=== PATIENT | female | born 1930 | race Caucasian/White ===

== ENCOUNTER 2017-04-02 14:26 | Inpatient (IN) | payer MEDICARE, OTHER ==
[~2017-04-02] VITALS: Ht 154.9 cm; Wt 64.5 kg
[2017-04-02 14:27] VITALS: BP 120/55; PULSE 71; RESP 16; TEMP 97.7; O2SAT 94
--- NOTE | 2017-04-02 16:42 | PD ---
HPI Chief Complaint: Edema Time Seen by Provider: 16:27 Travel History International Travel<30 days: No Contact w/Intl Traveler<30days: No Traveled to known affect area: No History of Present Illness HPI 86-year-old female came to the emergency room brought by her daughters with history of left foot pain. Patient says that the pain has been there since last Wednesday which makes it about 3 days. Patient is visiting her daughter is from [place] and was supposed to fly back today but since the pain is not getting better to force the mother to come to the emergency room to be evaluated. She does have history of peripheral vascular disease. As per the daughter she had bilateral iliac stents placed few years ago in [place] and sees a vascular surgeon there. Patient is on aspirin and Plavix. At the beginning of this year she had a carotid endarterectomy done as well. 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 The patient had chosen to go through conservative management. She was going to physical therapy for that. Currently because of the pain the daughters gave her tramadol before bringing her in. Patient is slightly groggy from that and not in as much agony. Vital signs are relatively stable. PFSH Past Medical History Narrative Medical List of her past medical, surgical, social and family history is reviewed from the nursing note. Social History Tobacco Use: No Allergies-Medications (Allergen,Severity, Reaction): Coded Allergies: Penicillins (Verified Allergy, Unknown, 04/02/17) Sulfa (Sulfonamide Antibiotics) (Verified Allergy, Unknown, 04/02/17) codeine (Verified Allergy, Unknown, 04/02/17) iodine (Verified Allergy, Unknown, 04/02/17) lidocaine (Verified Allergy, Unknown, 04/02/17) milk (Verified Allergy, Unknown, 04/02/17) sulfamethoxazole (Verified Allergy, Unknown, 04/02/17) triamcinolone (Verified Allergy, Unknown, 04/02/17) trimethoprim (Verified Allergy, Unknown, 04/02/17) Comments List of her allergies reviewed from the nursing note. Reported Meds & Prescriptions Reported Meds & Active Scripts Active Reported Plavix (Clopidogrel Bisulfate) 75 Mg Tab 75 Mg PO DAILY Atenolol-Chlorthalidone 100-25 Mg Tab 1 Tab PO DAILY Altace (Ramipril) 10 Mg Cap 10 Mg PO DAILY Aspirin 81 Mg Chew 81 Mg CHEW DAILY Potassium Chloride ER (Potassium Chloride) 20 Meq Tab 20 Meq PO DAILY Levothyroxine (Levothyroxine Sodium) 50 Mcg Tab 50 Mcg PO DAILY Combigan Opth Drops (Brimonidine-Timolol Opth Drops) 0.2-0.5% Soln 1 Drop EACH EYE Q12HR Lumigan Opth Drops (Bimatoprost) 0.01% Soln 1 Drop EACH EYE HS Narrative Medication List of her home medications reviewed from the nursing note. Review of Systems Except as stated in HPI: all other systems reviewed are Neg Musculoskeletal: Positive: Pain Physical Exam Narrative GENERAL: Groggy but answering questions appropriately, mild distress SKIN: Focused skin assessment warm/dry. Left leg appears to be hyperemic and congested but the left big toe and middle toe appears to be pale and dusky. Right leg appears to be pale than the left leg but uniformly discolored. HEAD: Atraumatic. Normocephalic. EYES: Pupils equal and round. No scleral icterus. No injection or drainage. ENT: No nasal bleeding or discharge. Mucous membranes pink and moist. NECK: Trachea midline. No JVD. CARDIOVASCULAR: Regular rate and rhythm. No murmur appreciated. RESPIRATORY: No accessory muscle use. Clear to auscultation. Breath sounds equal bilaterally. GASTROINTESTINAL: Abdomen soft, non-tender, nondistended. Hepatic and splenic margins not palpable. MUSCULOSKELETAL: No obvious deformities. No clubbing. No cyanosis. No edema. NEUROLOGICAL: Awake and alert. No obvious cranial nerve deficits. Motor grossly within normal limits. Normal speech. Bilateral DPs and PTs both palpable and dopplerable absent. PSYCHIATRIC: Appropriate mood and affect; insight and judgment normal. Data Data Last Documented VS Vital Signs Date Time Temp Pulse Resp B/P (MAP) Pulse Ox O2 Delivery O2 Flow Rate FiO2 04/02/17 16:53 60 16 144/62 (89) 98 Room Air 04/02/17 14:27 97.7 Orders Orders Complete Blood Count With Diff (04/02/17 14:47) Comprehensive Metabolic Panel (04/02/17 14:47) Prothrombin Time / Inr (Pt) (04/02/17 14:47) Act Partial Throm Time (Ptt) (04/02/17 14:47) Heparin Inj (Heparin Inj) (04/02/17 17:00) Heparin Inj (Heparin Inj) (04/02/17 23:00) Heparin Inj (Heparin Inj) (04/02/17 23:00) Heparin-D5w 25,000 U/250 Ml (Heparin-D5w (04/02/17 17:00) Cbc No Diff, Includes Plts (04/05/17 06:00) Act Partial Throm Time (Ptt) (04/02/17 23:51) Occult Blood (Hemoccult) Stool (04/02/17 16:51) Prednisone (Deltasone) (04/02/17 21:00) Prednisone (Deltasone) (04/03/17 03:00) Prednisone (Deltasone) (04/03/17 09:00) Diphenhydramine (Benadryl) (04/03/17 09:00) Cta Runoff W Iv Contrast W 3d (04/03/17 10:00) Admit Order (Ed Use Only) (04/02/17 18:33) Labs Laboratory Tests Test 04/02/17 15:37 White Blood Count 5.9 TH/MM3 Red Blood Count 4.88 MIL/MM3 Hemoglobin 14.3 GM/DL Hematocrit 43.1 % Mean Corpuscular Volume 88.2 FL Mean Corpuscular Hemoglobin 29.3 PG Mean Corpuscular Hemoglobin Concent 33.2 % Red Cell Distribution Width 14.1 % Platelet Count 222 TH/MM3 Mean Platelet Volume 8.7 FL Neutrophils (%) (Auto) 70.0 % Lymphocytes (%) (Auto) 22.0 % Monocytes (%) (Auto) 4.9 % Eosinophils (%) (Auto) 2.1 % Basophils (%) (Auto) 1.0 % Neutrophils # (Auto) 4.1 TH/MM3 Lymphocytes # (Auto) 1.3 TH/MM3 Monocytes # (Auto) 0.3 TH/MM3 Eosinophils # (Auto) 0.1 TH/MM3 Basophils # (Auto) 0.1 TH/MM3 CBC Comment DIFF FINAL Differential Comment Prothrombin Time 10.0 SEC Prothromb Time International Ratio 1.0 RATIO Activated Partial Thromboplast Time 28.1 SEC Blood Urea Nitrogen 23 MG/DL Creatinine 1.16 MG/DL Random Glucose 121 MG/DL Total Protein 7.1 GM/DL Albumin 3.4 GM/DL Calcium Level 9.2 MG/DL Alkaline Phosphatase 86 U/L Aspartate Amino Transf (AST/SGOT) 16 U/L Alanine Aminotransferase (ALT/SGPT) 16 U/L Total Bilirubin 0.4 MG/DL Sodium Level 136 MEQ/L Potassium Level 3.6 MEQ/L Chloride Level 101 MEQ/L Carbon Dioxide Level 29.4 MEQ/L Anion Gap 6 MEQ/L Estimat Glomerular Filtration Rate 44 ML/MIN MDM Medical Decision Making Medical Screen Exam Complete: Yes Emergency Medical Condition: Yes Medical Record Reviewed: Yes Differential Diagnosis Leg Arterial occlusion Narrative Course 5:46 PM I immediately diagnosed her clinically as arterial occlusion of her leg. Patient was started on heparin bolus and drip. I wanted to order a CT angiogram of her lower extremities but patient is allergic to iodine and hence cannot get an emergent CT without 12 hours of premedication as per [facility] policy. I discussed the case with Dr. Talamantes who was on-call for vascular surgery and came to see the patient promptly. He agreed with the diagnosis and the management so far in the ED. He was the patient to be admitted medically and he will try to operate on this patient early next week. Critical Care Narrative Aggregate critical care time was 30 minutes. Time to perform other separately billable procedures was not included in the critical care time. My time did not include minutes spent treating any other patients simultaneously or on activities that did not directly contribute to the patient's treatment. The services I provided to this patient were to treat and/or prevent clinically significant deterioration that could result in: Vascular occlusion of the leg, heparin bolus and drip I provided critical care services requiring my management, as noted below: Chart data review, documentation time, medication orders and management, vital sign assessments/reviewing monitor data, ordering and reviewing lab tests, ordering and interpreting/reviewing x-rays and diagnostic studies, care of the patient and discussion of the patient with the admitting physicians. Procedures EKG Prior to Arrival: No Physician Communication Physician Communication Dr. Talamantes Diagnosis Primary Impression: Ischemia of left lower extremity Admitting Information Admitting Physician Requests: Admit My Velázquez MD Apr 02, 2017 16:42
[2017-04-02 16:44] LABS: AUTOMATED NEUTROPHIL # 4.1 TH/MM3 (1.8-7.7); BASOPHIL # 0.1 TH/MM3 (0-0.2); EOSINOPHIL # 0.1 TH/MM3 (0-0.4); EOSINOPHIL % 2.1 % (0.0-4.0); HEMATOCRIT 43.1 % (35.0-46.0); HEMOGLOBIN 14.3 GM/DL (11.6-15.3); LYMPHOCYTE # 1.3 TH/MM3 (1.0-4.8); MEAN CELL VOLUME 88.2 FL (80.0-100.0); MEAN CORPUSCULAR HEMOGLOBIN 29.3 PG (27.0-34.0); MEAN CORPUSCULAR HGB CONC 33.2 % (32.0-36.0); MEAN PLATELET VOLUME 8.7 FL (7.0-11.0); MONO % 4.9 % (0.0-8.0); MONOCYTE # 0.3 TH/MM3 (0-0.9); PLATELET COUNT 222 TH/MM3 (150-450); RED BLOOD COUNT 4.88 MIL/MM3 (4.00-5.30); RED CELL DISTRIBUTION WIDTH 14.1 % (11.6-17.2); WHITE BLOOD COUNT 5.9 TH/MM3 (4.0-11.0)
[2017-04-02 16:53] VITALS: BP 144/62; PULSE 60; RESP 16; O2SAT 98
[2017-04-02] MEDS ORDERED: HEPARIN SODIUM - IV 10,000 UNITS/10 ML VIAL IV ONE (17:00)
[2017-04-02] MEDS: HEPARIN-D5W 25,000 U/250 ML 250 ML IV PRN (17:12)
[2017-04-02 17:16] LABS: ALBUMIN 3.4 GM/DL (3.4-5.0); ALT (GPT) 16 U/L (10-53); AST (GOT) 16 U/L (15-37); BICARBONATE 29.4 MEQ/L (21.0-32.0); BLOOD UREA NITROGEN 23 MG/DL (7-18); CALCIUM 9.2 MG/DL (8.5-10.1); CHLORIDE 101 MEQ/L (98-107); CREATININE 1.16 MG/DL (0.50-1.00); GLOMERULAR FILTRATION RATE 44 ML/MIN (>89); GLUCOSE,RANDOM 121 MG/DL (74-106); SODIUM (NA) 136 MEQ/L (136-145)
[2017-04-02 17:18] LABS: ALKALINE PHOSPHATASE 86 U/L (45-117); TOTAL BILIRUBIN ADULT 0.4 MG/DL (0.2-1.0); TOTAL PROTEIN 7.1 GM/DL (6.4-8.2)
[2017-04-02] MEDS ORDERED: ATEN100T7 PO (17:31)
[2017-04-02] MEDS ORDERED: COMB0.2S EACH EYE (17:31)
[2017-04-02] MEDS ORDERED: PLAV75TA29 PO (17:31)
[2017-04-02] MEDS ORDERED: ALTA10CA12 PO (17:31)
[2017-04-02] MEDS ORDERED: LEVO50TA4 PO (17:31)
[2017-04-02] MEDS ORDERED: POTA-163 PO (17:31)
[2017-04-02] MEDS ORDERED: LUMI0.01 EACH EYE (17:31)
[2017-04-02] MEDS ORDERED: ASPI-516 CHEW (17:31)
--- NOTE | 2017-04-02 17:54 | PD.VS.CON ---
History of Present Illness Chief Complaint: L LE pain Consult Requested by: ED History of Present Illness 86 yo female with multiple cardiovascular comorbidities who has 3-4 days of worsening L foot pain and now unable to bear weight on the foot. Good motor function. Much of the history obtained from the daughter at the patient's request. She apparently has a long history of PAD including iliac stents in 2009 for rest pain and more recently, symptomatic claudication. No ulcers. Past/Family/Social History Past Medical History CAD tobacco abuse PAD' CVOD Past Surgical History CABG pacer R CEA (Apr) iliac stents kidney surgery x 3 Social History stopped smoking 1 year ago 3 daughters lives in [place] farm Family History NC Home Medications Reported Medications Clopidogrel (Plavix) 75 Mg Tab, 75 MG PO DAILY for Blood Clot Prevention, #30 TAB 0 Refills 04/02/17 Atenolol-Chlorthalidone (Atenolol-Chlorthalidone) 100-25 Mg Tab, 1 TAB PO DAILY for Blood Pressure Management, #30 TAB 0 Refills 04/02/17 Ramipril (Altace) 10 Mg Cap, 10 MG PO DAILY, #30 CAP 0 Refills 04/02/17 Aspirin (Aspirin) 81 Mg Chew, 81 MG CHEW DAILY, TAB 0 Refills 04/02/17 Potassium Chloride ER (Potassium Chloride ER) 20 Meq Tab, 20 MEQ PO DAILY for Electrolyte Replacement, #30 TAB 0 Refills 04/02/17 Levothyroxine (Levothyroxine) 50 Mcg Tab, 50 MCG PO DAILY for Thyroid, #30 TAB 0 Refills 04/02/17 Brimonidine-Timolol Opth Drops (Combigan Opth Drops) 0.2-0.5% Soln, 1 DROP EACH EYE Q12HR for Glaucoma, BOTTLE 0 Refills 04/02/17 Bimatoprost Opth Drops (Lumigan Opth Drops) 0.01% Soln, 1 DROP EACH EYE HS for Intraocular Pressure, #1 BOTTLE 0 Refills 04/02/17 Coded Allergies: Penicillins (Verified Allergy, Unknown, 04/02/17) Sulfa (Sulfonamide Antibiotics) (Verified Allergy, Unknown, 04/02/17) codeine (Verified Allergy, Unknown, 04/02/17) iodine (Verified Allergy, Unknown, 04/02/17) lidocaine (Verified Allergy, Unknown, 04/02/17) milk (Verified Allergy, Unknown, 04/02/17) sulfamethoxazole (Verified Allergy, Unknown, 04/02/17) triamcinolone (Verified Allergy, Unknown, 04/02/17) trimethoprim (Verified Allergy, Unknown, 04/02/17) Review of Systems Respiratory: COMPLAINS OF: Shortness of breath, DENIES: Sputum production Cardiovascular: COMPLAINS OF: Claudication, DENIES: Chest pain Musculoskeletal: COMPLAINS OF: Muscle aches, Joint Swelling Neurologic: COMPLAINS OF: Abnormal gait Physical Exam Vitals/I&O Date Time Temp Pulse Resp B/P (MAP) Pulse Ox O2 Delivery O2 Flow Rate FiO2 04/02/17 16:53 60 16 144/62 (89) 98 Room Air 04/02/17 14:27 97.7 71 16 120/55 (76) 94 Room Air Neuro: alert, conversant, no distress HEENT: NC/AT Neck: no JVD; trachea midline; Heart: reg rate, no M Lungs: clear B Abdomen: NT Vascular: diminished femoral pulses, no pedal pulses Extremities: L foot edematous and cyanotic toes but no debbie tissue loss motor intact TTP bottom of feet at MTP Laboratory Tests Test 04/02/17 15:37 White Blood Count 5.9 Red Blood Count 4.88 Hemoglobin 14.3 Hematocrit 43.1 Mean Corpuscular Volume 88.2 Mean Corpuscular Hemoglobin 29.3 Mean Corpuscular Hemoglobin Concent 33.2 Red Cell Distribution Width 14.1 Platelet Count 222 Mean Platelet Volume 8.7 Neutrophils (%) (Auto) 70.0 Lymphocytes (%) (Auto) 22.0 Monocytes (%) (Auto) 4.9 Eosinophils (%) (Auto) 2.1 Basophils (%) (Auto) 1.0 Neutrophils # (Auto) 4.1 Lymphocytes # (Auto) 1.3 Monocytes # (Auto) 0.3 Eosinophils # (Auto) 0.1 Basophils # (Auto) 0.1 CBC Comment DIFF FINAL Differential Comment Prothrombin Time 10.0 Prothromb Time International Ratio 1.0 Activated Partial Thromboplast Time 28.1 Blood Urea Nitrogen 23 Creatinine 1.16 Random Glucose 121 Total Protein 7.1 Albumin 3.4 Calcium Level 9.2 Alkaline Phosphatase 86 Aspartate Amino Transf (AST/SGOT) 16 Alanine Aminotransferase (ALT/SGPT) 16 Total Bilirubin 0.4 Sodium Level 136 Potassium Level 3.6 Chloride Level 101 Carbon Dioxide Level 29.4 Anion Gap 6 Estimat Glomerular Filtration Rate 44 pending Assessment and Plan Plan Likely acute on chronic ischemia and likely multi-level 1. Admission to medical service with CV risk factor modification (ASA, statin) 2. CTA A/P to toes. I ordered steroid prep - she has had IV contrast before with no adverse reaction with the prep 3. Hep gtt and neurovasc checks 4. Will need revascularization - plan TBD based on anatomy delineated with CTA Will follow closely. Catracho Talamantes MD FACS [employer] health service worker [facility] - Heart and Vascular Surgery at [facility] [phone] Catracho Talamantes MD Apr 02, 2017 17:54
[2017-04-02 18:58] VITALS: BP 112/54; PULSE 66; RESP 15; O2SAT 95
[2017-04-02] MEDS ORDERED: SENNOSIDES 8.6 MG TAB PO PRN (19:00)
[2017-04-02] MEDS ORDERED: SODIUM CHLORIDE 0.9% FLUSH 10 ML FLUSH IV FLUSH PRN (19:00)
[2017-04-02] MEDS ORDERED: NALOXONE HCL 0.4 MG/ML AMP IV PUSH PRN (19:00)
[2017-04-02] MEDS ORDERED: LACTULOSE SYRUP 20 GM/30 ML CUP PO PRN (19:00)
[2017-04-02] MEDS ORDERED: BISACODYL 10 MG SUPP RECTAL PRN (19:00)
[2017-04-02] MEDS ORDERED: MAGNESIUM HYDROXIDE SUSP 30 ML CUP PO PRN (19:00)
--- NOTE | 2017-04-02 19:43 | HHI.HP ---
[facility] Non-Staff Admission Diagnosis leg ischemia Diagnoses: (1) Ischemia of left lower extremity Diagnosis: Principal (2) Renal insufficiency Diagnosis: Principal (3) HTN (hypertension) Diagnosis: Principal Travel History International Travel<30 Days: No Contact w/Intl Traveler <30 Da: No Traveled to Known Affected Are: No History of Present Illness This is an 86-year-old female with a PMH of HTN, Hyperlipidemia, PVD and Hypothyroidism who was brought to the ER by Her daughter secondary to complaints of left leg pain x3 days. Pt visiting Daughter from [place], was supposed to fly back home today, however cancelled her flight due to severe pain. Pain is sharp, constant, 10/10, s/p Tramadol w/ some relief. Pt does have h/o PVD, follows w/ Vascular Sx back home, apparently recommended surgery for bilateral lower extremity occlusion, however pt declined intervention. Denies fever, chills, chest pain or sick contacts. On arrival, BP 144/60, HR 60 , O2 sat 98% on RA, Afebrile. CBC unremarkable. Creatinine 1.16, no bruits labs for comparison. INR 1.0. Dr. Talamantes consulted by ER physician, s/p jose angel in ER w/ plan for surgical intervention. Currently on Heparin gtt. Review of Systems Except as stated in HPI: all other systems reviewed are Neg ROS: 14 point review of systems otherwise negative. Past Family Social History Past Medical History PMH: HTN, Hyperlipidemia, PVD and Hypothyroidism Past Surgical History PAST SURGICAL HISTORY: CABG, Pacemaker, CEA, Iliac Stent, Kidney Surgery Allergies: Coded Allergies: Penicillins (Verified Allergy, Unknown, 04/02/17) Sulfa (Sulfonamide Antibiotics) (Verified Allergy, Unknown, 04/02/17) codeine (Verified Allergy, Unknown, 04/02/17) iodine (Verified Allergy, Unknown, 04/02/17) lidocaine (Verified Allergy, Unknown, 04/02/17) milk (Verified Allergy, Unknown, 04/02/17) sulfamethoxazole (Verified Allergy, Unknown, 04/02/17) triamcinolone (Verified Allergy, Unknown, 04/02/17) trimethoprim (Verified Allergy, Unknown, 04/02/17) Family History PAST FAMILY HISTORY: Reviewed. No h/o DM or CAD Social History PAST SOCIAL HISTORY: Negative for alcohol, tobacco or drugs. Physical Exam Vital Signs Vital Signs Date Time Temp Pulse Resp B/P (MAP) Pulse Ox O2 Delivery O2 Flow Rate FiO2 04/02/17 18:58 66 15 112/54 (73) 95 Room Air 04/02/17 16:53 60 16 144/62 (89) 98 Room Air 04/02/17 14:27 97.7 71 16 120/55 (76) 94 Room Air Physical Exam PE: GENERAL: Elderly female in no acute distress. HEENT: PERRLA, EOMI. No scleral icterus or conjunctival pallor. No lid lag or facial droop. CARDIOVASCULAR: Regular rate and rhythm. No obvious murmurs to auscultation. No chest tenderness to palpation. RESPIRATORY: No obvious rhonchi or wheezing. Clear to auscultation. Breath sounds equal bilaterally. GASTROINTESTINAL: Abdomen soft, non-tender, nondistended. BS normal. MUSCULOSKELETAL: RLE without clubbing, cyanosis, or edema. No obvious deformities. LLE w/ diminished pulses, +cyanosis, cool. NEUROLOGICAL: Awake, alert and oriented x4. No focal neurologic deficits. Moving both upper and lower extremities spontaneously. Laboratory Laboratory Tests Test 04/02/17 15:37 White Blood Count 5.9 Red Blood Count 4.88 Hemoglobin 14.3 Hematocrit 43.1 Mean Corpuscular Volume 88.2 Mean Corpuscular Hemoglobin 29.3 Mean Corpuscular Hemoglobin Concent 33.2 Red Cell Distribution Width 14.1 Platelet Count 222 Mean Platelet Volume 8.7 Neutrophils (%) (Auto) 70.0 Lymphocytes (%) (Auto) 22.0 Monocytes (%) (Auto) 4.9 Eosinophils (%) (Auto) 2.1 Basophils (%) (Auto) 1.0 Neutrophils # (Auto) 4.1 Lymphocytes # (Auto) 1.3 Monocytes # (Auto) 0.3 Eosinophils # (Auto) 0.1 Basophils # (Auto) 0.1 CBC Comment DIFF FINAL Differential Comment Prothrombin Time 10.0 Prothromb Time International Ratio 1.0 Activated Partial Thromboplast Time 28.1 Blood Urea Nitrogen 23 Creatinine 1.16 Random Glucose 121 Total Protein 7.1 Albumin 3.4 Calcium Level 9.2 Alkaline Phosphatase 86 Aspartate Amino Transf (AST/SGOT) 16 Alanine Aminotransferase (ALT/SGPT) 16 Total Bilirubin 0.4 Sodium Level 136 Potassium Level 3.6 Chloride Level 101 Carbon Dioxide Level 29.4 Anion Gap 6 Estimat Glomerular Filtration Rate 44 Result Diagram: 04/02/17 1537 04/02/17 1537 Caprini VTE Risk Assessment Caprini VTE Risk Assessment: Mod/High Risk (score >= 2) Caprini Risk Assessment Model Point Value = 1 Point Value = 2 Point Value = 3 Point Value = 5 Age 41-60 Minor surgery BMI > 25 kg/m2 Swollen legs Varicose veins or History of unexplained or recurrent spontaneous Oral contraceptives or hormone replacement Sepsis (< 1 month) Serious lung disease, including pneumonia (< 1 month) Abnormal pulmonary function Acute myocardial infarction Congestive heart failure (< 1 month) History of inflammatory bowel disease Medical patient at bed rest Age 61-74 Arthroscopic surgery Major open surgery (> 45 min) Laparoscopic surgery (> 45 min) Malignancy Confined to bed (> 72 hours) Immobilizing plaster cast Central venous access Age >= 75 History of VTE Family history of VTE Factor V Leiden Prothrombin [id number] Lupus anticoagulant Anticardiolipin antibodies Elevated serum homocysteine Heparin-induced thrombocytopenia Other congenital or acquired thrombophilia Stroke (< 1 month) Elective arthroplasty Hip, pelvis, or leg fracture Acute spinal cord injury (< 1 month) Prophylaxis Regimen Total Risk Factor Score Risk Level Prophylaxis Regimen 0-1 Low Early ambulation 2 Moderate Order ONE of the following: *Sequential Compression Device (SCD) *Heparin 5000 units SQ BID 3-4 Higher Order ONE of the following medications: *Heparin 5000 units SQ TID *Enoxaparin/Lovenox 40 mg SQ daily (WT < 150 kg, CrCl > 30 mL/min) *Enoxaparin/Lovenox 30 mg SQ daily (WT < 150 kg, CrCl > 10-29 mL/min) *Enoxaparin/Lovenox 30 mg SQ BID (WT < 150 kg, CrCl > 30 mL/min) AND/OR *Sequential Compression Device (SCD) 5 or more Highest Order ONE of the following medications: *Heparin 5000 units SQ TID (Preferred with Epidurals) *Enoxaparin/Lovenox 40 mg SQ daily (WT < 150 kg, CrCl > 30 mL/min) *Enoxaparin/Lovenox 30 mg SQ daily (WT < 150 kg, CrCl > 10-29 mL/min) *Enoxaparin/Lovenox 30 mg SQ BID (WT < 150 kg, CrCl > 30 mL/min) AND *Sequential Compression Device (SCD) Assessment and Plan Problem List: (1) Ischemia of left lower extremity ICD Code: I99.8 - Other disorder of circulatory system Status: Acute (2) Renal insufficiency ICD Code: N28.9 - Disorder of kidney and ureter, unspecified (3) HTN (hypertension) ICD Code: I10 - Essential (primary) hypertension Assessment and Plan A/P: 1. LLE Limb Ischemia: h/o PVD w/ acute LLE limb ischemia, pulses diminished. S/p eval by Dr. Talamantes, plan for surgical intervention. Heparin gtt, resume home ASA, start Statin. Analgesics as needed for pain control. CTA pending, follow up results. 2. Renal Insufficiency: Creatinine 1.16, no previous labs for comparison. IVF for hydration, repeat labs in a.m. 3. HTN: BP elevated at 140s on arrival. Hold Ramipril in light of renal insufficiency. Start Metoprolol bid. Monitor BP. 4. DVT Prophylaxis: Heparin gtt 5. Social work for d/c planning as needed. 6. Labs/records reviewed. Case discussed w/ ER physician at length. Physician Certification 2 Midnight Certification Type: Admission for Inpatient Services Order for Inpatient Services The services are ordered in accordance with Medicare regulations or non- Medicare payer requirements, as applicable. In the case of services not specified as inpatient-only, they are appropriately provided as inpatient services in accordance with the 2-midnight benchmark. Estimated LOS (days): 2 days is the estimated time the patient will need to remain in the hospital, assuming treatment plan goals are met and no additional complications. Post-Hospital Plan: Not yet determined Kenisha Mancilla MD Apr 02, 2017 19:43
[2017-04-02 20:00] VITALS: BP 143/65; PULSE 76; RESP 17; TEMP 97.3; O2SAT 92
[2017-04-02] MEDS: SODIUM CHLORIDE 0.9% FLUSH 10 ML FLUSH IV FLUSH SCH (21:00)
[2017-04-02] MEDS ORDERED: predniSONE 50 MG TAB PO ONE (21:00)
[2017-04-02] MEDS: LATANOPROST 0.005% OPHT SOLN 2.5 ML BTL EACH EYE SCH (21:29)
[2017-04-02] MEDS: predniSONE 50 MG TAB PO ONE (21:30)
[2017-04-02] MEDS: MORPHINE SULFATE 2 MG/ML INJ IV PRN (23:00)
[2017-04-02] MEDS ORDERED: HEPARIN SODIUM - IV 10,000 UNITS/10 ML VIAL IV PRN ×2 (23:00)
[2017-04-03] VITALS: BP 140/52; PULSE 75; RESP 16; TEMP 98; O2SAT 91
[2017-04-03] MEDS: predniSONE 50 MG TAB PO ONE (03:01)
[2017-04-03] MEDS: MORPHINE SULFATE 2 MG/ML INJ IV PRN (03:02)
[2017-04-03 04:00] VITALS: BP 145/65; PULSE 77; RESP 16; TEMP 97.4; O2SAT 92
[2017-04-03] MEDS: LEVOTHYROXINE SODIUM 50 MCG TAB PO SCH (05:50)
[2017-04-03 08:00] VITALS: BP 145/64; PULSE 71; RESP 16; TEMP 96.4; O2SAT 98
--- NOTE | 2017-04-03 08:33 | PD.VS.PN ---
Subjective Subjective/Hospital Course Pt with persistent L foot pain although somewhat better according to the patient. Tri po remains on hep gtt. Objective Vitals/I&O Date Time Temp Pulse Resp B/P (MAP) Pulse Ox O2 Delivery O2 Flow Rate FiO2 04/03/17 08:00 96.4 71 16 145/64 (91) 98 04/03/17 04:00 97.4 77 16 145/65 (91) 92 04/03/17 00:00 98.0 75 16 140/52 (81) 91 04/02/17 20:26 04/02/17 20:00 97.3 76 17 143/65 (91) 92 04/02/17 18:58 66 15 112/54 (73) 95 Room Air 04/02/17 16:53 60 16 144/62 (89) 98 Room Air 04/02/17 14:27 97.7 71 16 120/55 (76) 94 Room Air 04/03/17 04/03/17 04/03/17 07:00 15:00 23:00 Intake Total 240 ml Balance 240 ml Physical Exam L foot less edematous than last night. + dependent rubor. Motor intact. No pulses Laboratory Laboratory Tests Test 04/02/17 15:37 04/02/17 23:35 White Blood Count 5.9 Red Blood Count 4.88 Hemoglobin 14.3 Hematocrit 43.1 Mean Corpuscular Volume 88.2 Mean Corpuscular Hemoglobin 29.3 Mean Corpuscular Hemoglobin Concent 33.2 Red Cell Distribution Width 14.1 Platelet Count 222 Mean Platelet Volume 8.7 Neutrophils (%) (Auto) 70.0 Lymphocytes (%) (Auto) 22.0 Monocytes (%) (Auto) 4.9 Eosinophils (%) (Auto) 2.1 Basophils (%) (Auto) 1.0 Neutrophils # (Auto) 4.1 Lymphocytes # (Auto) 1.3 Monocytes # (Auto) 0.3 Eosinophils # (Auto) 0.1 Basophils # (Auto) 0.1 CBC Comment DIFF FINAL Differential Comment Prothrombin Time 10.0 Prothromb Time International Ratio 1.0 Activated Partial Thromboplast Time 28.1 55.3 Blood Urea Nitrogen 23 Creatinine 1.16 Random Glucose 121 Total Protein 7.1 Albumin 3.4 Calcium Level 9.2 Alkaline Phosphatase 86 Aspartate Amino Transf (AST/SGOT) 16 Alanine Aminotransferase (ALT/SGPT) 16 Total Bilirubin 0.4 Sodium Level 136 Potassium Level 3.6 Chloride Level 101 Carbon Dioxide Level 29.4 Anion Gap 6 Estimat Glomerular Filtration Rate 44 Assessment and Plan Plan Severe PAD, likely multi-level 1. Continue hep gtt 2. Continue ASA, statin 3. CTA A/P to toes today. Steroid prep ordered last night 4. Will plan revascularization based on CTA, potentially tomorrow (Wednesday) Catracho Talamantes MD FACS [employer] knife cutter [facility] - Heart and Vascular Surgery at [facility] [phone] Catracho Talamantes MD Apr 03, 2017 08:33
[2017-04-03] MEDS: SODIUM CHLORIDE 0.9% FLUSH 10 ML FLUSH IV FLUSH SCH ×2 (08:34→21:00)
[2017-04-03] MEDS: PRAVASTATIN SOD 40 MG TAB PO SCH (08:56)
[2017-04-03] MEDS: ASPIRIN 81 MG CHEW TAB CHEW SCH (08:56)
[2017-04-03 08:57] LABS: ALBUMIN 3.1 GM/DL (3.4-5.0); ALT (GPT) 11 U/L (10-53); AST (GOT) 13 U/L (15-37); BICARBONATE 21.9 MEQ/L (21.0-32.0); BLOOD UREA NITROGEN 20 MG/DL (7-18); CALCIUM 8.9 MG/DL (8.5-10.1); CHLORIDE 101 MEQ/L (98-107); CREATININE 0.87 MG/DL (0.50-1.00); GLOMERULAR FILTRATION RATE 61 ML/MIN (>89); GLUCOSE,RANDOM 164 MG/DL (74-106); SODIUM (NA) 135 MEQ/L (136-145)
[2017-04-03 09:00] LABS: ALKALINE PHOSPHATASE 78 U/L (45-117); TOTAL BILIRUBIN ADULT 0.3 MG/DL (0.2-1.0); TOTAL PROTEIN 6.9 GM/DL (6.4-8.2)
[2017-04-03] MEDS ORDERED: diphenhydrAMINE HCL 50 MG CAP PO ONE (09:00)
[2017-04-03] MEDS ORDERED: BRIMONIDINE TIMOLOL OPTH EACH EYE SCH (09:00)
[2017-04-03] MEDS ORDERED: METOPROLOL TARTRATE 25 MG TAB PO SCH (09:00)
[2017-04-03] MEDS ORDERED: predniSONE 50 MG TAB PO ONE (09:00)
[2017-04-03] MEDS ORDERED: IOHEXOL 350 MG/ML 10 ML VIAL (for RAD DIAG) IVCONTRAST ONE (10:30)
--- NOTE | 2017-04-03 11:56 | HHI.PR ---
Subjective Remarks Follow-up for left lower extremity pain Patient stated pain has improved drastically. Her daughter is at the bedside, who is a nurse and she stated that the coloration and her symptoms have improved drastically with a heparin drip. Objective Vitals Vital Signs Date Time Temp Pulse Resp B/P (MAP) Pulse Ox O2 Delivery O2 Flow Rate FiO2 04/03/17 08:00 96.4 71 16 145/64 (91) 98 04/03/17 04:00 97.4 77 16 145/65 (91) 92 04/03/17 00:00 98.0 75 16 140/52 (81) 91 04/02/17 20:26 04/02/17 20:00 97.3 76 17 143/65 (91) 92 04/02/17 18:58 66 15 112/54 (73) 95 Room Air 04/02/17 16:53 60 16 144/62 (89) 98 Room Air 04/02/17 14:27 97.7 71 16 120/55 (76) 94 Room Air I/O 04/02/17 04/02/17 04/02/17 04/03/17 04/03/17 04/03/17 07:00 15:00 23:00 07:00 15:00 23:00 Intake Total 240 ml Balance 240 ml Intake Oral 240 ml # Voids 1 Result Diagram: 04/02/17 1537 04/03/17 0635 Objective Remarks GENERAL: in NAD CARDIOVASCULAR: Regular rate and rhythm without murmurs, gallops, or rubs. RESPIRATORY: Breath sounds equal bilaterally. No accessory muscle use. GASTROINTESTINAL: Abdomen soft, non-tender, nondistended. MUSCULOSKELETAL: No cyanosis, or edema. B/L faint pulses Medications and IVs Current Medications Heparin Sodium (Porcine) (Heparin Inj) 5,000 units ONCE ONCE IV Last administered on 04/02/17t 17:09; Start 04/02/17 at 17:00; Stop 04/02/17 at 17 :09; Status DC Heparin Sodium (Porcine) (Heparin Inj) 5,000 units UNSCH PRN IV APTT LESS THAN 25; Start 04/02/17 at 23:00 Heparin Sodium (Porcine) (Heparin Inj) 2,500 units UNSCH PRN IV APTT 25 TO 39; Start 04/02/17 at 23:00 Heparin Sodium/ Dextrose 250 ml @ 7 mls/hr TITRATE PRN IV Coagulation Management Last administered on 04/02/17 17:12; Start 04/02/17 at 17:00 Prednisone (Deltasone) 50 mg ONCE ONCE PO Last administered on 04/02/17 21: 31; Start 04/02/17 at 21:00; Stop 04/02/17 at 21:01; Status DC Prednisone (Deltasone) 50 mg ONCE ONCE PO Last administered on 04/03/17 03: 01; Start 04/03/17 at 03:00; Stop 04/03/17 at 03:01; Status DC Prednisone (Deltasone) 50 mg ONCE ONCE PO Last administered on 04/03/17 08: 56; Start 04/03/17 at 09:00; Stop 04/03/17 at 09:01; Status DC Diphenhydramine HCl (Benadryl) 50 mg ONCE ONCE PO Last administered on 08:56; Start 04/03/17 at 09:00; Stop 04/03/17 at 09:01; Status DC Sodium Chloride (NS Flush) 2 ml UNSCH PRN IV FLUSH FLUSH AFTER USING IV ACCESS ; Start 04/02/17 at 19:00 Sodium Chloride (NS Flush) 2 ml BID IV FLUSH ; Start 04/02/17 at 21:00 Acetaminophen (Tylenol) 650 mg Q4H PRN PO TEMP > 100.4; Start 04/02/17 at 19: 00 Ondansetron HCl (Zofran Inj) 4 mg Q6H PRN IVP NAUSEA OR VOMITING; Start at 19:00 Naloxone HCl (Narcan Inj) 0.4 mg UNSCH PRN IV PUSH SEE LABEL COMMENTS; Start 04/02/17 at 19:00 Magnesium Hydroxide (Milk Of Magnesia Liq) 30 ml Q12H PRN PO Mild constipation ; Start 04/02/17 at 19:00 Sennosides (Senokot) 17.2 mg Q12H PRN PO Moderate constipation; Start at 19:00 Bisacodyl (Dulcolax Supp) 10 mg DAILY PRN RECTAL SEVERE CONSITIPATION; Start 04/02/17 at 19:00 Lactulose (Lactulose Liq) 30 ml DAILY PRN PO SEVERE CONSITIPATION; Start 04/02 at 19:00 Morphine Sulfate (Morphine Inj) 2 mg Q3H PRN IV PAIN 6-10 Last administered on 04/03/17 03:02; Start 04/02/17 at 19:45 Levothyroxine Sodium (Synthroid) 50 mcg DAILY@0600 PO Last administered on 05:50; Start 04/03/17 at 06:00 Latanoprost (Xalatan 0.005% Opt Soln) 1 drop HS EACH EYE Last administered on 04/02/17 21:29; Start 04/02/17 at 21:00 Patient Own Medication PT OWN MED: Brimonidine-Timolol Opth . Q12HR EACH EYE ; Start 04/03/17 at 09:00; Status Future Hold Pravastatin Sodium (Pravachol) 40 mg DAILY PO Last administered on 04/03/17 08:56; Start 04/03/17 at 09:00 Aspirin (Aspirin Chew) 81 mg DAILY CHEW Last administered on 04/03/17 08:56; Start 04/03/17 at 09:00 Metoprolol Tartrate (Lopressor) 25 mg Q12HR PO Last administered on 04/03/17 08:56; Start 04/03/17 at 09:00 Iohexol (Omnipaque 350 Inj) 100 ml STK-MED ONCE IVCONTRAST Last administered on 04/03/17 10:30; Start 04/03/17 at 10:30; Stop 04/03/17 at 10:31; Status DC A/P Problem List: (1) Ischemia of left lower extremity ICD Code: I99.8 - Other disorder of circulatory system Status: Acute (2) Renal insufficiency ICD Code: N28.9 - Disorder of kidney and ureter, unspecified (3) HTN (hypertension) ICD Code: I10 - Essential (primary) hypertension Assessment and Plan This is an 86-year-old female who presented with left lower extremity pain LLE Limb Ischemia: - h/o PVD w/ acute LLE limb ischemia, pulses diminished but has improved. - Dr. Talamantes consulted and stated that we'll do a CTA and based on results will determine if patient needs revascularization. -Continue heparin drip, aspirin and statin. mild Renal Insufficiency: - Creatinine on initial presentation 1.16, no previous labs for comparison. -Resolved. HTN -Will restart patient's metoprolol. DVT Prophylaxis: Heparin gtt Discharge Planning Possible revascularization tomorrow. Katie Bell MD Apr 03, 2017 11:56
[2017-04-03 12:00] VITALS: BP 171/74; PULSE 74; RESP 17; TEMP 97.4; O2SAT 94
[2017-04-03] MEDS ORDERED: BRINZOLAMIDE 1% EACH EYE SCH (12:00)
[2017-04-03] MEDS ORDERED: POTASSIUM CHLORIDE 25 MEQ EFFERVESCENT TAB PO ONE (12:00)
--- NOTE | 2017-04-03 12:07 | PD.VS.PN ---
Pre-operative Note Pre-operative diagnosis: L LE acute on chronic limb ischemia, PAD Planned procedure: LEFT groin reconstruction, angiogram with possible endovascular intervention and possible distal bypass Interval History: Pt adm with L LE pain, motor intact. CTA showed iliac ISR, L MEAT PROCESSING CENTER MANAGER occlusion and SFA/popliteal occlusion Labs: Laboratory Results Test 04/02/17 15:37 04/03/17 06:35 Hematocrit 43.1 % (35.0-46.0) Hemoglobin 14.3 GM/DL (11.6-15.3) Mean Corpuscular Hemoglobin 29.3 PG (27.0-34.0) Mean Corpuscular Hemoglobin Concent 33.2 % (32.0-36.0) Mean Corpuscular Volume 88.2 FL (80.0-100.0) Mean Platelet Volume 8.7 FL (7.0-11.0) Platelet Count 222 TH/MM3 (150-450) Prothromb Time International Ratio 1.0 RATIO Red Blood Count 4.88 MIL/MM3 (4.00-5.30) Red Cell Distribution Width 14.1 % (11.6-17.2) White Blood Count 5.9 TH/MM3 (4.0-11.0) Anion Gap 12 MEQ/L (5-15) Blood Urea Nitrogen 20 MG/DL (7-18) Creatinine 0.87 MG/DL (0.50-1.00) Random Glucose 164 MG/DL (74-106) Total Protein 6.9 GM/DL (6.4-8.2) Albumin 3.1 GM/DL (3.4-5.0) Calcium Level 8.9 MG/DL (8.5-10.1) Alkaline Phosphatase 78 U/L (45-117) Aspartate Amino Transf (AST/SGOT) 13 U/L (15-37) Alanine Aminotransferase (ALT/SGPT) 11 U/L (10-53) Total Bilirubin 0.3 MG/DL (0.2-1.0) Sodium Level 135 MEQ/L (136-145) Potassium Level 3.0 MEQ/L (3.5-5.1) Chloride Level 101 MEQ/L (98-107) Carbon Dioxide Level 21.9 MEQ/L (21.0-32.0) Blood: T&S Imaging: CTA reviewed Orders: NPO after MN will give steroids and Vanc OCTOR MIVF with HCO3 overnight Post-operative destination: [facility] Operative site marked: Yes Consent: Informed consent has been obtained from Allegra Araujo. I have explained the procedure in detail and discussed the risks, benefits, and potential complications. All questions have been answered. Patient contact information: DaughterMavis [phone] Catracho Talamantes MD Apr 03, 2017 12:07
[2017-04-03] MEDS: RAMIPRIL 5 MG CAP PO SCH (12:10)
--- NOTE | 2017-04-03 14:45 | RADRPT ---
EXAM DATE/TIME: 04/03/2017 10:12 [facility] COMPARISON: No previous studies available for comparison. INDICATIONS : PAD, Left foot is red and painful. IV CONTRAST: 100 cc Omnipaque 350 (iohexol) IV RADIATION DOSE: 1.71 CTDIvol (mGy) MEDICAL HISTORY : Cardiovascular disease. Cerebrovascular disease. Hypercholesterolemia.HTN,Hypothyroid. SURGICAL HISTORY : Carotid endarterectomy. Multiple stents. ENCOUNTER: Initial ACUITY: 2 days PAIN SCALE: 6/10 LOCATION: Left foot TECHNIQUE: Volumetric scanning was performed using a multi-row detector CT scanner. The data was post processed with a variety of visualization algorithms including full volume maximum intensity projection, multi -planar sliding thin slab reformation, curved planar reformation, and surface rendering techniques. Using automated exposure control and adjustment of the mA and/or kV according to patient size, radiat ion dose was kept as low as reasonably achievable to obtain optimal diagnostic quality images. DICO M format image data is available electronically for review and comparison. FINDINGS: AORTA: Infrarenal aorta is tortuous with bilobed fusiform aneurysm. The proximal sac contains a small amount of posterior mural thrombus and measures up to 3.2 cm. Intervening segment is moderately stenosed an d heavily calcified with lumen measuring 7 mm. The distal sac measures 2.8 cm. VISCERAL ARTERIES: 2 left renal arteries. Severe stenosis of the superior pole renal artery. Moderate stenosis of the in ferior left renal artery. Mild to moderate stenosis of the right renal artery. Heavily calcified lynsey ac origin with likely moderate stenosis. Mixed plaque at the SMA origin with likely moderate stenosis . AMINA appears occluded RIGHT LEG: INFLOW: Kissing common iliac artery stent extending to external iliac artery stent which terminates at the ve ry distal external iliac artery. Stents appear patent. Heavily calcified internal air artery. Eccentr ic calcified plaque throughout the common femoral artery with resultant diffuse moderate stenosis. OUTFLOW: Profunda is patent. SFA is occluded at the origin and reconstitutes in the distal thigh via profunda collaterals. Distal SFA and vienu-yhe-knkv popliteal arteries are diffusely diseased. The popliteal a rtery is small in caliber but patent at the level of the knee RUNOFF: Two-vessel runoff via the anterior tibial and peroneal arteries with reconstitution of the posterior tibia artery via peroneal collateral at the ankle. LEFT LEG: INFLOW: Kissing common iliac artery stent extending to the mid external iliac artery. Stent appears patent. D iffusely diseased internal and artery. Eccentric calcified plaque throughout the common femoral arter y with resultant diffuse moderate stenosis. OUTFLOW: Plaque extends to the origin of the profunda with likely moderate to severe profunda origin stenosis. SFA is diffusely diseased and occluded in the proximal thigh although it reconstitutes in parts. The re is reconstitution at the abductor canal. Above-knee popliteal artery small in caliber and heavily calcified. Below knee popliteal artery is patent although small in caliber at the level of the knee. RUNOFF: Two-vessel runoff via the anterior tibial and peroneal arteries. Acute urinary appears to be occluded in the distal calf with collateral supply from peroneal artery to the dorsal arch. GENERAL FINDINGS: Visualized lung bases demonstrate mild radiopaque opacities consistent with scarring/atelectasis. Katerina luation of the abdominal viscera is limited due to arterial phase technique. Liver, spleen, and adren al glands are grossly unremarkable. Gallbladder is decompressed. The common bile duct is not dilated measuring up to 7 mm. However, there is a 3 mm calcified density seen apparently in the distal CBD ne ar the ampulla. There is minimal proximal pancreatic ductal dilatation. Pancreas otherwise appears un remarkable. Superior pole of the left kidney is atrophic likely secondary to chronic renal artery rajesh nosis. There are multiple calyceal calculi in the left kidney with the largest in the inferior pole m easuring 13 mm. Probable extrarenal pelvis on the right. Right kidney is otherwise unremarkable. Mode rate sigmoid diverticulosis without significant inflammatory change. Bowel is otherwise unremarkable. No significant free fluid or drainable fluid collection. Bladder is decompressed but otherwise unremarkable. Prostate and seminal vesicles are within normal l imits. No focal lytic or blastic bony lesions. CONCLUSION: 1. 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 Proximal sac measures 3.2 cm and distal sac measures 2.8 cm. Intervening segment measures 7 mm. 2. CTA runoff, as above. 3. 3 mm calcified density seen apparently in the distal CBD near the ampulla without significant CBD dilatation and sulcal prominence of the proximal pancreatic duct. Further evaluation may be performed with MRCP as clinically warranted. 4. 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 5. Multiple nonobstructing left renal calyceal calculi with the largest measuring 13 mm in the inferi or pole of the left kidney. 6. Moderate sigmoid diverticulosis. Jose Luis Vela MD on April 03, 2017 at 14:23 Board Certified Radiologist. This report was verified electronically.
[2017-04-03 16:00] VITALS: BP 129/60; PULSE 66; RESP 17; TEMP 96.5; O2SAT 93
--- NOTE | 2017-04-03 17:13 | RADRPT ---
EXAM DATE/TIME: 04/03/2017 00:00 [facility] COMPARISON: No previous studies available for comparison. INDICATIONS : Left Leg Ischemia TECHNIQUE: Four-cuff ankle and brachial pressures were obtained. Pulse cuff waveform tracings of the ankles were recorded, and ankle-brachial indices were calculated. PRESSURES (mmHg): Brachial (arm): Right IV SITE Left 143 Ankle: Right 70 Left 29 JOSE A: Right 0.49 Left 0.20 TBI: Right 0.35 Left 0.00 PULSED CUFF WAVEFORMS: Demonstrate normal amplitude bilaterally. CONCLUSION: Unremarkable ankle brachial indices. Matthew Leblanc MD on April 03, 2017 at 17:11 Board Certified Radiologist. This report was verified electronically.
[2017-04-03 20:00] VITALS: BP 170/71; PULSE 72; RESP 18; TEMP 98.9; O2SAT 96
[2017-04-03] MEDS: LATANOPROST 0.005% OPHT SOLN 2.5 ML BTL EACH EYE SCH (21:03)
--- NOTE | 2017-04-03 22:05 | EKG ---
Date Performed: 04/03/2017 Time Performed: 14:22:47 PTAGE: 86 years EKG: ELECTRONIC VENTRICULAR PACEMAKER ABNORMAL RHYTHM ECG NO PREVIOUS TRACING DOCTOR: Olivier Falk Interpretating Date/Time 04/03/2017 22:04:51
[2017-04-03] MEDS: SODIUM BICARBONATE 8.4% INJ 100 MEQ in DEXTROSE 5% IN WATE 1000ML INJ 1,000 ML IV SCH ×2 (22:23)
[2017-04-03] MEDS: HEPARIN-D5W 25,000 U/250 ML 250 ML IV PRN (22:27)
[2017-04-04] VITALS (8 sets, daily range): BP systolic 99–189; BP diastolic 53–75; PULSE 59–68; RESP 16–18; TEMP 95.2–97.9; O2SAT 91–98
[2017-04-04] MEDS: MORPHINE SULFATE 2 MG/ML INJ IV PRN ×2 (00:03→12:38)
[2017-04-04] MEDS ORDERED: NIFEdipine 30 MG SUSTAINED RELEASE TAB PO ONE (05:00)
[2017-04-04] MEDS: LEVOTHYROXINE SODIUM 50 MCG TAB PO SCH (05:11)
[2017-04-04 06:21] LABS: BICARBONATE 24.5 MEQ/L (21.0-32.0); CALCIUM 8.5 MG/DL (8.5-10.1); CREATININE 0.77 MG/DL (0.50-1.00)
[2017-04-04] MEDS ORDERED: fentaNYL CITRATE 250 MCG/5 ML AMP ONE (07:16)
--- NOTE | 2017-04-04 07:16 | HHI.PR ---
Subjective Remarks Patient seen and examined this morning. Vitals overall stable except for some elevated blood pressures noted this morning. States her left heel feels better. Family at bedside. Going for procedure at 8am. Denies CP or difficulty breathing. Objective Vital Signs Date Time Temp Pulse Resp B/P (MAP) Pulse Ox O2 Delivery O2 Flow Rate FiO2 04/04/17 04:00 97.9 66 18 178/72 (107) 91 04/04/17 00:00 96.5 68 18 178/74 (108) 96 04/03/17 20:00 98.9 72 18 170/71 (104) 96 04/03/17 16:00 96.5 66 17 129/60 (83) 93 04/03/17 12:00 97.4 74 17 171/74 (106) 94 04/03/17 08:00 96.4 71 16 145/64 (91) 98 I/O 04/03/17 04/03/17 04/03/17 04/04/17 04/04/17 04/04/17 07:00 15:00 23:00 07:00 15:00 23:00 Intake Total 240 ml 850 ml 720 ml Output Total 950 ml Balance 240 ml -100 ml 720 ml Intake Oral 240 ml 600 ml 720 ml IV Total 250 ml Output Urine Total 950 ml # Voids 1 3 # Bowel Movements 0 0 Result Diagram: 04/02/17 1537 04/04/17 0531 Imaging Last Impressions Aorta w/Runoff CTA 04/03/17 1000 Signed Impressions: Service Date/Time: Monday, April 03, 2017 10:12 - CONCLUSION: 1. 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 Proximal sac measures 3.2 cm and distal sac measures 2.8 cm. Intervening segment measures 7 mm. 2. CTA runoff, as above. 3. 3 mm calcified density seen apparently in the distal CBD near the ampulla without significant CBD dilatation and sulcal prominence of the proximal pancreatic duct. Further evaluation may be performed with MRCP as clinically warranted. 4. 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 5. Multiple nonobstructing left renal calyceal calculi with the largest measuring 13 mm in the inferior pole of the left kidney. 6. Moderate sigmoid diverticulosis. Jose Luis Vela MD Objective Remarks GENERAL: well appearing elderly female, sitting up in bed NAD SKIN: Warm and dry. HEAD: Normocephalic. EYES: No scleral icterus. No injection or drainage. NECK: Supple, trachea midline. No JVD or lymphadenopathy. CARDIOVASCULAR: Regular rate and rhythm, murmur heard over aortic valve, gallops , or rubs. RESPIRATORY: Breath sounds equal bilaterally. No accessory muscle use. GASTROINTESTINAL: Abdomen soft, non-tender, nondistended. MUSCULOSKELETAL: No cyanosis, or edema. No calf tenderness. BACK: Nontender without obvious deformity. A/P Problem List: (1) Ischemia of left lower extremity ICD Code: I99.8 - Other disorder of circulatory system Status: Acute (2) Renal insufficiency ICD Code: N28.9 - Disorder of kidney and ureter, unspecified (3) HTN (hypertension) ICD Code: I10 - Essential (primary) hypertension Assessment and Plan This is an 86-year-old female who presented with left lower extremity pain LLE Limb Ischemia: - h/o PVD w/ acute LLE limb ischemia, pulses diminished but has improved. - Dr. Talamantes consulted and CTA showed iliac ISR, L COUNCIL MEMBER occlusion and SFA/ popliteal occlusion - Plans left groin reconstruction, angiogram with possible endovascular intervention and possible distal bypass - She has been nothing by mouth since midnight mild Renal Insufficiency: - Creatinine on initial presentation 1.16, no previous labs for comparison. - Resolved. HTN -Will restart patient's metoprolol. Discharge Planning Revascularization today, discharge pending this. Ayla Nowak MD Apr 04, 2017 07:16
[2017-04-04] MEDS ORDERED: THROMBIN (TOPICAL) 20,000 UNIT SPRAY KIT ONE (07:36)
[2017-04-04] MEDS ORDERED: PROTAMINE SULFATE 50 MG/5 ML VIAL ONE (07:36)
[2017-04-04] MEDS ORDERED: HEPARIN-NS/PF INJ 500 ML ONE (07:36)
[2017-04-04] MEDS ORDERED: HEPARIN SODIUM - IV 10,000 UNITS/10 ML VIAL ONE (07:36)
[2017-04-04] MEDS ORDERED: BUPIVACAINE HCL PF 0.5% 30 ML VIAL ONE (07:36)
[2017-04-04] MEDS ORDERED: VANCOMYCIN HCL 1000 MG VIAL ONE (07:38)
[2017-04-04] MEDS ORDERED: methylPREDNISolone SOD SUCC 125 MG/2 ML VIAL ONE (07:38)
[2017-04-04] MEDS: ASPIRIN 81 MG CHEW TAB CHEW SCH (08:34)
[2017-04-04] MEDS: RAMIPRIL 5 MG CAP PO SCH (08:35)
[2017-04-04] MEDS ORDERED: diphenhydrAMINE HCL 50 MG/ML VIAL ONE (08:35)
[2017-04-04] MEDS: METOPROLOL TARTRATE 25 MG TAB PO SCH ×2 (08:35→20:20)
[2017-04-04] MEDS: SODIUM CHLORIDE 0.9% FLUSH 10 ML FLUSH IV FLUSH SCH ×2 (08:35→20:20)
[2017-04-04] MEDS: PRAVASTATIN SOD 40 MG TAB PO SCH (08:35)
--- NOTE | 2017-04-04 10:55 | HHI.PR ---
cc: Cartacho Talamantes MD Immediate Post Op Note Procedure Date: Apr 04, 2017 Pre Op Diagnosis: L LE PAD, critical limb ischemia Post Op Diagnosis: L LE PAD, critical limb ischemia Surgeon: Catracho Talamantes Senior Stack Engineer(s): Johanne Andino Procedure: 1. L iliofemoral bypass with 8mm Dacron 2. L profunda endarterectomy 3. Aortogram w/ L LE angiogram 4. L SFA/popliteal angioplasty (5mm) Findings: 1. Patent but small iliac stents 2. Occluded CALENDERER, replaced 3. Stenosis of PFA, successful endarterectomy with palpable PFA pulse 4. Occlusion of SFA/pop with reconstitution at BK pop, successful recanalization and CONTROLLER INSTRUCTOR 5. AT/peroneal runoff Additional Information: good DP Doppler signal after case Complications: none Specimen(s) removed: none for pathology Estimated blood loss: 150mL Anesthesia: General Drains: None Fluids: 1600mL IVF Urinary Output (mLs): 750 Patient to: PACU Patient Condition: Good Implant/Devices: SEE IMPLANT LOG (if applicable) Date/Time of Procedure: SEE SURGICAL CARE RECORD Catracho Talamantes MD Apr 04, 2017 10:55
[2017-04-04] MEDS ORDERED: IOHEXOL 300 MG/ML 100 ML BTL (for Rad CT) IVCONTRAST ONE (10:56)
[2017-04-04] MEDS ORDERED: DO NOT ADM ANY ANTICOAGULANT DRUGS PRN (11:18)
[2017-04-04 11:43] LABS: HEMATOCRIT 36.7 % (35.0-46.0); HEMOGLOBIN 12.5 GM/DL (11.6-15.3); MEAN CELL VOLUME 86.9 FL (80.0-100.0); MEAN CORPUSCULAR HEMOGLOBIN 29.6 PG (27.0-34.0); MEAN CORPUSCULAR HGB CONC 34.1 % (32.0-36.0); MEAN PLATELET VOLUME 8.3 FL (7.0-11.0); PLATELET COUNT 192 TH/MM3 (150-450); RED BLOOD COUNT 4.22 MIL/MM3 (4.00-5.30); RED CELL DISTRIBUTION WIDTH 13.9 % (11.6-17.2); WHITE BLOOD COUNT 12.5 TH/MM3 (4.0-11.0)
[2017-04-04] MEDS ORDERED: ROCURONIUM INJ 50 MG/5 ML SYRINGE IV PUSH ONE (12:00)
[2017-04-04] MEDS ORDERED: IOHEXOL 300 MG/ML 50 ML BTL (for RAD DIAG) IVCONTRAST ONE (12:00)
[2017-04-04] MEDS ORDERED: hydrALAZINE HCL 20 MG/ML VIAL IV ONE (12:00)
[2017-04-04] MEDS ORDERED: STERILE WATER FOR INJECTION 20 ML VIAL IV ONE (12:00)
[2017-04-04] MEDS ORDERED: PROPOFOL 200 MG/20 ML AMP IV ONE (12:00)
[2017-04-04 12:05] LABS: INTERNATIONAL NORMALIZED RATIO 1.1 RATIO; PROTHROMBIN TIME - PATIENT 11.2 SEC (9.8-11.6)
--- NOTE | 2017-04-04 13:00 | MP ---
cc: JUANPABLO TALAMANTES MD DATE OF SURGERY: 04/04/2017. PREOPERATIVE DIAGNOSIS: Left lower extremity ischemia. POSTOPERATIVE DIAGNOSIS: Left lower extremity ischemia. OPERATIVE PROCEDURE PERFORMED: 1. Left iliofemoral bypass with 8 mm Dacron. 2. Left profunda endarterectomy. 3. Aortogram and left lower extremity angiogram. 4. Left superficial femoral artery and popliteal angioplasty with 5 mm balloon. ATTENDING SURGEON: Juanpablo Talamantes MD. DIRECTOR OF STRATEGIC COMMUNICATIONS SURGEON: Johanne Andino. ANESTHESIA: General. INDICATIONS FOR THE PROCEDURE: Ms. Araujo is an 86-year-old female who presented to the emergency department less than 48 hours ago with left lower extremity ischemia. She has preexisting claudication and now progressed to rest pain. CT scan suggested she had multilevel disease and she is taken to the operating room for attempted hybrid therapies. There is no prior catheter-based imaging available for my review. DESCRIPTION OF THE PROCEDURE IN DETAIL: Informed consent obtained from the patient. She was taken to the operating room and placed supine on the operating room table. An appropriate time out was taken to ensure the patient's identity, the operative site and the planned procedure. The administration of 1 gram of Vancomycin was initiated prior to the skin incision and will be discontinued after the single preoperative dose. Vancomycin was chosen because of the patient's PENICILLIN ALLERGY. Everyone in the room agreed with the time out and we proceeded. She was prepped from her nipples to her toes. A vertical incision was made in the patient's left groin and carried down through the subcutaneous tissue with electrocautery. The common femoral artery was dissected free. The external artery was dissected free up underneath the inguinal ligament and the circumflex iliac vessels were similarly dissected free. The proximal SFA and four branches of the profunda were all dissected free. The patient was systemically heparinized and throughout the remainder of the case, the ACT was kept greater than 250 with additional heparin boluses. Proximal and distal control of the external iliac artery, profunda and SFA were all obtained with profunda clamps and the common femoral artery was resected. The external artery was spatulated starting at the level of the circumflex vessels. An 8 mm Dacron was brought up on the field, spatulated and sewn end-to-end proximally with running 5-0 Prolene suture. At the completion, it was flushed and noted to be hemostatic. A Pete soft jaw was placed on the Dacron and then we performed our distal anastomosis. The distal anastomosis started the profunda takeoff and extended down to the SFA. Prior to performing the distal anastomosis, the two branches of the profunda were endarterectomized with a nice endpoint obtained. The distal anastomosis was performed with a 5-0 running Prolene suture. At the completion, it was flushed and noted to be hemostatic. There was a nice palpable pulse in the main profunda and also a Doppler signal in the secondary profunda branches. A 21 gauge micropuncture needle was used to access the replaced left common femoral artery and this was exchanged using Seldinger technique for micropuncture sheath to attain a 0.035 Stork wire was introduced and the micropuncture sheath was exchanged for 6-Bahraini sheath. An aortogram was obtained. This showed the patient to have patent iliac stents that were small but there was no in-stent stenosis. Pete soft jaws were placed proximal and distal to the graftotomy and the sheath and wire were removed and the sheath and wire were then redirected down the SFA and a left lower extremity arteriogram was obtained. This showed the patient had an occluded SFA with below-knee popliteal artery reconstitution. A 0.035 Glidewire was advanced, and using a glide and CXI catheter, we were able to navigate in a subintimal plane down and reenter the below-knee popliteal artery true lumen with a COREMAKER FLOOR wire. With the CXI catheter advanced over the COREMAKER FLOOR wire, we were indeed in the true lumen of the popliteal artery and the COREMAKER FLOOR wire was exchanged for a stork wire. The entire SFA and popliteal artery were angioplastied with a 5 mm balloon. The completion angiogram showed excellent result on a recoil extravasation and there was some spasm in the below-knee popliteal artery but no runoff difficulties. The patient had a nice Doppler signal in the dorsalis pedis. The wire, catheter and sheath were removed and the graftotomy was closed with 6-0 Prolene suture. The surgical wound was made hemostatic and closed with 2-0 Polysorb in two layers of 3-0 Polysorb and 4-0 Monocryl. A Prevena VAC dressing was then applied and the patient was then was extubated and transferred to the recovery room in stable condition. I was present, scrubbed and performed the entire procedure. MD LYUBOV Ring/MEDINA /11:17 AM /12:32 PM KARY
[2017-04-04] MEDS ORDERED: HEPARIN-D5W 25,000 U/250 ML 250 ML IV PRN (15:00)
[2017-04-04] MEDS: ONDANSETRON HCL 4 MG/2 ML VIAL IVP PRN (15:22)
[2017-04-04] MEDS: LATANOPROST 0.005% OPHT SOLN 2.5 ML BTL EACH EYE SCH (20:24)
[2017-04-04] MEDS: SODIUM BICARBONATE 8.4% INJ 100 MEQ in DEXTROSE 5% IN WATE 1000ML INJ 1,000 ML IV SCH ×2 (23:31)
[2017-04-05] VITALS (8 sets, daily range): BP systolic 95–143; BP diastolic 46–78; PULSE 66–83; RESP 17–19; TEMP 96.9–98.9; O2SAT 93–97
[2017-04-05] MEDS ORDERED: SODIUM CHLORID 0.9% 500 ML INJ 500 ML IV ONE (00:45)
[2017-04-05] MEDS: LEVOTHYROXINE SODIUM 50 MCG TAB PO SCH (05:02)
--- NOTE | 2017-04-05 08:51 | PD.VS.PN ---
Subjective POD #: 1 Procedure(s): L groin reconstruction, L fem-pop SUBCONTRACT MANAGER Subjective/Hospital Course doing well, foot feels better; scotty po hasn't put weight on foot yet pain controlled Prieto out this morning Objective Vitals/I&O Date Time Temp Pulse Resp B/P (MAP) Pulse Ox O2 Delivery O2 Flow Rate FiO2 04/05/17 04:00 97.1 66 18 107/50 (69) 97 04/05/17 00:00 98.9 71 18 95/46 (62) 97 04/04/17 20:00 97.0 68 18 99/62 (74) 98 04/04/17 17:47 91 Nasal Cannula 4.00 04/04/17 16:00 97.1 59 17 107/59 (75) 91 04/04/17 12:39 95.2 60 16 129/53 (78) 93 04/04/17 12:04 97.5 04/04/17 12:00 60 18 110/55 (73) 93 Nasal Cannula 4 04/04/17 11:45 60 18 108/53 (71) 92 Nasal Cannula 4 04/04/17 11:30 60 18 108/52 (70) 94 Nasal Cannula 4 04/04/17 11:30 96.3 04/04/17 11:18 96.3 61 18 120/66 (84) 93 Nasal Cannula 4 04/05/17 04/05/17 04/05/17 07:00 15:00 23:00 Intake Total 945 ml Output Total 450 ml Balance 495 ml Exam: L groin edematous but no hematoma Provena in place L foot warm, motor intact Pulses: strong DP signal Laboratory Laboratory Tests Test 04/04/17 11:29 04/04/17 15:18 04/04/17 18:34 04/04/17 22:45 White Blood Count 12.5 Red Blood Count 4.22 Hemoglobin 12.5 Hematocrit 36.7 Mean Corpuscular Volume 86.9 Mean Corpuscular Hemoglobin 29.6 Mean Corpuscular Hemoglobin Concent 34.1 Red Cell Distribution Width 13.9 Platelet Count 192 Mean Platelet Volume 8.3 Prothrombin Time 11.2 Prothromb Time International Ratio 1.1 Activated Partial Thromboplast Time GREATER THAN 277.5 34.2 29.0 34.8 Assessment and Plan Plan POD#1 s/p L groin reconstruction and SUBCONTRACT MANAGER of SFA/popliteal artery improved perfusion to foot 1. OOB/PT; WBAT including ambulation with assistance 2. Reg diet 3. Cont hep gtt for 2 days and then only ASA/plavix 4. Provena off POD 3-4 Catracho Talamantes MD FACS RPVI broth setter [facility] - Heart and Vascular Surgery at [facility] [phone] Discharge Planning likely /Wed to rehab, pending mobility Catracho Talamantes MD Apr 05, 2017 08:51
[2017-04-05] MEDS: METOPROLOL TARTRATE 25 MG TAB PO SCH (09:00)
[2017-04-05] MEDS: SODIUM CHLORIDE 0.9% FLUSH 10 ML FLUSH IV FLUSH SCH ×2 (09:00→21:00)
[2017-04-05 09:04] LABS: AUTOMATED NEUTROPHIL # 9.4 TH/MM3 (1.8-7.7); BASOPHIL % 0.3 % (0.0-2.0); EOSINOPHIL % 0.1 % (0.0-4.0); HEMATOCRIT 31.9 % (35.0-46.0); HEMOGLOBIN 10.9 GM/DL (11.6-15.3); LYMPH % 10.4 % (9.0-44.0); LYMPHOCYTE # 1.2 TH/MM3 (1.0-4.8); MEAN CELL VOLUME 86.6 FL (80.0-100.0); MEAN CORPUSCULAR HEMOGLOBIN 29.6 PG (27.0-34.0); MEAN CORPUSCULAR HGB CONC 34.1 % (32.0-36.0); MEAN PLATELET VOLUME 8.7 FL (7.0-11.0); MONOCYTE # 1.1 TH/MM3 (0-0.9); NEUT % 80.2 % (16.0-70.0); PLATELET COUNT 247 TH/MM3 (150-450); RED BLOOD COUNT 3.68 MIL/MM3 (4.00-5.30); WHITE BLOOD COUNT 11.7 TH/MM3 (4.0-11.0)
--- NOTE | 2017-04-05 09:05 | HHI.PR ---
Subjective Remarks Patient seen and examined this morning. Vitals overall stable except for some low blood pressures noted this morning. She was working with PT, had some left groin discomfort. Denies foot pain, CP, or difficulty breathing. She is aware she will go to SNF upon d/c, family has list at bedside and are reviewing it. Objective Vital Signs Date Time Temp Pulse Resp B/P (MAP) Pulse Ox O2 Delivery O2 Flow Rate FiO2 04/05/17 08:00 96.9 80 19 143/65 (91) 94 04/05/17 04:00 97.1 66 18 107/50 (69) 97 04/05/17 00:00 98.9 71 18 95/46 (62) 97 04/04/17 20:00 97.0 68 18 99/62 (74) 98 04/04/17 17:47 91 Nasal Cannula 4.00 04/04/17 16:00 97.1 59 17 107/59 (75) 91 04/04/17 12:39 95.2 60 16 129/53 (78) 93 04/04/17 12:04 97.5 04/04/17 12:00 60 18 110/55 (73) 93 Nasal Cannula 4 04/04/17 11:45 60 18 108/53 (71) 92 Nasal Cannula 4 04/04/17 11:30 60 18 108/52 (70) 94 Nasal Cannula 4 04/04/17 11:30 96.3 04/04/17 11:18 96.3 61 18 120/66 (84) 93 Nasal Cannula 4 I/O 04/04/17 04/04/17 04/04/17 04/05/17 04/05/17 04/05/17 07:00 15:00 23:00 07:00 15:00 23:00 Intake Total 720 ml 1600 ml 50 ml 945 ml 360 ml Output Total 900 ml 250 ml 450 ml Balance 720 ml 700 ml -200 ml 495 ml 360 ml Intake Oral 720 ml 50 ml 240 ml 360 ml IV Total 705 ml Other 1600 ml Output Urine Total 750 ml 250 ml 450 ml Estimated Blood Loss 150 ml # Voids 3 1 # Bowel Movements 0 0 Result Diagram: 04/04/17 1129 04/04/17 0531 Imaging Last Impressions Aorta w/Runoff CTA 04/03/17 1000 Signed Impressions: Service Date/Time: Monday, April 03, 2017 10:12 - CONCLUSION: 1. 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 Proximal sac measures 3.2 cm and distal sac measures 2.8 cm. Intervening segment measures 7 mm. 2. CTA runoff, as above. 3. 3 mm calcified density seen apparently in the distal CBD near the ampulla without significant CBD dilatation and sulcal prominence of the proximal pancreatic duct. Further evaluation may be performed with MRCP as clinically warranted. 4. 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 5. Multiple nonobstructing left renal calyceal calculi with the largest measuring 13 mm in the inferior pole of the left kidney. 6. Moderate sigmoid diverticulosis. Jose Luis Vela MD Objective Remarks GENERAL: well appearing elderly female, sitting up in bed SKIN: Warm and dry. HEAD: Normocephalic. EYES: No scleral icterus. No injection or drainage. NECK: Supple, trachea midline. No JVD or lymphadenopathy. CARDIOVASCULAR: Regular rate and rhythm, murmur heard over aortic valve and pulmonic valve, faint left DP pulse palpated RESPIRATORY: Breath sounds equal bilaterally. No accessory muscle use. GASTROINTESTINAL: Abdomen soft, non-tender, nondistended. MUSCULOSKELETAL: No cyanosis, or edema. No calf tenderness. Left groin tenderness and pain with moving BACK: Nontender without obvious deformity. A/P Problem List: (1) Ischemia of left lower extremity ICD Code: I99.8 - Other disorder of circulatory system Status: Acute (2) Renal insufficiency ICD Code: N28.9 - Disorder of kidney and ureter, unspecified (3) HTN (hypertension) ICD Code: I10 - Essential (primary) hypertension Assessment and Plan This is an 86-year-old female who presented with left lower extremity pain LLE Limb Ischemia: - h/o PVD w/ acute LLE limb ischemia, pulses diminished but has improved. - Dr. Talamantes consulted and CTA showed iliac ISR, L TEACHER VISUALLY IMPAIRED occlusion and SFA/ popliteal occlusion. She is postop day 1 L groin reconstruction, left femoropopliteal CAR DELIVERER - Continue heparin drip for 2 days (per vascular on 04/05/17), then aspirin/ Plavix only - Provena off postop day 3-4 (per vascular on 04/05/17) mild Renal Insufficiency: - Creatinine on initial presentation 1.16, no previous labs for comparison. - Resolved. HTN -I placed the patient metoprolol on hold given her hypotension. Discharge Planning Per vascular surgery likely discharged to SNF Wednesday or Wednesday to rehabilitation pending mobility PT eval Case management to assist with placement Case discussed with nurse and patient family Ayla Nowak MD Apr 05, 2017 09:05
[2017-04-05] MEDS: RAMIPRIL 5 MG CAP PO SCH (09:07)
[2017-04-05] MEDS: MORPHINE SULFATE 2 MG/ML INJ IV PRN (09:07)
[2017-04-05] MEDS: ASPIRIN 81 MG CHEW TAB CHEW SCH (09:08)
[2017-04-05] MEDS: PRAVASTATIN SOD 40 MG TAB PO SCH (09:08)
[2017-04-05 09:27] LABS: BICARBONATE 27.8 MEQ/L (21.0-32.0); CALCIUM 8.1 MG/DL (8.5-10.1); CREATININE 0.95 MG/DL (0.50-1.00)
[2017-04-05] MEDS: LATANOPROST 0.005% OPHT SOLN 2.5 ML BTL EACH EYE SCH (21:00)
[2017-04-05] MEDS: SODIUM BICARBONATE 8.4% INJ 100 MEQ in DEXTROSE 5% IN WATE 1000ML INJ 1,000 ML IV SCH ×2 (23:41)
[2017-04-06] VITALS (10 sets, daily range): BP systolic 62–151; BP diastolic 41–68; PULSE 77–87; RESP 16–21; TEMP 96.4–99; O2SAT 92–100
[2017-04-06 03:50] LABS: BICARBONATE 26.6 MEQ/L (21.0-32.0); CALCIUM 7.8 MG/DL (8.5-10.1); CREATININE 0.65 MG/DL (0.50-1.00)
[2017-04-06 03:56] LABS: AUTOMATED NEUTROPHIL # 9.3 TH/MM3 (1.8-7.7); BASOPHIL % 0.2 % (0.0-2.0); EOSINOPHIL % 0.3 % (0.0-4.0); HEMATOCRIT 26.1 % (35.0-46.0); HEMOGLOBIN 9.3 GM/DL (11.6-15.3); LYMPH % 9.5 % (9.0-44.0); LYMPHOCYTE # 1.1 TH/MM3 (1.0-4.8); MEAN CELL VOLUME 86.3 FL (80.0-100.0); MEAN CORPUSCULAR HEMOGLOBIN 30.7 PG (27.0-34.0); MEAN CORPUSCULAR HGB CONC 35.5 % (32.0-36.0); MEAN PLATELET VOLUME 9.5 FL (7.0-11.0); MONO % 7.8 % (0.0-8.0); MONOCYTE # 0.9 TH/MM3 (0-0.9); NEUT % 82.2 % (16.0-70.0); PLATELET COUNT 192 TH/MM3 (150-450); RED BLOOD COUNT 3.02 MIL/MM3 (4.00-5.30); RED CELL DISTRIBUTION WIDTH 13.5 % (11.6-17.2); WHITE BLOOD COUNT 11.2 TH/MM3 (4.0-11.0)
[2017-04-06] MEDS: LEVOTHYROXINE SODIUM 50 MCG TAB PO SCH (04:39)
--- NOTE | 2017-04-06 06:45 | PD.VS.PN ---
Subjective POD #: 2 Procedure(s): L groin reconstruction, L fem-pop DESIGN AND SALES CONSULTANT Subjective/Hospital Course doing well, foot feels better; scotty po able to bear weight on foot Objective Vitals/I&O Date Time Temp Pulse Resp B/P (MAP) Pulse Ox O2 Delivery O2 Flow Rate FiO2 04/06/17 04:00 98.4 80 16 146/56 (86) 92 04/06/17 00:00 98.5 80 17 121/55 (77) 93 04/05/17 20:00 80 04/05/17 20:00 98.4 79 17 139/54 (82) 96 04/05/17 17:33 95 Nasal Cannula 2.00 04/05/17 16:00 96.9 75 19 116/56 (76) 95 04/05/17 13:24 93 Nasal Cannula 2.00 04/05/17 12:00 96.9 83 19 129/78 (95) 95 04/05/17 08:00 96.9 80 19 143/65 (91) 94 04/06/17 04/06/17 04/06/17 07:00 15:00 23:00 Intake Total 1040 ml Output Total 1300 ml Balance -260 ml Exam: L groin and thigh edematous foot warm motor intact Pulses: Strong DP signal Incisions: Provena in place Laboratory Laboratory Tests Test 04/05/17 08:25 04/05/17 14:05 04/05/17 19:41 04/06/17 02:53 White Blood Count 11.7 11.2 Red Blood Count 3.68 3.02 Hemoglobin 10.9 9.3 Hematocrit 31.9 26.1 Mean Corpuscular Volume 86.6 86.3 Mean Corpuscular Hemoglobin 29.6 30.7 Mean Corpuscular Hemoglobin Concent 34.1 35.5 Red Cell Distribution Width 14.0 13.5 Platelet Count 247 192 Mean Platelet Volume 8.7 9.5 Neutrophils (%) (Auto) 80.2 82.2 Lymphocytes (%) (Auto) 10.4 9.5 Monocytes (%) (Auto) 9.0 7.8 Eosinophils (%) (Auto) 0.1 0.3 Basophils (%) (Auto) 0.3 0.2 Neutrophils # (Auto) 9.4 9.3 Lymphocytes # (Auto) 1.2 1.1 Monocytes # (Auto) 1.1 0.9 Eosinophils # (Auto) 0.0 0.0 Basophils # (Auto) 0.0 0.0 CBC Comment DIFF FINAL DIFF FINAL Differential Comment Activated Partial Thromboplast Time 41.8 35.9 39.9 41.5 Blood Urea Nitrogen 21 18 Creatinine 0.95 0.65 Random Glucose 125 135 Calcium Level 8.1 7.8 Sodium Level 134 132 Potassium Level 3.8 3.2 Chloride Level 100 98 Carbon Dioxide Level 27.8 26.6 Anion Gap 6 7 Estimat Glomerular Filtration Rate 56 86 Hematology Comments Assessment and Plan Plan POD#2 s/p L groin reconstruction and DESIGN AND SALES CONSULTANT of SFA/popliteal artery improved perfusion to foot 1. OOB/PT; WBAT including ambulation with assistance 2. Reg diet 3. D/C hep gtt today 4. Recheck CBC tomorrow 5. Ok to have gentle diuresis 6. Provena off POD 3-4 Catracho Talamantes MD FACS RPVI dump motorman [facility] - Heart and Vascular Surgery at [facility] [phone] Discharge Planning /Wed to rehab most likely Catracho Talamantes MD Apr 06, 2017 06:44
[2017-04-06] MEDS: RAMIPRIL 5 MG CAP PO SCH (09:06)
[2017-04-06] MEDS: PRAVASTATIN SOD 40 MG TAB PO SCH (09:06)
[2017-04-06] MEDS: ASPIRIN 81 MG CHEW TAB CHEW SCH (09:06)
[2017-04-06] MEDS: ONDANSETRON HCL 4 MG/2 ML VIAL IVP PRN (10:29)
[2017-04-06] MEDS: ACETAMINOPHEN 325 MG TAB PO PRN ×2 (10:49→16:39)
--- NOTE | 2017-04-06 17:01 | HHI.PR ---
Subjective Remarks Patient resting in bed, open eyes pleasant, I discussed with her daughter who was at the bedside in length patient still on O2 nasal cannula, She was afebrile, surgery following, Objective Vitals Vital Signs Date Time Temp Pulse Resp B/P (MAP) Pulse Ox O2 Delivery O2 Flow Rate FiO2 04/06/17 16:00 96.4 77 17 113/62 (79) 93 04/06/17 12:00 99.0 87 18 151/68 (95) 97 04/06/17 09:43 97 Nasal Cannula 2.00 04/06/17 08:00 98.6 79 19 148/67 (94) 97 04/06/17 04:00 98.4 80 16 146/56 (86) 92 04/06/17 00:00 98.5 80 17 121/55 (77) 93 04/05/17 20:00 80 04/05/17 20:00 98.4 79 17 139/54 (82) 96 04/05/17 17:33 95 Nasal Cannula 2.00 I/O 04/05/17 04/05/17 04/05/17 04/06/17 04/06/17 04/06/17 07:00 15:00 23:00 07:00 15:00 23:00 Intake Total 945 ml 360 ml 960 ml 1058 ml Output Total 450 ml 400 ml 1300 ml Balance 495 ml 360 ml 560 ml -242 ml Intake Oral 240 ml 360 ml 960 ml 240 ml IV Total 705 ml 818 ml Output Urine Total 450 ml 400 ml 1300 ml # Bowel Movements 0 Result Diagram: 04/06/17 0253 04/06/17 0253 Objective Remarks GENERAL: This is a well-nourished, well-developed patient, in no apparent distress. SKIN: No rashes, warm and dry HEAD: Atraumatic. Normocephalic. EYES: Pupils equal round and reactive. Extraocular motions intact. No scleral icterus. ENT: Nose without bleeding, or drainage, Airway patent. NECK: Trachea midline. Supple CARDIOVASCULAR: Regular rate and rhythm without murmurs, gallops, or rubs. RESPIRATORY: Fair air entry bilaterally. No wheezes, rales, or rhonchi. GASTROINTESTINAL: Abdomen soft, non-tender, nondistended. Positive bowel sounds MUSCULOSKELETAL: Extremities without clubbing, cyanosis, +3r edema. Pedal pulses appreciated NEUROLOGICAL: Awake and alert. Moves all extremity. Normal speech.no focal neurological deficit A/P Problem List: (1) Ischemia of left lower extremity ICD Code: I99.8 - Other disorder of circulatory system Status: Acute (2) Renal insufficiency ICD Code: N28.9 - Disorder of kidney and ureter, unspecified Status: Chronic (3) HTN (hypertension) ICD Code: I10 - Essential (primary) hypertension Status: Chronic Assessment and Plan 04/06/17: Discussed with the daughter in length, patient on D5 water with bicarbonate by the surgeon, continue monitoring BMP, will try to wean O2 A/P: This is an 86-year-old female who presented with left lower extremity pain LLE Limb Ischemia: - h/o PVD w/ acute LLE limb ischemia, pulses diminished but has improved. - Dr. Talamantes consulted and CTA showed iliac ISR, L COMMERCIAL REAL ESTATE UNDERWRITER occlusion and SFA/ popliteal occlusion. She is postop day 2 L groin reconstruction, left femoropopliteal MORTGAGE PROTECTION SPECIALIST - Continue heparin drip for 2 days (per vascular on 04/05/17), then aspirin/ Plavix only - Provena off postop day 3-4 (per vascular on 04/05/17) mild Renal Insufficiency: Resolved - Creatinine on initial presentation 1.16, no previous labs for comparison. - Resolved. -Patient on D5 water with bicarbonate by the surgeon HTN now with low blood pressure -metoprolol on hold given her hypotension. Discharge Planning Per vascular surgery likely discharged to SNF Wednesday or Wednesday to rehabilitation pending mobility PT Lion Sanches MD Apr 06, 2017 17:01
--- NOTE | 2017-04-06 20:38 | HHI.PR ---
Addendum to Inpatient Note Addendum Reason: Additional Documentation Additional Information ZAIDICAT note: Resident team called at 16:[address] Vargas and I immediately went to evaluate patient. Zaidjvt called by nurse due to hypotension. Nurse reports last three blood pressures were 62/41, 73, 43, 68/46, pulse of 81. Patient was alert and oriented x 3. Patient reports that she feels fatigue and complains of moderate LLQ abdominal pain around procedure site. Otherwise, no other complaints. Denies CP, SOB, and N/V. Vitals: T 97.3, P 81, R 17, BP 68/46, on 2 L O2 NC, 98% O2 sats Gen: lying in bed, pleasant, in NAD Cardiov: RRR, harsh systolic murmur heard over aortic area Pulmonary: CTAB, no wheezes or crackles Abd: moderated swelling, tenderness, and bruising in LLQ around wound vac, no drainage noted, + BS Ext. 2+ pitting edema in left lower extremity, able to wiggle left toes, sensation in toes intact, hard to palpate pedial pulses in LLE due to edema, normal RLE : moderate bruising around left labium Neuro: Awake, Alert, Oriented x 3, no neuro deficits A/P: 86 yr old F POD#2 s/p L groin reconstruction and INSOLE TACKER of SFA/popliteal artery due left leg ischemia. Currently hypotensive possibly due to abdominal bleed. STAT CBCw/ diff STAT Abdominal US to check for abdominal bleeding 2 bags of IV fluids NS ordered, if patient doesn't respond to 1 liter bolus of NS, administer another 1 liter bolus of NS Consider transfer to IMC if patient is unresponsive to fluids s/d/w Ana Mireles MD R1 Apr 06, 2017 20:38
[2017-04-06] MEDS ORDERED: SODIUM CHLOR 0.9% 1000 ML INJ 1,000 ML, SODIUM CHLOR 0.9% 1000 ML INJ 1,000 ML IV ONE (20:45)
[2017-04-06] MEDS: LATANOPROST 0.005% OPHT SOLN 2.5 ML BTL EACH EYE SCH (21:00)
[2017-04-06] MEDS: SODIUM CHLORIDE 0.9% FLUSH 10 ML FLUSH IV FLUSH SCH (21:00)
[2017-04-06 21:52] LABS: HEMATOCRIT 23.1 % (35.0-46.0); HEMOGLOBIN 8.1 GM/DL (11.6-15.3); MEAN CELL VOLUME 88.3 FL (80.0-100.0); MEAN CORPUSCULAR HEMOGLOBIN 30.8 PG (27.0-34.0); MEAN CORPUSCULAR HGB CONC 34.9 % (32.0-36.0); MEAN PLATELET VOLUME 8.5 FL (7.0-11.0); PLATELET COUNT 181 TH/MM3 (150-450); RED BLOOD COUNT 2.62 MIL/MM3 (4.00-5.30); RED CELL DISTRIBUTION WIDTH 13.6 % (11.6-17.2); WHITE BLOOD COUNT 10.2 TH/MM3 (4.0-11.0)
--- NOTE | 2017-04-06 22:52 | RADRPT ---
EXAM DATE/TIME: 04/06/2017 22:27 [place] COMPARISON: No previous studies available for comparison. INDICATIONS : Left lower quadrant swelling. MEDICAL HISTORY : Hypothyroidism. Hypercholesterolemia. Hypertension. Hearing loss. Glaucoma. Cerebrovascular accident. Coronary artery disease. Irregular heartbeat. IBD. Kidney stones. Osteoporosis. Skin cancer. Measles . Blood transfusion. SURGICAL HISTORY : Tonsillectomy. Carotid endarterectomy. Cholecystectomy. Coronary artery stent. CABG. Pacemaker. Bilat eral lens replacements. Cataract removal. ENCOUNTER: Initial ACUITY: 1 day PAIN SCORE: 2/10 LOCATION: Left lower quadrant AREA EVALUATED: Left lower quadrant surrounding wound vac and bandage. FINDINGS: Imaging of the abdomen and pelvis was performed to evaluate for fluid collection. Soft tissues swelli ng but no abscess or fluid collection seen.. CONCLUSION: Soft tissue swelling left lower quadrant. Jaime Cheng MD on April 06, 2017 at 22:49 Board Certified Radiologist. This report was verified electronically.
[2017-04-06] MEDS ORDERED: POTASSIUM CHLORIDE 20 MEQ CONTROLLED RELEASE TAB PO ONE (23:15)
[2017-04-07] VITALS (15 sets, daily range): BP systolic 68–155; BP diastolic 33–67; PULSE 60–80; RESP 17–28; TEMP 97.1–98.9; O2SAT 92–99
[2017-04-07] MEDS: SODIUM BICARBONATE 8.4% INJ 100 MEQ in DEXTROSE 5% IN WATE 1000ML INJ 1,000 ML IV SCH ×2 (00:40)
[2017-04-07 04:05] LABS: BILIRUBIN, URINE NEG (NEG); BLOOD, URINE NEG (NEG); GLUCOSE,URINE NEG (NEG); KETONE, URINE NEG (NEG); NITRITE,URINE NEG (NEG); PH, URINE 6.5 (5.0-8.5); SQUAMOUS EPITHELIAL CELL URINE <1 /hpf (0-5); URINE COLOR YELLOW (YELLW/STRAW); URINE LEUKOCYTE ESTERASE NEG (NEG)
[2017-04-07] MEDS ORDERED: SODIUM CHLOR 0.9% 1000 ML INJ 1,000 ML IV ONE (05:00)
[2017-04-07] MEDS ORDERED: FUROSEMIDE 20 MG/2 ML VIAL IV PUSH SCH (05:30)
[2017-04-07] MEDS: LEVOTHYROXINE SODIUM 50 MCG TAB PO SCH ×2 (05:54→09:23)
[2017-04-07] MEDS ORDERED: CHLORHEXIDINE GLUCONATE 2 % 1 PACK (2 CLOTHS)(extra cloths) TOPICAL PRN (06:00)
--- NOTE | 2017-04-07 06:50 | PD.VS.PN ---
Subjective POD #: 3 Procedure(s): L groin reconstruction, L fem-pop SOCIAL WORKER CLINICAL Subjective/Hospital Course hypotensive overnight Feels "rough" this morning but not lightheaded [place] and foot ok Objective Vitals/I&O Date Time Temp Pulse Resp B/P (MAP) Pulse Ox O2 Delivery O2 Flow Rate FiO2 04/07/17 05:34 98.9 80 20 92/56 (68) 93 04/07/17 04:00 98.3 80 20 68/41 (50) 94 68/47 (54) 70/33 (45) 135/64 (87) 04/07/17 00:00 97.1 79 20 128/57 (80) 96 04/06/17 21:51 132/64 (86) 04/06/17 20:38 97.6 84 20 71/48 (56) 100 04/06/17 20:20 98 2.00 04/06/17 20:20 98 Nasal Cannula 2.00 04/06/17 20:00 97.3 81 21 62/41 (48) 97 68/46 (53) 04/06/17 16:00 96.4 77 17 113/62 (79) 93 04/06/17 12:00 99.0 87 18 151/68 (95) 97 04/06/17 09:43 97 Nasal Cannula 2.00 04/06/17 08:00 98.6 79 19 148/67 (94) 97 04/07/17 04/07/17 04/07/17 07:00 15:00 23:00 Intake Total 1248 ml Output Total 1050 ml Balance 198 ml Exam: L groin with superficial hematoma, soft nontender skin not threatened Foot warm and motor intact Incisions: L groin with VAC in place (skin VAC) Laboratory Laboratory Tests Test 04/06/17 21:05 04/07/17 03:20 04/07/17 05:30 White Blood Count 10.2 Red Blood Count 2.62 Hemoglobin 8.1 Hematocrit 23.1 Mean Corpuscular Volume 88.3 Mean Corpuscular Hemoglobin 30.8 Mean Corpuscular Hemoglobin Concent 34.9 Red Cell Distribution Width 13.6 Platelet Count 181 Mean Platelet Volume 8.5 Urine Color YELLOW Urine Turbidity CLEAR Urine pH 6.5 Urine Specific [place] 1.015 Urine Protein TRACE Urine Glucose (UA) NEG Urine Ketones NEG Urine Occult Blood NEG Urine Nitrite NEG Urine Bilirubin NEG Urine Urobilinogen 4.0 Urine Leukocyte Esterase NEG Urine RBC 3 Urine WBC 1 Urine Squamous Epithelial Cells <1 Microscopic Urinalysis Comment CATH-CULT NOT IND Assessment and Plan Plan POD#3 s/p L groin reconstruction and SOCIAL WORKER CLINICAL of SFA/popliteal artery improved perfusion to foot hematoma with drop in Hct 1. Tx 2U PRBC with lasix 2. Check post-tx CBC 3. OOB TC Catracho Talamantes MD FACS RPVI purchasing coordinator [facility] - Heart and Vascular Surgery at [facility] [phone] Discharge Planning /Wed to rehab most likely Catracho Talamantes MD Apr 07, 2017 06:50
[2017-04-07 07:05] LABS: HEMATOCRIT 23.8 % (35.0-46.0); HEMOGLOBIN 8.4 GM/DL (11.6-15.3); MEAN CELL VOLUME 87.3 FL (80.0-100.0); MEAN CORPUSCULAR HEMOGLOBIN 30.6 PG (27.0-34.0); MEAN PLATELET VOLUME 8.7 FL (7.0-11.0); PLATELET COUNT 187 TH/MM3 (150-450); RED BLOOD COUNT 2.73 MIL/MM3 (4.00-5.30); RED CELL DISTRIBUTION WIDTH 13.7 % (11.6-17.2); WHITE BLOOD COUNT 10.6 TH/MM3 (4.0-11.0)
[2017-04-07 07:35] LABS: BICARBONATE 24.3 MEQ/L (21.0-32.0); CALCIUM 7.5 MG/DL (8.5-10.1); CREATININE 0.52 MG/DL (0.50-1.00)
[2017-04-07] MEDS: ONDANSETRON HCL 4 MG/2 ML VIAL IVP PRN (09:24)
[2017-04-07] MEDS: SODIUM CHLORIDE 0.9% FLUSH 10 ML FLUSH IV FLUSH SCH ×2 (09:24→21:00)
[2017-04-07] MEDS ORDERED: POTASSIUM CHLORIDE 25 MEQ EFFERVESCENT TAB PO ONE ×2 (10:30→14:30)
[2017-04-07] MEDS: ACETAMINOPHEN 325 MG TAB PO PRN (13:32)
[2017-04-07] MEDS: ASPIRIN 81 MG CHEW TAB CHEW SCH (13:33)
[2017-04-07] MEDS: RAMIPRIL 5 MG CAP PO SCH (13:33)
[2017-04-07] MEDS: AZOPT 1% EACH EYE SCH ×2 (14:27→21:19)
[2017-04-07] MEDS: COMBIGAN EACH EYE SCH ×2 (14:27→21:19)
[2017-04-07] MEDS: OPTH EACH EYE SCH ×2 (14:27→21:19)
--- NOTE | 2017-04-07 15:39 | HHI.PR ---
Subjective Remarks patient resting in bed opening eyes and smiles answer simple questions, daughter at the bedside Afebrile Objective Vitals Vital Signs Date Time Temp Pulse Resp B/P (MAP) Pulse Ox O2 Delivery O2 Flow Rate FiO2 04/07/17 15:33 98.6 75 19 110/56 98 04/07/17 11:18 98.9 79 17 140/63 99 04/07/17 07:58 97 21 04/07/17 05:34 98.9 80 20 92/56 (68) 93 04/07/17 04:00 98.3 80 20 68/41 (50) 94 68/47 (54) 70/33 (45) 135/64 (87) 04/07/17 00:00 97.1 79 20 128/57 (80) 96 04/06/17 21:51 132/64 (86) 04/06/17 20:38 97.6 84 20 71/48 (56) 100 04/06/17 20:20 98 2.00 04/06/17 20:20 98 Nasal Cannula 2.00 04/06/17 20:00 97.3 81 21 62/41 (48) 97 68/46 (53) 04/06/17 16:00 96.4 77 17 113/62 (79) 93 I/O 04/06/17 04/06/17 04/06/17 04/07/17 04/07/17 04/07/17 07:00 15:00 23:00 07:00 15:00 23:00 Intake Total 1058 ml 540 ml 1248 ml 420 ml Output Total 1300 ml 500 ml 1050 ml Balance -242 ml 40 ml 198 ml 420 ml Intake Oral 240 ml 540 ml 100 ml IV Total 818 ml 1148 ml Packed Cells 400 ml Blood Product IV Normal Saline Flush 20 ml Output Urine Total 1300 ml 500 ml 1050 ml Bladder Scan Volume Amount 952 ml # Bowel Movements 2 0 Result Diagram: 04/07/17 0610 04/07/17 0610 Objective Remarks GENERAL: This is a well-nourished, well-developed patient, in no apparent distress. SKIN: No rashes, warm and dry HEAD: Atraumatic. Normocephalic. EYES: Pupils equal round and reactive. Extraocular motions intact. No scleral icterus. ENT: Nose without bleeding, or drainage, Airway patent. NECK: Trachea midline. Supple CARDIOVASCULAR: Regular rate and rhythm without murmurs, gallops, or rubs. RESPIRATORY: Fair air entry bilaterally. No wheezes, rales, or rhonchi. GASTROINTESTINAL: Abdomen soft, non-tender, nondistended. Positive bowel sounds MUSCULOSKELETAL: Extremities without clubbing, cyanosis, +3 edema. Pedal pulses appreciated NEUROLOGICAL: Awake and alert. Moves all extremity. Normal speech.no focal neurological deficit A/P Problem List: (1) Ischemia of left lower extremity ICD Code: I99.8 - Other disorder of circulatory system Status: Acute (2) Renal insufficiency ICD Code: N28.9 - Disorder of kidney and ureter, unspecified Status: Chronic (3) HTN (hypertension) ICD Code: I10 - Essential (primary) hypertension Status: Chronic Assessment and Plan 04/06/17: Discussed with the daughter in length, patient on D5 water with bicarbonate by the surgeon, continue monitoring BMP, will try to wean O2 04/07/17: Patient resting in bed no chest pain or short of breath, discharged with the daughter at the bedside , patient does have a +3 edema in the lower extremity we'll need to obtain her record from previous hospital, monitor lab continue following with surgery, apply elastic stocking on the lower extremity if okay with surgery, discussed with nurse A/P: This is an 86-year-old female who presented with left lower extremity pain LLE Limb Ischemia: - h/o PVD w/ acute LLE limb ischemia, pulses diminished but has improved. - Dr. Talamantes consulted and CTA showed iliac ISR, L MULTI LINE CLAIMS ADJUSTER occlusion and SFA/ popliteal occlusion. She is postop day 2 L groin reconstruction, left femoropopliteal PEDIATRIC CLINICAL DIETICIAN - Continue heparin drip for 2 days (per vascular on 04/05/17), then aspirin/ Plavix only - Provena off postop day 3-4 (per vascular on 04/05/17) mild Renal Insufficiency: Resolved - Creatinine on initial presentation 1.16, no previous labs for comparison. - Resolved. -Patient on D5 water with bicarbonate by the surgeon HTN now with low blood pressure -metoprolol on hold given her hypotension. Discharge Planning Per vascular surgery likely discharged to [facility] Wednesday or Wednesday to rehabilitation pending mobility PT Lion Sanches MD Apr 07, 2017 15:39
[2017-04-07] MEDS: PRAVASTATIN SOD 40 MG TAB PO SCH (21:18)
[2017-04-07] MEDS: LATANOPROST 0.005% OPHT SOLN 2.5 ML BTL EACH EYE SCH (21:18)
[2017-04-07] MEDS: CHLORHEXIDINE GLUCONATE 2 % 1 PACK (2 CLOTHS)(taper/protocol) TOPICAL SCH (21:20)
[2017-04-07 21:26] LABS: HEMATOCRIT 32.1 % (35.0-46.0)
[2017-04-08] VITALS (10 sets, daily range): BP systolic 106–173; BP diastolic 50–78; PULSE 66–89; RESP 18–21; TEMP 97.5–98.9; O2SAT 93–99
[2017-04-08] MEDS: LEVOTHYROXINE SODIUM 50 MCG TAB PO SCH (06:06)
[2017-04-08] MEDS: ACETAMINOPHEN 325 MG TAB PO PRN (06:06)
--- NOTE | 2017-04-08 07:07 | PD.VS.PN ---
Subjective POD #: 4 Procedure(s): L groin reconstruction, L fem-pop GEAR LAPPING MACHINE OPERATOR Subjective/Hospital Course looks great Hct responded appropriately to PRBC pain controlled - only c/o great toe discomfort Objective Vitals/I&O Date Time Temp Pulse Resp B/P (MAP) Pulse Ox O2 Delivery O2 Flow Rate FiO2 04/08/17 06:00 79 04/08/17 04:00 98.9 76 20 152/67 (95) 97 04/08/17 04:00 79 04/08/17 02:00 70 04/08/17 00:00 70 04/08/17 00:00 98.8 66 20 117/59 (78) 99 04/07/17 23:37 98 Nasal Cannula 2.00 04/07/17 22:00 80 04/07/17 20:00 80 04/07/17 20:00 98.8 80 20 153/67 (95) 98 04/07/17 18:00 60 04/07/17 16:00 98.6 76 28 114/52 (72) 94 04/07/17 16:00 76 04/07/17 15:33 98.6 75 19 110/56 98 04/07/17 14:00 60 04/07/17 12:00 98.7 79 20 155/65 (95) 97 04/07/17 12:00 79 04/07/17 11:18 98.9 79 17 140/63 99 04/07/17 10:00 61 04/07/17 08:00 61 04/07/17 08:00 98.9 61 20 73/49 (57) 92 04/07/17 07:58 97 21 04/08/17 04/08/17 04/08/17 07:00 15:00 23:00 Intake Total 200 ml Output Total 500 ml Balance -300 ml Exam: L groin and leg edematous, mild ecchymotic skin ok Provena VAC in place foot warm and motor intact no tissue loss Laboratory Laboratory Tests Test 04/07/17 19:52 Hemoglobin 11.0 Hematocrit 32.1 Assessment and Plan Plan POD#4 s/p L groin reconstruction and GEAR LAPPING MACHINE OPERATOR of SFA/popliteal artery improved perfusion to foot Hct responded well Recs: 1. OOB/ mobilization 2. Diuresis 3. Antiplatelet therapy (ASA plavix) 4. D/c planning - to rehab likely; discussed with patient and daughters last night Catracho Talamantes MD FACS RPVI pocket grinder operator [facility] - Heart and Vascular Surgery at [facility] [phone] Discharge Planning Wed/Wed. Catracho Talamantes MD Apr 08, 2017 07:07
[2017-04-08 08:34] LABS: HEMATOCRIT 32.4 % (35.0-46.0); HEMOGLOBIN 11.3 GM/DL (11.6-15.3); MEAN CELL VOLUME 87.1 FL (80.0-100.0); MEAN CORPUSCULAR HEMOGLOBIN 30.5 PG (27.0-34.0); MEAN PLATELET VOLUME 8.3 FL (7.0-11.0); PLATELET COUNT 223 TH/MM3 (150-450); RED BLOOD COUNT 3.71 MIL/MM3 (4.00-5.30); RED CELL DISTRIBUTION WIDTH 13.5 % (11.6-17.2); WHITE BLOOD COUNT 9.6 TH/MM3 (4.0-11.0)
[2017-04-08] MEDS: RAMIPRIL 5 MG CAP PO SCH (10:10)
[2017-04-08] MEDS: SODIUM CHLORIDE 0.9% FLUSH 10 ML FLUSH IV FLUSH SCH ×2 (10:10→21:00)
[2017-04-08] MEDS: AZOPT 1% EACH EYE SCH ×2 (10:10→20:26)
[2017-04-08] MEDS: OPTH EACH EYE SCH ×2 (10:10→20:26)
[2017-04-08] MEDS: COMBIGAN EACH EYE SCH ×2 (10:10→20:27)
[2017-04-08] MEDS: ASPIRIN 81 MG CHEW TAB CHEW SCH (10:10)
[2017-04-08] MEDS: POTASSIUM CHLORIDE 10 MEQ CONTROLLED RELEASE TAB PO SCH ×2 (11:24→15:01)
--- NOTE | 2017-04-08 13:43 | HHI.PR ---
Objective Vitals Vital Signs Date Time Temp Pulse Resp B/P (MAP) Pulse Ox O2 Delivery O2 Flow Rate FiO2 04/08/17 12:00 74 04/08/17 12:00 98.4 74 21 106/50 (68) 93 04/08/17 10:00 79 04/08/17 08:00 89 04/08/17 08:00 98.6 80 19 152/66 (94) 97 04/08/17 06:00 79 04/08/17 04:00 98.9 76 20 152/67 (95) 97 04/08/17 04:00 79 04/08/17 02:00 70 04/08/17 00:00 70 04/08/17 00:00 98.8 66 20 117/59 (78) 99 04/07/17 23:37 98 Nasal Cannula 2.00 04/07/17 22:00 80 04/07/17 20:00 80 04/07/17 20:00 98.8 80 20 153/67 (95) 98 04/07/17 18:00 60 04/07/17 16:00 98.6 76 28 114/52 (72) 94 04/07/17 16:00 76 04/07/17 15:33 98.6 75 19 110/56 98 04/07/17 14:00 60 I/O 04/07/17 04/07/17 04/07/17 04/08/17 04/08/17 04/08/17 07:00 15:00 23:00 07:00 15:00 23:00 Intake Total 1248 ml 300 ml 1430 ml 200 ml Output Total 1050 ml 700 ml 500 ml Balance 198 ml 300 ml 730 ml -300 ml Intake Oral 100 ml 600 ml 200 ml IV Total 1148 ml 300 ml Packed Cells 800 ml Blood Product IV Normal Saline Flush 30 ml Output Urine Total 1050 ml 700 ml 500 ml Bladder Scan Volume Amount 952 ml # Bowel Movements 0 2 0 Result Diagram: 04/08/17 0808 04/07/17 0610 Objective Remarks GENERAL: This is a well-nourished, well-developed patient, in no apparent distress. SKIN: No rashes, warm and dry HEAD: Atraumatic. Normocephalic. EYES: Pupils equal round and reactive. Extraocular motions intact. No scleral icterus. ENT: Nose without bleeding, or drainage, Airway patent. NECK: Trachea midline. Supple CARDIOVASCULAR: Regular rate and rhythm without murmurs, gallops, or rubs. RESPIRATORY: Fair air entry bilaterally. No wheezes, rales, or rhonchi. GASTROINTESTINAL: Abdomen soft, non-tender, nondistended. Positive bowel sounds MUSCULOSKELETAL: Extremities without clubbing, cyanosis, or edema. Pedal pulses appreciated NEUROLOGICAL: Awake and alert. Moves all extremity. Normal speech.no focal neurological deficit A/P Problem List: (1) Ischemia of left lower extremity ICD Code: I99.8 - Other disorder of circulatory system Status: Acute (2) Renal insufficiency ICD Code: N28.9 - Disorder of kidney and ureter, unspecified Status: Chronic (3) HTN (hypertension) ICD Code: I10 - Essential (primary) hypertension Status: Chronic Assessment and Plan 04/08/17: no chest pain she's doing better, but she reported diarrhea with liquidy stool check C. difficile, transferred to medical floor A/P: This is an 86-year-old female who presented with left lower extremity pain LLE Limb Ischemia: - h/o PVD w/ acute LLE limb ischemia, pulses diminished but has improved. - Dr. Talamantes consulted and CTA showed iliac ISR, L INDUSTRIAL LOCOMOTIVE OPERATOR occlusion and SFA/ popliteal occlusion. 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 - Resolved. -Patient on D5 water with bicarbonate by the surgeon HTN now with low blood pressure -metoprolol on hold given her hypotension. Discharge Planning Per vascular surgery likely discharged to SNF Wednesday or Wednesday to rehabilitation pending mobility PT Lion Sanches MD Apr 08, 2017 13:43
[2017-04-08] MEDS ORDERED: LOMO2.5T PO (19:35)
[2017-04-08] MEDS ORDERED: LACTOBACILLUS ACIDOPHILUS TAB PO ONE (19:45)
[2017-04-08] MEDS: PRAVASTATIN SOD 40 MG TAB PO SCH (20:27)
[2017-04-08] MEDS: LATANOPROST 0.005% OPHT SOLN 2.5 ML BTL EACH EYE SCH (21:00)
[2017-04-08] MEDS: DIPHENOXYLATE/ATROPINE 2.5 MG/0.025 MG TAB PO PRN (21:49)
[2017-04-09] VITALS (7 sets, daily range): BP systolic 118–174; BP diastolic 60–71; PULSE 59–81; RESP 16–20; TEMP 97.7–100.9; O2SAT 90–94
[2017-04-09] MEDS: CHLORHEXIDINE GLUCONATE 2 % 1 PACK (2 CLOTHS)(taper/protocol) TOPICAL SCH (04:00)
--- NOTE | 2017-04-09 07:24 | PD.VS.PN ---
Subjective POD #: 5 Procedure(s): L groin reconstruction, L fem-pop TUB MENDER Subjective/Hospital Course slightly confused this morning doesn't c/o pain in foot Objective Vitals/I&O Date Time Temp Pulse Resp B/P (MAP) Pulse Ox O2 Delivery O2 Flow Rate FiO2 04/09/17 04:00 59 04/09/17 04:00 Room Air 04/09/17 04:00 98.1 81 16 137/63 (87) 91 04/09/17 00:00 98.9 79 17 149/65 (93) 94 04/09/17 00:00 Room Air 04/09/17 00:00 77 04/08/17 20:00 Room Air 04/08/17 20:00 79 04/08/17 20:00 98.7 79 18 173/78 (109) 93 04/08/17 16:00 72 04/08/17 14:00 97.5 74 20 138/65 (89) 94 04/08/17 12:00 74 04/08/17 12:00 98.4 74 21 106/50 (68) 93 04/08/17 10:00 79 04/08/17 08:00 89 04/08/17 08:00 98.6 80 19 152/66 (94) 97 04/09/17 04/09/17 04/09/17 07:00 15:00 23:00 Intake Total 240 ml Output Total 1500 ml Balance -1260 ml Exam: L groin soft, edematous, ecchymotic L foot warm, motor intact Laboratory Laboratory Tests Test 04/08/17 08:08 04/08/17 17:40 White Blood Count 9.6 Red Blood Count 3.71 Hemoglobin 11.3 Hematocrit 32.4 Mean Corpuscular Volume 87.1 Mean Corpuscular Hemoglobin 30.5 Mean Corpuscular Hemoglobin Concent 35.0 Red Cell Distribution Width 13.5 Platelet Count 223 Mean Platelet Volume 8.3 Stool C. difficile Toxin (PCR) NEGATIVE Stl C. difficile Toxin Epiderm 027 PRESUMPTIVE NEGATIVE Assessment and Plan Plan POD#5 s/p L groin reconstruction and TUB MENDER of SFA/popliteal artery improved perfusion to foot Recs: 1. OOB/ mobilization 2. Diuresis 3. Antiplatelet therapy (ASA plavix) 4. D/c planning -if Hct stable today, then ok to be d/c from vascular surgery standpoint. Catracho Talamantes MD FACS RPVI per diem physical therapist assistant [facility] - Heart and Vascular Surgery at [facility] [phone] Discharge Planning Wed/Sat. Catracho Talamantes MD Apr 09, 2017 07:24
[2017-04-09 07:36] LABS: HEMATOCRIT 32.9 % (35.0-46.0); HEMOGLOBIN 11.3 GM/DL (11.6-15.3); MEAN CELL VOLUME 88.3 FL (80.0-100.0); MEAN CORPUSCULAR HEMOGLOBIN 30.5 PG (27.0-34.0); MEAN CORPUSCULAR HGB CONC 34.5 % (32.0-36.0); MEAN PLATELET VOLUME 8.2 FL (7.0-11.0); PLATELET COUNT 258 TH/MM3 (150-450); RED BLOOD COUNT 3.73 MIL/MM3 (4.00-5.30); RED CELL DISTRIBUTION WIDTH 13.8 % (11.6-17.2); WHITE BLOOD COUNT 10.7 TH/MM3 (4.0-11.0)
[2017-04-09 08:06] LABS: BICARBONATE 22.3 MEQ/L (21.0-32.0); CALCIUM 8.3 MG/DL (8.5-10.1); CREATININE 0.58 MG/DL (0.50-1.00); MAGNESIUM 1.8 MG/DL (1.5-2.5); PHOSPHORUS 1.7 MG/DL (2.5-4.9)
[2017-04-09] MEDS ORDERED: POTASSIUM CHLORIDE 20 MEQ CONTROLLED RELEASE TAB PO SCH (09:00)
[2017-04-09] MEDS: LACTOBACILLUS ACIDOPHILUS TAB PO SCH ×2 (09:00→13:00)
[2017-04-09] MEDS: COMBIGAN EACH EYE SCH (09:00)
[2017-04-09] MEDS: SODIUM CHLORIDE 0.9% FLUSH 10 ML FLUSH IV FLUSH SCH (09:36)
[2017-04-09] MEDS: RAMIPRIL 5 MG CAP PO SCH (09:36)
[2017-04-09] MEDS: ASPIRIN 81 MG CHEW TAB CHEW SCH (09:36)
[2017-04-09] MEDS: OPTH EACH EYE SCH (09:37)
[2017-04-09] MEDS: AZOPT 1% EACH EYE SCH (09:37)
[2017-04-09] MEDS: DIPHENOXYLATE/ATROPINE 2.5 MG/0.025 MG TAB PO PRN (13:13)
[2017-04-09] MEDS ORDERED: PRAV40TA PO (14:52)
--- NOTE | 2017-04-09 14:52 | HHI.DS ---
Discharge Summary Admission Date Apr 02, 2017 at 18:34 Discharge Date: Apr 09, 2017 Admitting Diagnosis leg ischemia (1) Ischemia of left lower extremity ICD Code: I99.8 - Other disorder of circulatory system Status: Acute (2) Renal insufficiency ICD Code: N28.9 - Disorder of kidney and ureter, unspecified Status: Chronic (3) HTN (hypertension) ICD Code: I10 - Essential (primary) hypertension Status: Chronic Procedures L groin reconstruction and FLUMER of SFA/popliteal artery Brief History - From Admission History of present illness from the admitting physician This is an 86-year-old female with a PMH of HTN, Hyperlipidemia, PVD and Hypothyroidism who was brought to the ER by Her daughter secondary to complaints of left leg pain x3 days. Pt visiting Daughter from [place], was supposed to fly back home today, however cancelled her flight due to severe pain. Pain is sharp, constant, 10/10, s/p Tramadol w/ some relief. Pt does have h/o PVD, follows w/ Vascular Sx back home, apparently recommended surgery for bilateral lower extremity occlusion, however pt declined intervention. Denies fever, chills, chest pain or sick contacts. On arrival, BP 144/60, HR 60 , O2 sat 98% on RA, Afebrile. CBC unremarkable. Creatinine 1.16, no bruits labs for comparison. INR 1.0. Dr. Talamantes consulted by ER physician, s/p jose angel in ER w/ plan for surgical intervention. Currently on Heparin gtt. CBC/BMP: 04/09/17 0530 04/09/17 0530 Significant Findings Laboratory Tests Test 04/06/17 21:05 04/07/17 03:20 04/07/17 05:30 04/07/17 06:10 Red Blood Count 2.62 MIL/MM3 (4.00-5.30) 2.73 MIL/MM3 (4.00-5.30) Hemoglobin 8.1 GM/DL (11.6-15.3) 8.4 GM/DL (11.6-15.3) Hematocrit 23.1 % (35.0-46.0) 23.8 % (35.0-46.0) Urine Urobilinogen 4.0 MG/DL (LESS THAN Calcium Level 7.5 MG/DL (8.5-10.1) Sodium Level 130 MEQ/L (136-145) Potassium Level 3.1 MEQ/L (3.5-5.1) Chloride Level 97 MEQ/L (98-107) Test 04/07/17 19:52 04/08/17 08:08 04/08/17 17:40 04/09/17 05:30 Hemoglobin 11.0 GM/DL (11.6-15.3) 11.3 GM/DL (11.6-15.3) 11.3 GM/DL (11.6-15.3) Hematocrit 32.1 % (35.0-46.0) 32.4 % (35.0-46.0) 32.9 % (35.0-46.0) Red Blood Count 3.71 MIL/MM3 (4.00-5.30) 3.73 MIL/MM3 (4.00-5.30) Calcium Level 8.3 MG/DL (8.5-10.1) Phosphorus Level 1.7 MG/DL (2.5-4.9) Sodium Level 132 MEQ/L (136-145) Test 04/09/17 05:50 B-Type Natriuretic Peptide 1294 PG/ML (0-100) Imaging Last Impressions Abdomen Ultrasound 04/06/17 0000 Signed Impressions: Service Date/Time: Thursday, April 06, 2017 22:27 - CONCLUSION: Soft tissue swelling left lower quadrant. Jaime Cheng MD Aorta w/Runoff CTA 04/03/17 1000 Signed Impressions: Service Date/Time: Monday, April 03, 2017 10:12 - CONCLUSION: 1. 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 Proximal sac measures 3.2 cm and distal sac measures 2.8 cm. Intervening segment measures 7 mm. 2. CTA runoff, as above. 3. 3 mm calcified density seen apparently in the distal CBD near the ampulla without significant CBD dilatation and sulcal prominence of the proximal pancreatic duct. Further evaluation may be performed with MRCP as clinically warranted. 4. 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 5. Multiple nonobstructing left renal calyceal calculi with the largest measuring 13 mm in the inferior pole of the left kidney. 6. Moderate sigmoid diverticulosis. Jose Luis Vela MD PE at Discharge GENERAL: This is a well-nourished, well-developed patient, in no apparent distress. SKIN: No rashes, warm and dry HEAD: Atraumatic. Normocephalic. EYES: Pupils equal round and reactive. Extraocular motions intact. No scleral icterus. ENT: Nose without bleeding, or drainage, Airway patent. NECK: Trachea midline. Supple CARDIOVASCULAR: Regular rate and rhythm without murmurs, gallops, or rubs. RESPIRATORY: Fair air entry bilaterally. No wheezes, rales, or rhonchi. GASTROINTESTINAL: Abdomen soft, non-tender, nondistended. Positive bowel sounds MUSCULOSKELETAL: Extremities without clubbing, cyanosis, or edema. Pedal pulses appreciated NEUROLOGICAL: Awake and alert. Moves all extremity. Normal speech.no focal neurological deficit Pt update on day of discharge Patient reports she is feeling better. Wants to get better fast so she can eventually return home. Plan to continue rehabilitation efforts in inpatient rehabilitation. Accepted at [place]. Hospital Course 86-year-old female who presented with left lower extremity pain. Patient found to have acute left lower limb ischemia. The patient was followed by vascular surgery. CTA showed iliac ISR, left BENZENE OPERATOR occlusion and SFA/popliteal occlusion. Patient underwent left groin reconstruction and left femoropopliteal FLUMER. She was on heparin drip which was eventually discontinued and she was restarted on home dose aspirin and Plavix. Patient has a wound VAC in place. She is discharged to inpatient rehabilitation. Will need follow-up with vascular surgery. The patient also had mild renal insufficiency, this was likely secondary to dehydration. Renal function recovered with IV fluid. Pt Condition on Discharge: Good Discharge Disposition: Rehab Inpatient Discharge Time: > 30 minutes Discharge Instructions DIET: Follow Instructions for: Heart Healthy Diet Activities you can perform: Regular-No Restrictions, See Additionl Instruction Other Activity Instructions: Per PT instructions. OOB with assistance New Medications: Pravastatin (Pravachol) 40 Mg Tab 40 MG PO HS, #30 TAB Continued Medications: Aspirin (Aspirin) 81 Mg Chew 81 MG CHEW DAILY, TAB 0 Refills Atenolol-Chlorthalidone (Atenolol-Chlorthalidone) 100-25 Mg Tab 1 TAB PO DAILY for Blood Pressure Management, #30 TAB 0 Refills Bimatoprost Opth Drops (Lumigan Opth Drops) 0.01% Soln 1 DROP EACH EYE HS for Intraocular Pressure, #1 BOTTLE 0 Refills Brimonidine-Timolol Opth Drops (Combigan Opth Drops) 0.2-0.5% Soln 1 DROP EACH EYE Q12HR for Glaucoma, BOTTLE 0 Refills Clopidogrel (Plavix) 75 Mg Tab 75 MG PO DAILY for Blood Clot Prevention, #30 TAB 0 Refills Diphenoxylate-Atropine (Lomotil) 2.5-0.025 Mg Tab 1 TAB PO BID PRN for DIARRHEA, TAB 0 Refills Levothyroxine (Levothyroxine) 50 Mcg Tab 50 MCG PO DAILY for Thyroid, #30 TAB 0 Refills Potassium Chloride ER (Potassium Chloride ER) 20 Meq Tab 20 MEQ PO DAILY for Electrolyte Replacement, #30 TAB 0 Refills Ramipril (Altace) 10 Mg Cap 10 MG PO DAILY, #30 CAP 0 Refills RimpeEdward swanson MD Apr 09, 2017 14:52
== END 2017-04-09 17:25 | DRG 271 ==
LOC: NEPE 14:26 → NEDA 18:34 → N07B 20:37 → HIMW 04-07 05:25 → N04A 04-08 13:53
PROVIDERS: ADMIT Family Medicine; ATTEND Family Medicine
PROC: 047L3ZZ Dilation of Left Femoral Artery, Percutaneous Approach (ICD-10-PCS; 2017-04-04)
PROC: 047N3ZZ Dilation of Left Popliteal Artery, Percutaneous Approach (ICD-10-PCS; 2017-04-04)
PROC: 04CL0ZZ Extirpation of Matter from Left Femoral Artery, Open Approach (ICD-10-PCS; 2017-04-04)
PROC: B4101ZZ Fluoroscopy of Abdominal Aorta using Low Osmolar Contrast (ICD-10-PCS; 2017-04-04)
PROC: B41G1ZZ Fluoroscopy of Left Lower Extremity Arteries using Low Osmolar Contrast (ICD-10-PCS; 2017-04-04)
PROC: 041J0JJ Bypass Left External Iliac Artery to Left Femoral Artery with Synthetic Substitute, Open Approach (ICD-10-PCS; principal; 2017-04-04 08:03)
PROC: 30233N1 Transfusion of Nonautologous Red Blood Cells into Peripheral Vein, Percutaneous Approach (ICD-10-PCS; 2017-04-07)
PROC: 0T9B70Z Drainage of Bladder with Drainage Device, Via Natural or Artificial Opening (ICD-10-PCS; 2017-04-07)
DX: I70.202 Unspecified atherosclerosis of native arteries of extremities, left leg (principal); L76.32 Postprocedural hematoma of skin and subcutaneous tissue following other procedure; I95.9 Hypotension, unspecified; E86.0 Dehydration; Z95.1 Presence of aortocoronary bypass graft; Z91.041 Radiographic dye allergy status; Z95.5 Presence of coronary angioplasty implant and graft; Z95.0 Presence of cardiac pacemaker; Z95.820 Peripheral vascular angioplasty status with implants and grafts; N28.9 Disorder of kidney and ureter, unspecified; I10 Essential (primary) hypertension; E78.5 Hyperlipidemia, unspecified; E03.9 Hypothyroidism, unspecified
CPT/HCPCS: 36430; 75635; 76705; 76937; 80048; 80053; 81001; 82948; 83735; 83880; 84100; 85014; 85018; 85025; 85027; 85610; 85730; 86850; 86900; 86901; 86920; 87493; 87641; 93005; 93922; 96365; 96375; C1725; C1768; C1769; J0360; J1200; J1644; J2270; J2405; J2720; J2930; J3010; J3370; J7030; J7040; J7070; J7512; P9016; Q0163; Q9967

== ENCOUNTER 2017-04-29 09:45 | Inpatient (IN) | payer MEDICARE, OTHER ==
[~2017-04-29] VITALS: Ht 157.5 cm; Wt 59.0 kg
[~2017-04-29 09:45] MED LIST: ALTA10CA12 PO; ASPI-516 CHEW; ATEN100T7 PO; COMB0.2S EACH EYE; LEVO50TA4 PO; LOMO2.5T PO; LUMI0.01 EACH EYE; PLAV75TA29 PO; POTA-163 PO; PRAV40TA PO
[2017-04-29] MEDS ORDERED: CHLORHEXIDINE GLUCONATE 2 % 1 PACK (2 CLOTHS) TOPICAL PRN (11:15)
[2017-04-29] MEDS ORDERED: METOPROLOL TARTRATE 25 MG TAB PO PRN (11:15)
[2017-04-29] MEDS ORDERED: SODIUM CHLORID 0.9% 500 ML IV PRN (11:15)
[2017-04-29] MEDS ORDERED: LACTATED RINGER'S 1000 ML IV PRN (11:15)
[2017-04-29] MEDS ORDERED: HEPARIN SODIUM - IV 10,000 UNITS/10 ML VIAL ONE (11:37)
[2017-04-29] MEDS ORDERED: PROTAMINE SULFATE 50 MG/5 ML VIAL ONE (11:37)
[2017-04-29] MEDS ORDERED: BUPIVACAINE HCL PF 0.5% 30 ML VIAL ONE (11:37)
[2017-04-29] MEDS ORDERED: HEPARIN-NS/PF INJ 500 ML ONE (11:38)
[2017-04-29] MEDS ORDERED: THROMBIN (TOPICAL) 20,000 UNIT SPRAY KIT ONE (11:38)
[2017-04-29] MEDS ORDERED: VANCOMYCIN HCL 1000 MG VIAL ONE ×2 (11:38→11:42)
[2017-04-29] MEDS ORDERED: HYDROmorphone HCL PF 2 MG/ML VIAL IV PRN (11:45)
--- NOTE | 2017-04-29 11:50 | PD.VS.PN ---
Pre-operative Note Pre-operative diagnosis: L groin wound breakdown Planned procedure: L groin reconstruction, wound debridement and closure Interval History: Pt has been in rehab, ready for surgery Labs: Hct 31 plt 234 cr 0.5 Blood: T&C 2U PRBC Imaging: none needed Orders: NPO since MN Vanc 1g IV OCTOR Post-operative destination: PACU, CPCU Operative site marked: Yes Consent: Informed consent has been obtained from Allegra Araujo. I have explained the procedure in detail and discussed the risks, benefits, and potential complications. All questions have been answered. Patient contact information: Daughter (Mavis Courtney) [phone] Catracho Talamantes MD Apr 29, 2017 11:50
[2017-04-29] MEDS ORDERED: LIDOCAINE HCL 1% PF 5 ML SYRINGE OTHER ONE (12:00)
[2017-04-29] MEDS ORDERED: PROPOFOL 200 MG/20 ML AMP IV ONE (12:00)
[2017-04-29] MEDS ORDERED: PHENYLEPH/NS 1000 MCG/10 ML SYR IV ONE (12:00)
[2017-04-29] MEDS ORDERED: SODIUM CHLOR 0.9% (EXCEL) INJ 500 ML IV ONE (12:00)
[2017-04-29] MEDS ORDERED: PHENYLEPHRINE HCL 10 MG/ML VIAL IV ONE (12:00)
[2017-04-29] MEDS ORDERED: fentaNYL CITRATE 1000 MCG/20 ML VIAL ONE (12:03)
--- NOTE | 2017-04-29 13:37 | HHI.PR ---
cc: Catracho Talamantes MD Immediate Post Op Note Procedure Date: Apr 29, 2017 Pre Op Diagnosis: L groin wound infection, s/p vascular reconstruction Post Op Diagnosis: L groin wound infection, s/p vascular reconstruction Surgeon: Catracho Talamantes Ortho Rn(s): Beckie Shepard Procedure: 1. Debridement of groin wound, skin and subq tissue (100sq cm) 2. Sartorius flap 3. Application of VAC dressing Findings: necrotic superficial tissue Deeper layers intact Complications: none Specimen(s) removed: none Estimated blood loss: 100mL Anesthesia: General Drains: EYAL Fluids: 650mL IVF Patient to: PACU Patient Condition: Good Date/Time of Procedure: SEE SURGICAL CARE RECORD Catracho Talamantes MD Apr 29, 2017 13:37
[2017-04-29] MEDS ORDERED: NALOXONE HCL 0.4 MG/ML AMP IV PUSH PRN (13:45)
[2017-04-29] MEDS ORDERED: BISACODYL 10 MG SUPP RECTAL PRN (13:45)
[2017-04-29] MEDS ORDERED: MAGNESIUM HYDROXIDE SUSP 30 ML CUP PO PRN (13:45)
[2017-04-29] MEDS ORDERED: SENNOSIDES 8.6 MG TAB PO PRN (13:45)
[2017-04-29] MEDS ORDERED: LACTULOSE SYRUP 20 GM/30 ML CUP PO PRN (13:45)
[2017-04-29] MEDS ORDERED: DIPHENOXYLATE/ATROPINE 2.5 MG/0.025 MG TAB PO PRN (13:45)
[2017-04-29] MEDS ORDERED: *morphine SULFATE 4 MG/ML PERIprocedure ONLY ONE ×2 (13:59→14:08)
[2017-04-29] MEDS: MORPHINE SULFATE 30 MG/30 ML PCA IV SCH (14:40)
[2017-04-29] MEDS: D5-1/2 NS + KCL 20 MEQ INJ 1,000 ML IV SCH (14:42)
[2017-04-29] MEDS ORDERED: DO NOT ADM ANY ANTICOAGULANT DRUGS PRN (14:45)
--- NOTE | 2017-04-29 16:22 | HHI.HP ---
HPI Service [facility] Hospitalists Primary Care Physician Non-Staff Admission Diagnosis Left groin wound infection Diagnoses: (1) Wound infection Diagnosis: Principal (2) PVD (peripheral vascular disease) Diagnosis: Principal (3) HTN (hypertension) (4) Hypothyroid (5) Steal syndrome of upper extremity Chief Complaint: Right groin pain Travel History International Travel<30 Days: No Contact w/Intl Traveler <30 Da: No History of Present Illness Written by Briseida Duncan, acting as scribe for [Judy] on 04/29/17 at 16:21. 86-year-old female who was recently hospitalized at [facility], she originally presented 04/02 with initial complaints of left leg pain 3 days. Patient has a past medical history which is significant for HTN, HLD, PVD, CAD s/p CABG, hypothyroidism, and IBS. CT scan showed iliac ISR, left STATE ARCHIVIST occlusion, and SFA/ popliteal occlusion. She ultimately underwent left groin reconstruction, and left fem-pop SOLID STATE TESTER on 04/04. She was stable after surgery, cleared by vascular for discharge to [facility] where she was admitted on 04/09. During her stay at [facility] she also developed a DVT and episode of possible GIB. She did not undergo any endoscopy and her anticoagulation resumed. Her wound while at rehab progressively continued to drain, opened up, and had delay in healing. Vascular services followed patient throughout her stay in [facility] as well. She was initially started on oral Cipro and then transitioned over to IV vancomycin for possible wound infection. She was ultimately reevaluated by vascular services yesterday who opted for surgical debridement which patient underwent today. She is seen and examined in PACU, she is very hard of hearing and somewhat sleepy. She is able to follow commands and responds appropriately. Continues to complain of some left groin pain, and has been using her PHYS THER pump. She denies any shortness of breath or chest pains. Initial blood pressure on right arm with map of 64, blood pressure cuff switched over to left arm with improvement MAP >65. Patient does have a history of steal syndrome. Review of Systems Except as stated in HPI: all other systems reviewed are Neg Past Family Social History Past Medical History Hypertension Hyperlipidemia PVD DVT CAD Steal syndrome Hypothyroidism IBS Past Surgical History CABG Pacemaker placement Iliac stent 3 kidney surgeries Left groin reconstruction, fem-pop SOLID STATE TESTER Left groin groin wound surgical debridement Reported Medications Reported Meds & Active Scripts Active Pravachol (Pravastatin) 40 Mg Tab 40 Mg PO HS Reported Lomotil (Diphenoxylate-Atropine) 2.5-0.025 Mg Tab 1 Tab PO BID PRN Plavix (Clopidogrel Bisulfate) 75 Mg Tab 75 Mg PO DAILY Atenolol-Chlorthalidone 100-25 Mg Tab 1 Tab PO DAILY Altace (Ramipril) 10 Mg Cap 10 Mg PO DAILY Aspirin 81 Mg Chew 81 Mg CHEW DAILY Potassium Chloride ER (Potassium Chloride) 20 Meq Tab 20 Meq PO DAILY Levothyroxine (Levothyroxine Sodium) 50 Mcg Tab 50 Mcg PO DAILY Combigan Opth Drops (Brimonidine-Timolol Opth Drops) 0.2-0.5% Soln 1 Drop EACH EYE Q12HR Lumigan Opth Drops (Bimatoprost) 0.01% Soln 1 Drop EACH EYE HS Allergies: Coded Allergies: Penicillins (Verified Allergy, Unknown, 04/29/17) Sulfa (Sulfonamide Antibiotics) (Verified Allergy, Unknown, 04/29/17) codeine (Verified Allergy, Unknown, 04/29/17) iodine (Verified Allergy, Unknown, 04/29/17) lidocaine (Verified Allergy, Unknown, 04/29/17) sulfamethoxazole (Verified Allergy, Unknown, 04/29/17) triamcinolone (Verified Allergy, Unknown, 04/29/17) trimethoprim (Verified Allergy, Unknown, 04/29/17) milk (Verified Adverse Reaction, Unknown, Diarrhea, 04/29/17) Per patient, she is lactose intolerant and ingesting milk products causes diarrhea Family History Both parents with diabetes Father: stroke Social History Quit smoking 1 year ago, used to smoke 1/2 to 1 PPD since the age of ~ 18 No EtOH use or illicit drug use. Physical Exam Vital Signs Vital Signs Date Time Temp Pulse Resp B/P (MAP) Pulse Ox O2 Delivery O2 Flow Rate FiO2 04/29/17 16:00 60 13 95/51 (66) 98 Nasal Cannula 2 04/29/17 15:30 60 13 105/65 (78) 98 Nasal Cannula 2 04/29/17 15:00 60 12 109/57 (74) 98 Nasal Cannula 2 04/29/17 14:40 13 04/29/17 14:30 69 13 147/61 (89) 98 Nasal Cannula 2 04/29/17 14:15 60 12 143/63 (89) 98 Nasal Cannula 2 04/29/17 14:00 60 12 139/63 (88) 97 Nasal Cannula 2 04/29/17 13:51 98.1 69 12 141/56 (84) 96 Nasal Cannula 2 Physical Exam GENERAL: This is a well-nourished, well-developed patient, drowsy but arousable. SKIN: No rashes, or lesions. Cool and dry. Left groin wound VAC in place, thigh EYAL drain with sanguinous drainage. HEAD: Atraumatic. Normocephalic. No temporal or scalp tenderness. EYES: Pupils equal round and reactive. Extraocular motions intact. ENT: Nose without drainage. Airway patent. NECK: Trachea midline. No JVD or lymphadenopathy. Supple, nontender. CARDIOVASCULAR: Regular rate and rhythm with 2/6 murmur present RESPIRATORY: Clear to auscultation. Breath sounds equal bilaterally. No wheezes GASTROINTESTINAL: Abdomen soft, mild epigastric tenderness, nondistended.No guarding. MUSCULOSKELETAL: Extremities without left leg edema +2. No calf tenderness. Negative Homans sign bilaterally. NEUROLOGICAL: Awake and alert. Cranial nerves II through XII intact. Motor and sensory grossly within normal limits. Moving all extremities. Normal speech. Caprini VTE Risk Assessment Caprini VTE Risk Assessment: Mod/High Risk (score >= 2) Caprini Risk Assessment Model Point Value = 1 Point Value = 2 Point Value = 3 Point Value = 5 Age 41-60 Minor surgery BMI > 25 kg/m2 Swollen legs Varicose veins or History of unexplained or recurrent spontaneous Oral contraceptives or hormone replacement Sepsis (< 1 month) Serious lung disease, including pneumonia (< 1 month) Abnormal pulmonary function Acute myocardial infarction Congestive heart failure (< 1 month) History of inflammatory bowel disease Medical patient at bed rest Age 61-74 Arthroscopic surgery Major open surgery (> 45 min) Laparoscopic surgery (> 45 min) Malignancy Confined to bed (> 72 hours) Immobilizing plaster cast Central venous access Age >= 75 History of VTE Family history of VTE Factor V Leiden Prothrombin [id number] Lupus anticoagulant Anticardiolipin antibodies Elevated serum homocysteine Heparin-induced thrombocytopenia Other congenital or acquired thrombophilia Stroke (< 1 month) Elective arthroplasty Hip, pelvis, or leg fracture Acute spinal cord injury (< 1 month) Prophylaxis Regimen Total Risk Factor Score Risk Level Prophylaxis Regimen 0-1 Low Early ambulation 2 Moderate Order ONE of the following: *Sequential Compression Device (SCD) *Heparin 5000 units SQ BID 3-4 Higher Order ONE of the following medications: *Heparin 5000 units SQ TID *Enoxaparin/Lovenox 40 mg SQ daily (WT < 150 kg, CrCl > 30 mL/min) *Enoxaparin/Lovenox 30 mg SQ daily (WT < 150 kg, CrCl > 10-29 mL/min) *Enoxaparin/Lovenox 30 mg SQ BID (WT < 150 kg, CrCl > 30 mL/min) AND/OR *Sequential Compression Device (SCD) 5 or more Highest Order ONE of the following medications: *Heparin 5000 units SQ TID (Preferred with Epidurals) *Enoxaparin/Lovenox 40 mg SQ daily (WT < 150 kg, CrCl > 30 mL/min) *Enoxaparin/Lovenox 30 mg SQ daily (WT < 150 kg, CrCl > 10-29 mL/min) *Enoxaparin/Lovenox 30 mg SQ BID (WT < 150 kg, CrCl > 30 mL/min) AND *Sequential Compression Device (SCD) Assessment and Plan Assessment and Plan 86-year-old female who was recently hospitalized at [facility], she originally presented 04/02 with initial complaints of left leg pain 3 days. Patient has a past medical history which is significant for HTN, HLD, PVD, CAD s/p CABG, hypothyroidism, and IBS. CT scan showed iliac ISR, left STATE ARCHIVIST occlusion, and SFA/ popliteal occlusion. She ultimately underwent left groin reconstruction, and left fem-pop SOLID STATE TESTER on 04/04. She was admitted to [facility] where her wound continued to have drainage with progressive pain. Decision was made by Dr. Talamantes to admit patient for surgical debridement of wound. Left groin wound PVD - s/p surgical debridement with wound VAC in place as well as EYAL drain POD 0. - Wound care has been consulted - PHYS THER pump for pain control, close monitoring for hypotension - We will likely transition to oral pain meds - Close monitoring of left lower extremity HTN HLD - BP initially low but when checked on the left, much improved. - Pt's home meds resumed - pravastatin resumed DVT - Apixaban on hold secondary to surgical procedure. - Resume once okay with vascular surgery Steal syndrome - BPs to be checked on left arm only Hypothyroidism - Continue home dose levothyroxin DVT prophylaxis - Subcutaneous Lovenox per sx Once patient is cleared by vascular surgery for discharge, she will be discharged to detention facility. CM to assist w d/c planning This note was transcribed by joseph Duncan. I, Dr. Laura Kim personally performed the history, physical exam, and medical decision making; and confirmed the accuracy of the information in the transcribed note. Authenticated by Dr. Laura Kim on 04/29/17 at 16:21. Physician Certification 2 Midnight Certification Type: Admission for Inpatient Services Order for Inpatient Services The services are ordered in accordance with Medicare regulations or non- Medicare payer requirements, as applicable. In the case of services not specified as inpatient-only, they are appropriately provided as inpatient services in accordance with the 2-midnight benchmark. Estimated LOS (days): 3 days is the estimated time the patient will need to remain in the hospital, assuming treatment plan goals are met and no additional complications. Post-Hospital Plan: [facility] Briseida Duncan Apr 29, 2017 16:22 Laura Kim MD Apr 29, 2017 19:40
[2017-04-29] MEDS ORDERED: VANCOMYCIN 1 GM/200 ML INJ 200 ML IV SCH (19:15)
[2017-04-29 20:00] VITALS: BP 152/64; PULSE 68; RESP 18; TEMP 100; O2SAT 97
[2017-04-29 20:40] VITALS: PULSE 76
[2017-04-29] MEDS: PRAVASTATIN SOD 40 MG TAB PO SCH (21:00)
[2017-04-29] MEDS ORDERED: Vancomycin Consult Pharmacy 1 EA OTHER SCH (21:00)
[2017-04-29] MEDS: FAMOTIDINE 20 MG TAB PO SCH (21:05)
[2017-04-29] MEDS: DOCUSATE SODIUM 50 MG/SENNA 8.6 MG TAB PO SCH (21:05)
[2017-04-29 22:00] VITALS: PULSE 64
[2017-04-29] MEDS: PCA - TOTAL MG MORPHINE DELIVERED PER SHIFT SCH (22:00)
[2017-04-29] MEDS ORDERED: VANCOMYCIN 500 MG/NS 100 ML IV ONE ×2 (22:00)
[2017-04-29] MEDS: BRIMONIDINE TARTRATE 0.2% OPHT SOLN 5 ML BTL EACH EYE SCH (23:28)
[2017-04-29] MEDS: TIMOLOL MALEATE 0.5% OPHT SOLN 5 ML BTL EACH EYE SCH (23:28)
[2017-04-29] MEDS: LATANOPROST 0.005% OPHT SOLN 2.5 ML BTL EACH EYE SCH (23:29)
[2017-04-30] VITALS (12 sets, daily range): BP systolic 109–150; BP diastolic 45–60; PULSE 63–80; RESP 16–19; TEMP 98.4–100.4; O2SAT 88–99
[2017-04-30 05:38] LABS: HEMATOCRIT 30.7 % (35.0-46.0); HEMOGLOBIN 10.3 GM/DL (11.6-15.3); MEAN CELL VOLUME 88.4 FL (80.0-100.0); MEAN CORPUSCULAR HEMOGLOBIN 29.6 PG (27.0-34.0); MEAN CORPUSCULAR HGB CONC 33.5 % (32.0-36.0); MEAN PLATELET VOLUME 7.3 FL (7.0-11.0); PLATELET COUNT 229 TH/MM3 (150-450); RED BLOOD COUNT 3.48 MIL/MM3 (4.00-5.30); RED CELL DISTRIBUTION WIDTH 14.8 % (11.6-17.2); WHITE BLOOD COUNT 8.2 TH/MM3 (4.0-11.0)
[2017-04-30] MEDS: PCA - TOTAL MG MORPHINE DELIVERED PER SHIFT SCH ×4 (05:44→22:00)
[2017-04-30] MEDS: LEVOTHYROXINE SODIUM 50 MCG TAB PO SCH (05:44)
[2017-04-30 06:06] LABS: BICARBONATE 23.1 MEQ/L (21.0-32.0); CALCIUM 8.3 MG/DL (8.5-10.1); CREATININE 0.63 MG/DL (0.50-1.00)
--- NOTE | 2017-04-30 08:07 | PD.VS.PN ---
Subjective POD #: 1 Procedure(s): L groin revision and sartorius flap Subjective/Hospital Course much better today. Pain controlled foot ok Objective Vitals/I&O Date Time Temp Pulse Resp B/P (MAP) Pulse Ox O2 Delivery O2 Flow Rate FiO2 04/30/17 05:45 16 04/30/17 04:00 100.4 65 16 113/50 (71) 97 04/30/17 04:00 66 04/30/17 02:00 66 04/30/17 00:00 64 04/30/17 00:00 99.8 66 16 150/60 (90) 99 04/29/17 22:00 64 04/29/17 22:00 16 04/29/17 20:40 76 04/29/17 20:00 100.0 68 18 152/64 (93) 97 04/29/17 19:00 67 14 157/92 (113) 95 Nasal Cannula 2 04/29/17 18:00 61 14 131/57 (81) 97 Nasal Cannula 2 04/29/17 17:00 60 12 118/54 (75) 97 Nasal Cannula 2 04/29/17 16:30 60 12 105/51 (69) 97 Nasal Cannula 2 04/29/17 16:00 98.3 60 13 95/51 (66) 98 Nasal Cannula 2 04/29/17 15:30 60 13 105/65 (78) 98 Nasal Cannula 2 04/29/17 15:00 60 12 109/57 (74) 98 Nasal Cannula 2 04/29/17 14:40 13 04/29/17 14:30 69 13 147/61 (89) 98 Nasal Cannula 2 04/29/17 14:15 60 12 143/63 (89) 98 Nasal Cannula 2 04/29/17 14:00 60 12 139/63 (88) 97 Nasal Cannula 2 04/29/17 13:51 98.1 69 12 141/56 (84) 96 Nasal Cannula 2 04/30/17 04/30/17 04/30/17 07:00 15:00 23:00 Intake Total 120 ml Output Total 300 ml Balance -180 ml Exam: L groin with minimal erythema VAC in place, serous drainage EYAL in place with serous drainage Laboratory Laboratory Tests Test 04/30/17 05:20 White Blood Count 8.2 Red Blood Count 3.48 Hemoglobin 10.3 Hematocrit 30.7 Mean Corpuscular Volume 88.4 Mean Corpuscular Hemoglobin 29.6 Mean Corpuscular Hemoglobin Concent 33.5 Red Cell Distribution Width 14.8 Platelet Count 229 Mean Platelet Volume 7.3 Blood Urea Nitrogen 10 Creatinine 0.63 Random Glucose 121 Calcium Level 8.3 Sodium Level 133 Potassium Level 4.5 Chloride Level 103 Carbon Dioxide Level 23.1 Anion Gap 7 Estimat Glomerular Filtration Rate 89 Assessment and Plan Plan POD#1 1. BR today, OOB TC tomorrow 2. Continue Vanc x 2 weeks 3. Continue VAC until Wednesday - will change then 4. Reg diet 5. D/C Prieto tomorrow morning when OOB 6. Continue INDUSTRIAL RELATIONS REPRESENTATIVE for pain control Catracho Talamantes MD Apr 30, 2017 08:07
[2017-04-30] MEDS ORDERED: PILL SPLITTER OTHER PRN (08:30)
[2017-04-30] MEDS: TIMOLOL MALEATE 0.5% OPHT SOLN 5 ML BTL EACH EYE SCH ×2 (09:00→21:03)
[2017-04-30] MEDS: ATENOLOL 100 MG TAB PO SCH (09:00)
[2017-04-30] MEDS: ASPIRIN 81 MG CHEW TAB CHEW SCH (09:00)
[2017-04-30] MEDS: BRIMONIDINE TARTRATE 0.2% OPHT SOLN 5 ML BTL EACH EYE SCH ×2 (09:00→21:03)
[2017-04-30] MEDS: FAMOTIDINE 20 MG TAB PO SCH ×2 (09:00→21:03)
[2017-04-30] MEDS: CHLORTHALIDONE 50 MG TAB PO SCH (09:00)
[2017-04-30] MEDS: RAMIPRIL 5 MG CAP PO SCH (09:00)
[2017-04-30] MEDS: POTASSIUM CHLORIDE 20 MEQ CONTROLLED RELEASE TAB PO SCH (09:00)
[2017-04-30] MEDS: DOCUSATE SODIUM 50 MG/SENNA 8.6 MG TAB PO SCH ×2 (09:00→21:03)
[2017-04-30] MEDS: D5-1/2 NS + KCL 20 MEQ INJ 1,000 ML IV SCH (12:01)
[2017-04-30] MEDS: ENOXAPARIN SODIUM 30 MG/0.3 ML SYRINGE SQ SCH (12:01)
[2017-04-30] MEDS ORDERED: VANCOMYCIN INJ 1,300 MG in SODIUM CHLORID 0.9% 500 ML INJ 500 ML IV SCH (13:00)
--- NOTE | 2017-04-30 15:31 | HHI.PR ---
Subjective Remarks Follow-up for left groin wound Patient found sound sleep in bed when I woke up she started yelling that she was in pain. she has no other complaints. When asked patient if she is pushing her PELT GRADER button she stated no. I spoke to patient's nurse who stated that when she goes in the room patient sleeping the majority time but when she wakes up she started complaining of pain. Per nurse she is pushing the PELT GRADER button for her. Objective Vitals Vital Signs Date Time Temp Pulse Resp B/P (MAP) Pulse Ox O2 Delivery O2 Flow Rate FiO2 04/30/17 15:00 98.4 76 18 120/54 (76) 90 04/30/17 15:00 77 04/30/17 14:00 20 04/30/17 11:00 98.8 63 18 113/51 (71) 95 04/30/17 07:00 67 04/30/17 07:00 98.6 70 16 136/58 (84) 98 04/30/17 05:45 16 04/30/17 04:00 100.4 65 16 113/50 (71) 97 04/30/17 04:00 66 04/30/17 02:00 66 04/30/17 00:00 64 04/30/17 00:00 99.8 66 16 150/60 (90) 99 04/29/17 22:00 64 04/29/17 22:00 16 04/29/17 20:40 76 04/29/17 20:00 100.0 68 18 152/64 (93) 97 04/29/17 19:00 67 14 157/92 (113) 95 Nasal Cannula 2 04/29/17 18:00 61 14 131/57 (81) 97 Nasal Cannula 2 04/29/17 17:00 60 12 118/54 (75) 97 Nasal Cannula 2 04/29/17 16:30 60 12 105/51 (69) 97 Nasal Cannula 2 04/29/17 16:00 98.3 60 13 95/51 (66) 98 Nasal Cannula 2 I/O 04/29/17 04/29/17 04/29/17 04/30/17 04/30/17 04/30/17 07:00 15:00 23:00 07:00 15:00 23:00 Intake Total 650 ml 116 ml 120 ml Output Total 250 ml 395 ml 300 ml Balance 400 ml -279 ml -180 ml Intake Oral 120 ml IV Total 116 ml Other 650 ml Output Urine Total 150 ml 245 ml 250 ml Drainage Total 150 ml 50 ml Estimated Blood Loss 100 ml # Bowel Movements 0 Result Diagram: 04/30/1751904/30/17519 Objective Remarks GENERAL:in NAD SKIN: Left groin VAC and place CARDIOVASCULAR: Regular rate and rhythm without murmurs, gallops, or rubs. RESPIRATORY: Breath sounds equal bilaterally. No accessory muscle use. GASTROINTESTINAL: Abdomen soft, non-tender, nondistended. MUSCULOSKELETAL: No cyanosis, or edema. Medications and IVs Current Medications Lactated Ringer's 1,000 ml @ 30 mls/hr Q24H PRN IV SEE LABEL COMMENTS; Start at 11:15; Stop 04/29/17 at 14:41; Status DC Sodium Chloride 500 ml @ 30 mls/hr [id number] PRN IV SEE LABEL COMMENTS; Start at 11:15; Stop 04/29/17 at 14:41; Status DC Metoprolol Tartrate (Lopressor) 25 mg BARREL LAPPER PRN PO SEE LABEL COMMENTS; Start 04/29/17 at 11:15; Stop 05/02/17 at 11:14 Chlorhexidine Gluconate (Chlorhexidine 2% Cloth) 3 pack BARREL LAPPER PRN TOPICAL SEE LABEL COMMENTS; Start 04/29/17 at 11:15; Stop 05/02/17 at 11:14 Hydromorphone HCl (Dilaudid Pf Inj) 0.5 mg UNSCH X1 PRN IV PAIN 1-10 Last administered on 04/29/17at 11:42; Start 04/29/17 at 11:45; Stop 04/29/17 at 23:59 ; Status DC Protamine Sulfate (Protamine Sulfate Inj) 50 mg STK-MED ONCE .ROUTE ; Start at 11:37; Stop 04/29/17 at 11:38; Status DC Heparin Sodium (Porcine) (Heparin Inj) 10,000 units STK-MED ONCE .ROUTE ; Start 04/29/17 at 11:37; Stop 04/29/17 at 11:38; Status DC Bupivacaine HCl (Marcaine Pf 0.5% Inj) 30 ml STK-MED ONCE .ROUTE ; Start at 11:37; Stop 04/29/17 at 11:38; Status DC Vancomycin HCl (Vancomycin Inj) 3,000 mg STK-MED ONCE .ROUTE Last administered on 04/29/17at 13:10; Start 04/29/17 at 11:38; Stop 04/29/17 at 11:39; Status DC Thrombin (Thrombin [place]) 20,000 units STK-MED ONCE .ROUTE ; Start 04/29/17 at 11:38; Stop 04/29/17 at 11:39; Status DC Heparin Sodium/ Sodium Chloride 500 ml @ As Directed STK-MED ONCE .ROUTE ; Start 04/29/17 at 11:38; Stop 04/29/17 at 11:39; Status DC Vancomycin HCl (Vancomycin Inj) 1,000 mg STK-MED ONCE .ROUTE Last administered on 04/29/17at 12:34; Start 04/29/17 at 11:42; Stop 04/29/17 at 11:43; Status DC Fentanyl Citrate (fentaNYL INJ) 1,000 mcg STK-MED ONCE .ROUTE ; Start 04/29/17 at 12:03; Stop 04/29/17 at 12:04; Status DC Fentanyl Citrate (fentaNYL INJ) 100 mcg STK-MED ONCE .ROUTE ; Start 04/29/17 at 13:38; Stop 04/29/17 at 13:39; Status DC Potassium Chloride/Dextrose/ Sod Cl 1,000 ml @ 42 mls/hr Q62H58H IV Last administered on 04/30/17at 12:01; Start 04/29/17 at 13:37 Famotidine (Pepcid) 20 mg BID PO Last administered on 04/30/17at 09:00; Start at 21:00 Enoxaparin Sodium (Lovenox Inj) 30 mg Q24H SQ Last administered on 04/30/17at 12 :01; Start 04/30/17 at 13:00 Senna/Docusate Sodium (Ryann-Colace) 1 tab BID PO Last administered on at 09:00; Start 04/29/17 at 21:00 Magnesium Hydroxide (Milk Of Magnesia Liq) 30 ml Q12H PRN PO Mild constipation ; Start 04/29/17 at 13:45 Sennosides (Senokot) 17.2 mg Q12H PRN PO Moderate constipation; Start 04/29/17 at 13:45 Bisacodyl (Dulcolax Supp) 10 mg DAILY PRN RECTAL SEVERE CONSITIPATION; Start at 13:45 Lactulose (Lactulose Liq) 30 ml DAILY PRN PO SEVERE CONSITIPATION; Start at 13:45 Naloxone HCl (Narcan Inj) 0.4 mg UNSCH PRN IV PUSH RESPIRATORY RATE LESS THAN 10; Start 04/29/17 at 13:45 Morphine Sulfate (Morphine 1 Mg/ ml PELT GRADER) 30 mg UNSCH IV Last administered on at 14:40; Start 04/29/17 at 13:45 PELT GRADER Dosage Infused (Pha) 1 Q8HR .XX Last administered on 04/30/17at 14:00; Start 04/29/17 at 14:00 Aspirin (Aspirin Chew) 81 mg DAILY CHEW Last administered on 04/30/17at 09:00; Start 04/30/17 at 09:00 Chlorthalidone (Hygroton) 25 mg DAILY PO ; Start 04/30/17 at 09:00 Diphenoxylate HCl/ Atropine (Lomotil Tab) 1 tab BID PRN PO DIARRHEA; Start at 13:45 Levothyroxine Sodium (Synthroid) 50 mcg DAILY@0600 PO Last administered on 04/30at 05:44; Start 04/30/17 at 06:00 Potassium Chloride (KCl) 20 meq DAILY PO Last administered on 04/30/17at 09:00; Start 04/30/17 at 09:00 Pravastatin Sodium (Pravachol) 40 mg HS PO ; Start 04/29/17 at 21:00 Ramipril (Altace) 10 mg DAILY PO Last administered on 04/30/17at 09:00; Start at 09:00 Latanoprost (Xalatan 0.005% Opth Soln) 1 drop HS EACH EYE Last administered on 04/29/17at 23:29; Start 04/29/17 at 21:00 Brimonidine Tartrate (Alphagan 0.2% Opth Soln) 1 drop Q12HR EACH EYE Last administered on 04/30/17at 09:00; Start 04/29/17 at 21:00 Morphine Sulfate (*morphine INJ PERIprocedure ONLY) 4 mg STK-MED ONCE .ROUTE Last administered on 04/29/17at 13:59; Start 04/29/17 at 13:59; Stop 04/29/17 at 14:00; Status DC Morphine Sulfate (*morphine INJ PERIprocedure ONLY) 4 mg STK-MED ONCE .ROUTE Last administered on 04/29/17at 14:08; Start 04/29/17 at 14:08; Stop 04/29/17 at 14:09; Status DC Miscellaneous Information ALL NURSING DEPARTME... UNSCH PRN .XX SEE LABEL COMMENTS; Start 04/29/17 at 14:45; Stop 04/30/17 at 14:44; Status DC Timolol Maleate (Timoptic 0.5% Opt Soln) 1 drop Q12HR EACH EYE Last administered on 04/30/17at 09:00; Start 04/29/17 at 21:00 Vancomycin/Sodium Chloride 200 ml @ 200 mls/hr Q12H IV ; Start 04/29/17 at 19: 15; Stop 04/29/17 at 21:21; Status DC Pharmacy Profile Note ml @ 0 mls/hr UNSCH OTHER ; Start 04/29/17 at 21:00 Vancomycin HCl 500 mg/Sodium Chloride 100 ml @ 200 mls/hr NOW ONCE IV ; Start 04/29/17 at 22:00; Stop 04/29/17 at 22:29; Status Cancel Vancomycin HCl 1300 mg/Sodium Chloride 513 ml @ 250 mls/hr Q24H IV Last administered on 04/30/17at 12:01; Start 04/30/17 at 13:00; Stop 04/30/17 at 13:00 ; Status DC Miscellaneous Information SPECIFIC LAB TO BE JELANI... ONCE ONCE .XX ; Start 05/02 at 17:45; Stop 05/02/17 at 17:46 Atenolol (Tenormin) 100 mg DAILY PO ; Start 04/30/17 at 09:00 Miscellaneous (Pill Splitter) 1 ea UNSCH PRN OTHER SEE LABEL COMMENTS; Start at 08:30 Vancomycin/Sodium Chloride 200 ml @ 200 mls/hr Q18H IV ; Start 05/01/17 at 06: 00 A/P Problem List: (1) Wound infection ICD Code: T14.8XXA - Other injury of unspecified body region, initial encounter ; L08.9 - Local infection of the skin and subcutaneous tissue, unspecified (2) PVD (peripheral vascular disease) ICD Code: I73.9 - Peripheral vascular disease, unspecified Status: Chronic (3) HTN (hypertension) ICD Code: I10 - Essential (primary) hypertension Status: Chronic (4) Hypothyroid ICD Code: E03.9 - Hypothyroidism, unspecified Status: Chronic (5) Steal syndrome of upper extremity ICD Code: T82.898A - Other specified complication of vascular prosthetic devices, implants and grafts, initial encounter Status: Chronic Assessment and Plan 86-year-old female who was recently hospitalized at [facility], she originally presented 04/02 with initial complaints of left leg pain 3 days. Patient has a past medical history which is significant for HTN, HLD, PVD, CAD s/p CABG, hypothyroidism, and IBS. CT scan showed iliac ISR, left METAL RECLAMATION KETTLE TENDER occlusion, and SFA/ popliteal occlusion. 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 She was admitted to [facility] where her wound continued to have drainage with progressive pain. Decision was made by Dr. Talamantes to admit patient for surgical debridement of wound. Left groin wound PVD - s/p surgical debridement with wound VAC in place as well as EYAL drain on POD 1. -Patient on PELT GRADER pump for pain management but does not push her pump. She is sleeping a lot. May consider putting patient on oral medication tomorrow. -Per Dr. Lyle may go out of bed today, vancomycin for 2 weeks, continue wound VAC until Wednesday and he will change to then. HTN HLD - Continue with home medication. DVT - Apixaban on hold secondary to surgical procedure. - Resume once okay with vascular surgery Steal syndrome - BPs to be checked on left arm only Hypothyroidism - Continue home dose levothyroxin DVT prophylaxis - Subcutaneous Lovenox per Katie Linda MD Apr 30, 2017 15:31
[2017-04-30] MEDS: MORPHINE SULFATE 30 MG/30 ML PCA IV SCH (17:22)
[2017-04-30] MEDS: PRAVASTATIN SOD 40 MG TAB PO SCH (21:03)
[2017-04-30] MEDS: LATANOPROST 0.005% OPHT SOLN 2.5 ML BTL EACH EYE SCH (21:03)
[2017-05-01] VITALS (27 sets, daily range): BP systolic 105–145; BP diastolic 51–65; PULSE 59–73; RESP 18–22; TEMP 98–98.8; O2SAT 94–97
[2017-05-01] MEDS ORDERED: ONDANSETRON HCL 4 MG/2 ML VIAL IV PUSH PRN (00:15)
[2017-05-01] MEDS: HYDROmorphone HCL 2 MG TAB PO PRN ×4 (00:39→22:05)
[2017-05-01] MEDS: VANCOMYCIN 1 GM/200 ML PREMIX IV SCH ×2 (05:06→23:25)
[2017-05-01 05:46] LABS: HEMATOCRIT 26.3 % (35.0-46.0); HEMOGLOBIN 8.9 GM/DL (11.6-15.3); MEAN CORPUSCULAR HEMOGLOBIN 30.1 PG (27.0-34.0); MEAN CORPUSCULAR HGB CONC 33.9 % (32.0-36.0); MEAN PLATELET VOLUME 7.4 FL (7.0-11.0); PLATELET COUNT 208 TH/MM3 (150-450); RED BLOOD COUNT 2.95 MIL/MM3 (4.00-5.30); RED CELL DISTRIBUTION WIDTH 14.8 % (11.6-17.2)
[2017-05-01] MEDS: PCA - TOTAL MG MORPHINE DELIVERED PER SHIFT SCH (06:00)
[2017-05-01] MEDS: LEVOTHYROXINE SODIUM 50 MCG TAB PO SCH (06:08)
[2017-05-01 06:16] LABS: CREATININE 1.13 MG/DL (0.50-1.00)
--- NOTE | 2017-05-01 07:46 | PD.VS.PN ---
Subjective POD #: 2 Procedure(s): L groin revision and sartorius flap Subjective/Hospital Course slightly more pain today but she doesn't localize to groin slightly confused this morning Objective Vitals/I&O Date Time Temp Pulse Resp B/P (MAP) Pulse Ox O2 Delivery O2 Flow Rate FiO2 05/01/17 06:03 66 05/01/17 06:00 20 05/01/17 05:31 64 05/01/17 04:05 65 05/01/17 03:40 98.1 67 19 120/56 (77) 97 05/01/17 03:13 68 05/01/17 02:24 69 05/01/17 01:50 73 05/01/17 00:02 72 04/30/17 23:11 98.4 75 19 109/45 (66) 96 04/30/17 23:08 72 04/30/17 22:00 71 04/30/17 22:00 20 04/30/17 21:00 76 04/30/17 20:00 70 04/30/17 19:00 79 04/30/17 19:00 98.6 80 18 119/56 (77) 88 04/30/17 17:28 20 04/30/17 17:22 20 04/30/17 15:00 98.4 76 18 120/54 (76) 90 04/30/17 15:00 77 04/30/17 14:00 20 04/30/17 11:00 98.8 63 18 113/51 (71) 95 05/01/17 05/01/17 05/01/17 07:00 15:00 23:00 Intake Total 240 ml Output Total 310 ml Balance -70 ml Exam: minimal fullness L thigh stable mild erythema around vac foot warm EYAL with scant output VAC with serous output Laboratory Laboratory Tests Test 05/01/17 04:49 White Blood Count 7.0 Red Blood Count 2.95 Hemoglobin 8.9 Hematocrit 26.3 Mean Corpuscular Volume 89.0 Mean Corpuscular Hemoglobin 30.1 Mean Corpuscular Hemoglobin Concent 33.9 Red Cell Distribution Width 14.8 Platelet Count 208 Mean Platelet Volume 7.4 Blood Urea Nitrogen 18 Creatinine 1.13 Estimat Glomerular Filtration Rate 45 Assessment and Plan Plan POD#2 1. OOB TC 2. Continue Vanc x 2 weeks 3. Continue VAC until Wednesday - will change then 4. Reg diet 5. pain control Catracho Talamantes MD May 01, 2017 07:46
[2017-05-01] MEDS: POTASSIUM CHLORIDE 20 MEQ CONTROLLED RELEASE TAB PO SCH (09:21)
[2017-05-01] MEDS: CHLORTHALIDONE 50 MG TAB PO SCH (09:22)
[2017-05-01] MEDS: ATENOLOL 100 MG TAB PO SCH (09:22)
[2017-05-01] MEDS: ASPIRIN 81 MG CHEW TAB CHEW SCH (09:22)
[2017-05-01] MEDS: FAMOTIDINE 20 MG TAB PO SCH ×2 (09:22→21:29)
[2017-05-01] MEDS: DOCUSATE SODIUM 50 MG/SENNA 8.6 MG TAB PO SCH ×2 (09:22→21:29)
[2017-05-01] MEDS: TIMOLOL MALEATE 0.5% OPHT SOLN 5 ML BTL EACH EYE SCH ×2 (09:23→21:29)
[2017-05-01] MEDS: RAMIPRIL 5 MG CAP PO SCH (09:23)
[2017-05-01] MEDS: BRIMONIDINE TARTRATE 0.2% OPHT SOLN 5 ML BTL EACH EYE SCH ×2 (09:23→21:29)
[2017-05-01] MEDS: ENOXAPARIN SODIUM 30 MG/0.3 ML SYRINGE SQ SCH (12:08)
[2017-05-01] MEDS ORDERED: SODIUM CHLOR 0.9% 250 ML INJ 250 ML IV ONE (13:30)
--- NOTE | 2017-05-01 15:26 | HHI.PR ---
Subjective Remarks f/u for left groin wound. daughter at the bedside during the interview. patient was sleeping but per daughter and nurse she was in pain. When I woke patient up she denied any pain and stated "she dont know." patient able to tell me her name and when I asked who the president is patient stated she does not like the current president. She could not tell me location and date. She stated she dont know and got frustrated. per nurse patient felt nauseated but she denied this to me. her daughter did not see any emesis. denied any abdominal pain. patient has not urinated yet and is not eating. per nurse Dr. Lyle stated if does not urinate in 8 hours put estrada in. Objective Vitals Vital Signs Date Time Temp Pulse Resp B/P (MAP) Pulse Ox O2 Delivery O2 Flow Rate FiO2 05/01/17 15:00 62 05/01/17 15:00 98.8 60 22 127/65 (85) 94 05/01/17 14:00 59 05/01/17 13:00 66 05/01/17 12:00 64 05/01/17 11:00 65 05/01/17 11:00 98.0 64 22 145/65 (91) 95 05/01/17 10:00 66 05/01/17 09:00 64 05/01/17 08:00 64 05/01/17 07:40 65 05/01/17 07:40 98.7 66 22 105/51 (69) 97 05/01/17 06:03 66 05/01/17 06:00 20 05/01/17 05:31 64 05/01/17 04:05 65 05/01/17 03:40 98.1 67 19 120/56 (77) 97 05/01/17 03:13 68 05/01/17 02:24 69 05/01/17 01:50 73 05/01/17 00:02 72 04/30/17 23:11 98.4 75 19 109/45 (66) 96 04/30/17 23:08 72 04/30/17 22:00 71 04/30/17 22:00 20 04/30/17 21:00 76 04/30/17 20:00 70 04/30/17 19:00 79 04/30/17 19:00 98.6 80 18 119/56 (77) 88 04/30/17 17:28 20 04/30/17 17:22 20 I/O 04/30/17 04/30/17 04/30/17 05/01/17 05/01/17 05/01/17 07:00 15:00 23:00 07:00 15:00 23:00 Intake Total 120 ml 300 ml 240 ml 250 ml Output Total 300 ml 545 ml 310 ml Balance -180 ml -245 ml -70 ml 250 ml Intake Oral 120 ml 300 ml 240 ml IV Total 250 ml Output Urine Total 250 ml 400 ml 300 ml Drainage Total 50 ml 145 ml 10 ml # Bowel Movements 0 Result Diagram: 05/01/1744805/01/17448 Objective Remarks GENERAL:in NAD SKIN: Left groin VAC and place CARDIOVASCULAR: Regular rate and rhythm without murmurs, gallops, or rubs. RESPIRATORY: Breath sounds equal bilaterally. No accessory muscle use. GASTROINTESTINAL: Abdomen soft, non-tender, nondistended. MUSCULOSKELETAL: No cyanosis, or edema. Medications and IVs Current Medications Lactated Ringer's 1,000 ml @ 30 mls/hr Q24H PRN IV SEE LABEL COMMENTS; Start at 11:15; Stop 04/29/17 at 14:41; Status DC Sodium Chloride 500 ml @ 30 mls/hr [id number] PRN IV SEE LABEL COMMENTS; Start at 11:15; Stop 04/29/17 at 14:41; Status DC Metoprolol Tartrate (Lopressor) 25 mg GRANULATING BLENDER PRN PO SEE LABEL COMMENTS; Start 04/29/17 at 11:15; Stop 05/02/17 at 11:14 Chlorhexidine Gluconate (Chlorhexidine 2% Cloth) 3 pack GRANULATING BLENDER PRN TOPICAL SEE LABEL COMMENTS; Start 04/29/17 at 11:15; Stop 05/02/17 at 11:14 Hydromorphone HCl (Dilaudid Pf Inj) 0.5 mg UNSCH X1 PRN IV PAIN 1-10 Last administered on 04/29/17at 11:42; Start 04/29/17 at 11:45; Stop 04/29/17 at 23:59 ; Status DC Protamine Sulfate (Protamine Sulfate Inj) 50 mg STK-MED ONCE .ROUTE ; Start at 11:37; Stop 04/29/17 at 11:38; Status DC Heparin Sodium (Porcine) (Heparin Inj) 10,000 units STK-MED ONCE .ROUTE ; Start 04/29/17 at 11:37; Stop 04/29/17 at 11:38; Status DC Bupivacaine HCl (Marcaine Pf 0.5% Inj) 30 ml STK-MED ONCE .ROUTE ; Start at 11:37; Stop 04/29/17 at 11:38; Status DC Vancomycin HCl (Vancomycin Inj) 3,000 mg STK-MED ONCE .ROUTE Last administered on 04/29/17at 13:10; Start 04/29/17 at 11:38; Stop 04/29/17 at 11:39; Status DC Thrombin (Thrombin Top [place]) 20,000 units STK-MED ONCE .ROUTE ; Start 04/29/17 at 11:38; Stop 04/29/17 at 11:39; Status DC Heparin Sodium/ Sodium Chloride 500 ml @ As Directed STK-MED ONCE .ROUTE ; Start 04/29/17 at 11:38; Stop 04/29/17 at 11:39; Status DC Vancomycin HCl (Vancomycin Inj) 1,000 mg STK-MED ONCE .ROUTE Last administered on 04/29/17at 12:34; Start 04/29/17 at 11:42; Stop 04/29/17 at 11:43; Status DC Fentanyl Citrate (fentaNYL INJ) 1,000 mcg STK-MED ONCE .ROUTE ; Start 04/29/17 at 12:03; Stop 04/29/17 at 12:04; Status DC Fentanyl Citrate (fentaNYL INJ) 100 mcg STK-MED ONCE .ROUTE ; Start 04/29/17 at 13:38; Stop 04/29/17 at 13:39; Status DC Potassium Chloride/Dextrose/ Sod Cl 1,000 ml @ 42 mls/hr [id number] IV Last administered on 04/30/17at 12:01; Start 04/29/17 at 13:37 Famotidine (Pepcid) 20 mg BID PO Last administered on 04/30/17at 21:03; Start at 21:00; Stop 05/01/17 at 09:12; Status DC Enoxaparin Sodium (Lovenox Inj) 30 mg Q24H SQ Last administered on 05/01/17at 12 :08; Start 04/30/17 at 13:00 Senna/Docusate Sodium (Ryann-Colace) 1 tab BID PO Last administered on at 09:22; Start 04/29/17 at 21:00 Magnesium Hydroxide (Milk Of Magnesia Liq) 30 ml Q12H PRN PO Mild constipation ; Start 04/29/17 at 13:45 Sennosides (Senokot) 17.2 mg Q12H PRN PO Moderate constipation; Start 04/29/17 at 13:45 Bisacodyl (Dulcolax Supp) 10 mg DAILY PRN RECTAL SEVERE CONSITIPATION; Start at 13:45 Lactulose (Lactulose Liq) 30 ml DAILY PRN PO SEVERE CONSITIPATION; Start at 13:45 Naloxone HCl (Narcan Inj) 0.4 mg UNSCH PRN IV PUSH RESPIRATORY RATE LESS THAN 10; Start 04/29/17 at 13:45 Morphine Sulfate (Morphine 1 Mg/ ml OCTAVE BOARD RACKER) 30 mg UNSCH IV Last administered on at 17:22; Start 04/29/17 at 13:45; Stop 05/01/17 at 13:31; Status DC OCTAVE BOARD RACKER Dosage Infused (Pha) 1 Q8HR .XX Last administered on 05/01/17at 06:00; Start 04/29/17 at 14:00; Stop 05/01/17 at 13:31; Status DC Aspirin (Aspirin Chew) 81 mg DAILY CHEW Last administered on 05/01/17at 09:22; Start 04/30/17 at 09:00 Chlorthalidone (Hygroton) 25 mg DAILY PO Last administered on 05/01/17at 09:22; Start 04/30/17 at 09:00 Diphenoxylate HCl/ Atropine (Lomotil Tab) 1 tab BID PRN PO DIARRHEA; Start at 13:45 Levothyroxine Sodium (Synthroid) 50 mcg DAILY@0600 PO Last administered on 05/01at 06:08; Start 04/30/17 at 06:00 Potassium Chloride (KCl) 20 meq DAILY PO Last administered on 05/01/17at 09:21; Start 04/30/17 at 09:00 Pravastatin Sodium (Pravachol) 40 mg HS PO Last administered on 04/30/17 21:03 ; Start 04/29/17 at 21:00 Ramipril (Altace) 10 mg DAILY PO Last administered on 05/01/17at 09:23; Start at 09:00 Latanoprost (Xalatan 0.005% Opt Soln) 1 drop HS EACH EYE Last administered on 04/30/17at 21:03; Start 04/29/17 at 21:00 Brimonidine Tartrate (Alphagan 0.2% Opth Soln) 1 drop Q12HR EACH EYE Last administered on 05/01/17at 09:23; Start 04/29/17 at 21:00 Morphine Sulfate (*morphine INJ PERIprocedure ONLY) 4 mg STK-MED ONCE .ROUTE Last administered on 04/29/17at 13:59; Start 04/29/17 at 13:59; Stop 04/29/17 at 14:00; Status DC Morphine Sulfate (*morphine INJ PERIprocedure ONLY) 4 mg STK-MED ONCE .ROUTE Last administered on 04/29/17at 14:08; Start 04/29/17 at 14:08; Stop 04/29/17 at 14:09; Status DC Miscellaneous Information ALL NURSING DEPARTME... UNSCH PRN .XX SEE LABEL COMMENTS; Start 04/29/17 at 14:45; Stop 04/30/17 at 14:44; Status DC Timolol Maleate (Timoptic 0.5% Opt Soln) 1 drop Q12HR EACH EYE Last administered on 05/01/17at 09:23; Start 04/29/17 at 21:00 Vancomycin/Sodium Chloride 200 ml @ 200 mls/hr Q12H IV ; Start 04/29/17 at 19: 15; Stop 04/29/17 at 21:21; Status DC Pharmacy Profile Note ml @ 0 mls/hr UNSCH OTHER ; Start 04/29/17 at 21:00 Vancomycin HCl 500 mg/Sodium Chloride 100 ml @ 200 mls/hr NOW ONCE IV ; Start 04/29/17 at 22:00; Stop 04/29/17 at 22:29; Status Cancel Vancomycin HCl 1300 mg/Sodium Chloride 513 ml @ 250 mls/hr Q24H IV Last administered on 04/30/17at 12:01; Start 04/30/17 at 13:00; Stop 04/30/17 at 13:00 ; Status DC Miscellaneous Information SPECIFIC LAB TO BE ... ONCE ONCE .XX ; Start 05/02 at 17:45; Stop 05/02/17 at 17:46 Atenolol (Tenormin) 100 mg DAILY PO Last administered on 05/01/17at 09:22; Start 04/30/17 at 09:00 Miscellaneous (Pill Splitter) 1 ea UNSCH PRN OTHER SEE LABEL COMMENTS; Start at 08:30 Vancomycin/Sodium Chloride 200 ml @ 200 mls/hr Q18H IV Last administered on at 05:06; Start 05/01/17 at 06:00 Ondansetron HCl (Zofran Inj) 2 mg Q6H PRN IV PUSH NAUSEA OR VOMITING; Start at 00:15 Hydromorphone HCl (Dilaudid) 1 mg Q4H PRN PO PAIN SCALE 1 TO 10 Last administered on 05/01/17at 12:25; Start 05/01/17 at 00:15 Famotidine (Pepcid) 10 mg BID PO Last administered on 05/01/17at 09:22; Start at 10:00 Sodium Chloride 250 ml @ 250 mls/hr BOLUS ONCE IV Last administered on at 13:00; Start 05/01/17 at 13:30; Stop 05/01/17 at 14:29; Status DC Morphine Sulfate (Oramorph Sr) 15 mg Q12HR PO ; Start 05/01/17 at 15:00 A/P Problem List: (1) Wound infection ICD Code: T14.8XXA - Other injury of unspecified body region, initial encounter ; L08.9 - Local infection of the skin and subcutaneous tissue, unspecified (2) PVD (peripheral vascular disease) ICD Code: I73.9 - Peripheral vascular disease, unspecified Status: Chronic (3) HTN (hypertension) ICD Code: I10 - Essential (primary) hypertension Status: Chronic (4) Hypothyroid ICD Code: E03.9 - Hypothyroidism, unspecified Status: Chronic (5) Steal syndrome of upper extremity ICD Code: T82.898A - Other specified complication of vascular prosthetic devices, implants and grafts, initial encounter Status: Chronic Assessment and Plan 86-year-old female who was recently hospitalized at [place], she originally presented 04/02 with initial complaints of left leg pain 3 days. Patient has a past medical history which is significant for HTN, HLD, PVD, CAD s/p CABG, hypothyroidism, and IBS. CT scan showed iliac ISR, left PHLEBOTOMY SUPPORT TECH occlusion, and SFA/ popliteal occlusion. 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 She was admitted to [facility] where her wound continued to have drainage with progressive pain. Decision was made by Dr. Talamantes to admit patient for surgical debridement of wound. Left groin wound PVD - s/p surgical debridement with wound VAC in place as well as EYAL drain on . 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 will start [employer] and continue with PO dilaudid. Daughter feel PO dilaudid did not help long enough. -Per Dr. Lyle vancomycin for 2 weeks, continue wound VAC until Wednesday and he will change to then. HTN HLD - Continue with home medication. DVT - Apixaban on hold secondary to surgical procedure. 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
[2017-05-01] MEDS: MORPHINE SULFATE 15 MG CONTROLLED RELEASE TAB PO SCH ×2 (15:30→21:28)
[2017-05-01] MEDS ORDERED: HYDROmorphone HCL PF 1 MG/ML VIAL IV ONE (18:00)
[2017-05-01] MEDS ORDERED: HYDROmorphone HCL PF 2 MG/ML VIAL IV ONE (18:15)
[2017-05-01] MEDS ORDERED: HYDROmorphone HCL PF 1 MG/ML VIAL IV PUSH PRN (19:15)
[2017-05-01] MEDS: D5-1/2 NS + KCL 20 MEQ INJ 1,000 ML IV SCH (20:44)
[2017-05-01] MEDS: PRAVASTATIN SOD 40 MG TAB PO SCH (21:29)
[2017-05-01] MEDS: LATANOPROST 0.005% OPHT SOLN 2.5 ML BTL EACH EYE SCH (21:29)
[2017-05-01] MEDS ORDERED: HYDROmorphone HCL PF 2 MG/ML VIAL IV PRN (23:30)
[2017-05-02] VITALS (26 sets, daily range): BP systolic 107–145; BP diastolic 50–58; PULSE 64–80; RESP 18–20; TEMP 98.1–101; O2SAT 93–96
[2017-05-02] MEDS: HYDROmorphone HCL 2 MG TAB PO PRN (03:26)
[2017-05-02 04:09] LABS: HEMATOCRIT 25.9 % (35.0-46.0); HEMOGLOBIN 8.9 GM/DL (11.6-15.3); MEAN CELL VOLUME 88.9 FL (80.0-100.0); MEAN CORPUSCULAR HEMOGLOBIN 30.4 PG (27.0-34.0); MEAN CORPUSCULAR HGB CONC 34.2 % (32.0-36.0); MEAN PLATELET VOLUME 7.2 FL (7.0-11.0); PLATELET COUNT 230 TH/MM3 (150-450); RED BLOOD COUNT 2.91 MIL/MM3 (4.00-5.30); RED CELL DISTRIBUTION WIDTH 14.7 % (11.6-17.2); WHITE BLOOD COUNT 6.7 TH/MM3 (4.0-11.0)
[2017-05-02 04:30] LABS: CREATININE 1.51 MG/DL (0.50-1.00)
[2017-05-02] MEDS: LEVOTHYROXINE SODIUM 50 MCG TAB PO SCH (05:46)
[2017-05-02] MEDS: SODIUM CHLOR 0.9% 1000 ML INJ 1,000 ML IV SCH ×2 (06:13→21:53)
--- NOTE | 2017-05-02 07:52 | PD.VS.PN ---
Subjective POD #: 3 Procedure(s): L groin revision and sartorius flap Subjective/Hospital Course disoriented today responds to voice and notes that she is in pain but doesn't localize nor react to L groin palpation around surgical site Prieto re-inserted yesterday and creatinine up today Objective Vitals/I&O Date Time Temp Pulse Resp B/P (MAP) Pulse Ox O2 Delivery O2 Flow Rate FiO2 05/02/17 07:00 95 Nasal Cannula 2.00 05/02/17 07:00 67 05/02/17 07:00 98.8 70 20 117/58 (77) 95 05/02/17 06:00 68 05/02/17 05:00 69 05/02/17 04:00 71 05/02/17 03:00 93 Nasal Cannula 1.00 05/02/17 03:00 99.3 70 18 145/51 (82) 93 05/02/17 03:00 71 05/02/17 02:00 68 05/02/17 01:00 67 05/02/17 00:00 64 05/01/17 23:10 98.6 63 20 119/52 (74) 94 05/01/17 23:10 94 Nasal Cannula 1.00 05/01/17 23:00 63 05/01/17 22:00 63 05/01/17 21:00 62 05/01/17 20:30 98.0 63 18 120/51 (74) 97 05/01/17 20:05 95 Nasal Cannula 1.00 05/01/17 20:00 97 Nasal Cannula 2.00 05/01/17 20:00 62 05/01/17 19:00 65 05/01/17 18:04 18 05/01/17 18:00 60 05/01/17 17:00 60 05/01/17 16:00 62 05/01/17 15:00 62 05/01/17 15:00 98.8 60 22 127/65 (85) 94 05/01/17 14:00 59 05/01/17 13:00 66 05/01/17 12:00 64 05/01/17 11:00 65 05/01/17 11:00 98.0 64 22 145/65 (91) 95 05/01/17 10:00 66 05/01/17 09:00 64 05/01/17 08:00 64 05/02/17 05/02/17 05/02/17 07:00 15:00 23:00 Intake Total 250 ml Output Total 355 ml Balance -105 ml Exam: disoriented but LINTON L groin VAC in place and less erythema minimal output from VAC (50cc serous) over 24h Laboratory Laboratory Tests Test 05/02/17 03:50 White Blood Count 6.7 Red Blood Count 2.91 Hemoglobin 8.9 Hematocrit 25.9 Mean Corpuscular Volume 88.9 Mean Corpuscular Hemoglobin 30.4 Mean Corpuscular Hemoglobin Concent 34.2 Red Cell Distribution Width 14.7 Platelet Count 230 Mean Platelet Volume 7.2 Blood Urea Nitrogen 21 Creatinine 1.51 Estimat Glomerular Filtration Rate 33 Assessment and Plan Plan POD#3 1. re-orient and likely limit narcotics given age 2. Hct stable and groin ok 3. MIVF and re-dose Vanc given Cr rise 4. VAC change tomorrow Catracho Talamantes MD May 02, 2017 07:52
[2017-05-02] MEDS: ASPIRIN 81 MG CHEW TAB CHEW SCH (08:24)
[2017-05-02] MEDS: BRIMONIDINE TARTRATE 0.2% OPHT SOLN 5 ML BTL EACH EYE SCH (08:24)
[2017-05-02] MEDS: RAMIPRIL 5 MG CAP PO SCH (08:25)
[2017-05-02] MEDS: TIMOLOL MALEATE 0.5% OPHT SOLN 5 ML BTL EACH EYE SCH (08:25)
[2017-05-02] MEDS: POTASSIUM CHLORIDE 20 MEQ CONTROLLED RELEASE TAB PO SCH (08:25)
[2017-05-02] MEDS: CHLORTHALIDONE 50 MG TAB PO SCH (08:25)
[2017-05-02] MEDS: FAMOTIDINE 20 MG TAB PO SCH ×2 (08:25→21:00)
[2017-05-02] MEDS: ATENOLOL 100 MG TAB PO SCH (08:25)
[2017-05-02] MEDS: DOCUSATE SODIUM 50 MG/SENNA 8.6 MG TAB PO SCH ×2 (08:27→21:00)
[2017-05-02] MEDS ORDERED: LORazepam 2 MG/ML VIAL IV PUSH ONE (09:15)
[2017-05-02] MEDS: ENOXAPARIN SODIUM 30 MG/0.3 ML SYRINGE SQ SCH (13:07)
--- NOTE | 2017-05-02 16:58 | HHI.PR ---
Subjective Remarks Follow-up for left groin pain/wound Last night patient was given IV Dilaudid and morphine and was very sedated after that. When I saw patient she was moaning. When I asked patient why she was moaning she said that she does not know why. I asked if she was in pain she said no. I later came back in about 2 hours later and her her moaning again. I asked she was moaning she stated that because she cannot walk. I asked if she was in pain she said no. Then she stated yes. Per nurse patient's been very sedated. Objective Vitals Vital Signs Date Time Temp Pulse Resp B/P (MAP) Pulse Ox O2 Delivery O2 Flow Rate FiO2 05/02/17 16:00 76 05/02/17 15:00 94 Nasal Cannula 2.00 05/02/17 15:00 75 05/02/17 15:00 98.7 72 20 111/54 (73) 96 05/02/17 14:00 74 05/02/17 13:00 74 05/02/17 12:00 68 05/02/17 11:00 94 Nasal Cannula 2.00 05/02/17 11:00 67 05/02/17 11:00 98.1 70 20 107/50 (69) 94 05/02/17 10:00 71 05/02/17 09:00 75 05/02/17 08:00 70 05/02/17 07:00 95 Nasal Cannula 2.00 05/02/17 07:00 67 05/02/17 07:00 98.8 70 20 117/58 (77) 95 05/02/17 06:00 68 05/02/17 05:00 69 05/02/17 04:00 71 05/02/17 03:00 93 Nasal Cannula 1.00 05/02/17 03:00 99.3 70 18 145/51 (82) 93 05/02/17 03:00 71 05/02/17 02:00 68 05/02/17 01:00 67 05/02/17 00:00 64 05/01/17 23:10 98.6 63 20 119/52 (74) 94 05/01/17 23:10 94 Nasal Cannula 1.00 05/01/17 23:00 63 05/01/17 22:00 63 1/27/18 21:00 62 05/01/17 20:30 98.0 63 18 120/51 (74) 97 05/01/17 20:05 95 Nasal Cannula 1.00 05/01/17 20:00 97 Nasal Cannula 2.00 05/01/17 20:00 62 05/01/17 19:00 65 05/01/17 18:04 18 05/01/17 18:00 60 05/01/17 17:00 60 I/O 05/01/17 05/01/17 05/01/17 05/02/17 05/02/17 05/02/17 06:59 14:59 22:59 06:59 14:59 22:59 Intake Total 240 ml 250 ml 679 ml 250 ml Output Total 310 ml 620 ml 355 ml Balance -70 ml 250 ml 59 ml -105 ml Intake Oral 240 ml 240 ml 50 ml IV Total 250 ml 439 ml 200 ml Output Urine Total 300 ml 550 ml 300 ml Drainage Total 10 ml 70 ml 55 ml # Bowel Movements 0 0 Result Diagram: 05/02/17 03505/02/17 0350 Objective Remarks GENERAL:in NAD SKIN: Left groin VAC and place CARDIOVASCULAR: Regular rate and rhythm without murmurs, gallops, or rubs. RESPIRATORY: Breath sounds equal bilaterally. No accessory muscle use. GASTROINTESTINAL: Abdomen soft, non-tender, nondistended. MUSCULOSKELETAL: No cyanosis, or edema. Medications and IVs Current Medications Lactated Ringer's 1,000 ml @ 30 mls/hr Q24H PRN IV SEE LABEL COMMENTS; Start at 11:15; Stop 04/29/17 at 14:41; Status DC Sodium Chloride 500 ml @ 30 mls/hr [id number] PRN IV SEE LABEL COMMENTS; Start at 11:15; Stop 04/29/17 at 14:41; Status DC Metoprolol Tartrate (Lopressor) 25 mg SOFTWARE TEST ANALYST PRN PO SEE LABEL COMMENTS; Start 04/29/17 at 11:15; Stop 05/02/17 at 11:14; Status DC Chlorhexidine Gluconate (Chlorhexidine 2% Cloth) 3 pack SOFTWARE TEST ANALYST PRN TOPICAL SEE LABEL COMMENTS; Start 04/29/17 at 11:15; Stop 05/02/17 at 11:14; Status DC Hydromorphone HCl (Dilaudid Pf Inj) 0.5 mg UNSCH X1 PRN IV PAIN 1-10 Last administered on 04/29/17at 11:42; Start 04/29/17 at 11:45; Stop 04/29/17 at 23:59 ; Status DC Protamine Sulfate (Protamine Sulfate Inj) 50 mg STK-MED ONCE .ROUTE ; Start at 11:37; Stop 04/29/17 at 11:38; Status DC Heparin Sodium (Porcine) (Heparin Inj) 10,000 units STK-MED ONCE .ROUTE ; Start 04/29/17 at 11:37; Stop 04/29/17 at 11:38; Status DC Bupivacaine HCl (Marcaine Pf 0.5% Inj) 30 ml STK-MED ONCE .ROUTE ; Start at 11:37; Stop 04/29/17 at 11:38; Status DC Vancomycin HCl (Vancomycin Inj) 3,000 mg STK-MED ONCE .ROUTE Last administered on 04/29/17at 13:10; Start 04/29/17 at 11:38; Stop 04/29/17 at 11:39; Status DC Thrombin (Thrombin Top [place]) 20,000 units STK-MED ONCE .ROUTE ; Start 04/29/17 at 11:38; Stop 04/29/17 at 11:39; Status DC Heparin Sodium/ Sodium Chloride 500 ml @ As Directed STK-MED ONCE .ROUTE ; Start 04/29/17 at 11:38; Stop 04/29/17 at 11:39; Status DC Vancomycin HCl (Vancomycin Inj) 1,000 mg STK-MED ONCE .ROUTE Last administered on 04/29/17at 12:34; Start 04/29/17 at 11:42; Stop 04/29/17 at 11:43; Status DC Fentanyl Citrate (fentaNYL INJ) 1,000 mcg STK-MED ONCE .ROUTE ; Start 04/29/17 at 12:03; Stop 04/29/17 at 12:04; Status DC Fentanyl Citrate (fentaNYL INJ) 100 mcg STK-MED ONCE .ROUTE ; Start 04/29/17 at 13:38; Stop 04/29/17 at 13:39; Status DC Potassium Chloride/Dextrose/ Sod Cl 1,000 ml @ 42 mls/hr [id number] IV Last administered on 05/01/17at 20:44; Start 04/29/17 at 13:37; Stop 05/02/17 at 05:58 ; Status DC Famotidine (Pepcid) 20 mg BID PO Last administered on 04/30/17at 21:03; Start at 21:00; Stop 05/01/17 at 09:12; Status DC Enoxaparin Sodium (Lovenox Inj) 30 mg Q24H SQ Last administered on 05/02/17at 13 :07; Start 04/30/17 at 13:00 Senna/Docusate Sodium (Ryann-Colace) 1 tab BID PO Last administered on at 21:29; Start 04/29/17 at 21:00 Magnesium Hydroxide (Milk Of Magnesia Liq) 30 ml Q12H PRN PO Mild constipation ; Start 04/29/17 at 13:45 Sennosides (Senokot) 17.2 mg Q12H PRN PO Moderate constipation; Start 04/29/17 at 13:45 Bisacodyl (Dulcolax Supp) 10 mg DAILY PRN RECTAL SEVERE CONSITIPATION; Start at 13:45 Lactulose (Lactulose Liq) 30 ml DAILY PRN PO SEVERE CONSITIPATION; Start at 13:45 Naloxone HCl (Narcan Inj) 0.4 mg UNSCH PRN IV PUSH RESPIRATORY RATE LESS THAN 10; Start 04/29/17 at 13:45 Morphine Sulfate (Morphine 1 Mg/ ml MANAGER PRINTING) 30 mg UNSCH IV Last administered on at 17:22; Start 04/29/17 at 13:45; Stop 05/01/17 at 13:31; Status DC MANAGER PRINTING Dosage Infused (Pha) 1 Q8HR .XX Last administered on 05/01/17at 06:00; Start 04/29/17 at 14:00; Stop 05/01/17 at 13:31; Status DC Aspirin (Aspirin Chew) 81 mg DAILY CHEW Last administered on 05/01/17at 09:22; Start 04/30/17 at 09:00 Chlorthalidone (Hygroton) 25 mg DAILY PO Last administered on 05/01/17at 09:22; Start 04/30/17 at 09:00 Diphenoxylate HCl/ Atropine (Lomotil Tab) 1 tab BID PRN PO DIARRHEA; Start at 13:45 Levothyroxine Sodium (Synthroid) 50 mcg DAILY@0600 PO Last administered on 05/01 06:08; Start 04/30/17 at 06:00 Potassium Chloride (KCl) 20 meq DAILY PO Last administered on 05/01/17at 09:21; Start 04/30/17 at 09:00 Pravastatin Sodium (Pravachol) 40 mg HS PO Last administered on 05/01/17 21:29 ; Start 04/29/17 at 21:00 Ramipril (Altace) 10 mg DAILY PO Last administered on 05/01/17 09:23; Start at 09:00 Latanoprost (Xalatan 0.005% Opth Soln) 1 drop HS EACH EYE Last administered on 05/01/17 21:29; Start 04/29/17 at 21:00 Brimonidine Tartrate (Alphagan 0.2% Opth Soln) 1 drop Q12HR EACH EYE Last administered on 05/01/17 21:29; Start 04/29/17 at 21:00 Morphine Sulfate (*morphine INJ PERIprocedure ONLY) 4 mg STK-MED ONCE .ROUTE Last administered on 04/29/17at 13:59; Start 04/29/17 at 13:59; Stop 04/29/17 at 14:00; Status DC Morphine Sulfate (*morphine INJ PERIprocedure ONLY) 4 mg STK-MED ONCE .ROUTE Last administered on 04/29/17at 14:08; Start 04/29/17 at 14:08; Stop 04/29/17 at 14:09; Status DC Miscellaneous Information ALL NURSING DEPARTME... UNSCH PRN .XX SEE LABEL COMMENTS; Start 04/29/17 at 14:45; Stop 04/30/17 at 14:44; Status DC Timolol Maleate (Timoptic 0.5% Opt Soln) 1 drop Q12HR EACH EYE Last administered on 05/01/17at 21:29; Start 04/29/17 at 21:00 Vancomycin/Sodium Chloride 200 ml @ 200 mls/hr Q12H IV ; Start 04/29/17 at 19: 15; Stop 04/29/17 at 21:21; Status DC Pharmacy Profile Note ml @ 0 mls/hr UNSCH OTHER ; Start 04/29/17 at 21:00 Vancomycin HCl 500 mg/Sodium Chloride 100 ml @ 200 mls/hr NOW ONCE IV ; Start 04/29/17 at 22:00; Stop 04/29/17 at 22:29; Status Cancel Vancomycin HCl 1300 mg/Sodium Chloride 513 ml @ 250 mls/hr Q24H IV Last administered on 04/30/17at 12:01; Start 04/30/17 at 13:00; Stop 04/30/17 at 13:00 ; Status DC Miscellaneous Information SPECIFIC LAB TO BE JELANI... ONCE ONCE .XX ; Start 05/02 at 17:45; Stop 05/02/17 at 17:46 Atenolol (Tenormin) 100 mg DAILY PO Last administered on 05/01/17at 09:22; Start 04/30/17 at 09:00 Miscellaneous (Pill Splitter) 1 ea UNSCH PRN OTHER SEE LABEL COMMENTS; Start at 08:30 Vancomycin/Sodium Chloride 200 ml @ 200 mls/hr Q18H IV Last administered on at 23:25; Start 05/01/17 at 06:00 Ondansetron HCl (Zofran Inj) 2 mg Q6H PRN IV PUSH NAUSEA OR VOMITING; Start at 00:15 Hydromorphone HCl (Dilaudid) 1 mg Q4H PRN PO PAIN SCALE 1 TO 7 Last administered on 05/01/17at 12:25; Start 05/01/17 at 00:15; Status Future Hold Famotidine (Pepcid) 10 mg BID PO Last administered on 05/01/17at 21:29; Start at 10:00 Sodium Chloride 250 ml @ 250 mls/hr BOLUS ONCE IV Last administered on at 13:00; Start 05/01/17 at 13:30; Stop 05/01/17 at 14:29; Status DC Morphine Sulfate (Oramorph Sr) 15 mg Q12HR PO Last administered on 05/01/17at 21 :28; Start 05/01/17 at 15:00; Status Future Hold Hydromorphone HCl (Dilaudid Pf Inj) 0.5 mg NOW ONCE IV ; Start 05/01/17 at 18: 00; Stop 05/01/17 at 18:01; Status Cancel Hydromorphone HCl (Dilaudid Pf Inj) 0.5 mg ONCE ONCE IV Last administered on at 18:21; Start 05/01/17 at 18:15; Stop 05/01/17 at 18:16; Status DC Hydromorphone HCl (Dilaudid) 2 mg Q4H PRN PO PAIN SCALE 8 TO 10 Last administered on 05/01/17at 22:05; Start 05/01/17 at 19:15; Status Future Hold Hydromorphone HCl (Dilaudid Pf Inj) 0.5 mg Q4H PRN IV PUSH pain>4; Start at 19:15; Stop 05/01/17 at 23:26; Status DC Hydromorphone HCl (Dilaudid Pf Inj) 0.5 mg Q4H PRN IV PAIN > 4 Last administered on 05/02/17at 01:29; Start 05/01/17 at 23:30; Status Future Hold Sodium Chloride 1,000 ml @ 63 mls/hr [id number] IV Last administered on at 06:13; Start 05/02/17 at 06:00 Lorazepam (Ativan Inj) 0.25 mg ONCE ONCE IV PUSH Last administered on at 09:40; Start 05/02/17 at 09:15; Stop 05/02/17 at 09:31; Status DC A/P Problem List: (1) Wound infection ICD Code: T14.8XXA - Other injury of unspecified body region, initial encounter ; L08.9 - Local infection of the skin and subcutaneous tissue, unspecified (2) PVD (peripheral vascular disease) ICD Code: I73.9 - Peripheral vascular disease, unspecified Status: Chronic (3) HTN (hypertension) ICD Code: I10 - Essential (primary) hypertension Status: Chronic (4) Hypothyroid ICD Code: E03.9 - Hypothyroidism, unspecified Status: Chronic (5) Steal syndrome of upper extremity ICD Code: T82.898A - Other specified complication of vascular prosthetic devices, implants and grafts, initial encounter Status: Chronic Assessment and Plan 86-year-old female who was recently hospitalized at [place], she originally presented 04/02 with initial complaints of left leg pain 3 days. Patient has a past medical history which is significant for HTN, HLD, PVD, CAD s/p CABG, hypothyroidism, and IBS. CT scan showed iliac ISR, left ICE HOCKEY COACH occlusion, and SFA/ popliteal occlusion. She ultimately underwent left groin reconstruction, and left fem-pop THREAT ANALYST on 04/04. She was admitted to [facility] where her wound continued to have drainage with progressive pain. Decision was made by Dr. Talamantes to admit patient for surgical debridement of wound. Left groin wound PVD - s/p surgical debridement with wound VAC in place as well as EYAL drain on . Her vascular surgeon Dr. Talamantes patient will need 2 weeks of vancomycin. He will recheck the wound tomorrow. -Patient is very sedated from the pain medication. She was given multiple IVs last night. All sedating medication held. -Will also consult palliative care to help with pain management.? Poor prognosis secondary to poor wound healing. Acute renal failure -Secondary to decreased by mouth intake due to sedation. Patient changed to normal saline. Will continue to trend. Strict ins and outs. HTN HLD - Continue with home medication. DVT - Apixaban on hold secondary to surgical procedure. - Resume once okay with vascular surgery Steal syndrome - BPs to be checked on left arm only Hypothyroidism - Continue home dose levothyroxin DVT prophylaxis - Subcutaneous Lovenox per Katie Linda MD May 02, 2017 16:58
[2017-05-02] MEDS ORDERED: PHARMACY ORDERED LAB ONE (17:45)
[2017-05-02] MEDS: VANCOMYCIN 1 GM/200 ML PREMIX IV SCH (18:12)
[2017-05-02] MEDS: PRAVASTATIN SOD 40 MG TAB PO SCH (21:00)
[2017-05-03] VITALS (27 sets, daily range): BP systolic 103–122; BP diastolic 49–58; PULSE 58–79; RESP 16–20; TEMP 97.9–99.8; O2SAT 95–100
[2017-05-03] MEDS: BRIMONIDINE TARTRATE 0.2% OPHT SOLN 5 ML BTL EACH EYE SCH ×3 (00:25→21:28)
[2017-05-03] MEDS: LATANOPROST 0.005% OPHT SOLN 2.5 ML BTL EACH EYE SCH ×2 (00:26→21:29)
[2017-05-03] MEDS: TIMOLOL MALEATE 0.5% OPHT SOLN 5 ML BTL EACH EYE SCH ×3 (00:26→21:29)
[2017-05-03 03:39] LABS: HEMATOCRIT 25.3 % (35.0-46.0); HEMOGLOBIN 8.5 GM/DL (11.6-15.3); MEAN CELL VOLUME 88.8 FL (80.0-100.0); MEAN CORPUSCULAR HEMOGLOBIN 29.7 PG (27.0-34.0); MEAN CORPUSCULAR HGB CONC 33.5 % (32.0-36.0); MEAN PLATELET VOLUME 7.6 FL (7.0-11.0); PLATELET COUNT 286 TH/MM3 (150-450); RED BLOOD COUNT 2.85 MIL/MM3 (4.00-5.30); RED CELL DISTRIBUTION WIDTH 14.5 % (11.6-17.2); WHITE BLOOD COUNT 8.6 TH/MM3 (4.0-11.0)
[2017-05-03 04:10] LABS: BICARBONATE 21.3 MEQ/L (21.0-32.0); CALCIUM 8.2 MG/DL (8.5-10.1); CREATININE 1.65 MG/DL (0.50-1.00)
[2017-05-03 04:11] LABS: RANDOM VANCOMYCIN 34.4 COMMENT
[2017-05-03] MEDS: LEVOTHYROXINE SODIUM 50 MCG TAB PO SCH (06:00)
--- NOTE | 2017-05-03 06:17 | PD.VS.PN ---
Subjective POD #: 4 Procedure(s): L groin revision and sartorius flap Subjective/Hospital Course more calm today LINTON + BM yesterday Objective Vitals/I&O Date Time Temp Pulse Resp B/P (MAP) Pulse Ox O2 Delivery O2 Flow Rate FiO2 05/03/17 04:38 99.8 71 18 120/55 (76) 95 05/03/17 04:10 94 Nasal Cannula 2.00 05/03/17 00:00 70 05/02/17 23:17 96 Nasal Cannula 2.00 05/02/17 23:17 100.8 77 18 115/53 (73) 96 05/02/17 23:00 73 05/02/17 22:00 76 05/02/17 21:00 72 05/02/17 20:30 101.0 75 18 112/54 (73) 95 05/02/17 20:30 95 Nasal Cannula 2.00 05/02/17 20:00 70 05/02/17 19:00 71 05/02/17 18:00 80 05/02/17 17:00 79 05/02/17 16:00 76 05/02/17 15:00 94 Nasal Cannula 2.00 05/02/17 15:00 75 05/02/17 15:00 98.7 72 20 111/54 (73) 96 05/02/17 14:00 74 05/02/17 13:00 74 05/02/17 12:00 68 05/02/17 11:00 94 Nasal Cannula 2.00 05/02/17 11:00 67 05/02/17 11:00 98.1 70 20 107/50 (69) 94 05/02/17 10:00 71 05/02/17 09:00 75 05/02/17 08:00 70 05/02/17 07:00 95 Nasal Cannula 2.00 05/02/17 07:00 67 05/02/17 07:00 98.8 70 20 117/58 (77) 95 05/03/17 05/03/17 05/03/17 07:00 15:00 23:00 Intake Total 30 ml Output Total 440 ml Balance -410 ml Exam: resting LINTON L foot warm L groin soft and no erythema Laboratory Laboratory Tests Test 05/02/17 17:26 05/03/17 03:00 Vancomycin Level Trough 34.1 White Blood Count 8.6 Red Blood Count 2.85 Hemoglobin 8.5 Hematocrit 25.3 Mean Corpuscular Volume 88.8 Mean Corpuscular Hemoglobin 29.7 Mean Corpuscular Hemoglobin Concent 33.5 Red Cell Distribution Width 14.5 Platelet Count 286 Mean Platelet Volume 7.6 Blood Urea Nitrogen 22 Creatinine 1.65 Random Glucose 81 Calcium Level 8.2 Sodium Level 135 Potassium Level 4.6 Chloride Level 105 Carbon Dioxide Level 21.3 Anion Gap 9 Estimat Glomerular Filtration Rate 29 Random Vancomycin Level 34.4 Assessment and Plan Plan POD#4 1. re-orient and likely limit narcotics given age 2. Hct stable and groin ok 3. MIVF and re-dose Vanc given Cr rise 4. VAC change today Catracho Talamantes MD May 03, 2017 06:17
--- NOTE | 2017-05-03 06:26 | MP ---
cc: JUANPABLO TALAMANTES MD DATE OF SURGERY 04/29/2017 PREOPERATIVE DIAGNOSIS Left groin wound, status post groin reconstruction. POSTOPERATIVE DIAGNOSIS Left groin wound, status post groin reconstruction. PROCEDURE 1. Debridement of left groin wound. 2. Sartorius flap for vascular coverage. 3. Application of VAC dressing, approximately 80 cm2. ATTENDING SURGEON Juanpablo Talamantes MD ANESTHESIA General. INDICATIONS Ms. Araujo is an 86-year lady who had acute limb ischemia treated with a groin reconstruction and distal angioplasty. She is taken to the operating room for groin debridement. Intraoperatively it was found she had superficial necrosis of her muscles and the entire area was irrigated and a sartorius flap was performed to provide vascular coverage. DESCRIPTION OF PROCEDURE Informed consent was obtained from the patient and her family. She was taken to the operating room and placed supine on the operating room table. An appropriate time-out was taken to ensure the patient's identity, the operative site and the planned procedure. The administration of 1 gram of vancomycin was initiated prior to the skin incision and will be discontinued after a single preoperative dose. Vancomycin was chosen because of the patient's multiple allergies. Everyone in the room agreed with the time-out and we proceeded. She was prepped from nipples to her toes and her previous groin incision was opened and the skin and subcutaneous tissue was debrided sharply. Healthy tissue was encountered. The vascular bypass was identified after opening the wound even further. The entire area was irrigated with copious amounts of saline and pulse lavage. The sartorius was mobilized on the lateral aspect of the muscle and was rotated over to provide vascular coverage and tacked to the medial aspect of the incision with interrupted 2-0 Polysorb sutures. A 10 flat EYAL drain was placed through a separate stab wound in the sartorial bed and secured to the skin with a 2-0 nylon. The wound was then irrigated, made hemostatic and a close proximally and distally with interrupted nylons and Polysorb and in the middle portion overlying the sartorius flap a VAC dressing was applied. The patient was awoken from anesthesia and transported to the recovery room in stable condition. I was present and scrubbed and performed the entire procedure. MD LYUBOV Ring/EUGENE /7:08 PM /6:14 AM
[2017-05-03] MEDS: DOCUSATE SODIUM 50 MG/SENNA 8.6 MG TAB PO SCH ×2 (09:00→21:00)
[2017-05-03] MEDS: POTASSIUM CHLORIDE 20 MEQ CONTROLLED RELEASE TAB PO SCH (09:00)
[2017-05-03] MEDS: CHLORTHALIDONE 50 MG TAB PO SCH (09:00)
--- NOTE | 2017-05-03 09:52 | PD.CONS ---
Consult Service Palliative Care Consult Requested By [place] Primary Care Physician Non-Staff Reason for Consultation a. To assist with evaluation and management of symptoms including:pain b. To assist medical decision maker(s) with: better understanding of current medical conditions; weighing benefits/burdens of medical treatment options; making medical treatment decisions. HPI History of Present Illness 86-year-old with a past medical history of hypertension, hyperlipidemia, DVT, DVT, CAD, IBS presented to [facility] on 04/02/2017 with complaints of left leg pain for 3 days. Imaging performed and showed the following: * Arterial study shows unremarkable and cold brachial indexes. * CTA of the aorta with runoff showed a Mily heavy calcified abdominal aorta with juxtarenal abdominal aortic aneurysm and moderate to severe aortic stenosis. There is also a 3 mm calcified density in the common bile duct is atrophy of the left renal superior pole secondary to severe stenosis. Moderate sigmoid diverticulosis, and HIV at the left renal superior pole secondary to his severe stenosis. In addition: Right leg inflow shows a stents appear patent, heavily calcified artery. Moderate stenosis. Outflow profunda is patent. Left leg. Inflow shows diffusely diseased internal artery. A central calcified plaque throughout the common femoral artery with diffuse moderate stenosis. Outflow shows plaque extended to the origin of profunda moderate to severe profunda stenosis. * * Patient underwent left groin reconstruction and left femoropopliteal CIRCULAR KNIFE CUTTER MACHINE on . Patient stayed in [facility]. * Lower extremity also shown shows DVT involving the common femoral vein of left lower extremity. * Patient initially was started on Cipro and then transition to IV vancomycin for possible wound infection. * Abdominal CT did not show any new findings compared to April 14. Stable to slight improvement of hematoma in the left groin and lower left anterior abdominal wall. There is severe colonic diverticulosis. Patient return to the hospital 04/29/2017 for surgical debridement, and left groin reconstruction * Status post surgical debridement, patient's condition complicated by worsening pain and some confusion. Cr has been rising. Palliative Care was consulted to review goals of care. Pt still confused, thinks she is in [place]. Try to reorient patient to place and time, but gets frustrated and could not remember. She decline me to listen to her heart and lungs today. I was able d/w case with vascular, and also speak with her daughter Mavis. Currently pt denies pain, if she is not moved. Pt was in the chair. ==Reviewed and discussed pt's hospitalization, course in rehab and rehospitalization. ==Discussed and Mavis does recognize the challenges pt presents. ==Discussed pain control, and that how pt is very sensitive to opiates. She understand they may be times that she has some delirium or confusion from pain control. Pt mentation is clearing up. For now just tylenol per family. == Family would like to rehab for patient once pt is stable. == Family amenable for me to address code status with patient tomorrow hopefully as mentation clears up. Function/Cognitive Trajectory Per daughter pt had significant decline since 2016 from cardio endorectomy. She underwent rehab to the point where she was independent again, and living alone in [place], but subsquently has to be brought down to [place] where pt's daughters live. Review of Systems ROS Limitations: Clinical Condition, Refused Constitutional: COMPLAINS OF: Fatigue Musculoskeletal: COMPLAINS OF: Decreased range of motion Past Family Social History Coded Allergies: Penicillins (Verified Allergy, Unknown, 04/29/17) Sulfa (Sulfonamide Antibiotics) (Verified Allergy, Unknown, 04/29/17) codeine (Verified Allergy, Unknown, 04/29/17) iodine (Verified Allergy, Unknown, 04/29/17) lidocaine (Verified Allergy, Unknown, 04/29/17) sulfamethoxazole (Verified Allergy, Unknown, 04/29/17) triamcinolone (Verified Allergy, Unknown, 04/29/17) trimethoprim (Verified Allergy, Unknown, 04/29/17) milk (Verified Adverse Reaction, Unknown, Diarrhea, 04/29/17) Per patient, she is lactose intolerant and ingesting milk products causes diarrhea Past Medical History Hypertension Hyperlipidemia PVD DVT CAD Steal syndrome Hypothyroidism IBS Past Surgical History CABG Pacemaker placement Iliac stent 3 kidney surgeries Left groin reconstruction, fem-pop CIRCULAR KNIFE CUTTER MACHINE Left groin groin wound surgical debridement Reported Medications Plavix Protocol Atenolol Altace Aspirin KCl Combigan opth drops Lumigan opth drops lomotil Levothyroxine Current Medications Medications (Trade) Dose Ordered Sig/Jett Route Start Time Stop Time Status Last Admin (Lovenox Inj) 30 mg Q24H SQ 04/30/17 13:00 05/02/17 13:07 (Ryann-Colace) 1 tab BID PO 04/29/17 21:00 05/01/17 21:29 (Milk Of Magnesia Liq) 30 ml Q12H PRN PO 04/29/17 13:45 (Senokot) 17.2 mg Q12H PRN PO 04/29/17 13:45 (Dulcolax Supp) 10 mg DAILY PRN RECTAL 04/29/17 13:45 (Lactulose Liq) 30 ml DAILY PRN PO 04/29/17 13:45 (Narcan Inj) 0.4 mg UNSCH PRN IV PUSH 04/29/17 13:45 (Aspirin Chew) 81 mg DAILY CHEW 04/30/17 09:00 05/01/17 09:22 (Hygroton) 25 mg DAILY PO 04/30/17 09:00 05/01/17 09:22 (Lomotil Tab) 1 tab BID PRN PO 04/29/17 13:45 (Synthroid) 50 mcg DAILY@0600 PO 04/30/17 06:00 05/01/17 06:08 (KCl) 20 meq DAILY PO 04/30/17 09:00 05/01/17 09:21 (Pravachol) 40 mg HS PO 04/29/17 21:00 05/01/17 21:29 (Altace) 10 mg DAILY PO 04/30/17 09:00 05/01/17 09:23 (Xalatan 0.005% Opth Soln) 1 drop HS EACH EYE 04/29/17 21:00 05/03/17 00:26 (Alphagan 0.2% Opth Soln) 1 drop Q12HR EACH EYE 04/29/17 21:00 05/03/17 00:25 (Timoptic 0.5% Opth Soln) 1 drop Q12HR EACH EYE 04/29/17 21:00 05/03/17 00:26 Pharmacy Profile Note ml @ 0 mls/hr UNSCH OTHER 04/29/17 21:00 (Tenormin) 100 mg DAILY PO 04/30/17 09:00 05/01/17 09:22 (Pill Splitter) 1 ea UNSCH PRN OTHER 04/30/17 08:30 Vancomycin/Sodium Chloride 200 ml @ 200 mls/hr Q18H IV 05/01/17 06:00 Future Hold 05/02/17 18:12 (Zofran Inj) 2 mg Q6H PRN IV PUSH 05/01/17 00:15 (Dilaudid) 1 mg Q4H PRN PO 05/01/17 00:15 Future Hold 05/01/17 12:25 (Pepcid) 10 mg BID PO 05/01/17 10:00 05/01/17 21:29 (Oramorph Sr) 15 mg Q12HR PO 05/01/17 15:00 Future Hold 05/01/17 21:28 (Dilaudid) 2 mg Q4H PRN PO 05/01/17 19:15 Future Hold 05/01/17 22:05 (Dilaudid Pf Inj) 0.5 mg Q4H PRN IV 05/01/17 23:30 Future Hold 05/02/17 01:29 Sodium Chloride 1,000 ml @ 63 mls/hr [id number] IV 05/02/17 06:00 05/02/17 21:53 Family History Both parents with diabetes Father: stroke Substance Use Tobacco:quit smoking 1 year ago, used to smoke 1/2 to 1 ppd since age of 18. Alcohol: No etoh use Prescription med abuse:none Illicits:none Psychosocial History Has 3 children. son in [place]. 2 daughters in [place]. Neyda Rahmantierney is health care surrogate, awaiting records. Mavis Renteria daughter/ former RN. Spiritual/Cultural Factors Amish Physical Exam Vital Signs Date Time Temp Pulse Resp B/P (MAP) Pulse Ox O2 Delivery O2 Flow Rate FiO2 05/03/17 09:00 68 05/03/17 08:00 72 05/03/17 07:15 98.5 72 20 122/58 (79) 95 05/03/17 07:15 95 Nasal Cannula 2.00 05/03/17 07:00 71 05/03/17 06:00 72 05/03/17 05:00 72 05/03/17 04:38 99.8 71 18 120/55 (76) 95 05/03/17 04:10 94 Nasal Cannula 2.00 05/03/17 04:00 76 05/03/17 03:00 73 05/03/17 02:00 72 05/03/17 01:00 72 05/03/17 00:00 70 05/02/17 23:17 96 Nasal Cannula 2.00 05/02/17 23:17 100.8 77 18 115/53 (73) 96 05/02/17 23:00 73 05/02/17 22:00 76 05/02/17 21:00 72 05/02/17 20:30 101.0 75 18 112/54 (73) 95 05/02/17 20:30 95 Nasal Cannula 2.00 05/02/17 20:00 70 05/02/17 19:00 71 05/02/17 18:00 80 05/02/17 17:00 79 05/02/17 16:00 76 05/02/17 15:00 94 Nasal Cannula 2.00 05/02/17 15:00 75 05/02/17 15:00 98.7 72 20 111/54 (73) 96 05/02/17 14:00 74 05/02/17 13:00 74 05/02/17 12:00 68 05/02/17 11:00 94 Nasal Cannula 2.00 05/02/17 11:00 67 05/02/17 11:00 98.1 70 20 107/50 (69) 94 05/02/17 10:00 71 Exam CONSTITUTIONAL/GENERAL: This is an elderly patient, slightly confused. TUBES/LINES/DRAINS:left groin drain. SKIN:Drain in left groin area. HEAD: Atraumatic. Normocephalic. EYES: No scleral icterus. No injection or drainage. Fundi not examined. ENT: Some hearing problems. Nose without bleeding or purulent drainage. Throat without visible erythema, exudates, masses, or lesions. NECK: Trachea midline. Supple, nontender. No palpable thyroid enlargement or nodularity. CARDIOVASCULAR:did not let me examine RESPIRATORY/CHEST: did not let me examine GASTROINTESTINAL: Did not let me examine GENITOURINARY: Without palpable bladder distension. Prieto catheter in place. MUSCULOSKELETAL:did not let mbe examine LYMPHATICS: No palpable cervical or supraclavicular adenopathy. NEUROLOGICAL: Awake and alert. Motor and sensory grossly within normal limits. Follows commands. Cognitively sharp. Moves all extremities. PSYCHIATRIC: No obvious anxiety/depression. no apparent hallucinations or other psychotic thought process. Diagnostic Tests Laboratory Laboratory Tests Test 05/01/17 04:49 05/02/17 03:50 05/02/17 17:26 05/03/17 03:00 White Blood Count 7.0 TH/MM3 (4.0-11.0) 6.7 TH/MM3 (4.0-11.0) 8.6 TH/MM3 (4.0-11.0) Red Blood Count 2.95 MIL/MM3 (4.00-5.30) 2.91 MIL/MM3 (4.00-5.30) 2.85 MIL/MM3 (4.00-5.30) Hemoglobin 8.9 GM/DL (11.6-15.3) 8.9 GM/DL (11.6-15.3) 8.5 GM/DL (11.6-15.3) Hematocrit 26.3 % (35.0-46.0) 25.9 % (35.0-46.0) 25.3 % (35.0-46.0) Mean Corpuscular Volume 89.0 FL (80.0-100.0) 88.9 FL (80.0-100.0) 88.8 FL (80.0-100.0) Mean Corpuscular Hemoglobin 30.1 PG (27.0-34.0) 30.4 PG (27.0-34.0) 29.7 PG (27.0-34.0) Mean Corpuscular Hemoglobin Concent 33.9 % (32.0-36.0) 34.2 % (32.0-36.0) 33.5 % (32.0-36.0) Red Cell Distribution Width 14.8 % (11.6-17.2) 14.7 % (11.6-17.2) 14.5 % (11.6-17.2) Platelet Count 208 TH/MM3 (150-450) 230 TH/MM3 (150-450) 286 TH/MM3 (150-450) Mean Platelet Volume 7.4 FL (7.0-11.0) 7.2 FL (7.0-11.0) 7.6 FL (7.0-11.0) Blood Urea Nitrogen 18 MG/DL (7-18) 21 MG/DL (7-18) 22 MG/DL (7-18) Creatinine 1.13 MG/DL (0.50-1.00) 1.51 MG/DL (0.50-1.00) 1.65 MG/DL (0.50-1.00) Estimat Glomerular Filtration Rate 45 ML/MIN (>89) 33 ML/MIN (>89) 29 ML/MIN (>89) Vancomycin Level Trough 34.1 MCG/ML (5.0-10.0) Random Glucose 81 MG/DL (74-106) Calcium Level 8.2 MG/DL (8.5-10.1) Sodium Level 135 MEQ/L (136-145) Potassium Level 4.6 MEQ/L (3.5-5.1) Chloride Level 105 MEQ/L (98-107) Carbon Dioxide Level 21.3 MEQ/L (21.0-32.0) Anion Gap 9 MEQ/L (5-15) Random Vancomycin Level 34.4 COMMENT Result Diagram: 05/03/17 0300 05/03/17 0300 Patient/Family Conference Present at Family Conference: Kiah Gamble. Family Conference Time (mins): 30 Family Conference Location: Bedside Issues Discussed: * Palliative care role, purpose, approach * Additional medical, psychosocial, and spiritual history * Patients general health, functional status, and cognitive changes in the months leading up to the current hospitalization * Patient/family understanding of the current medical problems * Patient/family understanding of prognosis * Patients goals of care as best understood from advance directives and/or conversations and/or values * Current medical treatment options and benefits/burdens of those options * Likely scenarios comparing ongoing aggressive care with a transition to comfort measures only * Questions answered to the best of my ability * Palliative care contact information provided Assessment and Plan Disease Oriented Problem List: (1) Wound infection Comment: groin reconstruction (2) PVD (peripheral vascular disease) (3) Renal insufficiency (4) Hypothyroid (5) HTN (hypertension) Symptom Scale: (1) Confusion 0-10 Scale: Unable to quantify (2) Pain 0-10 Scale: Unable to quantify Pertinent Non-Medical Issues Psychosocial: From [place] orignially. Spiritual:Protestent Legal: Neyda Frankstierney is Health Care Surrogate, awaiting paper work. Ethical issues impacting care: none. Important Contacts Neyda Irving is health care surrogate, awaiting records. Mavis Renteria daughter/ former RN. Prognosis 86 year old with multiple comorbidities. Prognosis is guarded. It appears pt would survive current hospitalization, but pt is at risk of further infection, reinfection, and intolerance of rehab. Code Status: Full Code Plan ==capacity- still confused. Per family, pt has been able to make her own medical decisions. I suspect confusion will continue to improve, and capacity will be back at baseline. == Pain. Left groin. However became confused, agitated, and somolent with dilaudid. Tylenol prn for now. She may require opiate in the near future as she has left groin revision. Goals of care: ==Reviewed and discussed pt's hospitalization, course in rehab and rehospitalization. ==Discussed and Mavis does recognize the challenges pt presents. ==Discussed pain control, and that how pt is very sensitive to opiates. She understand they may be times that she has some delirium or confusion from pain control. Pt mentation is clearing up. == Family would like to rehab for patient once pt is stable. == Family amenable for me to address code status with patient tomorrow hopefully as mentation clears up. == d/w with vascular . == palliative care will continue to follow as clinical condition evolves. Thank you for the opportunity to participate in the care of Ms. Araujo. Attestation To help prompt me to consider important information that might be impacting today's encounter and assessment, information from prior notes written by myself or my colleagues may have been "brought forward" into today's note. My signature on this note, however, is an attestation that I personally performed the exam, history, and/or decision-making noted today, and, unless otherwise indicated, the interactions with patient, family, and staff as well as the review of records all occurred today. I also attest that the listed assessment and stated plan reflect my best clinical judgment today based on the combination of historical information, prior notes, and today's exam/ interactions. When time spent is documented, it refers only to time spent today by the signer, or if indicated, combined time spent today by collaborating physician/nurse practitioner. Lionel Moreau MD May 03, 2017 09:51
[2017-05-03] MEDS: ATENOLOL 100 MG TAB PO SCH (10:06)
[2017-05-03] MEDS: ASPIRIN 81 MG CHEW TAB CHEW SCH (10:08)
[2017-05-03] MEDS: FAMOTIDINE 20 MG TAB PO SCH ×2 (10:11→21:29)
[2017-05-03] MEDS: RAMIPRIL 5 MG CAP PO SCH (10:11)
--- NOTE | 2017-05-03 12:09 | HHI.PR ---
Subjective Remarks She says she is feeling all right. Denies any chest pain or shortness of breath. No acute issues per nursing. Objective Vital Signs Date Time Temp Pulse Resp B/P (MAP) Pulse Ox O2 Delivery O2 Flow Rate FiO2 05/03/17 11:00 69 05/03/17 10:00 79 05/03/17 09:00 68 05/03/17 08:00 72 05/03/17 07:15 98.5 72 20 122/58 (79) 95 05/03/17 07:15 95 Nasal Cannula 2.00 05/03/17 07:00 71 05/03/17 06:00 72 05/03/17 05:00 72 05/03/17 04:38 99.8 71 18 120/55 (76) 95 05/03/17 04:10 94 Nasal Cannula 2.00 05/03/17 04:00 76 05/03/17 03:00 73 05/03/17 02:00 72 05/03/17 01:00 72 05/03/17 00:00 70 05/02/17 23:17 96 Nasal Cannula 2.00 05/02/17 23:17 100.8 77 18 115/53 (73) 96 05/02/17 23:00 73 05/02/17 22:00 76 05/02/17 21:00 72 05/02/17 20:30 101.0 75 18 112/54 (73) 95 05/02/17 20:30 95 Nasal Cannula 2.00 05/02/17 20:00 70 05/02/17 19:00 71 05/02/17 18:00 80 05/02/17 17:00 79 05/02/17 16:00 76 05/02/17 15:00 94 Nasal Cannula 2.00 05/02/17 15:00 75 05/02/17 15:00 98.7 72 20 111/54 (73) 96 05/02/17 14:00 74 05/02/17 13:00 74 I/O 05/02/17 05/02/17 05/02/17 05/03/17 05/03/17 05/03/17 07:00 15:00 23:00 07:00 15:00 23:00 Intake Total 250 ml 240 ml 30 ml Output Total 355 ml 470 ml 440 ml Balance -105 ml -230 ml -410 ml Intake Oral 50 ml 240 ml 30 ml IV Total 200 ml Output Urine Total 300 ml 450 ml 425 ml Drainage Total 55 ml 20 ml 15 ml # Bowel Movements 0 1 1 Result Diagram: 05/03/1729905/03/17299 Objective Remarks GENERAL: Sitting up in chair. Appears comfortable. SKIN: Warm and dry. HEAD: Normocephalic. EYES: No scleral icterus. No injection or drainage. NECK: Supple, trachea midline. No JVD. CARDIOVASCULAR: Regular rate and rhythm without murmurs, gallops, or rubs. RESPIRATORY: Breath sounds equal bilaterally. No accessory muscle use. GASTROINTESTINAL: Abdomen soft, non-tender, nondistended. MUSCULOSKELETAL: No cyanosis. 2+ bilateral lower extremity edema. No broken skin. Groin wounds not examined. BACK: Nontender without obvious deformity. No CVA tenderness. A/P Assessment and Plan 86-year-old female who was recently hospitalized at [place], she originally presented 04/02 with initial complaints of left leg pain 3 days. Patient has a past medical history which is significant for HTN, HLD, PVD, CAD s/p CABG, hypothyroidism, and IBS. CT scan showed iliac ISR, left PHYSICIAN ASST occlusion, and SFA/ popliteal occlusion. She ultimately underwent left groin reconstruction, and left fem-pop CLAIMS ADJUSTER CROP on 04/04. She was admitted to [facility] where her wound continued to have drainage with progressive pain. Decision was made by Dr. Talamantes to admit patient for surgical debridement of wound. //Left groin wound PVD - s/p surgical debridement with wound VAC in place as well as EYAL drain on . Her vascular surgeon Dr. Talamantes patient will need 2 weeks of vancomycin. He will recheck the wound tomorrow. -Patient is very sedated from the pain medication. She was given multiple IVs last night. All sedating medication held. -Will also consult palliative care to help with pain management.? Poor prognosis secondary to poor wound healing. = Appreciate vascular surgery assistance. //Acute renal failure -Secondary to decreased by mouth intake due to sedation. Patient changed to normal saline. Will continue to trend. Strict ins and outs. = 05/03. Creatinine 1.65 today. Continues worsening. Likely secondary to vancomycin. Check BNP. Previously 1200 on 04/10. We'll check urinalysis, consult nephrology. //Bilateral lower extremity edema. -Check BNP. //HTN //HLD - Continue with home medication. //DVT - Apixaban on hold secondary to surgical procedure. 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 Hemoglobin 8.5. Likely secondary to chronic inflammation, continued wound drains.. Continue to monitor. //DVT prophylaxis - Subcutaneous Lovenox per sx Discharge Planning Pending improvement. -Vascular surgery following. Bryon Cota MD May 03, 2017 12:09
--- NOTE | 2017-05-03 12:56 | PD.WCN.NOT ---
Wound Consult Description: Received consult from Doctor Vinita for VAC management of L groin Communicated with: BALDEV Gallegos CPCU and Odette OBRIEN Recommendation: Wound VAC dressing changes Wednesday, Wednesday and Wednesday 125 mm/hg low continuous. Additional Information: Wound VAc dressing was changed per Wound care consult. Neg Pressure Wound Therapy Wound Location Wound Location: L groin Wound Description Length: ~6 cm Width: ~4cm Depth: ~1cm Wound bed appearance: 50% red granulation tissue ~20% facia and ~30% muscle with moderate sero- sanguinous drainage that is without odor Periwound appearance: Other (sutures at 12 and 6 o'clock) Settings Suction: 125 mmHg, Continuous Intensity: Low Other Information: Bridged Foam type: Black Number of pieces: 1 Additonal Information Old dressing was gently removed with adhesive remover and normal saline to reveal wound to L groin. One piece of granufoam was removed from wound bed.Wound measurements and description is noted above. Wound was cleansed with normal saline and patted dry. Skin prep was applied to periwound areas. Oil emulsion gauze (adaptic) was applied over facia in wound bed.Window paned wound with VAC drape and then applied one piece of granufoam cut fit into wound bed.Stoma paste was applied to periwound groin creases to seal. Xeroform was applied over sutures at 12 o'clock and 1 suture at 6 o'clock.Secured granufoam with VAC drape and bridged granufoam over VAC drape to L thigh.Mushroom cap of black granufoam was placed over bridged granufoam, with attached Sensi trac pad. Wound VAC was started at 125 mm/hg with low leak rate noted. Additional Stoma paste was applied to groin crease to seal. Wound VAC is functioning properly and patient was positioned for comfort . Bed was lowered to a safe height before leaving patient's room. Sonia Sommer [facility] May 03, 2017 12:56
[2017-05-03] MEDS: ENOXAPARIN SODIUM 30 MG/0.3 ML SYRINGE SQ SCH (13:19)
[2017-05-03] MEDS: ACETAMINOPHEN 650 MG/20.3 ML UDC PO PRN ×2 (13:19→21:28)
[2017-05-03] MEDS: SODIUM CHLOR 0.9% 1000 ML INJ 1,000 ML IV SCH (13:46)
--- NOTE | 2017-05-03 19:16 | MB ---
cc: GOSIA SALAS MD DATE OF CONSULTATION 05/03/2017 REASON FOR CONSULTATION Acute kidney injury with elevated BUN and creatinine. HISTORY OF PRESENT ILLNESS This is an 86-year-old female with past medical history of hypertension, peripheral vascular disease, ischemic heart disease, history of coronary artery bypass grafting, hypothyroidism, irritable bowel syndrome was admitted with left leg ischemia. I was called to see the patient because of elevated BUN and creatinine. The patient has creatinine of 0.6 on admission which increased to 1.6 now and it has been gradually increasing. The patient had left groin reconstruction surgery and angioplasty of the distal leg. This was done on . The patient has a wound VAC in the left groin and she is not a very good historian. She is oriented x1, not eating well, started taking some liquids today. There is no history of nausea or vomiting. She denies any shortness of breath or chest pain. PAST MEDICAL HISTORY 1. Hypertension. 2. Ischemic heart disease. 3. Peripheral vascular disease. 4. Hypothyroidism. 5. Irritable bowel syndrome. 6. Hyperlipidemia. PAST SURGICAL HISTORY 1. Coronary artery bypass grafting. 2. History of pacemaker insertion. 3. Iliac stent. 4. Left groin surgery with angioplasty done recently. 5. History of some kind of kidney surgeries in the past. REVIEW OF SYSTEMS Limited since the patient is not answering all of the questions. She denies any headache, dizziness. No shortness of breath. No chest pain. She has decreased appetite, not eating well. She is oriented x1. There is no history of nausea or vomiting. No history of diarrhea. SOCIAL HISTORY The patient has past history of smoking, stopped about a year ago. There is no history of heavy alcoholism. FAMILY HISTORY Noncontributory. ALLERGIES SHE IS ALLERGIC TO PENICILLIN, SULFA, CODEINE, IODINE, LIDOCAINE. MEDICATIONS Currently she is on following medications: 1. Aspirin 81 mg once a day. 2. Pepcid 10 mg b.i.d. 3. Hygroton 25 mg once a day. 4. Potassium chloride 20 mEq once a day. 5. Altace 10 mg daily. 6. Atenolol 100 mg daily. 7. Synthroid 50 mcg daily. 8. Pravachol 40 mg q.h.s. 9. Lovenox 30 mg subcu q.24h. 10. Zofran as needed. PHYSICAL EXAMINATION GENERAL: The patient is awake, alert. She is not fully oriented. Not in acute distress. VITAL SIGNS: The last blood pressure was 103/49. There is no significant hypotensive episode. Her temperature 98.1, oxygen saturation on 2 liters nasal cannula is 98%. HEENT: Pupils are mid constricted. Nonicteric sclera, conjunctiva pale. NECK: Supple. JVD is not elevated. LUNGS: The patient has bilateral good air entry with occasional wheezing. HEART: S1-S2. Regular rhythm. ABDOMEN: Distended, soft. Lax. There is no tenderness. EXTREMITIES: She has mild edema more in the left leg and left groin with wound VAC. LABORATORY DATA Investigations, WBC count is 8.6, hemoglobin 8.5, platelet count of 286. Sodium 135, potassium 4.6, chloride 105, bicarb 21.3, BUN 22, creatinine 1.6. BNP is 1083. Calcium is 8.2. There is no urinalysis done. Vanco level was 34 today and the last dose of vancomycin she received was 04/30. IMAGING There is no recent imaging study done. ASSESSMENT/PLAN 1. Acute kidney injury. 2. Peripheral vascular disease. 3. History of hypertension. 4. Post left groin wound debridement and angioplasty. The patient has acute kidney injury and her creatinine has gone up to 1.6. The differential diagnosis for acute kidney injury is most likely acute tubular necrosis due to vancomycin toxicity or possibility of interstitial nephritis. I will DC the potassium since the potassium can go high with acute worsening and her potassium is normal. And we will check the urinalysis and get ultrasound of the kidneys. Agree with gentle hydration and follow the BUN, creatinine. Avoid any nephrotoxins. Thank you for the consultation. I will follow the patient while she is in the hospital. MD CORAL Moss/DIAMOND /3:55 PM /6:50 PM
[2017-05-03] MEDS: PRAVASTATIN SOD 40 MG TAB PO SCH (21:29)
--- NOTE | 2017-05-03 23:01 | RADRPT ---
EXAM DATE/TIME: 05/03/2017 17:52 [facility] COMPARISON: No previous studies available for comparison. INDICATIONS : Increased BUN/Creatnine. MEDICAL HISTORY : Hypothyroidism. Stroke Hypercholesterolemia. Glaucoma. Hearing aids. Lower leg vascular occlusion. Co ronary artery disease. Hypertension. Osteoporosis. Basal cell carcinoma. Kidney stones. Gastroesophag eal reflux disease. SURGICAL HISTORY : Tonsillectomy. Carotid endarterectomy. CABG. Bilateral cataract removal. Coronary stent. Pacemaker. C holecystectomy. Hysterectomy. ENCOUNTER: Initial ACUITY: 1 day PAIN SCORE: 6/10 LOCATION: Bilateral flank MEASUREMENTS: RIGHT KIDNEY: 13.1 x 4.2 x 5.1 cm LEFT KIDNEY: 9.5 x 2.2 x 4.8 cm FINDINGS: There are nonobstructing stones bilaterally measuring 4 mm in greatest dimension within the mid pole on the right and 5 mm in greatest dimension within the mid pole on the left. The right kidney is enla rged and demonstrates increased echogenicity. The left kidney is small, echogenic and demonstrates di ffuse cortical thinning. No hydronephrosis or solid renal masses noted. The urinary bladder is not di stended and contains a Prieto catheter. CONCLUSION: 1. Bilateral nonobstructing renal calculi. 2. Small echogenic left kidney with diffuse cortical thinning. 3. No hydronephrosis or solid renal mass. Catracho Peres MD on May 03, 2017 at 22:55 Board Certified Radiologist. This report was verified electronically.
[2017-05-04] VITALS (27 sets, daily range): BP systolic 93–139; BP diastolic 48–60; PULSE 58–70; RESP 17–19; TEMP 97.8–98.3; O2SAT 94–99
[2017-05-04] MEDS: ACETAMINOPHEN 650 MG/20.3 ML UDC PO PRN ×3 (03:23→21:03)
[2017-05-04] MEDS: LEVOTHYROXINE SODIUM 50 MCG TAB PO SCH (05:35)
[2017-05-04 06:37] LABS: ALBUMIN 1.6 GM/DL (3.4-5.0); BICARBONATE 22.2 MEQ/L (21.0-32.0); CREATININE 1.73 MG/DL (0.50-1.00)
[2017-05-04 06:41] LABS: PHOSPHORUS 3.4 MG/DL (2.5-4.9); RANDOM VANCOMYCIN 31.7 COMMENT
[2017-05-04] MEDS: BRIMONIDINE TARTRATE 0.2% OPHT SOLN 5 ML BTL EACH EYE SCH ×2 (08:12→20:57)
[2017-05-04] MEDS: FAMOTIDINE 20 MG TAB PO SCH ×2 (08:12→20:57)
[2017-05-04] MEDS: RAMIPRIL 5 MG CAP PO SCH (08:12)
[2017-05-04] MEDS: ATENOLOL 100 MG TAB PO SCH (08:12)
[2017-05-04] MEDS: ASPIRIN 81 MG CHEW TAB CHEW SCH (08:12)
[2017-05-04] MEDS: CHLORTHALIDONE 50 MG TAB PO SCH (08:12)
[2017-05-04] MEDS: DOCUSATE SODIUM 50 MG/SENNA 8.6 MG TAB PO SCH ×2 (08:13→20:57)
[2017-05-04] MEDS: TIMOLOL MALEATE 0.5% OPHT SOLN 5 ML BTL EACH EYE SCH ×2 (08:13→20:57)
--- NOTE | 2017-05-04 09:05 | PD.VS.PN ---
Subjective POD #: 5 Procedure(s): L groin revision and sartorius flap Subjective/Hospital Course Afebrile 86/F S/p Left groin revision L groin soft w/o erythema- Wound vac in place Pt sitting in bed eating breakfast Pt more alert this am, answering questions appropriately Objective Vitals/I&O Date Time Temp Pulse Resp B/P (MAP) Pulse Ox O2 Delivery O2 Flow Rate FiO2 05/04/17 07:15 98.3 60 17 139/60 (86) 99 05/04/17 07:15 99 Nasal Cannula 2.00 05/04/17 07:00 59 05/04/17 06:10 59 05/04/17 05:49 59 05/04/17 04:08 59 05/04/17 03:51 97.8 61 17 119/54 (75) 95 05/04/17 03:51 95 Nasal Cannula 2.00 05/04/17 03:07 60 05/04/17 02:23 60 05/04/17 01:05 59 05/04/17 00:20 59 05/03/17 23:33 60 05/03/17 23:25 98.0 60 16 110/50 (70) 98 05/03/17 23:25 89 Nasal Cannula 2.00 98 05/03/17 22:15 62 05/03/17 21:15 60 05/03/17 20:15 62 05/03/17 19:50 97.9 61 17 114/54 (74) 100 05/03/17 19:50 100 Nasal Cannula 2.00 05/03/17 19:50 62 05/03/17 18:00 62 05/03/17 17:00 58 05/03/17 16:00 59 05/03/17 15:00 64 19 109/51 (70) 98 05/03/17 15:00 59 05/03/17 15:00 98 Nasal Cannula 2.00 05/03/17 14:21 17 05/03/17 14:00 63 05/03/17 13:00 60 05/03/17 12:00 61 05/03/17 11:00 69 05/03/17 11:00 98.1 68 18 103/49 (67) 98 05/03/17 11:00 98 Nasal Cannula 2.00 05/03/17 10:00 79 05/03/17 09:00 68 05/04/17 05/04/17 05/04/17 07:00 15:00 23:00 Intake Total 680 ml Output Total 250 ml Balance 430 ml Exam: GENERAL: A&OX3, GCS 15, NAD SKIN: LE Warm w/ motor intact, L LE with mild (non pitting) edema Left groin soft w/o erythema HEAD: Normocephalic. EYES: No scleral icterus. No injection or drainage. NECK: Supple, trachea midline. No JVD or lymphadenopathy. CARDIOVASCULAR: Regular rate and rhythm without murmurs, gallops, or rubs. RESPIRATORY: Breath sounds equal bilaterally. No accessory muscle use. GASTROINTESTINAL: Abdomen soft, non-tender, nondistended. Biphasic R/L DP heard via Doppler Laboratory Laboratory Tests Test 05/04/17 05:00 Blood Urea Nitrogen 30 Creatinine 1.73 Random Glucose 105 Albumin 1.6 Calcium Level 8.0 Phosphorus Level 3.4 Sodium Level 135 Potassium Level 3.8 Chloride Level 104 Carbon Dioxide Level 22.2 Anion Gap 9 Estimat Glomerular Filtration Rate 28 Random Vancomycin Level 31.7 Assessment and Plan Plan POD# 5 Plan Continue wound vac therapy Changed wound vac dressing tomorrow (WED) Continue MIVF and re-dose Vanc given Cr rise D/C planning Odette Summers NP [facility] [phone] Discharge Planning If wound continues to look good can potentially be D/C Tomorrow to [facility] after vac dressing change Odette Summers May 04, 2017 09:05
--- NOTE | 2017-05-04 11:29 | HHI.HCPN ---
Reason for visit a. To assist with evaluation and management of symptoms including:pain b. To assist medical decision maker(s) with: better understanding of current medical conditions; weighing benefits/burdens of medical treatment options; making medical treatment decisions. Subjective/Interval History Pt is more alert, and more receptive to my visit today. She is pleasant and alert to place, person and time. Pt's daughter at bedside. Reviewed course of hospitalizations/ rehab with patient. Review her living will. She does endorse full code for now. Family and patient are looking toward rehab once kidney and other issues have stablelized. Review with patient that they are no "perfect" medicine in which pain is adequtely control, without some of the sedating side effects. She understands that and would be open to opiates if pain becomes intolerable again. They are amenable to just tylenol for now. I did initiate conversation about hospice, but at this time both patient and daughter would like rehab. They would be open to hospice again should she decline and not do well. Family/friend interactions See above. Advance Directives Living Will: Copy in medical record (Leslie Noe, Mavis Courtney, Nisreen Jamie (daughters) are all designated health care surrogate.) Objective Vital Signs Date Time Temp Pulse Resp B/P (MAP) Pulse Ox O2 Delivery O2 Flow Rate FiO2 05/04/17 11:00 96 Room Air 05/04/17 11:00 59 05/04/17 11:00 97.8 60 19 93/55 (68) 96 05/04/17 10:00 59 05/04/17 09:00 62 05/04/17 08:00 58 05/04/17 07:15 98.3 60 17 139/60 (86) 99 05/04/17 07:15 99 Nasal Cannula 2.00 05/04/17 07:00 59 05/04/17 06:10 59 05/04/17 05:49 59 05/04/17 04:08 59 05/04/17 03:51 97.8 61 17 119/54 (75) 95 05/04/17 03:51 95 Nasal Cannula 2.00 05/04/17 03:07 60 05/04/17 02:23 60 05/04/17 01:05 59 05/04/17 00:20 59 05/03/17 23:33 60 05/03/17 23:25 98.0 60 16 110/50 (70) 98 05/03/17 23:25 89 Nasal Cannula 2.00 98 05/03/17 22:15 62 05/03/17 21:15 60 05/03/17 20:15 62 05/03/17 19:50 97.9 61 17 114/54 (74) 100 05/03/17 19:50 100 Nasal Cannula 2.00 05/03/17 19:50 62 05/03/17 18:00 62 05/03/17 17:00 58 05/03/17 16:00 59 05/03/17 15:00 64 19 109/51 (70) 98 05/03/17 15:00 59 05/03/17 15:00 98 Nasal Cannula 2.00 05/03/17 14:21 17 05/03/17 14:00 63 05/03/17 13:00 60 05/03/17 12:00 61 Intake & Output 05/04/17 05/04/17 07:00 19:00 Intake Total 680 ml Output Total 250 ml Balance 430 ml Intake Oral 680 ml Output Urine Total 250 ml # Bowel Movements 1 Physical Exam CONSTITUTIONAL/GENERAL: This is an elderly patient, oriendted today TUBES/LINES/DRAINS:left groin drain. SKIN:Drain in left groin area. HEAD: Atraumatic. Normocephalic. EYES: No scleral icterus. No injection or drainage. Fundi not examined. ENT: Some hearing problems. Nose without bleeding or purulent drainage. Throat without visible erythema, exudates, masses, or lesions. NECK: Trachea midline. Supple, nontender. No palpable thyroid enlargement or nodularity. CARDIOVASCULAR:did not let me examine RESPIRATORY/CHEST: did not let me examine GASTROINTESTINAL: Did not let me examine GENITOURINARY: Without palpable bladder distension. Prieto catheter in place. MUSCULOSKELETAL:did not let mbe examine LYMPHATICS: No palpable cervical or supraclavicular adenopathy. NEUROLOGICAL: Awake and alert. Motor and sensory grossly within normal limits. Follows commands. Cognitively sharp. Moves all extremities. PSYCHIATRIC: No obvious anxiety/depression. no apparent hallucinations or other psychotic thought process. Diagnostic Tests Laboratory Laboratory Tests Test 05/02/17 03:50 05/02/17 17:26 05/03/17 03:00 05/04/17 05:00 White Blood Count 6.7 TH/MM3 (4.0-11.0) 8.6 TH/MM3 (4.0-11.0) Red Blood Count 2.91 MIL/MM3 (4.00-5.30) 2.85 MIL/MM3 (4.00-5.30) Hemoglobin 8.9 GM/DL (11.6-15.3) 8.5 GM/DL (11.6-15.3) Hematocrit 25.9 % (35.0-46.0) 25.3 % (35.0-46.0) Mean Corpuscular Volume 88.9 FL (80.0-100.0) 88.8 FL (80.0-100.0) Mean Corpuscular Hemoglobin 30.4 PG (27.0-34.0) 29.7 PG (27.0-34.0) Mean Corpuscular Hemoglobin Concent 34.2 % (32.0-36.0) 33.5 % (32.0-36.0) Red Cell Distribution Width 14.7 % (11.6-17.2) 14.5 % (11.6-17.2) Platelet Count 230 TH/MM3 (150-450) 286 TH/MM3 (150-450) Mean Platelet Volume 7.2 FL (7.0-11.0) 7.6 FL (7.0-11.0) Blood Urea Nitrogen 21 MG/DL (7-18) 22 MG/DL (7-18) 30 MG/DL (7-18) Creatinine 1.51 MG/DL (0.50-1.00) 1.65 MG/DL (0.50-1.00) 1.73 MG/DL (0.50-1.00) Estimat Glomerular Filtration Rate 33 ML/MIN (>89) 29 ML/MIN (>89) 28 ML/MIN (>89) Vancomycin Level Trough 34.1 MCG/ML (5.0-10.0) Random Glucose 81 MG/DL (74-106) 105 MG/DL (74-106) Calcium Level 8.2 MG/DL (8.5-10.1) 8.0 MG/DL (8.5-10.1) Sodium Level 135 MEQ/L (136-145) 135 MEQ/L (136-145) Potassium Level 4.6 MEQ/L (3.5-5.1) 3.8 MEQ/L (3.5-5.1) Chloride Level 105 MEQ/L (98-107) 104 MEQ/L (98-107) Carbon Dioxide Level 21.3 MEQ/L (21.0-32.0) 22.2 MEQ/L (21.0-32.0) Anion Gap 9 MEQ/L (5-15) 9 MEQ/L (5-15) B-Type Natriuretic Peptide 1083 PG/ML (0-100) Random Vancomycin Level 34.4 COMMENT 31.7 COMMENT Albumin 1.6 GM/DL (3.4-5.0) Phosphorus Level 3.4 MG/DL (2.5-4.9) Result Diagram: 05/03/17 0300 05/04/17 0500 Imaging Last Impressions Renal Ultrasound 05/03/17 0000 Signed Impressions: Service Date/Time: Wednesday, May 03, 2017 17:52 - CONCLUSION: 1. Bilateral nonobstructing renal calculi. 2. Small echogenic left kidney with diffuse cortical thinning. 3. No hydronephrosis or solid renal mass. Catracho Peres MD Assessment and Plan Disease Oriented Problem List: (1) Wound infection Comment: groin reconstruction (2) PVD (peripheral vascular disease) (3) Renal insufficiency (4) Hypothyroid (5) HTN (hypertension) Symptom Scale: (1) Confusion 0-10 Scale: Unable to quantify (2) Pain 0-10 Scale: Unable to quantify Pertinent Non-Medical Issues Psychosocial: From [place] orignially. Spiritual:Protestent Legal: Mavis Summers, Nisreen Romerojoseph (daughters) are all designated health care surrogate. [phone] Ethical issues impacting care: none. Important Contacts Mavis Summers, Nisreen Jamie (daughters) are all designated health care surrogate. [phone] Prognosis 86 year old with multiple comorbidities. Prognosis is guarded. It appears pt would survive current hospitalization, but pt is at risk of further infection, reinfection, and intolerance of rehab. Code Status: Full Code Plan ==capacity- has capacity to make medical decisions. == health care surrogate: all 3 pt's daughters. == Pain. Left groin. However became confused, agitated, and somolent with iv dilaudid. Tylenol prn for now. daughter and pt open to po dilaudid if needed in the future. == full code Goals of care: Pt's daughter at bedside. Reviewed course of hospitalizations/ rehab with patient. Review her living will. She does endorse full code for now. Family and patient are looking toward rehab once kidney and other issues have stablelized. Review with patient that they are no "perfect" medicine in which pain is adequtely control, without some of the sedating side effects. She understands that and would be open to opiates if pain becomes intolerable again. They are amenable to just tylenol for now. I did initiate conversation about hospice, but at this time both patient and daughter would like rehab. They would be open to hospice again should she decline and not do well. == palliative care will continue to follow as clinical condition evolves. Attestation To help prompt me to consider important information that might be impacting today's encounter and assessment, information from prior notes written by myself or my colleagues may have been "brought forward" into today's note. My signature on this note, however, is an attestation that I personally performed the exam, history, and/or decision-making noted today, and, unless otherwise indicated, the interactions with patient, family, and staff as well as the review of records all occurred today. I also attest that the listed assessment and stated plan reflect my best clinical judgment today based on the combination of historical information, prior notes, and today's exam/ interactions. When time spent is documented, it refers only to time spent today by the signer, or if indicated, combined time spent today by collaborating physician/nurse practitioner. Lionel Moreau MD May 04, 2017 11:29
[2017-05-04] MEDS: ENOXAPARIN SODIUM 30 MG/0.3 ML SYRINGE SQ SCH (13:29)
[2017-05-04] MEDS ORDERED: FUROSEMIDE 20 MG TAB PO ONE (15:45)
--- NOTE | 2017-05-04 16:52 | HHI.NPPN ---
Subjective History of Present Illness 86-year-old female with past medical history of hypertension, peripheral vascular disease, ischemic heart disease, history of coronary artery bypass grafting, hypothyroidism, irritable bowel syndrome was admitted with left leg ischemia. I was called to see the patient because of elevated BUN and creatinine. The patient has creatinine of 0.6 on admission. Additional Remarks Patient is more alert now, oriented times 2, not in distress. Review of Systems General Constitutional: Fatigue Respiratory Lungs: Wheeze Cardiovascular Cardiac: Edema, PETER Objective Data Data Vital Signs Date Time Temp Pulse Resp B/P (MAP) Pulse Ox O2 Delivery O2 Flow Rate FiO2 05/04/17 16:45 19 05/04/17 16:00 63 05/04/17 15:00 64 05/04/17 15:00 63 17 102/48 (66) 94 05/04/17 15:00 94 Room Air 05/04/17 14:00 62 05/04/17 13:00 61 05/04/17 12:00 64 05/04/17 11:00 96 Room Air 05/04/17 11:00 59 05/04/17 11:00 97.8 60 19 93/55 (68) 96 05/04/17 10:00 59 05/04/17 09:00 62 05/04/17 08:00 58 05/04/17 07:15 98.3 60 17 139/60 (86) 99 05/04/17 07:15 99 Nasal Cannula 2.00 05/04/17 07:00 59 05/04/17 06:10 59 05/04/17 05:49 59 05/04/17 04:08 59 05/04/17 03:51 97.8 61 17 119/54 (75) 95 05/04/17 03:51 95 Nasal Cannula 2.00 05/04/17 03:07 60 05/04/17 02:23 60 05/04/17 01:05 59 05/04/17 00:20 59 05/03/17 23:33 60 05/03/17 23:25 98.0 60 16 110/50 (70) 98 05/03/17 23:25 89 Nasal Cannula 2.00 98 05/03/17 22:15 62 05/03/17 21:15 60 05/03/17 20:15 62 05/03/17 19:50 97.9 61 17 114/54 (74) 100 05/03/17 19:50 100 Nasal Cannula 2.00 05/03/17 19:50 62 05/03/17 18:00 62 05/03/17 17:00 58 -: 05/03/17 0300 05/04/17 0500 Physical Exam General Appearance: No Acute Distress, Comfortable Eyes Eye Exam: Pupils Equal Pulmonary Resp Exam: Breath Sounds Equal, No Distress, Rhonchi, Decreased Bases Cardiology CV Exam: Regular, Normal Sinus Rhythm Gastrointestinal/Abdomen GI Exam: Soft, Non-Tender, Bowel Sounds Present, Distended Extremeties Extremities Exam: Moderate Edema, Pitting Edema (More in left leg.) Neurologic Neuro Exam: Alert, Awake Psychiatric Psych Exam: Appropriate Responses Assessment/Plan Assessment Summary: JOSUÉ/Acute Renal Failure, Hypertension Problem List: (1) HTN (hypertension) ICD Codes: I10 - Essential (primary) hypertension Status: Chronic (2) Hypothyroid ICD Codes: E03.9 - Hypothyroidism, unspecified Status: Chronic (3) PVD (peripheral vascular disease) ICD Codes: I73.9 - Peripheral vascular disease, unspecified Status: Chronic (4) Postoperative anemia ICD Codes: D64.9 - Anemia, unspecified Status: Resolved (5) Hypercholesteremia ICD Codes: E78.00 - Pure hypercholesterolemia, unspecified Status: Chronic (6) Renal insufficiency ICD Codes: N28.9 - Disorder of kidney and ureter, unspecified Status: Resolved Plan Patient develop JOSUÉ. Got more history from daughter at bed side. Patient has Bilateral kidney surgery and stent possibly in Rt. Kidney. Patient has normal Creatinine on admission, so this is all acute. Has edema, got one dose of Lasix. Renal U/S noted, Rt. kidney is bigger. Most likely has ATN from Vancomycin. Avoid Nephrotoxins. Follow the urine out put and BMP. Owen Hardy MD May 04, 2017 16:52
[2017-05-04 17:50] LABS: BACTERIA, URINE OCC /hpf; BILIRUBIN, URINE NEG (NEG); BLOOD, URINE SMALL (NEG); GLUCOSE,URINE NEG (NEG); KETONE, URINE NEG (NEG); NITRITE,URINE NEG (NEG); PH, URINE 5.5 (5.0-8.5); RENAL EPITHELIAL CELLS <1 /hpf; SQUAMOUS EPITHELIAL CELL URINE 2 /hpf (0-5); URINE COLOR YELLOW (YELLW/STRAW); URINE LEUKOCYTE ESTERASE MOD (NEG)
[2017-05-04 17:52] LABS: CREATININE, RANDOM URINE 73.3 MG/DL
[2017-05-04] MEDS: LATANOPROST 0.005% OPHT SOLN 2.5 ML BTL EACH EYE SCH (20:57)
[2017-05-04] MEDS: PRAVASTATIN SOD 40 MG TAB PO SCH (20:57)
--- NOTE | 2017-05-04 21:48 | HHI.PR ---
Subjective Remarks Patient seen today around 2:30 PM. Says she is feeling all right. Positive bowel movement. Denies any chest pain shortness of breath Objective Vital Signs Date Time Temp Pulse Resp B/P (MAP) Pulse Ox O2 Delivery O2 Flow Rate FiO2 05/04/17 18:00 66 05/04/17 17:00 65 05/04/17 16:45 19 05/04/17 16:00 63 05/04/17 15:00 64 05/04/17 15:00 63 17 102/48 (66) 94 05/04/17 15:00 94 Room Air 05/04/17 14:00 62 05/04/17 13:00 61 05/04/17 12:00 64 05/04/17 11:00 96 Room Air 05/04/17 11:00 59 05/04/17 11:00 97.8 60 19 93/55 (68) 96 05/04/17 10:00 59 05/04/17 09:00 62 05/04/17 08:00 58 05/04/17 07:15 98.3 60 17 139/60 (86) 99 05/04/17 07:15 99 Nasal Cannula 2.00 05/04/17 07:00 59 05/04/17 06:10 59 05/04/17 05:49 59 05/04/17 04:08 59 05/04/17 03:51 97.8 61 17 119/54 (75) 95 05/04/17 03:51 95 Nasal Cannula 2.00 05/04/17 03:07 60 05/04/17 02:23 60 05/04/17 01:05 59 05/04/17 00:20 59 05/03/17 23:33 60 05/03/17 23:25 98.0 60 16 110/50 (70) 98 05/03/17 23:25 89 Nasal Cannula 2.00 98 05/03/17 22:15 62 I/O 05/03/17 05/03/17 05/03/17 05/04/17 05/04/17 05/04/17 07:00 15:00 23:00 07:00 15:00 23:00 Intake Total 30 ml 900 ml 680 ml 1020 ml Output Total 440 ml 410 ml 250 ml 450 ml Balance -410 ml 490 ml 430 ml 570 ml Intake Oral 30 ml 300 ml 680 ml 1020 ml IV Total 600 ml Output Urine Total 425 ml 400 ml 250 ml 450 ml Drainage Total 15 ml 10 ml # Bowel Movements 1 1 1 2 Result Diagram: 05/03/17 0300 05/04/17 0500 Objective Remarks GENERAL: Sitting up in bed Appears comfortable. SKIN: Warm and dry. HEAD: Normocephalic. EYES: No scleral icterus. No injection or drainage. NECK: Supple, trachea midline. No JVD. CARDIOVASCULAR: Regular rate and rhythm without murmurs, gallops, or rubs. RESPIRATORY: Breath sounds equal bilaterally. No accessory muscle use. GASTROINTESTINAL: Abdomen soft, non-tender, nondistended. MUSCULOSKELETAL: No cyanosis. 2+ bilateral lower extremity edema, improved from yesterday. No broken skin. Groin wounds not examined. BACK: Nontender without obvious deformity. No CVA tenderness. A/P Assessment and Plan 86-year-old female who was recently hospitalized at [facility], she originally presented 04/02 with initial complaints of left leg pain 3 days. Patient has a past medical history which is significant for HTN, HLD, PVD, CAD s/p CABG, hypothyroidism, and IBS. CT scan showed iliac ISR, left INDUSTRY ANALYST occlusion, and SFA/ popliteal occlusion. She ultimately underwent left groin reconstruction, and left fem-pop STORES ASSISTANT on 04/04. She was admitted to [facility] where her wound continued to have drainage with progressive pain. Decision was made by Dr. Talamantes to admit patient for surgical debridement of wound. //Left groin wound PVD - s/p surgical debridement with wound VAC in place as well as EYAL drain on . Her vascular surgeon Dr. Talamantes patient will need 2 weeks of vancomycin. He will recheck the wound tomorrow. -Patient is very sedated from the pain medication. She was given multiple IVs last night. All sedating medication held. -Will also consult palliative care to help with pain management.? Poor prognosis secondary to poor wound healing. = Appreciate vascular surgery assistance. //Acute renal failure -Secondary to decreased by mouth intake due to sedation. Patient changed to normal saline. Will continue to trend. Strict ins and outs. = 05/03. Creatinine 1.65 today. Continues worsening. Likely secondary to vancomycin. Check BNP. Previously 1200 on 04/10. We'll check urinalysis, consult nephrology = 05/04. Creatinine up to 1.7 today. BNP 1000, lower than previously on admission. Appears to be improving with discontinuation of IV fluids. We'll diurese as needed. Nephrology following. Appreciate assistance. //Bilateral lower extremity edema. -Improving off of IV fluids. Continue to monitor. //HTN //HLD - Continue with home medication. //DVT - Apixaban on hold secondary to surgical procedure. 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 Hemoglobin 8.5. Likely secondary to chronic inflammation, continued wound drains.. Continue to monitor. //DVT prophylaxis - Subcutaneous Lovenox per sx Discharge Planning Pending improvementand creatinine.. -Vascular surgery following. likely discharged to rehab when cleared by vascular surgery. Byron Cota MD May 04, 2017 21:48
[2017-05-05] VITALS (27 sets, daily range): BP systolic 106–159; BP diastolic 53–65; PULSE 58–69; RESP 16–20; TEMP 97.7–98.6; O2SAT 94–96
[2017-05-05 01:16] LABS: CREATININE 1.69 MG/DL (0.50-1.00)
[2017-05-05 04:55] LABS: AUTOMATED NEUTROPHIL # 5.3 TH/MM3 (1.8-7.7); BASOPHIL % 0.6 % (0.0-2.0); EOSINOPHIL # 0.2 TH/MM3 (0-0.4); EOSINOPHIL % 3.5 % (0.0-4.0); HEMATOCRIT 25.8 % (35.0-46.0); HEMOGLOBIN 8.9 GM/DL (11.6-15.3); LYMPH % 12.8 % (9.0-44.0); LYMPHOCYTE # 0.9 TH/MM3 (1.0-4.8); MEAN CELL VOLUME 87.8 FL (80.0-100.0); MEAN CORPUSCULAR HEMOGLOBIN 30.2 PG (27.0-34.0); MEAN CORPUSCULAR HGB CONC 34.3 % (32.0-36.0); MEAN PLATELET VOLUME 7.4 FL (7.0-11.0); MONO % 6.9 % (0.0-8.0); MONOCYTE # 0.5 TH/MM3 (0-0.9); NEUT % 76.2 % (16.0-70.0); PLATELET COUNT 353 TH/MM3 (150-450); RED BLOOD COUNT 2.94 MIL/MM3 (4.00-5.30); RED CELL DISTRIBUTION WIDTH 14.9 % (11.6-17.2); WHITE BLOOD COUNT 6.9 TH/MM3 (4.0-11.0)
[2017-05-05 05:16] LABS: ALBUMIN 1.8 GM/DL (3.4-5.0); BICARBONATE 24.3 MEQ/L (21.0-32.0); CALCIUM 8.5 MG/DL (8.5-10.1); CREATININE 1.72 MG/DL (0.50-1.00); MAGNESIUM 1.9 MG/DL (1.5-2.5); PHOSPHORUS 3.5 MG/DL (2.5-4.9)
[2017-05-05] MEDS: LEVOTHYROXINE SODIUM 50 MCG TAB PO SCH (05:43)
--- NOTE | 2017-05-05 07:37 | PD.VS.PN ---
Subjective POD #: 6 Procedure(s): L groin revision and sartorius flap Subjective/Hospital Course Looks great much more alert, appropriate pain controlled scotty po Objective Vitals/I&O Date Time Temp Pulse Resp B/P (MAP) Pulse Ox O2 Delivery O2 Flow Rate FiO2 05/05/17 06:07 62 05/05/17 05:07 59 05/05/17 04:07 60 05/05/17 03:45 94 Room Air 05/05/17 03:45 98.3 60 20 151/65 (93) 94 05/05/17 03:45 69 05/05/17 02:01 60 05/05/17 01:06 59 05/05/17 00:01 58 05/04/17 23:57 98.1 61 19 122/56 (78) 94 05/04/17 23:57 94 Room Air 05/04/17 23:00 60 05/04/17 22:00 62 05/04/17 21:00 70 05/04/17 20:00 62 05/04/17 19:00 98.0 63 18 120/54 (76) 95 05/04/17 19:00 95 Room Air 05/04/17 19:00 67 05/04/17 18:00 66 05/04/17 17:00 65 05/04/17 16:45 19 05/04/17 16:00 63 05/04/17 15:00 64 05/04/17 15:00 63 17 102/48 (66) 94 05/04/17 15:00 94 Room Air 05/04/17 14:00 62 05/04/17 13:00 61 05/04/17 12:00 64 05/04/17 11:00 96 Room Air 05/04/17 11:00 59 05/04/17 11:00 97.8 60 19 93/55 (68) 96 05/04/17 10:00 59 05/04/17 09:00 62 05/04/17 08:00 58 05/05/17 05/05/17 05/05/17 07:00 15:00 23:00 Intake Total 480 ml Output Total 1205 ml Balance -725 ml Exam: L groin skin without erythema Foot warm EYAL and VAC both with scant drainage Laboratory Laboratory Tests Test 05/04/17 17:25 1/31/18 00:20 05/05/17 04:35 Urine Color YELLOW Urine Turbidity HAZY Urine pH 5.5 Urine Specific [place] 1.016 Urine Protein TRACE Urine Glucose (UA) NEG Urine Ketones NEG Urine Occult Blood SMALL Urine Nitrite NEG Urine Bilirubin NEG Urine Urobilinogen LESS THAN 2.0 Urine Leukocyte Esterase MOD Urine RBC 19 Urine WBC 15 Urine Squamous Epithelial Cells 2 Urine Renal Epithelial Cells <1 Urine Bacteria OCC Urine Yeast (Budding) FEW Microscopic Urinalysis Comment CATH-CULTURE IND Urine Random Creatinine 73.3 Urine Random Sodium 63 Blood Urea Nitrogen 32 32 Creatinine 1.69 1.72 Estimat Glomerular Filtration Rate 29 28 White Blood Count 6.9 Red Blood Count 2.94 Hemoglobin 8.9 Hematocrit 25.8 Mean Corpuscular Volume 87.8 Mean Corpuscular Hemoglobin 30.2 Mean Corpuscular Hemoglobin Concent 34.3 Red Cell Distribution Width 14.9 Platelet Count 353 Mean Platelet Volume 7.4 Neutrophils (%) (Auto) 76.2 Lymphocytes (%) (Auto) 12.8 Monocytes (%) (Auto) 6.9 Eosinophils (%) (Auto) 3.5 Basophils (%) (Auto) 0.6 Neutrophils # (Auto) 5.3 Lymphocytes # (Auto) 0.9 Monocytes # (Auto) 0.5 Eosinophils # (Auto) 0.2 Basophils # (Auto) 0.0 CBC Comment DIFF FINAL Differential Comment Random Glucose 86 Albumin 1.8 Calcium Level 8.5 Phosphorus Level 3.5 Magnesium Level 1.9 Sodium Level 133 Potassium Level 3.7 Chloride Level 101 Carbon Dioxide Level 24.3 Anion Gap 8 Date/Time Source Procedure Growth Status 05/04/17 17:25 Urine Catheterized Urine Urine Culture Pending Received Assessment and Plan Plan POD# 6 1. VAC change today 2. Continue IV Vanc x 2 weeks (stop 05/13), dosed appropriately for renal insufficiency 3. cr stable at 1.7 4. Encourage po 5. Ok from vascular surgery standpoint to be d/c to rehab today 6. Will remove EYAL after 10-14 days, can be outpatient or in rehab Discharge Planning If wound continues to look good can potentially be D/C Tomorrow to [facility] after vac dressing change Catracho Talamantes MD May 05, 2017 07:37
[2017-05-05] MEDS: TIMOLOL MALEATE 0.5% OPHT SOLN 5 ML BTL EACH EYE SCH ×2 (08:43→21:09)
[2017-05-05] MEDS: CHLORTHALIDONE 50 MG TAB PO SCH (08:43)
[2017-05-05] MEDS: ASPIRIN 81 MG CHEW TAB CHEW SCH (08:43)
[2017-05-05] MEDS: ATENOLOL 100 MG TAB PO SCH (08:44)
[2017-05-05] MEDS: FAMOTIDINE 20 MG TAB PO SCH ×2 (08:44→21:09)
[2017-05-05] MEDS: BRIMONIDINE TARTRATE 0.2% OPHT SOLN 5 ML BTL EACH EYE SCH ×2 (08:44→21:09)
[2017-05-05] MEDS: RAMIPRIL 5 MG CAP PO SCH (08:44)
[2017-05-05] MEDS: DOCUSATE SODIUM 50 MG/SENNA 8.6 MG TAB PO SCH ×2 (08:45→21:00)
--- NOTE | 2017-05-05 11:05 | HHI.HCPN ---
Reason for visit a. To assist with evaluation and management of symptoms including:pain b. To assist medical decision maker(s) with: better understanding of current medical conditions; weighing benefits/burdens of medical treatment options; making medical treatment decisions. Subjective/Interval History Pt is more alert, oriented. Seems more tired. No change in goals of care. Pain is controlled, but painful if moved. Currently family state pt's pain is managed relatively well with tylenol. Reviewed pt's labs. No change in goals of care. Family/friend interactions Pt's daughter at bedside. No new questions, except ask to see pillowcase turner. Advance Directives Living Will: Copy in medical record (Leslie Noe, Mavis Courtney, Nisreen Jamie (daughters) are all designated health care surrogate.) Objective Vital Signs Date Time Temp Pulse Resp B/P (MAP) Pulse Ox O2 Delivery O2 Flow Rate FiO2 05/05/17 10:00 59 05/05/17 09:00 62 05/05/17 08:00 60 05/05/17 07:12 94 Room Air 05/05/17 07:12 98.6 62 16 131/55 (80) 94 05/05/17 07:00 59 05/05/17 06:07 62 05/05/17 05:07 59 05/05/17 04:07 60 05/05/17 03:45 94 Room Air 05/05/17 03:45 98.3 60 20 151/65 (93) 94 05/05/17 03:45 69 05/05/17 02:01 60 05/05/17 01:06 59 05/05/17 00:01 58 05/04/17 23:57 98.1 61 19 122/56 (78) 94 05/04/17 23:57 94 Room Air 05/04/17 23:00 60 05/04/17 22:00 62 05/04/17 21:00 70 05/04/17 20:00 62 05/04/17 19:00 98.0 63 18 120/54 (76) 95 05/04/17 19:00 95 Room Air 05/04/17 19:00 67 05/04/17 18:00 66 05/04/17 17:00 65 05/04/17 16:45 19 05/04/17 16:00 63 05/04/17 15:00 64 05/04/17 15:00 63 17 102/48 (66) 94 05/04/17 15:00 94 Room Air 05/04/17 14:00 62 05/04/17 13:00 61 05/04/17 12:00 64 Intake & Output 05/05/17 05/05/17 07:00 19:00 Intake Total 480 ml Output Total 1205 ml Balance -725 ml Intake Oral 480 ml Output Urine Total 1200 ml Drainage Total 5 ml # Bowel Movements 1 Physical Exam CONSTITUTIONAL/GENERAL: This is an elderly patient, oriendted today TUBES/LINES/DRAINS:left groin drain. SKIN:Drain in left groin area. HEAD: Atraumatic. Normocephalic. EYES: No scleral icterus. No injection or drainage. Fundi not examined. ENT: Some hearing problems. Nose without bleeding or purulent drainage. Throat without visible erythema, exudates, masses, or lesions. NECK: Trachea midline. Supple, nontender. No palpable thyroid enlargement or nodularity. CARDIOVASCULAR:did not let me examine RESPIRATORY/CHEST: did not let me examine GASTROINTESTINAL: Did not let me examine GENITOURINARY: Without palpable bladder distension. Prieto catheter in place. MUSCULOSKELETAL:did not let mbe examine LYMPHATICS: No palpable cervical or supraclavicular adenopathy. NEUROLOGICAL: Awake and alert. Motor and sensory grossly within normal limits. Follows commands. Cognitively sharp. Moves all extremities. PSYCHIATRIC: No obvious anxiety/depression. no apparent hallucinations or other psychotic thought process. Diagnostic Tests Laboratory Laboratory Tests Test 05/02/17 17:26 05/03/17 03:00 05/04/17 05:00 05/04/17 17:25 Vancomycin Level Trough 34.1 MCG/ML (5.0-10.0) White Blood Count 8.6 TH/MM3 (4.0-11.0) Red Blood Count 2.85 MIL/MM3 (4.00-5.30) Hemoglobin 8.5 GM/DL (11.6-15.3) Hematocrit 25.3 % (35.0-46.0) Mean Corpuscular Volume 88.8 FL (80.0-100.0) Mean Corpuscular Hemoglobin 29.7 PG (27.0-34.0) Mean Corpuscular Hemoglobin Concent 33.5 % (32.0-36.0) Red Cell Distribution Width 14.5 % (11.6-17.2) Platelet Count 286 TH/MM3 (150-450) Mean Platelet Volume 7.6 FL (7.0-11.0) Blood Urea Nitrogen 22 MG/DL (7-18) 30 MG/DL (7-18) Creatinine 1.65 MG/DL (0.50-1.00) 1.73 MG/DL (0.50-1.00) Random Glucose 81 MG/DL (74-106) 105 MG/DL (74-106) Calcium Level 8.2 MG/DL (8.5-10.1) 8.0 MG/DL (8.5-10.1) Sodium Level 135 MEQ/L (136-145) 135 MEQ/L (136-145) Potassium Level 4.6 MEQ/L (3.5-5.1) 3.8 MEQ/L (3.5-5.1) Chloride Level 105 MEQ/L (98-107) 104 MEQ/L (98-107) Carbon Dioxide Level 21.3 MEQ/L (21.0-32.0) 22.2 MEQ/L (21.0-32.0) Anion Gap 9 MEQ/L (5-15) 9 MEQ/L (5-15) Estimat Glomerular Filtration Rate 29 ML/MIN (>89) 28 ML/MIN (>89) B-Type Natriuretic Peptide 1083 PG/ML (0-100) Random Vancomycin Level 34.4 COMMENT 31.7 COMMENT Albumin 1.6 GM/DL (3.4-5.0) Phosphorus Level 3.4 MG/DL (2.5-4.9) Urine Color YELLOW (YELLW/STRAW) Urine Turbidity HAZY (CLEAR) Urine pH 5.5 (5.0-8.5) Urine Specific [place] 1.016 (1.002-1.035) Urine Protein TRACE mg/dL (NEG-TRACE) Urine Glucose (UA) NEG mg/dL (NEG) Urine Ketones NEG mg/dL (NEG) Urine Occult Blood SMALL (NEG) Urine Nitrite NEG (NEG) Urine Bilirubin NEG (NEG) Urine Urobilinogen LESS THAN 2.0 MG/DL (LESS Urine Leukocyte Esterase MOD (NEG) Urine RBC 19 /hpf (0-3) Urine WBC 15 /hpf (0-5) Urine Squamous Epithelial Cells 2 /hpf (0-5) Urine Renal Epithelial Cells <1 /hpf (NONE) Urine Bacteria OCC /hpf (NONE) Urine Yeast (Budding) FEW (NONE) Microscopic Urinalysis Comment CATH-CULTURE IND Urine Random Creatinine 73.3 MG/DL Urine Random Sodium 63 MEQ/L Test 05/05/17 00:20 05/05/17 04:35 Blood Urea Nitrogen 32 MG/DL (7-18) 32 MG/DL (7-18) Creatinine 1.69 MG/DL (0.50-1.00) 1.72 MG/DL (0.50-1.00) Estimat Glomerular Filtration Rate 29 ML/MIN (>89) 28 ML/MIN (>89) White Blood Count 6.9 TH/MM3 (4.0-11.0) Red Blood Count 2.94 MIL/MM3 (4.00-5.30) Hemoglobin 8.9 GM/DL (11.6-15.3) Hematocrit 25.8 % (35.0-46.0) Mean Corpuscular Volume 87.8 FL (80.0-100.0) Mean Corpuscular Hemoglobin 30.2 PG (27.0-34.0) Mean Corpuscular Hemoglobin Concent 34.3 % (32.0-36.0) Red Cell Distribution Width 14.9 % (11.6-17.2) Platelet Count 353 TH/MM3 (150-450) Mean Platelet Volume 7.4 FL (7.0-11.0) Neutrophils (%) (Auto) 76.2 % (16.0-70.0) Lymphocytes (%) (Auto) 12.8 % (9.0-44.0) Monocytes (%) (Auto) 6.9 % (0.0-8.0) Eosinophils (%) (Auto) 3.5 % (0.0-4.0) Basophils (%) (Auto) 0.6 % (0.0-2.0) Neutrophils # (Auto) 5.3 TH/MM3 (1.8-7.7) Lymphocytes # (Auto) 0.9 TH/MM3 (1.0-4.8) Monocytes # (Auto) 0.5 TH/MM3 (0-0.9) Eosinophils # (Auto) 0.2 TH/MM3 (0-0.4) Basophils # (Auto) 0.0 TH/MM3 (0-0.2) CBC Comment DIFF FINAL Differential Comment Random Glucose 86 MG/DL (74-106) Albumin 1.8 GM/DL (3.4-5.0) Calcium Level 8.5 MG/DL (8.5-10.1) Phosphorus Level 3.5 MG/DL (2.5-4.9) Magnesium Level 1.9 MG/DL (1.5-2.5) Sodium Level 133 MEQ/L (136-145) Potassium Level 3.7 MEQ/L (3.5-5.1) Chloride Level 101 MEQ/L (98-107) Carbon Dioxide Level 24.3 MEQ/L (21.0-32.0) Anion Gap 8 MEQ/L (5-15) Result Diagram: 05/05/17 0435 05/05/17 0435 Microbiology Microbiology Date/Time Source Procedure Growth Status 05/04/17 17:25 Urine Catheterized Urine Urine Culture Pending Received Imaging Last Impressions Renal Ultrasound 05/03/17 0000 Signed Impressions: Service Date/Time: Wednesday, May 03, 2017 17:52 - CONCLUSION: 1. Bilateral nonobstructing renal calculi. 2. Small echogenic left kidney with diffuse cortical thinning. 3. No hydronephrosis or solid renal mass. Catracho Peres MD Assessment and Plan Disease Oriented Problem List: (1) Wound infection Comment: groin reconstruction (2) PVD (peripheral vascular disease) (3) Renal insufficiency (4) Hypothyroid (5) HTN (hypertension) Symptom Scale: (1) Confusion 0-10 Scale: Unable to quantify (2) Pain 0-10 Scale: Unable to quantify Pertinent Non-Medical Issues Psychosocial: From [place]. Spiritual:Protestent Legal: Leslieoswaldo Noe, Mavis Courtney, Nisreen Ayala (daughters) are all designated health care surrogate. [phone] Ethical issues impacting care: none. Important Contacts Leslieoswaldo Noe, Mavis Courtney, Nisreen Ayala (daughters) are all designated health care surrogate. [phone] Prognosis 86 year old with multiple comorbidities. Prognosis is guarded. It appears pt would survive current hospitalization, but pt is at risk of further infection, reinfection, and intolerance of rehab. Code Status: Full Code Plan ==capacity- has capacity to make medical decisions. == health care surrogate: all 3 pt's daughters. == Pain. Left groin. However became confused, agitated, and somolent with iv dilaudid. Tylenol prn for now. daughter and pt open to po dilaudid if needed in the future. I have d/c iv dilaudid. I have d/c long acting morphine given current renal insufficiency. == full code Goals of care: Pt's daughter at bedside. Reviewed course of hospitalizations/ rehab with patient. Review her living will. She does endorse full code for now. Family and patient are looking toward rehab once kidney and other issues have stabilized. Review with patient that they are no "perfect" medicine in which pain is adequtely control, without some of the sedating side effects. She understands that and would be open to opiates if pain becomes intolerable again. They are amenable to just tylenol for now. I did initiate conversation about hospice, but at this time both patient and daughter would like rehab. They would be open to hospice again should she decline and not do well. == palliative care will continue to follow as clinical condition evolves. Lionel Moreau MD May 05, 2017 11:05
--- NOTE | 2017-05-05 12:09 | HHI.NPPN ---
Subjective History of Present Illness 86-year-old female with past medical history of hypertension, peripheral vascular disease, ischemic heart disease, history of coronary artery bypass grafting, hypothyroidism, irritable bowel syndrome was admitted with left leg ischemia. I was called to see the patient because of elevated BUN and creatinine. The patient has creatinine of 0.6 on admission. Additional Remarks Patient is alert, not eating well, no SOB. Review of Systems General Constitutional: Fatigue Respiratory Lungs: Wheeze Cardiovascular Cardiac: Edema, PETER Objective Data Data Vital Signs Date Time Temp Pulse Resp B/P (MAP) Pulse Ox O2 Delivery O2 Flow Rate FiO2 05/05/17 10:00 59 05/05/17 09:00 62 05/05/17 08:00 60 05/05/17 07:12 94 Room Air 05/05/17 07:12 98.6 62 16 131/55 (80) 94 05/05/17 07:00 59 05/05/17 06:07 62 05/05/17 05:07 59 05/05/17 04:07 60 05/05/17 03:45 94 Room Air 05/05/17 03:45 98.3 60 20 151/65 (93) 94 05/05/17 03:45 69 05/05/17 02:01 60 05/05/17 01:06 59 05/05/17 00:01 58 05/04/17 23:57 98.1 61 19 122/56 (78) 94 05/04/17 23:57 94 Room Air 05/04/17 23:00 60 05/04/17 22:00 62 05/04/17 21:00 70 05/04/17 20:00 62 05/04/17 19:00 98.0 63 18 120/54 (76) 95 05/04/17 19:00 95 Room Air 05/04/17 19:00 67 05/04/17 18:00 66 05/04/17 17:00 65 05/04/17 16:45 19 05/04/17 16:00 63 05/04/17 15:00 64 05/04/17 15:00 63 17 102/48 (66) 94 05/04/17 15:00 94 Room Air 05/04/17 14:00 62 05/04/17 13:00 61 -: 05/05/17 0435 05/05/17 0435 Microbiology 05/04/17 Urine Culture, Received Pending Physical Exam General Appearance: No Acute Distress, Comfortable Eyes Eye Exam: Pupils Equal Pulmonary Resp Exam: Breath Sounds Equal, No Distress, Rhonchi, Decreased Bases Cardiology CV Exam: Regular, Normal Sinus Rhythm Gastrointestinal/Abdomen GI Exam: Soft, Non-Tender, Bowel Sounds Present, Distended Extremeties Extremities Exam: Moderate Edema, Pitting Edema (More in left leg.) Neurologic Neuro Exam: Alert, Awake Psychiatric Psych Exam: Appropriate Responses Assessment/Plan Assessment Summary: JOSUÉ/Acute Renal Failure, Hypertension Problem List: (1) HTN (hypertension) ICD Codes: I10 - Essential (primary) hypertension Status: Chronic (2) Hypothyroid ICD Codes: E03.9 - Hypothyroidism, unspecified Status: Chronic (3) PVD (peripheral vascular disease) ICD Codes: I73.9 - Peripheral vascular disease, unspecified Status: Chronic (4) Postoperative anemia ICD Codes: D64.9 - Anemia, unspecified Status: Resolved (5) Hypercholesteremia ICD Codes: E78.00 - Pure hypercholesterolemia, unspecified Status: Chronic (6) Renal insufficiency ICD Codes: N28.9 - Disorder of kidney and ureter, unspecified Status: Resolved Plan Patient develop JOSUÉ. Got more history from daughter at bed side. Patient has Bilateral kidney surgery and stent possibly in Rt. Kidney. Patient has normal Creatinine on admission, so this is all acute. Has edema, got one dose of Lasix. Renal U/S noted, Rt. kidney is bigger. Most likely has ATN from Vancomycin. Avoid Nephrotoxins. Follow the urine out put and BMP. Creatinine is now stable at 1.6-1.7. if D/C, I can follow as out patient. Owen Hardy MD May 05, 2017 12:09
[2017-05-05] MEDS: ENOXAPARIN SODIUM 30 MG/0.3 ML SYRINGE SQ SCH (12:46)
[2017-05-05] MEDS: ACETAMINOPHEN 650 MG/20.3 ML UDC PO PRN ×2 (12:46→19:22)
--- NOTE | 2017-05-05 17:45 | PD.WCN.NOT ---
Wound Consult Description: L groin Communicated with: BALDEV Walker CPCU and Doctor [place] Recommendation: Wound VAC dressing changes Wednesday, Wednesday and Wednesday 125 mm/hg low continuous. Neg Pressure Wound Therapy Wound Location Wound Location: L groin Wound Description Length: 7cm Width: 3cm Depth: ~1cm Undermining: Undermining at 12 o'clock ~0.4cm Wound bed appearance: 90% red granulation tissue ~10% facia and with moderate sero-sanguinous drainage that is without odor Periwound appearance: Other (sutures at 12 o'clock and 1 suture at 6 o'clock. slight induration from 12 to 6 o'clock) Settings Suction: 125 mmHg, Continuous Intensity: Low Other Information: Bridged Foam type: Black Number of pieces: 1 Additonal Information Old dressing was gently removed with adhesive remover and normal saline to reveal wound to L groin. One piece of granufoam was removed from wound bed.Wound measurements and description is noted above. Wound was cleansed with normal saline and patted dry. Skin prep was applied to periwound areas. Oil emulsion gauze (adaptic) was applied over facia in wound bed.Window paned wound with VAC drape and then applied one piece of granufoam cut fit into wound bed.Stoma paste was applied to periwound groin creases to seal. Xeroform was applied over sutures at 12 o'clock and 1 suture at 6 o'clock.Secured granufoam with VAC drape and bridged granufoam over VAC drape to L thigh.Mushroom cap of black granufoam was placed over bridged granufoam, with attached Sensi trac pad. Wound VAC was started at 125 mm/hg with low leak rate noted. Additional Stoma paste was applied to groin crease to seal. Wound VAC is functioning properly and patient was positioned for comfort . Bed was lowered to a safe height before leaving patient's room. Sonia Sommer [facility] May 05, 2017 17:45
[2017-05-05] MEDS: PRAVASTATIN SOD 40 MG TAB PO SCH (21:09)
[2017-05-05] MEDS: LATANOPROST 0.005% OPHT SOLN 2.5 ML BTL EACH EYE SCH (21:09)
--- NOTE | 2017-05-05 21:38 | HHI.PR ---
Subjective Remarks Patient seen this morning around 10 AM. Says she is feeling all right. Denies any chest pain or shortness of breath. Objective Vital Signs Date Time Temp Pulse Resp B/P (MAP) Pulse Ox O2 Delivery O2 Flow Rate FiO2 05/05/17 18:00 62 05/05/17 17:00 59 05/05/17 16:00 60 05/05/17 15:23 97.7 60 16 159/65 (96) 96 05/05/17 15:23 94 Room Air 05/05/17 15:00 62 05/05/17 14:00 64 05/05/17 13:00 60 05/05/17 12:00 63 05/05/17 11:15 98.5 60 16 106/53 (70) 94 05/05/17 11:15 94 Room Air 05/05/17 11:00 59 05/05/17 10:00 59 05/05/17 09:00 62 05/05/17 08:00 60 05/05/17 07:12 94 Room Air 05/05/17 07:12 98.6 62 16 131/55 (80) 94 05/05/17 07:00 59 05/05/17 06:07 62 05/05/17 05:07 59 05/05/17 04:07 60 05/05/17 03:45 94 Room Air 05/05/17 03:45 98.3 60 20 151/65 (93) 94 05/05/17 03:45 69 05/05/17 02:01 60 05/05/17 01:06 59 05/05/17 00:01 58 05/04/17 23:57 98.1 61 19 122/56 (78) 94 05/04/17 23:57 94 Room Air 05/04/17 23:00 60 05/04/17 22:00 62 I/O 05/04/17 05/04/17 05/04/17 05/05/17 05/05/17 05/05/17 07:00 15:00 23:00 07:00 15:00 23:00 Intake Total 680 ml 1020 ml 480 ml 720 ml Output Total 250 ml 450 ml 1205 ml 40 ml Balance 430 ml 570 ml -725 ml 680 ml Intake Oral 680 ml 1020 ml 480 ml 720 ml Output Urine Total 250 ml 450 ml 1200 ml Drainage Total 5 ml 40 ml # Voids 4 # Bowel Movements 1 2 1 3 Result Diagram: 05/05/1743405/05/17434 Objective Remarks GENERAL: Sitting up in bed Appears comfortable. SKIN: Warm and dry. HEAD: Normocephalic. EYES: No scleral icterus. No injection or drainage. NECK: Supple, trachea midline. No JVD. CARDIOVASCULAR: Regular rate and rhythm without murmurs, gallops, or rubs. RESPIRATORY: Breath sounds equal bilaterally. No accessory muscle use. GASTROINTESTINAL: Abdomen soft, non-tender, nondistended. MUSCULOSKELETAL: No cyanosis. 1+ bilateral lower extremity edema, again improved from yesterday. No broken skin. Groin wounds not examined. BACK: Nontender without obvious deformity. No CVA tenderness. A/P Assessment and Plan 86-year-old female who was recently hospitalized at [facility], she originally presented 04/02 with initial complaints of left leg pain 3 days. Patient has a past medical history which is significant for HTN, HLD, PVD, CAD s/p CABG, hypothyroidism, and IBS. CT scan showed iliac ISR, left PLAN NURSE occlusion, and SFA/ popliteal occlusion. 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 She was admitted to [facility] where her wound continued to have drainage with progressive pain. Decision was made by Dr. Talamantes to admit patient for surgical debridement of wound. //Left groin wound PVD - s/p surgical debridement with wound VAC in place as well as EYAL drain on . Her vascular surgeon Dr. Talamantes patient will need 2 weeks of vancomycin. He will recheck the wound tomorrow. -Patient is very sedated from the pain medication. She was given multiple IVs last night. All sedating medication held. -Will also consult palliative care to help with pain management.? Poor prognosis secondary to poor wound healing. = Appreciate vascular surgery assistance. //Acute renal failure -Secondary to decreased by mouth intake due to sedation. Patient changed to normal saline. Will continue to trend. Strict ins and outs. = 05/03. Creatinine 1.65 today. Continues worsening. Likely secondary to vancomycin. Check BNP. Previously 1200 on 04/10. We'll check urinalysis, consult nephrology = 05/04. Creatinine up to 1.7 today. BNP 1000, lower than previously on admission. Appears to be improving with discontinuation of IV fluids. We'll diurese as needed. Nephrology following. Appreciate assistance. = . Patient has been cleared by/for surgery. 2 more weeks of IV vancomycin. Echocardiogram pending, discharge to SNF tomorrow. //Bilateral lower extremity edema. //CHF suspected BNP 1000. -Improving off of IV fluids. Continue to monitor. = Echocardiogram ordered and pending. //HTN //HLD - Continue with home medication. //DVT - Apixaban on hold secondary to surgical procedure. 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 Hemoglobin 8.5. Likely secondary to chronic inflammation, continued wound drains.. Continue to monitor. //DVT prophylaxis - Subcutaneous Lovenox per sx Discharge Planning Vascular surgery has cleared for discharge -had expected discharge [facility], however patient apparently not accepted. Pending echocardiogram plan discharge to SNF tomorrow. Will need two weeks of IV vancomycin. Bryon Cota MD May 05, 2017 21:38
[2017-05-06] VITALS (22 sets, daily range): BP systolic 132–145; BP diastolic 57–63; PULSE 59–66; RESP 16–20; TEMP 98.3–98.6; O2SAT 93–96
[2017-05-06 00:09] LABS: CREATININE 1.61 MG/DL (0.50-1.00)
[2017-05-06] MEDS: LEVOTHYROXINE SODIUM 50 MCG TAB PO SCH (06:38)
[2017-05-06] MEDS: ACETAMINOPHEN 650 MG/20.3 ML UDC PO PRN ×2 (06:38→18:54)
[2017-05-06] MEDS: ASPIRIN 81 MG CHEW TAB CHEW SCH (08:07)
[2017-05-06] MEDS: FAMOTIDINE 20 MG TAB PO SCH (08:07)
[2017-05-06] MEDS: TIMOLOL MALEATE 0.5% OPHT SOLN 5 ML BTL EACH EYE SCH (08:08)
[2017-05-06] MEDS: RAMIPRIL 5 MG CAP PO SCH (08:08)
[2017-05-06] MEDS: ATENOLOL 100 MG TAB PO SCH (08:08)
[2017-05-06] MEDS: BRIMONIDINE TARTRATE 0.2% OPHT SOLN 5 ML BTL EACH EYE SCH (08:08)
[2017-05-06] MEDS: CHLORTHALIDONE 50 MG TAB PO SCH (08:09)
[2017-05-06] MEDS: DOCUSATE SODIUM 50 MG/SENNA 8.6 MG TAB PO SCH (08:09)
--- NOTE | 2017-05-06 11:17 | ECHRPT ---
Indication: HEART FAILURE CONCLUSIONS Normal left ventricular size. Mild concentric left ventricular hypertrophy. The right ventricular systoilc function is mildly decreased. Mitral annular calcification is present. Trace mitral valve regurgitation. Mild aortic valve stenosis. Mild thickening of the aortic valve leaflets. Moderate aortic stenosis. Trace aortic valve regurgitation. Aortic valve area is 0.87 cm. Aortic valve mean gradient is 22 mmHg. There is severe tricuspid regurgitation. The estimated pulmonary arterial pressure is 64.9 mmHg. There is estimated severe pulmonary hypertension present There is a small pericardial effusion present. BP: 131 / 55 HR: 59 Rhythm: MEASUREMENTS (Male / Female) Normal Values Technical Quality:Good 2D ECHO LV Diastolic Diameter PLAX 4.5 cm 4.2 - 5.9 / 3.9 - 5.3 cm LV Systolic Diameter PLAX 3.2 cm IVS Diastolic Thickness 1.4 cm 0.6 - 1.0 / 0.6 - 0.9 cm LVPW Diastolic Thickness 0.7 cm 0.6 - 1.0 / 0.6 - 0.9 cm LV Relative Wall Thickness 0.5 RV Internal Dim ED PLAX 1.9 cm LVOT Diameter 2.0 cm LA Systolic Diameter LX 3.2 cm 3.0 - 4.0 / 2.7 - 3.8 cm DOPPLER AV Peak Velocity 299.7 cm/s AV Peak Gradient 35.9 mmHg AV Mean Gradient 20.0 mmHg AV Velocity Time Integral 75.6 cm LVOT Peak Velocity 75.9 cm/s LVOT Peak Gradient 2.3 mmHg LVOT Velocity Time Integral 20.9 cm LVOT Cardiac Index 2379.0 cm/minm AV Area Cont Eq vti 0.9 cm AV Area Cont Eq pk 0.8 cm MV Peak Velocity 135.0 cm/s MV Peak Gradient 7.3 mmHg MV Mean Velocity 77.4 cm/s MV Mean Gradient 3.0 mmHg Mitral E Point Velocity 62.7 cm/s Mitral A Point Velocity 95.8 cm/s Mitral E to A Ratio 0.7 TR Peak Velocity 387.0 cm/s TR Peak Gradient 59.9 mmHg Right Atrial Pressure 5.0 mmHg Pulmonary Artery Systolic Pressu 64.9 mmHg Right Ventricular Systolic Press 64.9 mmHg FINDINGS LEFT VENTRICLE Normal left ventricular size. Mild concentric left ventricular hypertrophy. The left ventricular systolic function is normal with an estimated ejection fraction in the range of 60-65%. RIGHT VENTRICLE The right ventricular systoilc function is mildly decreased. LEFT ATRIUM The left atrial size is normal. RIGHT ATRIUM The right atrial size is normal. ATRIAL SEPTUM Normal atrial septal thickness without atrial level shunting by limited color doppler interrogation. AORTA The aortic root and proximal ascending aorta are normal in size on limited imaging. MITRAL VALVE Mitral annular calcification is present. Trace mitral valve regurgitation. AORTIC VALVE Mild aortic valve stenosis. Mild thickening of the aortic valve leaflets. Moderate aortic stenosis. Trace aortic valve regurgitation. Aortic valve area is 0.87 cm. Aortic valve mean gradient is 22 mmHg. TRICUSPID VALVE There is severe tricuspid regurgitation. The estimated pulmonary arterial pressure is 64.9 mmHg. There is estimated severe pulmonary hypertension present PULMONARY VALVE No pulmonary valve regurgitation or stenosis. VESSELS The inferior vena cava is normal in size. PERICARDIUM There is a small pericardial effusion present. Matthias Morales MD, FACC (Electronically Signed) Final Date:06 May 2017 11:16
--- NOTE | 2017-05-06 12:46 | HHI.NPPN ---
Subjective History of Present Illness 86-year-old female with past medical history of hypertension, peripheral vascular disease, ischemic heart disease, history of coronary artery bypass grafting, hypothyroidism, irritable bowel syndrome was admitted with left leg ischemia. I was called to see the patient because of elevated BUN and creatinine. The patient has creatinine of 0.6 on admission. Additional Remarks Patient is alert eating lunch, no SOB. (Eryn Lopez) Review of Systems General Constitutional: Fatigue (Eryn Lopez) Respiratory Respiratory Remarks Denies any SOB (Eryn Lopez) Cardiovascular Cardiac: Edema (Eryn Lopez) Gastrointestinal GI Remarks Denies any abdominal pain (Eryn Lopez) Objective Data Data Vital Signs Date Time Temp Pulse Resp B/P (MAP) Pulse Ox O2 Delivery O2 Flow Rate FiO2 05/06/17 11:26 98.3 61 16 132/57 (82) 94 05/06/17 11:26 94 Room Air 05/06/17 10:00 60 05/06/17 09:00 64 05/06/17 08:00 60 05/06/17 07:49 98.6 62 16 145/61 (89) 94 05/06/17 07:08 94 Room Air 05/06/17 07:00 62 05/06/17 06:32 64 05/06/17 05:05 60 05/06/17 04:02 63 05/06/17 03:59 59 05/06/17 03:59 Room Air 05/06/17 03:59 98.3 61 20 144/63 (90) 93 05/06/17 02:10 59 05/06/17 01:09 60 05/06/17 00:49 59 05/05/17 23:00 Room Air 05/05/17 23:00 98.1 61 18 136/53 (80) 95 05/05/17 23:00 59 05/05/17 22:00 60 05/05/17 21:59 59 05/05/17 20:00 69 05/05/17 19:00 98.2 62 19 150/63 (92) 96 05/05/17 19:00 Room Air 05/05/17 19:00 65 05/05/17 18:00 62 05/05/17 17:00 59 05/05/17 16:00 60 05/05/17 15:23 97.7 60 16 159/65 (96) 96 05/05/17 15:23 94 Room Air 05/05/17 15:00 62 05/05/17 14:00 64 05/05/17 13:00 60 (Eryn Lopez) -: 05/05/17 0435 05/05/17 2320 Microbiology 05/06/17 Gram Stain, Received Pending 05/06/17 Wound Culture, Received Pending (Eryn Lopez) Physical Exam General Appearance: No Acute Distress, Comfortable (Eryn Lopez) Eyes Eye Exam: Pupils Equal (Eryn Lopez) Pulmonary Resp Exam: Breath Sounds Equal, No Distress, Decreased Bases (Eryn Lopez) Cardiology CV Exam: Regular, Normal Sinus Rhythm (Eryn Lopez) Gastrointestinal/Abdomen GI Exam: Soft, Non-Tender, Bowel Sounds Present (Eryn Lopez) Extremeties Extremities Exam: Moderate Edema, Pitting Edema (More in left leg.) (Eryn Lopez) Neurologic Neuro Exam: Alert, Awake (Eryn Lopez) Psychiatric Psych Exam: Appropriate Responses (Eryn Lopez) Assessment/Plan Assessment Summary: JOSUÉ/Acute Renal Failure, Hypertension Problem List: (1) HTN (hypertension) ICD Codes: I10 - Essential (primary) hypertension Status: Chronic (2) Hypothyroid ICD Codes: E03.9 - Hypothyroidism, unspecified Status: Chronic (3) PVD (peripheral vascular disease) ICD Codes: I73.9 - Peripheral vascular disease, unspecified Status: Chronic (4) Postoperative anemia ICD Codes: D64.9 - Anemia, unspecified Status: Resolved (5) Hypercholesteremia ICD Codes: E78.00 - Pure hypercholesterolemia, unspecified Status: Chronic (6) Renal insufficiency ICD Codes: N28.9 - Disorder of kidney and ureter, unspecified Status: Resolved Plan Patient develop JOSUÉ. Got more history from daughter at bed side. Patient has Bilateral kidney surgery and stent possibly in Rt. Kidney. Patient has normal Creatinine on admission, so this is all acute. Has edema, got one dose of Lasix. Renal U/S noted, Rt. kidney is bigger. Most likely has ATN from Vancomycin. Plan Avoid Nephrotoxins. Instructed to avoid NSAIDS Follow the urine out put and BMP. if D/C, I can follow as out patient. (Eryn Lopez) Plan Patient seen, examined and agree with above. Creatinine is improving. (Owen Hardy MD) Eryn Lopez May 06, 2017 12:46 Owen Hardy MD May 06, 2017 17:01
--- NOTE | 2017-05-06 12:53 | MB ---
cc: [place] BECERRA MD DATE OF CONSULTATION 05/06/[address] Cota REASON FOR CONSULTATION The patient will need two more weeks of vancomycin per vascular surgery. HISTORY OF PRESENT ILLNESS This is an 86-year-old white female who has undergone reconstructive vascular surgery on the left groin. She developed a left groin wound and she underwent debridement of the left groin along with a sartorius flap and application of a wound Vac on 04/29/2017. The patient was previously treated for acute limb ischemia related to groin reconstruction. She had leg ischemia at the end of March. She underwent left iliofemoral bypass with left profunda endarterectomy and left superficial femoral artery and popliteal angioplasty on 04/04/2017. She received vancomycin for that surgery. She was then transferred to rehab facility on April 09 and she stayed there up until April 29. She was receiving antibiotics in the form of azithromycin and she also received vancomycin starting on 04/23. She had pain at the left groin with erythema at the incision line and ryann wound odor and yellow exudate per vascular surgery note of 04/23/2017. The patient was transferred to [facility] on 04/29. She had a low grade fever of 100 degrees on 04/29. Her white count was normal. On 04/29, she underwent the left groin revision with sartorius flap and a EYAL drain was left into the wound bed and also a wound Vac was applied. No cultures were taken during the procedures. The patient was on vancomycin which was restarted again on 04/29. The patient's creatinine was 0.63 on 04/30 and climbed to 1.65 on 05/03 and today it is 1.61 with an estimated GFR of 30. Urinalysis was sent on 05/04 and showed 15 white cells. The patient had a Prieto catheter in place at that time. Urine culture was taken and it has growth of Cindy albicans. The vancomycin is now on hold. The consultation is requested because vascular surgery wants the patient to remain on vancomycin for another two weeks. PAST MEDICAL HISTORY 1. Irritable bowel syndrome 2. History of congenital kidney disease. 3. Ischemic heart disease 4. Hypothyroidism 5. Hyperlipidemia 6. Peripheral vascular disease 7. Hypertension 8. History of pacemaker insertion. 9. Multiple renal surgeries for congenital kidney condition. ALLERGIES PENICILLIN, SULFA, TRIMETHOPRIM, TRIAMCINOLONE, SULFAMETHOXAZOLE, LIDOCAINE, IODINE AND CODEINE. The patient is lactose intolerant. MEDICATIONS 1. Pepcid 2. Tylenol 3. Lovenox 4. Aspirin 5. Chlorthalidone 6. Altace 10 7. Tenormin 8. Synthroid 9. Ryann-Colace 10. Pravachol 11. Timoptic eye drops 12. Alphagan eye drops 13. Xalatan eye drops SOCIAL HISTORY No tobacco, no alcohol. No illicit drugs. FAMILY HISTORY Noncontributory REVIEW OF SYSTEMS Significant for diarrhea, otherwise negative. PHYSICAL EXAMINATION This is a slender female who is in no acute distress. She is somewhat somnolent. VITAL SIGNS: Include a temperature of 98.6, BP 145/61, respirations 16, heart rate 60. HEENT: Head is atraumatic. Extraocular movements grossly intact, pupils reactive to light without icterus. The oropharynx has moist mucosa without lesions. NECK: Supple without adenopathy. No swelling. LUNGS: Clear breath sounds bilateral. HEART: Regular S1 and S2 with of the extra murmur at the left sternal border. ABDOMEN: Bowel sounds present, soft, no tenderness appreciated. RECTAL: Not performed. The left groin has a wound Vac in place and a EYAL catheter exits the wound bed which has serosanguineous drainage. No visible erythema. EXTREMITIES: Reveal 1+ pitting edema at the left tibia. No cyanosis. NEUROLOGIC: No gross focal findings. PSYCHIATRIC: The patient is calm and cooperative. LABORATORY DATA WBC 6.9, platelets 353, 76% neutrophils, hemoglobin 8.9, estimated GFR 30, creatinine 1.61, BUN 30, random vancomycin level today 26.4. IMPRESSION 1. Patient is status post reconstructive surgery for a left groin wound post femoral-popliteal bypass surgery. 2. Acute renal failure likely related to vancomycin. Possibly vancomycin may be adding to renal dysfunction. After review of the patient's recent medical treatments and review of the record, there is no wound culture to guide antibiotic treatment in this patient who has been treated for a wound. Given that factor and the other issue with her kidney function having deteriorated while on vancomycin, I do not see the need to continue to treat the patient with vancomycin. With the absence of culture, it is difficult to determine appropriate antibiotics. There are certainly less renal toxic antibiotics that can be used in place of vancomycin. However, a culture should be taken to guide antibiotic therapy in this patient. From my standpoint, I think a culture should be obtained and I will order a culture of the EYAL drainage and hold off on making any antibiotic recommendations pending that culture result. Please call when the culture results become available which usually would take up to 72 hours before it is finalized. The vancomycin is on hold, but my recommendation is to stop the vancomycin completely given the patient's renal function. I will follow the patient once the culture becomes available to give further recommendations. Thank you for this consultation. [place] Becerra MD FD/MALLIKA /11:16 AM /12:33 PM
[2017-05-06] MEDS: ENOXAPARIN SODIUM 30 MG/0.3 ML SYRINGE SQ SCH (13:20)
[2017-05-06] MEDS ORDERED: ENOX30P SQ (14:06)
--- NOTE | 2017-05-06 14:09 | HHI.PR ---
Subjective Remarks Patient seen this morning around 11 AM. Says she is feeling all right. Reports pain is controlled. Denies any nausea or vomiting. Discussed with nurse. Objective Vital Signs Date Time Temp Pulse Resp B/P (MAP) Pulse Ox O2 Delivery O2 Flow Rate FiO2 05/06/17 13:00 60 05/06/17 12:00 59 05/06/17 11:26 98.3 61 16 132/57 (82) 94 05/06/17 11:26 94 Room Air 05/06/17 11:00 60 05/06/17 10:00 60 05/06/17 09:00 64 05/06/17 08:00 60 05/06/17 07:49 98.6 62 16 145/61 (89) 94 05/06/17 07:08 94 Room Air 05/06/17 07:00 62 05/06/17 06:32 64 05/06/17 05:05 60 05/06/17 04:02 63 05/06/17 03:59 59 05/06/17 03:59 Room Air 05/06/17 03:59 98.3 61 20 144/63 (90) 93 05/06/17 02:10 59 05/06/17 01:09 60 05/06/17 00:49 59 05/05/17 23:00 Room Air 05/05/17 23:00 98.1 61 18 136/53 (80) 95 05/05/17 23:00 59 05/05/17 22:00 60 05/05/17 21:59 59 05/05/17 20:00 69 05/05/17 19:00 98.2 62 19 150/63 (92) 96 05/05/17 19:00 Room Air 05/05/17 19:00 65 05/05/17 18:00 62 05/05/17 17:00 59 05/05/17 16:00 60 05/05/17 15:23 97.7 60 16 159/65 (96) 96 05/05/17 15:23 94 Room Air 05/05/17 15:00 62 I/O 05/05/17 05/05/17 05/05/17 05/06/17 05/06/17 05/06/17 07:00 15:00 23:00 07:00 15:00 23:00 Intake Total 480 ml 720 ml 240 ml Output Total 1205 ml 40 ml 427 ml Balance -725 ml 680 ml -187 ml Intake Oral 480 ml 720 ml 240 ml Output Urine Total 1200 ml 425 ml Drainage Total 5 ml 40 ml 2 ml # Voids 4 # Bowel Movements 1 3 1 Result Diagram: 05/05/17 0435 05/05/17 3690 Objective Remarks GENERAL: Sitting up in chair at bedside Appears comfortable. SKIN: Warm and dry. HEAD: Normocephalic. EYES: No scleral icterus. No injection or drainage. NECK: Supple, trachea midline. No JVD. CARDIOVASCULAR: Regular rate and rhythm without murmurs, gallops, or rubs. RESPIRATORY: Breath sounds equal bilaterally. No accessory muscle use. GASTROINTESTINAL: Abdomen soft, non-tender, nondistended. MUSCULOSKELETAL: No cyanosis. 1+ bilateral lower extremity edema,. No broken skin. Groin wounds not examined. BACK: Nontender without obvious deformity. No CVA tenderness. A/P Assessment and Plan 86-year-old female who was recently hospitalized at [facility], she originally presented 04/02 with initial complaints of left leg pain 3 days. Patient has a past medical history which is significant for HTN, HLD, PVD, CAD s/p CABG, hypothyroidism, and IBS. CT scan showed iliac ISR, left [employer] SPECIALIST occlusion, and SFA/ popliteal occlusion. 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 She was admitted to [facility] where her wound continued to have drainage with progressive pain. Decision was made by Dr. Talamantes to admit patient for surgical debridement of wound. //Left groin wound PVD - s/p surgical debridement with wound VAC in place as well as EYAL drain on . Her vascular surgeon Dr. Talamantes patient will need 2 weeks of vancomycin. He will recheck the wound tomorrow. -Patient is very sedated from the pain medication. She was given multiple IVs last night. All sedating medication held. -Will also consult palliative care to help with pain management.? Poor prognosis secondary to poor wound healing. = Appreciate vascular surgery assistance. =. Discussed with Dr. Talamantes. Dr. Talamantes would like to discontinue vancomycin as patient is already received 7 days. Continue wound care at [facility]. //Acute renal failure -Secondary to decreased by mouth intake due to sedation. Patient changed to normal saline. Will continue to trend. Strict ins and outs. = 05/03. Creatinine 1.65 today. Continues worsening. Likely secondary to vancomycin. Check BNP. Previously 1200 on 04/10. We'll check urinalysis, consult nephrology = 05/04. Creatinine up to 1.7 today. BNP 1000, lower than previously on admission. Appears to be improving with discontinuation of IV fluids. We'll diurese as needed. Nephrology following. Appreciate assistance. = 05/06. Cleared by surgery for discharge. No need for vancomycin. Follow with nephrology as outpatient. //Bilateral lower extremity edema. //CHF suspected BNP 1000. -Improving off of IV fluids. Continue to monitor. = Echocardiogram with normal left ejection fraction, moderate aortic stenosis. Blood pressure acceptable. Referral for cardiology as outpatient in 1 week. Fluid restrictions of 1800 mL. //HTN //HLD - Continue with home medication. //DVT - Apixaban on hold secondary to surgical procedure. - Resume once okay with vascular surgery = Discussed with vascular surgery. Continue on Lovenox prophylactic dose for one more week, then can go on full anticoagulation in one week. reassess at follow-up with vascular surgery. 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 Hemoglobin 8.5. Likely secondary to chronic inflammation, continued wound drains.. Continue to monitor. //DVT prophylaxis - Subcutaneous Lovenox per sx Discharge Planning Vascular surgery has cleared for discharge -had expected discharge [facility], however patient apparently not accepted. plan discharge to SNF. No need for IV vancomycin. Will need prophylactic Lovenox dosing for treatment of DVT as per respiratory surgery. Follow with cardiology for aortic stenosis. Follow-up with nephrology for diagnosis of kidney failure. Bryon Cota MD May 06, 2017 14:09
--- NOTE | 2017-05-06 14:13 | HHI.DS ---
Discharge Summary Admission Date Apr 29, 2017 at 09:45 Discharge Date: May 06, 2017 Admitting Diagnosis Left groin wound infection (1) Wound infection ICD Code: T14.8XXA - Other injury of unspecified body region, initial encounter ; L08.9 - Local infection of the skin and subcutaneous tissue, unspecified Diagnosis: Principal (2) PVD (peripheral vascular disease) ICD Code: I73.9 - Peripheral vascular disease, unspecified Diagnosis: Principal Status: Chronic (3) HTN (hypertension) ICD Code: I10 - Essential (primary) hypertension Status: Chronic (4) Hypothyroid ICD Code: E03.9 - Hypothyroidism, unspecified Status: Chronic (5) Steal syndrome of upper extremity ICD Code: T82.898A - Other specified complication of vascular prosthetic devices, implants and grafts, initial encounter Status: Chronic (6) Aortic stenosis ICD Code: I35.0 - Nonrheumatic aortic (valve) stenosis (7) Renal insufficiency ICD Code: N28.9 - Disorder of kidney and ureter, unspecified Status: Resolved Procedures debridement of groin wounds by vascular surgery, with wound VAC placement. Please see report Brief History - From Admission Written by Briseida Duncan, acting as scribe for [Judy] on 04/29/17 at 16:21. 86-year-old female who was recently hospitalized at [facility], she originally presented 04/02 with initial complaints of left leg pain 3 days. Patient has a past medical history which is significant for HTN, HLD, PVD, CAD s/p CABG, hypothyroidism, and IBS. CT scan showed iliac ISR, left RN ADVANCED occlusion, and SFA/ popliteal occlusion. She ultimately underwent left groin reconstruction, and left fem-pop [employer]ICE [employer] on 04/04. She was stable after surgery, cleared by vascular for discharge to [facility] where she was admitted on 04/09. During her stay at [facility] she also developed a DVT and episode of possible GIB. She did not undergo any endoscopy and her anticoagulation resumed. Her wound while at rehab progressively continued to drain, opened up, and had delay in healing. Vascular services followed patient throughout her stay in [facility] as well. She was initially started on oral Cipro and then transitioned over to IV vancomycin for possible wound infection. She was ultimately reevaluated by vascular services yesterday who opted for surgical debridement which patient underwent today. She is seen and examined in PACU, she is very hard of hearing and somewhat sleepy. She is able to follow commands and responds appropriately. 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 She denies any shortness of breath or chest pains. Initial blood pressure on right arm with map of 64, blood pressure cuff switched over to left arm with improvement MAP >65. Patient does have a history of steal syndrome. CBC/BMP: 05/05/17 0435 05/05/17 2320 Significant Findings Laboratory Tests Test 05/04/17 05:00 05/04/17 17:25 05/05/17 00:20 05/05/17 04:35 Blood Urea Nitrogen 30 MG/DL (7-18) 32 MG/DL (7-18) 32 MG/DL (7-18) Creatinine 1.73 MG/DL (0.50-1.00) 1.69 MG/DL (0.50-1.00) 1.72 MG/DL (0.50-1.00) Albumin 1.6 GM/DL (3.4-5.0) 1.8 GM/DL (3.4-5.0) Calcium Level 8.0 MG/DL (8.5-10.1) Sodium Level 135 MEQ/L (136-145) 133 MEQ/L (136-145) Estimat Glomerular Filtration Rate 28 ML/MIN (>89) 29 ML/MIN (>89) 28 ML/MIN (>89) Urine Turbidity HAZY (CLEAR) Urine Occult Blood SMALL (NEG) Urine Leukocyte Esterase MOD (NEG) Urine RBC 19 /hpf (0-3) Urine WBC 15 /hpf (0-5) Urine Bacteria OCC /hpf (NONE) Urine Yeast (Budding) FEW (NONE) Red Blood Count 2.94 MIL/MM3 (4.00-5.30) Hemoglobin 8.9 GM/DL (11.6-15.3) Hematocrit 25.8 % (35.0-46.0) Neutrophils (%) (Auto) 76.2 % (16.0-70.0) Lymphocytes # (Auto) 0.9 TH/MM3 (1.0-4.8) Test 05/05/17 23:20 05/06/17 03:55 Blood Urea Nitrogen 34 MG/DL (7-18) Creatinine 1.61 MG/DL (0.50-1.00) Estimat Glomerular Filtration Rate 30 ML/MIN (>89) Imaging Last Impressions Renal Ultrasound 05/03/17 0000 Signed Impressions: Service Date/Time: Wednesday, May 03, 2017 17:52 - CONCLUSION: 1. Bilateral nonobstructing renal calculi. 2. Small echogenic left kidney with diffuse cortical thinning. 3. No hydronephrosis or solid renal mass. Catracho Peres MD PE at Discharge GENERAL:in NAD SKIN: Left groin VAC and place CARDIOVASCULAR: Regular rate and rhythm without murmurs, gallops, or rubs. RESPIRATORY: Breath sounds equal bilaterally. No accessory muscle use. GASTROINTESTINAL: Abdomen soft, non-tender, nondistended. MUSCULOSKELETAL: No cyanosis, or edema. Hospital Course Patient underwent surgical debridement of pelvic wounds, with wound VAC placement, monitoring of wound by vascular surgery. Patient was continued on vancomycin as per surgical service, and this was discontinued at discharge. Hospitalization was complicated by fluid overload, with BNP up to 1083, secondary to IV fluids. This improved with discontinuation of IV fluids. Echocardiogram shows normal ejection fraction of 60-65% moderate aortic stenosis , severe tricuspid regurgitation, estimated pulmonary arterial pressure of 64.9 mmHg. Recommend follow-up with cardiology as outpatient. Patient has history of left lower extremity DVT, for which patient's up exhibition was held for surgery. She was managed on prophylactic dose while in the hospital. Vascular surgery recommends continuing prophylactic dose of Lovenox, 30 mg subcutaneous every 24 hours, with advancement to full anticoagulation in one week, on 05/13. patient also experienced acute kidney injury, with creatinine going from baseline of 0.6-1.6. Nephrology was consulted during admission. This is likely secondary to vancomycin. Vancomycin will be discontinued. recommend against IV fluids due to CHF. Follow-up at the receiving facility. For problem-based summary from most recent progress note, please see below. 86-year-old female who was recently hospitalized at [place], she originally presented 04/02 with initial complaints of left leg pain 3 days. Patient has a past medical history which is significant for HTN, HLD, PVD, CAD s/p CABG, hypothyroidism, and IBS. CT scan showed iliac ISR, left RN ADVANCED occlusion, and SFA/ popliteal occlusion. She ultimately underwent left groin reconstruction, and left fem-pop [employer]ICE [employer] on 04/04. She was admitted to [facility] where her wound continued to have drainage with progressive pain. Decision was made by Dr. Talamantes to admit patient for surgical debridement of wound. //Left groin wound PVD - s/p surgical debridement with wound VAC in place as well as EYAL drain on . Her vascular surgeon Dr. Talamantes patient will need 2 weeks of vancomycin. He will recheck the wound tomorrow. -Patient is very sedated from the pain medication. She was given multiple IVs last night. All sedating medication held. -Will also consult palliative care to help with pain management.? Poor prognosis secondary to poor wound healing. = Appreciate vascular surgery assistance. =. Discussed with Dr. Talamantes. Dr. Talamantes would like to discontinue vancomycin as patient is already received 7 days. Continue wound care at SNF. //Acute renal failure -Secondary to decreased by mouth intake due to sedation. Patient changed to normal saline. Will continue to trend. Strict ins and outs. = 05/03. Creatinine 1.65 today. Continues worsening. Likely secondary to vancomycin. Check BNP. Previously 1200 on 04/10. We'll check urinalysis, consult nephrology = 05/04. Creatinine up to 1.7 today. BNP 1000, lower than previously on admission. Appears to be improving with discontinuation of IV fluids. We'll diurese as needed. Nephrology following. Appreciate assistance. = 05/06. Cleared by surgery for discharge. No need for vancomycin. Follow with nephrology as outpatient. //Bilateral lower extremity edema. //CHF suspected BNP 1000. -Improving off of IV fluids. Continue to monitor. = Echocardiogram with normal left ejection fraction, moderate aortic stenosis. Blood pressure acceptable. Referral for cardiology as outpatient in 1 week. Fluid restrictions of 1800 mL. //HTN //HLD - Continue with home medication. //DVT - Apixaban on hold secondary to surgical procedure. - Resume once okay with vascular surgery = Discussed with vascular surgery. Continue on Lovenox prophylactic dose for one more week, then can go on full anticoagulation in one week. reassess at follow-up with vascular surgery. 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 Hemoglobin 8.5. Likely secondary to chronic inflammation, continued wound drains.. Continue to monitor. //DVT prophylaxis - Subcutaneous Lovenox per sx Discharge Planning Vascular surgery has cleared for discharge -had expected discharge [facility], however patient apparently not accepted. plan discharge to SNF. No need for IV vancomycin. Will need prophylactic Lovenox dosing for treatment of DVT as per respiratory surgery. Follow with cardiology for aortic stenosis. Follow-up with nephrology for diagnosis of kidney failure. Pt Condition on Discharge: Good Discharge Disposition: Discharge to SNF Discharge Time: > 30 minutes Discharge Instructions DIET: Follow Instructions for: Heart Healthy Diet Fluid Restrictions: 1800ml Activities you can perform: Regular-No Restrictions Follow up Referrals: Cardiology - 1 Week Nephrology - 1 Week with Owen Hardy MD Vascular Surgery - 1 Week with Catracho Talamantes MD Your appointment is on at 2:00 New Medications: Enoxaparin Inj (Lovenox Inj) 30 Mg/0.3 Ml Syr 30 MG SQ Q24H for DVT for 30 Days, INJECTION Can start on full anticoagulation in one week. Continued Medications: Aspirin (Aspirin) 81 Mg Chew 81 MG CHEW DAILY, TAB 0 Refills Atenolol-Chlorthalidone (Atenolol-Chlorthalidone) 100-25 Mg Tab 1 TAB PO DAILY for Blood Pressure Management, #30 TAB 0 Refills Bimatoprost Opth Drops (Lumigan Opth Drops) 0.01% Soln 1 DROP EACH EYE HS for Intraocular Pressure, #1 BOTTLE 0 Refills Brimonidine-Timolol Opth Drops (Combigan Opth Drops) 0.2-0.5% Soln 1 DROP EACH EYE Q12HR for Glaucoma, BOTTLE 0 Refills Clopidogrel (Plavix) 75 Mg Tab 75 MG PO DAILY for Blood Clot Prevention, #30 TAB 0 Refills Diphenoxylate-Atropine (Lomotil) 2.5-0.025 Mg Tab 1 TAB PO BID PRN for DIARRHEA, TAB 0 Refills Levothyroxine (Levothyroxine) 50 Mcg Tab 50 MCG PO DAILY for Thyroid, #30 TAB 0 Refills Pravastatin (Pravachol) 40 Mg Tab 40 MG PO HS, #30 TAB Ramipril (Altace) 10 Mg Cap 10 MG PO DAILY, #30 CAP 0 Refills Discontinued Medications: Potassium Chloride ER (Potassium Chloride ER) 20 Meq Tab 20 MEQ PO DAILY for Electrolyte Replacement, #30 TAB 0 Refills Bryon Cota MD May 06, 2017 14:13
== END 2017-05-06 19:27 | DRG 856 ==
LOC: HSDI 09:45 → EDSTATUS 10:30 → HCPC 20:00
PROVIDERS: ADMIT Internal Medicine; ATTEND Internal Medicine
PROC: 0KXR0ZZ Transfer Left Upper Leg Muscle, Open Approach (ICD-10-PCS; 2017-04-29)
PROC: 0JBC0ZZ Excision of Pelvic Region Subcutaneous Tissue and Fascia, Open Approach (ICD-10-PCS; principal; 2017-04-29 12:08)
DX: T81.4XXA Infection following a procedure, initial encounter (principal); N17.0 Acute kidney failure with tubular necrosis; I11.0 Hypertensive heart disease with heart failure; I50.9 Heart failure, unspecified; E78.00 Pure hypercholesterolemia, unspecified; I70.202 Unspecified atherosclerosis of native arteries of extremities, left leg; I71.4 Abdominal aortic aneurysm, without rupture; I70.0 Atherosclerosis of aorta; I25.10 Atherosclerotic heart disease of native coronary artery without angina pectoris; E03.9 Hypothyroidism, unspecified; K58.9 Irritable bowel syndrome, unspecified; I08.2 Rheumatic disorders of both aortic and tricuspid valves; T36.8X5A Adverse effect of other systemic antibiotics, initial encounter; K57.30 Diverticulosis of large intestine without perforation or abscess without bleeding; H91.90 Unspecified hearing loss, unspecified ear; D64.9 Anemia, unspecified; Z95.0 Presence of cardiac pacemaker; Z87.891 Personal history of nicotine dependence; Z95.1 Presence of aortocoronary bypass graft; Z86.718 Personal history of other venous thrombosis and embolism; Z95.5 Presence of coronary angioplasty implant and graft
CPT/HCPCS: 76775; 80048; 80069; 80202; 81001; 82565; 82570; 83735; 83880; 84300; 84520; 85025; 85027; 87070; 87086; 87205; 93306; J1170; J1644; J1650; J2060; J2270; J2370; J2720; J3010; J3370; J3480; J7030; J7040; J7050

== ENCOUNTER 2017-07-02 14:24 | Emergency (ER) | payer MEDICARE, OTHER ==
[~2017-07-02] VITALS: Ht 157.5 cm; Wt 49.0 kg
[~2017-07-02 14:24] MED LIST changes: +ENOX30P SQ; -POTA-163 PO
[2017-07-02 14:43] VITALS: BP 96/50; PULSE 61; RESP 17; RESP 20; TEMP 97.5; O2SAT 98
[2017-07-02] MEDS ORDERED: SODIUM CHLORIDE 0.9% FLUSH 10 ML FLUSH IVF PRN (14:45)
[2017-07-02] MEDS ORDERED: SODIUM CHLOR 0.9% 1000 ML INJ 1,000 ML IV ONE (14:45)
[2017-07-02] MEDS ORDERED: ACETAMINOPHEN 1000 MG/100 ML 65 ML IV ONE (14:45)
[2017-07-02 14:50] VITALS: RESP 17; O2SAT 97
[2017-07-02 15:07] VITALS: BP 134/59; PULSE 60; RESP 17; O2SAT 97
[2017-07-02] MEDS ORDERED: LEVO.075 PO (15:21)
[2017-07-02] MEDS ORDERED: PLAV75TA29 PO (15:21)
[2017-07-02] MEDS ORDERED: TRAM50TA PO (15:21)
[2017-07-02 15:40] LABS: AUTOMATED NEUTROPHIL # 5.7 TH/MM3 (1.8-7.7); BASOPHIL % 0.5 % (0.0-2.0); EOSINOPHIL # 0.1 TH/MM3 (0-0.4); EOSINOPHIL % 0.9 % (0.0-4.0); HEMATOCRIT 28.8 % (35.0-46.0); HEMOGLOBIN 9.6 GM/DL (11.6-15.3); LYMPH % 15.9 % (9.0-44.0); LYMPHOCYTE # 1.2 TH/MM3 (1.0-4.8); MEAN CELL VOLUME 85.5 FL (80.0-100.0); MEAN CORPUSCULAR HEMOGLOBIN 28.5 PG (27.0-34.0); MEAN CORPUSCULAR HGB CONC 33.3 % (32.0-36.0); MEAN PLATELET VOLUME 7.6 FL (7.0-11.0); MONO % 5.6 % (0.0-8.0); MONOCYTE # 0.4 TH/MM3 (0-0.9); NEUT % 77.1 % (16.0-70.0); PLATELET COUNT 349 TH/MM3 (150-450); RED BLOOD COUNT 3.36 MIL/MM3 (4.00-5.30); RED CELL DISTRIBUTION WIDTH 14.8 % (11.6-17.2); WHITE BLOOD COUNT 7.4 TH/MM3 (4.0-11.0)
--- NOTE | 2017-07-02 15:42 | PD ---
HPI Chief Complaint: Fall Time Seen by Provider: 14:44 Travel History International Travel<30 days: No Contact w/Intl Traveler<30days: No Traveled to known affect area: No History of Present Illness HPI Patient is an 86-year-old female presenting to the emergency department for evaluation after a fall. Patient resides at assisted living facility, she was ambulating with her walker when she fell. She initially presented with complaint of right hip pain. Patient states that she does not remember what happened immediately after the fall. She stated that she felt fine before she fell, she denies any chest pain, shortness of breath, dizziness. Patient has a contusion to the left eyebrow. Symptom onset was sudden, symptom severity is mild to moderate, there are no alleviating factors. Patient reports her pain is worse when we move her. She reports the pain is a 6 out of 10. She is also reporting pain in her lower back. She describes her pain is aching. 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) High Cholesterol: Yes Cerebrovascular Accident: Yes (April 2016) Coronary Artery Disease: Yes Diminished Hearing: Yes (BILAT HEARING AIDS) Endocrine: Yes GERD: Yes Glaucoma: Yes Genitourinary: Yes Hypertension: Yes Kidney Stones: Yes Musculoskeletal: Yes Neurologic: Yes Migraines: Yes Thyroid Disease: Yes (hypothyroid) ?: Not Past Surgical History Abdominal Surgery: Yes (cholecystectomy, ) Body Medical Devices: LENS IMPLANT Cardiac Surgery: Yes (CAROTID ENDARTERECTOMY, pacemaker placement , open heart surgery 95) Cholecystectomy: Yes Coronary Artery Bypass Graft: Yes (1994) Coronary Stent: Yes Eye Surgery: Yes (cataract removal) Genitourinary Surgery: Yes (reconstruction of the kidney) Hysterectomy: Yes Pacemaker: Yes Thoracic Surgery: Yes Tonsillectomy: Yes Other Surgery: Yes Social History Alcohol Use: No Tobacco Use: No Substance Use: No Allergies-Medications (Allergen,Severity, Reaction): Coded Allergies: Penicillins (Verified Allergy, Unknown, 04/29/17) Sulfa (Sulfonamide Antibiotics) (Verified Allergy, Unknown, 04/29/17) codeine (Verified Allergy, Unknown, 04/29/17) iodine (Verified Allergy, Unknown, 04/29/17) lidocaine (Verified Allergy, Unknown, 04/29/17) sulfamethoxazole (Verified Allergy, Unknown, 04/29/17) triamcinolone (Verified Allergy, Unknown, 04/29/17) trimethoprim (Verified Allergy, Unknown, 04/29/17) milk (Verified Adverse Reaction, Unknown, Diarrhea, 04/29/17) Per patient, she is lactose intolerant and ingesting milk products causes diarrhea Reported Meds & Prescriptions Reported Meds & Active Scripts Active Pravachol (Pravastatin) 40 Mg Tab 40 Mg PO HS Reported Tramadol (Tramadol HCl) 50 Mg Tab 25 Mg PO Q8HR PRN Synthroid (Levothyroxine Sodium) 75 Mcg Tab 75 Mcg PO DAILY Plavix (Clopidogrel Bisulfate) 75 Mg Tab 75 Mg PO DAILY Lomotil (Diphenoxylate-Atropine) 2.5-0.025 Mg Tab 1 Tab PO BID PRN Atenolol-Chlorthalidone 100-25 Mg Tab 1 Tab PO DAILY Altace (Ramipril) 10 Mg Cap 10 Mg PO DAILY Aspirin 81 Mg Chew 81 Mg CHEW DAILY Combigan Opth Drops (Brimonidine-Timolol Opth Drops) 0.2-0.5% Soln 1 Drop EACH EYE Q12HR Lumigan Opth Drops (Bimatoprost) 0.01% Soln 1 Drop EACH EYE HS Review of Systems Except as stated in HPI: all other systems reviewed are Neg General / Constitutional: No: Fever, Chills HENT: No: Headaches, Lightheadedness Cardiovascular: No: Chest Pain or Discomfort Respiratory: No: Shortness of Breath Gastrointestinal: No: Nausea, Abdominal Pain Musculoskeletal: Positive: Myalgias, Arthralgias Skin: Positive Lumps Neurologic: No: Weakness, Dizziness, Focal Abnormalities, Headache Physical Exam Narrative GENERAL: Well-developed, well-nourished, alert elderly female. Presenting in no acute distress. SKIN: Warm and dry. Contusion to left eyebrow HEAD: Atraumatic. Normocephalic. EYES: Pupils equal and round. No scleral icterus. No injection or drainage. Conjunctival pallor. ENT: No nasal bleeding or discharge. Mucous membranes pink and moist. NECK: Trachea midline. No JVD. CARDIOVASCULAR: Regular rate and rhythm. RESPIRATORY: No accessory muscle use. Clear to auscultation. Breath sounds equal bilaterally. GASTROINTESTINAL: Abdomen soft, non-tender, nondistended. Hepatic and splenic margins not palpable. MUSCULOSKELETAL: Extremities without clubbing, cyanosis, or edema. No obvious deformities. No spinal tenderness or step-off noted. No leg length discrepancy. Patient is neurovascularly intact. NEUROLOGICAL: Awake and alert. No obvious cranial nerve deficits. Motor grossly within normal limits. Five out of 5 muscle strength in the arms and legs. Normal speech. PSYCHIATRIC: Appropriate mood and affect; insight and judgment normal. Data Data Last Documented VS Vital Signs Date Time Temp Pulse Resp B/P (MAP) Pulse Ox O2 Delivery O2 Flow Rate FiO2 07/02/17 17:00 97.8 68 16 130/69 (89) 99 07/02/17 16:01 Room Air Orders Orders Electrocardiogram (07/02/17 14:45) Complete Blood Count With Diff (07/02/17 14:45) Comprehensive Metabolic Panel (07/02/17 14:45) Magnesium (Mg) (07/02/17 14:45) Ckmb (Isoenzyme) Profile (07/02/17 14:45) Troponin I (07/02/17 14:45) Act Partial Throm Time (Ptt) (07/02/17 14:45) Prothrombin Time / Inr (Pt) (07/02/17 14:45) Chest, Single Ap (07/02/17 14:45) Ct Brain W/O Iv Contrast(Rout) (07/02/17 14:45) Ct Cerv Spine W/O Contrast (07/02/17 14:45) Ecg Monitoring (07/02/17 14:45) Iv Access Insert/Monitor (07/02/17 14:45) Oximetry (07/02/17 14:45) Sodium Chloride 0.9% Flush (Ns Flush) (07/02/17 14:45) Sodium Chlor 0.9% 1000 Ml Inj (Ns 1000 M (07/02/17 14:45) Spine, Lumbar - Ltd (Ap & Lat) (07/02/17 ) Type And Screen (07/02/17 14:45) Hip, Ap Only W Ap Pelvis (07/02/17 ) Acetaminophen 1000 Mg/100 Ml (Ofirmev 10 (07/02/17 14:45) Potassium Chloride (Kcl) (07/02/17 16:30) Ed Discharge Order (07/02/17 16:38) Labs Laboratory Tests Test 07/02/17 14:50 White Blood Count 7.4 TH/MM3 Red Blood Count 3.36 MIL/MM3 Hemoglobin 9.6 GM/DL Hematocrit 28.8 % Mean Corpuscular Volume 85.5 FL Mean Corpuscular Hemoglobin 28.5 PG Mean Corpuscular Hemoglobin Concent 33.3 % Red Cell Distribution Width 14.8 % Platelet Count 349 TH/MM3 Mean Platelet Volume 7.6 FL Neutrophils (%) (Auto) 77.1 % Lymphocytes (%) (Auto) 15.9 % Monocytes (%) (Auto) 5.6 % Eosinophils (%) (Auto) 0.9 % Basophils (%) (Auto) 0.5 % Neutrophils # (Auto) 5.7 TH/MM3 Lymphocytes # (Auto) 1.2 TH/MM3 Monocytes # (Auto) 0.4 TH/MM3 Eosinophils # (Auto) 0.1 TH/MM3 Basophils # (Auto) 0.0 TH/MM3 CBC Comment DIFF FINAL Differential Comment Prothrombin Time 10.7 SEC Prothromb Time International Ratio 1.1 RATIO Activated Partial Thromboplast Time 28.2 SEC Blood Urea Nitrogen 13 MG/DL Creatinine 0.77 MG/DL Random Glucose 103 MG/DL Total Protein 6.7 GM/DL Albumin 2.7 GM/DL Calcium Level 8.5 MG/DL Magnesium Level 1.7 MG/DL Alkaline Phosphatase 80 U/L Aspartate Amino Transf (AST/SGOT) 12 U/L Alanine Aminotransferase (ALT/SGPT) 15 U/L Total Bilirubin 0.4 MG/DL Sodium Level 131 MEQ/L Potassium Level 3.2 MEQ/L Chloride Level 97 MEQ/L Carbon Dioxide Level 23.4 MEQ/L Anion Gap 11 MEQ/L Estimat Glomerular Filtration Rate 71 ML/MIN Total Creatine Kinase 24 U/L Troponin I LESS THAN 0.02 NG/ML MDM Medical Decision Making Medical Screen Exam Complete: Yes Emergency Medical Condition: Yes Medical Record Reviewed: Yes Interpretation(s) Laboratory Tests Test 07/02/17 14:50 White Blood Count 7.4 TH/MM3 Red Blood Count 3.36 MIL/MM3 Hemoglobin 9.6 GM/DL Hematocrit 28.8 % Mean Corpuscular Volume 85.5 FL Mean Corpuscular Hemoglobin 28.5 PG Mean Corpuscular Hemoglobin Concent 33.3 % Red Cell Distribution Width 14.8 % Platelet Count 349 TH/MM3 Mean Platelet Volume 7.6 FL Neutrophils (%) (Auto) 77.1 % Lymphocytes (%) (Auto) 15.9 % Monocytes (%) (Auto) 5.6 % Eosinophils (%) (Auto) 0.9 % Basophils (%) (Auto) 0.5 % Neutrophils # (Auto) 5.7 TH/MM3 Lymphocytes # (Auto) 1.2 TH/MM3 Monocytes # (Auto) 0.4 TH/MM3 Eosinophils # (Auto) 0.1 TH/MM3 Basophils # (Auto) 0.0 TH/MM3 CBC Comment DIFF FINAL Differential Comment Prothrombin Time 10.7 SEC Prothromb Time International Ratio 1.1 RATIO Activated Partial Thromboplast Time 28.2 SEC Blood Urea Nitrogen 13 MG/DL Creatinine 0.77 MG/DL Random Glucose 103 MG/DL Total Protein 6.7 GM/DL Albumin 2.7 GM/DL Calcium Level 8.5 MG/DL Magnesium Level 1.7 MG/DL Alkaline Phosphatase 80 U/L Aspartate Amino Transf (AST/SGOT) 12 U/L Alanine Aminotransferase (ALT/SGPT) 15 U/L Total Bilirubin 0.4 MG/DL Sodium Level 131 MEQ/L Potassium Level 3.2 MEQ/L Chloride Level 97 MEQ/L Carbon Dioxide Level 23.4 MEQ/L Anion Gap 11 MEQ/L Estimat Glomerular Filtration Rate 71 ML/MIN Total Creatine Kinase 24 U/L Troponin I LESS THAN 0.02 NG/ML Last Impressions Head CT 07/02/17 144 Signed Impressions: Service Date/Time: Sunday, July 02, 2017 15:34 - CONCLUSION: 1. No acute hemorrhage or mass effect. 2. Focal area of decreased attenuation in the right parietal lobe characteristic of encephalomalacia from prior insult. Imtiaz Beard MD Chest X-Ray 07/02/17 1445 Signed Impressions: Service Date/Time: Sunday, July 02, 2017 15:30 - CONCLUSION: Stable appearance with no acute cardiopulmonary disease. Imtiaz Beard MD Cervical Spine CT 07/02/17 1445 Signed Impressions: Service Date/Time: Sunday, July 02, 2017 15:34 - CONCLUSION: Negative trauma CT. Imtiaz Beard MD Lumbar Spine X-Ray 07/02/17 0000 Signed Impressions: Service Date/Time: Sunday, July 02, 2017 15:26 - CONCLUSION: 1. Mild compression fracture deformity of the L5 vertebral body with invagination superior endplate. This appears chronic. 2. 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 Imtiaz Beard MD Hip and Pelvis X-Ray 07/02/17 0000 Signed Impressions: Service Date/Time: Sunday, July 02, 2017 15:24 - CONCLUSION: Osteopenia with no acute fracture or malalignment. Imtiaz Beard MD Vital Signs Date Time Temp Pulse Resp B/P (MAP) Pulse Ox O2 Delivery O2 Flow Rate FiO2 07/02/17 15:07 60 17 134/59 (84) 97 Room Air 07/02/17 14:50 17 97 Room Air 07/02/17 14:45 17 98 Room Air 07/02/17 14:43 97.5 61 17 96/50 (65) 98 Differential Diagnosis Fracture versus sprain versus strain versus anemia versus metabolic abnormality versus syncope versus cardiac arrhythmia versus other Narrative Course Patient is a 86-year-old female presenting for evaluation after mechanical fall. Daughter is now at bedside and states that she believes patient may be dehydrated, she has been on a fluid restriction due to being treated for low sodium levels. She also states she has a history of anemia and subclavian steal syndrome. This would explain the lower blood pressure we obtained initially from the right arm. Labs and imaging ordered and pending. Initial EKG shows paced rhythm at a rate of 60. CBC with a mild anemia at 9.6/28.8. This is improved since prior results. Chemistry with a sodium of 131, potassium 3.2. Oral potassium replacement ordered Cardiac enzymes are negative [address] of the cervical spine shows no acute abnormality Chest x-ray shows no acute cardiopulmonary disease Head CT shows no acute hemorrhage or mass-effect. Focal area of increased attenuation in the right parietal lobe characteristic of encephalomalacia from prior insult. X-ray of the hip shows osteopenia with no acute fracture or malalignment. X-ray of the lumbar spine shows mild compression fracture deformity of the L5 vertebral body with invagination superior endplate. This appears chronic. 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 This is also stable when compared to prior reports. Patient was reassessed, she is resting comfortably. She reports that the IV acetaminophen has helped her pain. Patient will be discharged back to the assisted living facility, her daughters are at bedside. They are agreeable to plan of care. Findings and plan of care discussed in consult with my attending physician. Patient is encouraged to follow-up with her primary doctor or return to emergency department for any new or worsening symptoms. They verbalized understanding of these instructions. Patient stable for discharge. Diagnosis Primary Impression: Fall Qualified Codes: W19.XXXA - Unspecified fall, initial encounter Additional Impressions: Hypokalemia Hyponatremia Referrals: Primary Care Physician 3 days Patient Instructions: Fall Prevention for Older Adults (DC), General Instructions, Hypokalemia (ED), Hyponatremia (ED) Additional Instructions: Follow-up with your primary doctor Apply warm heat to the affected area, continue range of motion exercises, use walker to ambulate to avoid falls, change positions slowly Take [id number] acetaminophen as needed and as directed for pain Return to emergency department for any new or worsening symptoms Med/Other Pt SpecificInfo: No Change to Meds Disposition: 01 DISCHARGE HOME (TO [facility]) Condition: Stable Kriss Hargrove Jul 02, 2017 15:42
--- NOTE | 2017-07-02 15:44 | RADRPT ---
EXAM DATE/TIME: 07/02/2017 15:30 [facility] COMPARISON: CHEST SINGLE AP, April 23, 2017, 18:04. INDICATIONS : Fall, complains of chest pain. MEDICAL HISTORY : Hypothyroidism. Hypercholesterolemia. Hypertension. Hearing loss. SURGICAL HISTORY : Pacemaker. CABG. ENCOUNTER: Initial ACUITY: 1 day PAIN SCORE: 10/10 LOCATION: Bilateral chest FINDINGS: A single view of the chest demonstrates the lungs to be symmetrically aerated without evidence of mas s, infiltrate or effusion. Mild scarring is again noted the left lung base. Patient is status post me feng sternotomy and there are atherosclerotic changes in the aorta. A left subclavian transvenous pac er remains in place. The cardiomediastinal contours are unremarkable. Osseous structures are intact . CONCLUSION: Stable appearance with no acute cardiopulmonary disease. Imtiaz Beard MD on July 02, 2017 at 15:42 Board Certified Radiologist. This report was verified electronically.
--- NOTE | 2017-07-02 15:44 | RADRPT ---
EXAM DATE/TIME: 07/02/2017 15:34 [facility] COMPARISON: No previous studies available for comparison. INDICATIONS : Fall, contusion RADIATION DOSE: 33.58 CTDIvol (mGy) MEDICAL HISTORY : Hypertension. Cardiovascular disease Skin cancer, carotid endarterectomy SURGICAL HISTORY : Tonsillectomy. ENCOUNTER: Initial ACUITY: 1 day PAIN SCALE: 4/10 LOCATION: cranial TECHNIQUE: Multiple contiguous axial images were obtained of the head. Using automated exposure control and adj ustment of the mA and/or kV according to patient size, radiation dose was kept as low as reasonably a chievable to obtain optimal diagnostic quality images. DICOM format image data is available electro nically for review and comparison. FINDINGS: CEREBRUM: The ventricles are normal for age with moderate atrophic change. There is a focal area of decreased a ttenuation in the right parietal lobe which extends out to the surface of the brain is consistent wit h encephalomalacia. No evidence of midline shift, mass lesion, hemorrhage or acute infarction. No ex tra-axial fluid collections are seen. POSTERIOR FOSSA: The cerebellum and brainstem are intact. The 4th ventricle is midline. The cerebellopontine angle i s unremarkable. EXTRACRANIAL: The visualized portion of the orbits is intact. SKULL: The calvaria is intact. No evidence of skull fracture. CONCLUSION: 1. No acute hemorrhage or mass effect. 2. Focal area of decreased attenuation in the right parietal lobe characteristic of encephalomalacia from prior insult. Imtiaz Beard MD on July 02, 2017 at 15:40 Board Certified Radiologist. This report was verified electronically.
--- NOTE | 2017-07-02 15:47 | RADRPT ---
EXAM DATE/TIME: 07/02/2017 15:24 [facility] COMPARISON: No previous studies available for comparison. INDICATIONS : Fall, complains of right hip pain. MEDICAL HISTORY : None. Hypothyroidism. Hypercholesterolemia. Hypertension. Hearing loss. SURGICAL HISTORY : Pacemaker. CABG. ENCOUNTER: Initial ACUITY: 1 day PAIN SCORE: 10/10 LOCATION: Right hip FINDINGS: 2 AP views of the pelvis and right hip were obtained and demonstrate diffuse osteopenia with no acute fracture or malalignment. The pubic rami are intact with degenerative changes involving the symphysi s pubis. Bilateral common iliac stent catheters are present. The soft tissues are unremarkable. CONCLUSION: Osteopenia with no acute fracture or malalignment. Imtiaz Beard MD on July 02, 2017 at 15:43 Board Certified Radiologist. This report was verified electronically.
--- NOTE | 2017-07-02 15:47 | PD ---
Physical Exam Date Seen by Provider: Jul 02, 2017 Narrative This patient presents for evaluation of injury sustained in a fall. There is a question of loss of consciousness and also a question of syncope. Data Data Last Documented VS Vital Signs Date Time Temp Pulse Resp B/P (MAP) Pulse Ox O2 Delivery O2 Flow Rate FiO2 07/02/17 15:07 60 17 134/59 (84) 97 Room Air 07/02/17 14:43 97.5 Orders Orders Electrocardiogram (07/02/17 14:45) Complete Blood Count With Diff (07/02/17 14:45) Comprehensive Metabolic Panel (07/02/17 14:45) Magnesium (Mg) (07/02/17 14:45) Ckmb (Isoenzyme) Profile (07/02/17 14:45) Troponin I (07/02/17 14:45) Act Partial Throm Time (Ptt) (07/02/17 14:45) Prothrombin Time / Inr (Pt) (07/02/17 14:45) Urinalysis - C+S If Indicated (07/02/17 14:45) Chest, Single Ap (07/02/17 14:45) Ct Brain W/O Iv Contrast(Rout) (07/02/17 14:45) Ct Cerv Spine W/O Contrast (07/02/17 14:45) Ecg Monitoring (07/02/17 14:45) Iv Access Insert/Monitor (07/02/17 14:45) Oximetry (07/02/17 14:45) Sodium Chloride 0.9% Flush (Ns Flush) (07/02/17 14:45) Sodium Chlor 0.9% 1000 Ml Inj (Ns 1000 M (07/02/17 14:45) Spine, Lumbar - Ltd (Ap & Lat) (07/02/17 ) Type And Screen (07/02/17 14:45) Hip, Ap Only W Ap Pelvis (07/02/17 ) Acetaminophen 1000 Mg/100 Ml (Ofirmev 10 (07/02/17 14:45) Labs Laboratory Tests Test 07/02/17 14:50 White Blood Count 7.4 TH/MM3 Red Blood Count 3.36 MIL/MM3 Hemoglobin 9.6 GM/DL Hematocrit 28.8 % Mean Corpuscular Volume 85.5 FL Mean Corpuscular Hemoglobin 28.5 PG Mean Corpuscular Hemoglobin Concent 33.3 % Red Cell Distribution Width 14.8 % Platelet Count 349 TH/MM3 Mean Platelet Volume 7.6 FL Neutrophils (%) (Auto) 77.1 % Lymphocytes (%) (Auto) 15.9 % Monocytes (%) (Auto) 5.6 % Eosinophils (%) (Auto) 0.9 % Basophils (%) (Auto) 0.5 % Neutrophils # (Auto) 5.7 TH/MM3 Lymphocytes # (Auto) 1.2 TH/MM3 Monocytes # (Auto) 0.4 TH/MM3 Eosinophils # (Auto) 0.1 TH/MM3 Basophils # (Auto) 0.0 TH/MM3 CBC Comment DIFF FINAL Differential Comment MDM Supervised Visit with ARTURO: Yes Narrative Course I, Dr. Dejesus, have reviewed the advance practice practitioner's documentation and am in agreement, met with the patient face to face, made the diagnosis, and the medical decision making was done by me. *My assessment and Findings: Patient is currently awake and alert. She has a contusion on her left forehead. She is not having any difficulty breathing. Her heart is paced. Please see Kriss Wilde NP's note for results of laboratory and radiographic evaluation, ED course, final diagnosis and disposition Ana Dejesus MD Jul 02, 2017 15:47
[2017-07-02 15:48] LABS: INTERNATIONAL NORMALIZED RATIO 1.1 RATIO; PROTHROMBIN TIME - PATIENT 10.7 SEC (9.8-11.6)
--- NOTE | 2017-07-02 15:51 | RADRPT ---
EXAM DATE/TIME: 07/02/2017 15:26 [facility] COMPARISON: CT ABDOMEN & PELVIS W/O CONTRAST, April 14, 2017, 17:03. INDICATIONS : Fall, complains of back pain. MEDICAL HISTORY : Hypothyroidism. Hypercholesterolemia. Hypertension. Hearing loss. SURGICAL HISTORY : Pacemaker. CABG. ENCOUNTER: Initial ACUITY: 1 day PAIN SCORE: 10/10 LOCATION: Lumbar FINDINGS: AP and lateral views of the lumbar spine were obtained and demonstrate diffuse osteopenia. There is m ild invagination superior endplate of L5 sclerosis which appears chronic. There is no definite acute fracture or malalignment. There is minimal scoliosis. The sacrum is intact. Extensive vascular calcif ications are present in the aorta with areas of dilatation measuring up to at least 8.5 cm. CONCLUSION: 1. Mild compression fracture deformity of the L5 vertebral body with invagination superior endplate. This appears chronic. 2. Extensive vessel calcifications with areas of dilatation and mild aneurysms measuring up to 3.5 cm . Imtiaz Beard MD on July 02, 2017 at 15:46 Board Certified Radiologist. This report was verified electronically.
[2017-07-02 15:56] LABS: ALBUMIN 2.7 GM/DL (3.4-5.0); AST (GOT) 12 U/L (15-37); BICARBONATE 23.4 MEQ/L (21.0-32.0); BLOOD UREA NITROGEN 13 MG/DL (7-18); CALCIUM 8.5 MG/DL (8.5-10.1); CHLORIDE 97 MEQ/L (98-107); CREATININE 0.77 MG/DL (0.50-1.00); GLOMERULAR FILTRATION RATE 71 ML/MIN (>89); GLUCOSE,RANDOM 103 MG/DL (74-106); MAGNESIUM 1.7 MG/DL (1.5-2.5); SODIUM (NA) 131 MEQ/L (136-145)
[2017-07-02 15:57] LABS: ALT (GPT) 15 U/L (10-53)
[2017-07-02 16:01] VITALS: BP 138/61; PULSE 67; RESP 17; TEMP 97.9; O2SAT 98
[2017-07-02 16:01] LABS: ALKALINE PHOSPHATASE 80 U/L (45-117); TOTAL BILIRUBIN ADULT 0.4 MG/DL (0.2-1.0); TOTAL PROTEIN 6.7 GM/DL (6.4-8.2); TROPONIN I LESS THAN 0.02 NG/ML (0.02-0.05)
--- NOTE | 2017-07-02 16:10 | RADRPT ---
EXAM DATE/TIME: 07/02/2017 15:34 [facility] COMPARISON: No previous studies available for comparison. INDICATIONS : Fall, contusion RADIATION DOSE: 12.31 CTDIvol (mGy) MEDICAL HISTORY : Hypertension. Cardiovascular disease Skin cancer, carotid endarterectomy SURGICAL HISTORY : Tonsillectomy. ENCOUNTER: Initial ACUITY: 1 day PAIN SCALE: 4/10 LOCATION: neck TECHNIQUE: Volumetric scanning of the cervical spine was performed. Multiplanar reconstructions in the sagittal, coronal and oblique axial planes were performed. Using automated exposure control and adjustment o f the mA and/or kV according to patient size, radiation dose was kept as low as reasonably achievable to obtain optimal diagnostic quality images. DICOM format image data is available electronically f or review and comparison. FINDINGS: The sagittal reconstructions demonstrate normal alignment and normal prevertebral soft tissues. The d ens is intact and there is a normal atlantoaxial relationship. There is diffuse osteopenia. Degenerat flaco changes are noted in the atlantoaxial joint. The axial images demonstrate that the vertebral bodies and posterior elements are intact. The soft ti ssues are within normal limits. There is no evidence of acute fracture or malalignment. CONCLUSION: Negative trauma CT. Imtiaz Beard MD on July 02, 2017 at 16:06 Board Certified Radiologist. This report was verified electronically.
[2017-07-02] MEDS ORDERED: POTASSIUM CHLORIDE 20 MEQ CONTROLLED RELEASE TAB PO ONE (16:30)
[2017-07-02 17:00] VITALS: BP 130/69; TEMP 97.8
--- NOTE | 2017-07-03 14:49 | EKG ---
Date Performed: 07/02/2017 Time Performed: 15:10:05 PTAGE: 86 years EKG: ELECTRONIC ATRIAL PACEMAKER ELECTRONIC VENTRICULAR PACEMAKER ABNORMAL RHYTHM ECG Since PREVIOUS TRACING , no significant change noted PREVIOUS TRACIN04/03/2017 14.22 DOCTOR: Wally Hernandez Interpretating Date/Time 07/03/2017 14:48:01
== END 2017-07-02 17:00 | disposition home or self-care (01) ==
LOC: NEPC 14:24
DX: S00.83XA Contusion of other part of head, initial encounter (principal); E87.6 Hypokalemia; E87.1 Hypo-osmolality and hyponatremia; E03.9 Hypothyroidism, unspecified; E78.00 Pure hypercholesterolemia, unspecified; M54.5 Low back pain; M25.551 Pain in right hip; I10 Essential (primary) hypertension; I25.10 Atherosclerotic heart disease of native coronary artery without angina pectoris; W19.XXXA Unspecified fall, initial encounter; Y93.01 Activity, walking, marching and hiking; Y92.099 Unspecified place in other non-institutional residence as the place of occurrence of the external cause
CPT/HCPCS: 70450; 71045; 72100; 72125; 73501; 80053; 82550; 83735; 84484; 85025; 85610; 85730; 86850; 86900; 86901; 93005; 96365; 99285; J0131; J7030

== ENCOUNTER 2017-07-10 22:19 | Inpatient (IN) | payer MEDICARE, OTHER ==
[~2017-07-10] VITALS: Ht 154.9 cm; Wt 49.8 kg
[~2017-07-10 22:19] MED LIST changes: -ENOX30P SQ; +LEVO.075 PO; -LEVO50TA4 PO; +TRAM50TA PO
[2017-07-10 22:46] VITALS: BP 115/56; PULSE 67; RESP 16; TEMP 97.4; O2SAT 95
[2017-07-11] VITALS (7 sets, daily range): BP systolic 100–150; BP diastolic 56–75; PULSE 65–81; RESP 16–18; TEMP 98–98.5; O2SAT 92–97
[2017-07-11] MEDS ORDERED: SODIUM CHLORIDE 0.9% FLUSH 10 ML FLUSH IVF PRN (00:30)
--- NOTE | 2017-07-11 00:31 | PD ---
HPI Chief Complaint: GI Complaint Time Seen by Provider: 00:15 Travel History International Travel<30 days: No Contact w/Intl Traveler<30days: No Traveled to known affect area: No History of Present Illness HPI 86-year-old female with history of extensive pelvic vascular procedures performed by Dr. Talamantes, here from her rehab facility with her family for evaluation of melena. Patient has history of IBS. She has had several loose bowel movements today, all have been black. Patient has been anemic in the past and has been on iron, however she has not been on this medication for 2 weeks. She is on aspirin and Plavix. She denies having any abdominal pain. No fevers. 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) Cardiovascular Problems: Yes High Cholesterol: Yes Cerebrovascular Accident: Yes (April 2016) Coronary Artery Disease: Yes Diminished Hearing: Yes (BILAT HEARING AIDS) Endocrine: Yes Gastrointestinal Disorders: Yes GERD: Yes Glaucoma: Yes Genitourinary: Yes Hypertension: Yes Implanted Vascular Access Dvce: Yes Kidney Stones: Yes Musculoskeletal: Yes Neurologic: Yes Immunizations Current: No Migraines: Yes Thyroid Disease: Yes (hypothyroid) Menopausal: Yes Past Surgical History Abdominal Surgery: Yes (cholecystectomy, ) Body Medical Devices: LENS IMPLANT Cardiac Surgery: Yes (CAROTID ENDARTERECTOMY, pacemaker placement , open heart surgery 95) Cholecystectomy: Yes Coronary Artery Bypass Graft: Yes (1994) Coronary Stent: Yes Eye Surgery: Yes (cataract removal) Genitourinary Surgery: Yes (reconstruction of the kidney) Gynecologic Surgery: Yes (hysterectomy) Hysterectomy: Yes Oral Surgery: Yes (teeth removal for dentures.) Pacemaker: Yes Thoracic Surgery: Yes Tonsillectomy: Yes Other Surgery: Yes Social History Alcohol Use: No Tobacco Use: No (quit one year ago. ) Substance Use: No Allergies-Medications (Allergen,Severity, Reaction): Coded Allergies: Penicillins (Verified Allergy, Unknown, 04/29/17) Sulfa (Sulfonamide Antibiotics) (Verified Allergy, Unknown, 04/29/17) codeine (Verified Allergy, Unknown, 04/29/17) iodine (Verified Allergy, Unknown, 04/29/17) lidocaine (Verified Allergy, Unknown, 04/29/17) sulfamethoxazole (Verified Allergy, Unknown, 04/29/17) triamcinolone (Verified Allergy, Unknown, 04/29/17) trimethoprim (Verified Allergy, Unknown, 04/29/17) milk (Verified Adverse Reaction, Unknown, Diarrhea, 04/29/17) Per patient, she is lactose intolerant and ingesting milk products causes diarrhea Reported Meds & Prescriptions Reported Meds & Active Scripts Active Pravachol (Pravastatin) 40 Mg Tab 40 Mg PO HS Reported Tramadol (Tramadol HCl) 50 Mg Tab 25 Mg PO Q8HR PRN Synthroid (Levothyroxine Sodium) 75 Mcg Tab 75 Mcg PO DAILY Plavix (Clopidogrel Bisulfate) 75 Mg Tab 75 Mg PO DAILY Lomotil (Diphenoxylate-Atropine) 2.5-0.025 Mg Tab 1 Tab PO BID PRN Atenolol-Chlorthalidone 100-25 Mg Tab 1 Tab PO DAILY Altace (Ramipril) 10 Mg Cap 10 Mg PO DAILY Aspirin 81 Mg Chew 81 Mg CHEW DAILY Combigan Opth Drops (Brimonidine-Timolol Opth Drops) 0.2-0.5% Soln 1 Drop EACH EYE Q12HR Lumigan Opth Drops (Bimatoprost) 0.01% Soln 1 Drop EACH EYE HS Review of Systems Except as stated in HPI: all other systems reviewed are Neg Physical Exam Narrative GENERAL: Well-developed, well-nourished, comfortable, no apparent distress. SKIN: Focused skin assessment warm/dry. HEAD: Atraumatic. Normocephalic. EYES: Pupils equal and round. No scleral icterus. No injection or drainage. ENT: Mucous membranes pink and moist. NECK: Trachea midline. No JVD. CARDIOVASCULAR: Regular rate and rhythm. 1+ bilateral dorsalis pedis pulses. RESPIRATORY: No accessory muscle use. Clear to auscultation. Breath sounds equal bilaterally. GASTROINTESTINAL: Abdomen soft, non-tender, nondistended. RECTUM: No masses or fissures. Heme positive black stool. MUSCULOSKELETAL: No obvious deformities. No clubbing. No cyanosis. No edema. NEUROLOGICAL: Awake and alert. No obvious cranial nerve deficits. Motor grossly within normal limits. Normal speech. PSYCHIATRIC: Appropriate mood and affect; insight and judgment normal. Data Data Last Documented VS Vital Signs Date Time Temp Pulse Resp B/P (MAP) Pulse Ox O2 Delivery O2 Flow Rate FiO2 07/10/17 22:46 97.4 67 16 115/56 (75) 95 Orders Orders Complete Blood Count With Diff (07/11/17 00:26) Comprehensive Metabolic Panel (07/11/17:) Prothrombin Time / Inr (Pt) (07/11/17:) Act Partial Throm Time (Ptt) (07/11/17:) Type And Screen (07/11/17:) Ecg Monitoring (07/11/17:) Iv Access Insert/Monitor (07/11/17) Oximetry (07/11/17:) Sodium Chloride 0.9% Flush (Ns Flush) (07/11/17 00:30) Lorazepam Inj (Ativan Inj) (07/11/17 02:15) Labs Laboratory Tests Test 07/11/17 00:30 White Blood Count 9.0 TH/MM3 Red Blood Count 3.19 MIL/MM3 Hemoglobin 8.9 GM/DL Hematocrit 26.9 % Mean Corpuscular Volume 84.4 FL Mean Corpuscular Hemoglobin 27.9 PG Mean Corpuscular Hemoglobin Concent 33.0 % Red Cell Distribution Width 15.4 % Platelet Count 435 TH/MM3 Mean Platelet Volume 7.1 FL Neutrophils (%) (Auto) 69.9 % Lymphocytes (%) (Auto) 21.5 % Monocytes (%) (Auto) 6.5 % Eosinophils (%) (Auto) 1.4 % Basophils (%) (Auto) 0.7 % Neutrophils # (Auto) 6.3 TH/MM3 Lymphocytes # (Auto) 1.9 TH/MM3 Monocytes # (Auto) 0.6 TH/MM3 Eosinophils # (Auto) 0.1 TH/MM3 Basophils # (Auto) 0.1 TH/MM3 CBC Comment DIFF FINAL Differential Comment Prothrombin Time 10.4 SEC Prothromb Time International Ratio 1.0 RATIO Activated Partial Thromboplast Time 24.7 SEC Blood Urea Nitrogen 19 MG/DL Creatinine 0.96 MG/DL Random Glucose 95 MG/DL Total Protein 6.9 GM/DL Albumin 3.1 GM/DL Calcium Level 9.0 MG/DL Alkaline Phosphatase 102 U/L Aspartate Amino Transf (AST/SGOT) 16 U/L Alanine Aminotransferase (ALT/SGPT) 15 U/L Total Bilirubin 0.3 MG/DL Sodium Level 130 MEQ/L Potassium Level 4.2 MEQ/L Chloride Level 99 MEQ/L Carbon Dioxide Level 21.0 MEQ/L Anion Gap 10 MEQ/L Estimat Glomerular Filtration Rate 55 ML/MIN [facility] Medical Decision Making Medical Screen Exam Complete: Yes Emergency Medical Condition: Yes Differential Diagnosis Melena, GI bleed, anemia Narrative Course Initial vital signs show heart rate 67, blood pressure 115/56, pulse ox 95% on room air, oral temperature 97.4F. CBC: WBC 9, hemoglobin 8.9, hematocrit 26.9, platelets 435. CMP is remarkable for sodium 130, otherwise unremarkable. PT, PTT, and INR within normal limits. The patient has heme positive and black stool. Her hemoglobin is around her baseline. She is on aspirin and Plavix. She will be admitted for further treatment and evaluation of melena. Family made aware of all lab findings and plan for admission. HemaPrompt Point of Care Internal Pos. & Neg. Controls: Passed Fecal Specimen Occult Blood: Positive Comment Heme positive black stool Diagnosis Primary Impression: Melena Zackery Buckley MD Jul 11, 2017 00:31
[2017-07-11 01:08] LABS: AUTOMATED NEUTROPHIL # 6.3 TH/MM3 (1.8-7.7); BASOPHIL # 0.1 TH/MM3 (0-0.2); BASOPHIL % 0.7 % (0.0-2.0); EOSINOPHIL # 0.1 TH/MM3 (0-0.4); EOSINOPHIL % 1.4 % (0.0-4.0); HEMATOCRIT 26.9 % (35.0-46.0); HEMOGLOBIN 8.9 GM/DL (11.6-15.3); LYMPH % 21.5 % (9.0-44.0); LYMPHOCYTE # 1.9 TH/MM3 (1.0-4.8); MEAN CELL VOLUME 84.4 FL (80.0-100.0); MEAN CORPUSCULAR HEMOGLOBIN 27.9 PG (27.0-34.0); MEAN PLATELET VOLUME 7.1 FL (7.0-11.0); MONO % 6.5 % (0.0-8.0); MONOCYTE # 0.6 TH/MM3 (0-0.9); NEUT % 69.9 % (16.0-70.0); PLATELET COUNT 435 TH/MM3 (150-450); RED BLOOD COUNT 3.19 MIL/MM3 (4.00-5.30); RED CELL DISTRIBUTION WIDTH 15.4 % (11.6-17.2)
[2017-07-11 01:18] LABS: PROTHROMBIN TIME - PATIENT 10.4 SEC (9.8-11.6)
[2017-07-11 01:59] LABS: ALBUMIN 3.1 GM/DL (3.4-5.0); AST (GOT) 16 U/L (15-37); BLOOD UREA NITROGEN 19 MG/DL (7-18); CHLORIDE 99 MEQ/L (98-107); CREATININE 0.96 MG/DL (0.50-1.00); GLOMERULAR FILTRATION RATE 55 ML/MIN (>89); GLUCOSE,RANDOM 95 MG/DL (74-106); SODIUM (NA) 130 MEQ/L (136-145)
[2017-07-11 02:01] LABS: ALKALINE PHOSPHATASE 102 U/L (45-117); ALT (GPT) 15 U/L (10-53); TOTAL BILIRUBIN ADULT 0.3 MG/DL (0.2-1.0); TOTAL PROTEIN 6.9 GM/DL (6.4-8.2)
[2017-07-11] MEDS ORDERED: LORazepam 2 MG/ML VIAL IV PUSH ONE (02:15)
[2017-07-11] MEDS ORDERED: ONDANSETRON HCL 4 MG/2 ML VIAL IVP PRN (02:30)
[2017-07-11] MEDS ORDERED: SENNOSIDES 8.6 MG TAB PO PRN (02:30)
[2017-07-11] MEDS ORDERED: SODIUM CHLORIDE 0.9% FLUSH 10 ML FLUSH IV FLUSH PRN (02:30)
[2017-07-11] MEDS ORDERED: PANTOPRAZOLE SODIUM 40 MG VIAL IV PUSH ONE (02:30)
[2017-07-11] MEDS ORDERED: LACTULOSE SYRUP 20 GM/30 ML CUP PO PRN (02:30)
[2017-07-11] MEDS ORDERED: BISACODYL 10 MG SUPP RECTAL PRN (02:30)
[2017-07-11] MEDS ORDERED: MAGNESIUM HYDROXIDE SUSP 30 ML CUP PO PRN (02:30)
[2017-07-11] MEDS: SODIUM CHLOR 0.9% 1000 ML INJ 1,000 ML IV SCH ×3 (03:39→23:30)
--- NOTE | 2017-07-11 04:24 | HHI.HP ---
HPI Service [facility] Primary Care Physician Katelyn Toscano Admission Diagnosis melena Diagnoses: (1) GI bleed Diagnosis: Principal Travel History International Travel<30 Days: No Contact w/Intl Traveler <30 Da: No Traveled to Known Affected Are: No History of Present Illness This is an 86-year-old female with a PMH of HTN, Dementia, IBS, h/o Steal Syndrome, s/p Left Fem-Pop [employer], h/o DVT and h/o GI Bleed who was sent to the ER from Rehab secondary to melena. Per report, pt w/ black, tarry stool for 1 day. Pt unable to give history due to Dementia. Per review of medical records , pt on ASA and Plavix. On arrival, BP 115/56, HR 67, O2 sat 95% on RA, Afebrile. Hemoglobin 8.9, previously 9.6 on 07/02/2017. Chemistry unremarkable except for GFR 55. INR 1.0. Hemoccult +. While in ER, pt w/ episode of agitation requiring Ativan. Review of Systems Except as stated in HPI: all other systems reviewed are Neg ROS: Unable to obtain secondary to dementia Past Family Social History Past Medical History PMH: HTN, Dementia, IBS, h/o Steal Syndrome, s/p Left Fem-Pop [employer], h/o DVT and h/o GI Bleed Past Surgical History PAST SURGICAL HISTORY: Cholecystectomy, Lens Implant, Carotid Endarterectomy, Pacemaker, CABG, Cardiac Stent, Hysterectomy, Dental Extraction, Tonsillectomy Allergies: Coded Allergies: Penicillins (Verified Allergy, Unknown, 04/29/17) Sulfa (Sulfonamide Antibiotics) (Verified Allergy, Unknown, 04/29/17) codeine (Verified Allergy, Unknown, 04/29/17) iodine (Verified Allergy, Unknown, 04/29/17) lidocaine (Verified Allergy, Unknown, 04/29/17) sulfamethoxazole (Verified Allergy, Unknown, 04/29/17) triamcinolone (Verified Allergy, Unknown, 04/29/17) trimethoprim (Verified Allergy, Unknown, 04/29/17) milk (Verified Adverse Reaction, Unknown, Diarrhea, 04/29/17) Per patient, she is lactose intolerant and ingesting milk products causes diarrhea Family History PAST FAMILY HISTORY: Reviewed. No h/o DM or CAD Social History PAST SOCIAL HISTORY: Negative for alcohol, tobacco or drugs. Physical Exam Vital Signs Vital Signs Date Time Temp Pulse Resp B/P (MAP) Pulse Ox O2 Delivery O2 Flow Rate FiO2 07/11/17 03:57 98.2 68 18 122/59 (80) 92 07/11/17 02:59 96 Nasal Cannula 2.00 07/10/17 22:46 97.4 67 16 115/56 (75) 95 Physical Exam PE: GENERAL: Elderly white female in no acute distress. Lethargic after receiving sedation HEENT: PERRLA, EOMI. No scleral icterus or conjunctival pallor. No lid lag or facial droop. CARDIOVASCULAR: Regular rate and rhythm. No obvious murmurs to auscultation. No chest tenderness to palpation. RESPIRATORY: No obvious rhonchi or wheezing. Clear to auscultation. Breath sounds equal bilaterally. GASTROINTESTINAL: Abdomen soft, non-tender, nondistended. BS normal. MUSCULOSKELETAL: Extremities without clubbing, cyanosis, or edema. No obvious deformities. NEUROLOGICAL: Sleepy, but arouses easily. No focal neurologic deficits. Moving both upper and lower extremities spontaneously. Laboratory Laboratory Tests Test 07/11/17 00:30 White Blood Count 9.0 Red Blood Count 3.19 Hemoglobin 8.9 Hematocrit 26.9 Mean Corpuscular Volume 84.4 Mean Corpuscular Hemoglobin 27.9 Mean Corpuscular Hemoglobin Concent 33.0 Red Cell Distribution Width 15.4 Platelet Count 435 Mean Platelet Volume 7.1 Neutrophils (%) (Auto) 69.9 Lymphocytes (%) (Auto) 21.5 Monocytes (%) (Auto) 6.5 Eosinophils (%) (Auto) 1.4 Basophils (%) (Auto) 0.7 Neutrophils # (Auto) 6.3 Lymphocytes # (Auto) 1.9 Monocytes # (Auto) 0.6 Eosinophils # (Auto) 0.1 Basophils # (Auto) 0.1 CBC Comment DIFF FINAL Differential Comment Prothrombin Time 10.4 Prothromb Time International Ratio 1.0 Activated Partial Thromboplast Time 24.7 Blood Urea Nitrogen 19 Creatinine 0.96 Random Glucose 95 Total Protein 6.9 Albumin 3.1 Calcium Level 9.0 Alkaline Phosphatase 102 Aspartate Amino Transf (AST/SGOT) 16 Alanine Aminotransferase (ALT/SGPT) 15 Total Bilirubin 0.3 Sodium Level 130 Potassium Level 4.2 Chloride Level 99 Carbon Dioxide Level 21.0 Anion Gap 10 Estimat Glomerular Filtration Rate 55 Result Diagram: 07/11/172907/11/1729 Caprini VTE Risk Assessment Caprini VTE Risk Assessment: No/Low Risk (score <= 1) Caprini Risk Assessment Model Point Value = 1 Point Value = 2 Point Value = 3 Point Value = 5 Age 41-60 Minor surgery BMI > 25 kg/m2 Swollen legs Varicose veins or History of unexplained or recurrent spontaneous Oral contraceptives or hormone replacement Sepsis (< 1 month) Serious lung disease, including pneumonia (< 1 month) Abnormal pulmonary function Acute myocardial infarction Congestive heart failure (< 1 month) History of inflammatory bowel disease Medical patient at bed rest Age 61-74 Arthroscopic surgery Major open surgery (> 45 min) Laparoscopic surgery (> 45 min) Malignancy Confined to bed (> 72 hours) Immobilizing plaster cast Central venous access Age >= 75 History of VTE Family history of VTE Factor V Leiden Prothrombin [id number] Lupus anticoagulant Anticardiolipin antibodies Elevated serum homocysteine Heparin-induced thrombocytopenia Other congenital or acquired thrombophilia Stroke (< 1 month) Elective arthroplasty Hip, pelvis, or leg fracture Acute spinal cord injury (< 1 month) Prophylaxis Regimen Total Risk Factor Score Risk Level Prophylaxis Regimen 0-1 Low Early ambulation 2 Moderate Order ONE of the following: *Sequential Compression Device (SCD) *Heparin 5000 units SQ BID 3-4 Higher Order ONE of the following medications: *Heparin 5000 units SQ TID *Enoxaparin/Lovenox 40 mg SQ daily (WT < 150 kg, CrCl > 30 mL/min) *Enoxaparin/Lovenox 30 mg SQ daily (WT < 150 kg, CrCl > 10-29 mL/min) *Enoxaparin/Lovenox 30 mg SQ BID (WT < 150 kg, CrCl > 30 mL/min) AND/OR *Sequential Compression Device (SCD) 5 or more Highest Order ONE of the following medications: *Heparin 5000 units SQ TID (Preferred with Epidurals) *Enoxaparin/Lovenox 40 mg SQ daily (WT < 150 kg, CrCl > 30 mL/min) *Enoxaparin/Lovenox 30 mg SQ daily (WT < 150 kg, CrCl > 10-29 mL/min) *Enoxaparin/Lovenox 30 mg SQ BID (WT < 150 kg, CrCl > 30 mL/min) AND *Sequential Compression Device (SCD) Assessment and Plan Problem List: (1) GI bleed ICD Code: K92.2 - Gastrointestinal hemorrhage, unspecified Assessment and Plan A/P: 1. GI Bleed: melena x1 day, +Hemoccult on exam, Hgb stable at 8.9, previously 9.6 on 07/02/17. On ASA/Plavix per review of medication list, will hold at this time. Recheck Hgb/Hct. Platelets normal, INR normal. Consult GI for further evaluation/intervention. Protonix IV. 2. DVT Prophylaxis: Pharmacologic contraindication secondary to acute GI Bleed 3. Social work for d/c planning as needed. 4. Case discussed w/ ER physician at length, labs/records/imaging reviewed by me. Physician Certification 2 Midnight Certification Type: Admission for Inpatient Services Order for Inpatient Services The services are ordered in accordance with Medicare regulations or non- Medicare payer requirements, as applicable. In the case of services not specified as inpatient-only, they are appropriately provided as inpatient services in accordance with the 2-midnight benchmark. Estimated LOS (days): 2 days is the estimated time the patient will need to remain in the hospital, assuming treatment plan goals are met and no additional complications. Post-Hospital Plan: Not yet determined Kenisha Mancilla MD Jul 11, 2017 04:24
[2017-07-11] MEDS: LEVOTHYROXINE SODIUM 75 MCG TAB PO SCH (06:27)
[2017-07-11] MEDS: ACETAMINOPHEN 325 MG TAB PO PRN ×2 (06:28→11:38)
[2017-07-11] MEDS: RAMIPRIL 5 MG CAP PO SCH (07:32)
[2017-07-11] MEDS: SODIUM CHLORIDE 0.9% FLUSH 10 ML FLUSH IV FLUSH SCH ×2 (07:32→23:30)
[2017-07-11] MEDS: DOCUSATE SODIUM 50 MG/SENNA 8.6 MG TAB PO SCH ×2 (07:33→23:30)
[2017-07-11 08:29] LABS: BACTERIA, URINE OCC /hpf; BILIRUBIN, URINE NEG (NEG); BLOOD, URINE MOD (NEG); GLUCOSE,URINE NEG (NEG); KETONE, URINE NEG (NEG); MUCUS URINE FEW /lpf (OCC); NITRITE,URINE NEG (NEG); PH, URINE 5.5 (5.0-8.5); SQUAMOUS EPITHELIAL CELL URINE 2 /hpf (0-5); URINE COLOR LIGHT-YELLOW (YELLW/STRAW); URINE LEUKOCYTE ESTERASE MOD (NEG)
[2017-07-11] MEDS: PT OWN (Brimonidine-Timolol Opth Drops (Combigan Opth Drops) EACH EYE SCH ×2 (09:00→21:00)
--- NOTE | 2017-07-11 09:36 | PD.CONS ---
HPI History of Present Illness This is a 86 year old female who was admitted on 07/11/17 with symptoms of uncontrolled diarrhea on 07/10/17. According to the nurse patient had [place] diarrhea stools yesterday that were tarry and dark in nature. No diarrhea so far this a.m.. Patient denies any current nausea or vomiting, no abdominal pain , and states that she has not slept in several days.. Patient denies any heartburn or dysphagia. Current labs show hemoglobin at 8.9, albumin 3.1, INR 1. Patient states she has a history of IBS and on CT scan done April 2017 showed severe colonic diverticulosis.. It is also noted patient has a 3.3 cm AAA. Patient is a poor historian, but can note simple symptoms that are happening now. According to the review of records patient has been on aspirin and Plavix. Patient is originally from [place], and states that she has had multiple colonoscopies, unsure of EGD history. (Harika Middleton) PFSH Past Medical History PMH: HTN, Dementia, IBS, h/o Steal Syndrome, s/p Left Fem-Pop [employer], h/o DVT and h/o GI Bleed Past Surgical History PAST SURGICAL HISTORY: Cholecystectomy, Lens Implant, Carotid Endarterectomy, Pacemaker, CABG, Cardiac Stent, Hysterectomy, Dental Extraction, Tonsillectomy (Harika Middleton) Coded Allergies: Penicillins (Verified Allergy, Unknown, 04/29/17) Sulfa (Sulfonamide Antibiotics) (Verified Allergy, Unknown, 04/29/17) codeine (Verified Allergy, Unknown, 04/29/17) iodine (Verified Allergy, Unknown, 04/29/17) lidocaine (Verified Allergy, Unknown, 04/29/17) sulfamethoxazole (Verified Allergy, Unknown, 04/29/17) triamcinolone (Verified Allergy, Unknown, 04/29/17) trimethoprim (Verified Allergy, Unknown, 04/29/17) milk (Verified Adverse Reaction, Unknown, Diarrhea, 04/29/17) Per patient, she is lactose intolerant and ingesting milk products causes diarrhea Medications Administered Medications Medications (Trade) Dose Ordered Sig/Jett Route PRN Reason Start Time Stop Time Status Last Admin Dose Admin Sodium Chloride 1,000 ml @ 100 mls/hr Q10H IV 07/11/17 03:00 07/11/17 03:39 Sodium Chloride (NS Flush) 2 ml BID IV FLUSH 07/11/17 09:00 07/11/17 07:32 Acetaminophen (Tylenol) 650 mg Q6H PRN PO FEVER/PAIN SCALE 1 TO 2 07/11/17 02:30 07/11/17 06:28 Levothyroxine Sodium (Synthroid) 75 mcg DAILY@0600 PO 07/11/17 06:00 07/11/17 06:27 Ramipril (Altace) 10 mg DAILY PO 07/11/17 09:00 07/11/17 07:32 Family History PAST FAMILY HISTORY: Reviewed. No h/o DM or CAD Social History PAST SOCIAL HISTORY: Negative for alcohol, tobacco, states she quit smoking 1 year ago or drugs. She is and currently lives alone. (Harika Middleton) Review of Systems Gastrointestinal: COMPLAINS OF: Diarrhea (Harika Middleton) GI Exam Vitals I&O Vital Signs Date Time Temp Pulse Resp B/P (MAP) Pulse Ox O2 Delivery O2 Flow Rate FiO2 07/11/17 08:00 98.2 65 18 138/61 (86) 92 07/11/17 03:57 98.2 68 18 122/59 (80) 92 07/11/17 02:59 96 Nasal Cannula 2.00 07/10/17 22:46 97.4 67 16 115/56 (75) 95 Laboratory Test 07/11/17 00:30 07/11/17 07:30 White Blood Count 9.0 TH/MM3 Red Blood Count 3.19 MIL/MM3 Hemoglobin 8.9 GM/DL Hematocrit 26.9 % Mean Corpuscular Volume 84.4 FL Mean Corpuscular Hemoglobin 27.9 PG Mean Corpuscular Hemoglobin Concent 33.0 % Red Cell Distribution Width 15.4 % Platelet Count 435 TH/MM3 Mean Platelet Volume 7.1 FL Neutrophils (%) (Auto) 69.9 % Lymphocytes (%) (Auto) 21.5 % Monocytes (%) (Auto) 6.5 % Eosinophils (%) (Auto) 1.4 % Basophils (%) (Auto) 0.7 % Neutrophils # (Auto) 6.3 TH/MM3 Lymphocytes # (Auto) 1.9 TH/MM3 Monocytes # (Auto) 0.6 TH/MM3 Eosinophils # (Auto) 0.1 TH/MM3 Basophils # (Auto) 0.1 TH/MM3 CBC Comment DIFF FINAL Differential Comment Prothrombin Time 10.4 SEC Prothromb Time International Ratio 1.0 RATIO Activated Partial Thromboplast Time 24.7 SEC Blood Urea Nitrogen 19 MG/DL Creatinine 0.96 MG/DL Random Glucose 95 MG/DL Total Protein 6.9 GM/DL Albumin 3.1 GM/DL Calcium Level 9.0 MG/DL Alkaline Phosphatase 102 U/L Aspartate Amino Transf (AST/SGOT) 16 U/L Alanine Aminotransferase (ALT/SGPT) 15 U/L Total Bilirubin 0.3 MG/DL Sodium Level 130 MEQ/L Potassium Level 4.2 MEQ/L Chloride Level 99 MEQ/L Carbon Dioxide Level 21.0 MEQ/L Anion Gap 10 MEQ/L Estimat Glomerular Filtration Rate 55 ML/MIN Urine Color LIGHT-YELLOW Urine Turbidity CLEAR Urine pH 5.5 Urine Specific [place] 1.008 Urine Protein NEG mg/dL Urine Glucose (UA) NEG mg/dL Urine Ketones NEG mg/dL Urine Occult Blood MOD Urine Nitrite NEG Urine Bilirubin NEG Urine Urobilinogen LESS THAN 2.0 MG/DL Urine Leukocyte Esterase MOD Urine RBC 14 /hpf Urine WBC 5 /hpf Urine Squamous Epithelial Cells 2 /hpf Urine Bacteria OCC /hpf Urine Mucus FEW /lpf Microscopic Urinalysis Comment CULT NOT INDICATED Physical Examination HEENT: Pupils round and reactive to light; normocephalic; atraumatic; frail, pale, no jaundice NECK: Neck is supple, no JVD, no lymphadenopathy. CHEST: Chest essentially clear with no audible rhonchi. CARDIAC: Regular rate and rhythm ABDOMEN: Soft, nondistended, nontender; no hepatosplenomegaly; bowel sounds are present in all four quadrants. EXTREMITIES: No clubbing, cyanosis, or edema. SKIN: Normal; no rash; no jaundice., Pale CHANGE OVER: Answers mild simple questions, poor historian (Harika Middleton) Assessment and Plan Assessment: (1) IBS (irritable bowel syndrome) ICD Codes: K58.9 - Irritable bowel syndrome without diarrhea Status: Chronic (2) Positive occult stool blood test ICD Codes: R19.5 - Other fecal abnormalities (3) GI bleed ICD Codes: K92.2 - Gastrointestinal hemorrhage, unspecified (4) Melena ICD Codes: K92.1 - Melena Status: Acute Plan Diarrhea stools uncontrolled on 07/10/17 approximately 11 stools per the nurse, symptoms have slowed down over the past 8 hours. Hemoccult positive, melena stools. Current hemoglobin 8.9. CT from April 2017 shows severe colonic diverticulosis, patient has a history of being on Plavix and aspirin, she does have a AAA 3.3 cm. Observing. Patient currently denies any abdominal pain no nausea or vomiting and is sipping on clear liquids. Plan Diet, she is tolerating clear liquids this morning diet is regular as tolerated PPI Anti-emetics Bowel regimen Monitor labs with special attention to hemoglobin recheck CBC in a.m. Discussed with patient possible EGD. She is not excited about having any procedures but understands that she has been to the hospital several times over the past few months. Plavix has been on hold since admission. One day. Monitor intake and output and number of stools. Supportive care Patient was seen per myself and Dr. Jack, this note was written on his behalf (Harika Middleton) Physician Comments Seen and examined with CAMILLE, after much discussion she has agreed to a egd but does not want a colonoscopy. Discussed with daughter at the bedside. Thank you (Gwendolyn Jack MD) Harika Middleton Jul 11, 2017 09:36 Gwendolyn Jack MD Jul 11, 2017 14:12
[2017-07-11 10:56] LABS: HEMATOCRIT 22.4 % (35.0-46.0); HEMOGLOBIN 7.4 GM/DL (11.6-15.3)
--- NOTE | 2017-07-11 11:02 | HHI.PR ---
Subjective Remarks Patient presented to the ER black tarry stools patient denies any further BMs today Objective Vital Signs Date Time Temp Pulse Resp B/P (MAP) Pulse Ox O2 Delivery O2 Flow Rate FiO2 07/11/17 08:00 98.2 65 18 138/61 (86) 92 07/11/17 03:57 98.2 68 18 122/59 (80) 92 07/11/17 02:59 96 Nasal Cannula 2.00 07/10/17 22:46 97.4 67 16 115/56 (75) 95 Result Diagram: 07/11/17 0030 07/11/17 0030 Other Results GENERAL: This is a well-nourished, well-developed patient, in no apparent distress. CARDIOVASCULAR: Regular rate and rhythm RESPIRATORY: Clear to auscultation. Breath sounds equal bilaterally. GASTROINTESTINAL: Abdomen soft, non-tender, nondistended. Normal active bowel sounds MUSCULOSKELETAL: Extremities without clubbing, cyanosis, or edema. NEURO: Awake and Alert. Moves all ext x4 A/P Assessment and Plan 1. GI Bleed: melena x1 day (07/10), +Hemoccult on exam, Hgb stable at 8.9, previously 9.6 on 07/02/17. On ASA/Plavix per review of medication list, will hold at this time. Recheck Hgb/Hct pending. will follow serial H&H Protonix IV. Consult GI for further evaluation/intervention. 2. DVT Prophylaxis: Pharmacologic contraindication secondary to acute GI Bleed 3. Social work for d/c planning as needed. Case discussed with Karyn Camacho Jul 11, 2017 11:02
[2017-07-11 13:08] LABS: BICARBONATE 20.2 MEQ/L (21.0-32.0); CALCIUM 8.5 MG/DL (8.5-10.1); CREATININE 0.72 MG/DL (0.50-1.00)
[2017-07-11] MEDS ORDERED: SODIUM CHLOR 0.9% 250 ML INJ 250 ML IV ONE (14:30)
[2017-07-11] MEDS ORDERED: POTASSIUM CHLORIDE 20 MEQ CONTROLLED RELEASE TAB PO ONE (15:00)
[2017-07-11] MEDS ORDERED: FUROSEMIDE 20 MG/2 ML VIAL IV PUSH ONE (15:00)
[2017-07-11] MEDS ORDERED: LATANOPROST 0.005% OPHT SOLN 2.5 ML BTL EACH EYE SCH (21:00)
[2017-07-11] MEDS ORDERED: PRAVASTATIN SOD 40 MG TAB PO SCH (21:00)
[2017-07-11] MEDS: PANTOPRAZOLE SODIUM 40 MG VIAL IV PUSH SCH (23:30)
[2017-07-12 05:22] LABS: AUTOMATED NEUTROPHIL # 6.8 TH/MM3 (1.8-7.7); BASOPHIL % 0.5 % (0.0-2.0); EOSINOPHIL # 0.1 TH/MM3 (0-0.4); EOSINOPHIL % 1.5 % (0.0-4.0); HEMATOCRIT 33.2 % (35.0-46.0); HEMOGLOBIN 11.2 GM/DL (11.6-15.3); LYMPH % 14.4 % (9.0-44.0); LYMPHOCYTE # 1.3 TH/MM3 (1.0-4.8); MEAN CELL VOLUME 82.4 FL (80.0-100.0); MEAN CORPUSCULAR HEMOGLOBIN 27.9 PG (27.0-34.0); MEAN CORPUSCULAR HGB CONC 33.8 % (32.0-36.0); MEAN PLATELET VOLUME 7.3 FL (7.0-11.0); MONO % 6.6 % (0.0-8.0); MONOCYTE # 0.6 TH/MM3 (0-0.9); PLATELET COUNT 323 TH/MM3 (150-450); RED BLOOD COUNT 4.03 MIL/MM3 (4.00-5.30); RED CELL DISTRIBUTION WIDTH 16.8 % (11.6-17.2); WHITE BLOOD COUNT 8.8 TH/MM3 (4.0-11.0)
[2017-07-12 05:30] LABS: ALBUMIN 2.6 GM/DL (3.4-5.0); ALT (GPT) 11 U/L (10-53); AST (GOT) 13 U/L (15-37); BICARBONATE 18.5 MEQ/L (21.0-32.0); BLOOD UREA NITROGEN 11 MG/DL (7-18); CALCIUM 8.6 MG/DL (8.5-10.1); CHLORIDE 99 MEQ/L (98-107); CREATININE 0.66 MG/DL (0.50-1.00); GLOMERULAR FILTRATION RATE 85 ML/MIN (>89); GLUCOSE,RANDOM 94 MG/DL (74-106); SODIUM (NA) 131 MEQ/L (136-145)
[2017-07-12 05:33] LABS: ALKALINE PHOSPHATASE 87 U/L (45-117); TOTAL BILIRUBIN ADULT 0.7 MG/DL (0.2-1.0); TOTAL PROTEIN 6.2 GM/DL (6.4-8.2)
[2017-07-12] MEDS: LEVOTHYROXINE SODIUM 75 MCG TAB PO SCH (06:00)
[2017-07-12 08:22] VITALS: BP 162/72; PULSE 73; RESP 18; TEMP 97.8; O2SAT 93
[2017-07-12] MEDS: SODIUM CHLORIDE 0.9% FLUSH 10 ML FLUSH IV FLUSH SCH (09:00)
[2017-07-12] MEDS: PANTOPRAZOLE SODIUM 40 MG VIAL IV PUSH SCH (09:00)
[2017-07-12] MEDS: SODIUM CHLOR 0.9% 1000 ML INJ 1,000 ML IV SCH (09:00)
[2017-07-12] MEDS: PT OWN (Brimonidine-Timolol Opth Drops (Combigan Opth Drops) EACH EYE SCH (09:00)
[2017-07-12] MEDS: DOCUSATE SODIUM 50 MG/SENNA 8.6 MG TAB PO SCH (09:22)
[2017-07-12] MEDS: RAMIPRIL 5 MG CAP PO SCH (09:22)
--- NOTE | 2017-07-12 10:01 | HHI.PR ---
Subjective Remarks Follow up for black stools, anemia, with suspected GI bleeding. The patient is seen with one of her daughters at bedside. The patient is currently awake, alert , oriented to self, [facility] in [facility], July 12, 2017, and able to explain why she is in the hospital. She initially consented for EGD yesterday, however she states she changed her mind and she does not want it done now. She states she's had too many procedures in her lifetime and she's done. She is able to tell me the reason we want and EGD is because we are concerned she is bleeding somewhere. We went through all the possible scenarios of what we can find on EGD however the patient continued to refuse. Discussed with the daughter about palliative care consultation to which she agreed. The patient denies any further BMs. Denies any abdominal pain, nausea, or vomiting. She repeatedly states she just wants to go home and does not want any further testing. Objective Vitals Vital Signs Date Time Temp Pulse Resp B/P (MAP) Pulse Ox O2 Delivery O2 Flow Rate FiO2 07/12/17 08:22 97.8 73 18 162/72 (102) 93 07/11/17 23:57 98.3 77 18 150/66 (94) 97 07/11/17 21:48 98.5 72 16 144/64 96 07/11/17 16:00 98.5 69 18 100/56 (71) 94 07/11/17 15:49 81 18 122/75 (91) 95 07/11/17 12:00 98.0 76 18 144/63 (90) 92 I/O 07/11/17 07/11/17 07/11/17 07/12/17 07/12/17 07/12/17 06:59 14:59 22:59 06:59 14:59 22:59 Intake Total 2200 ml 400 ml Output Total 950 ml Balance 1250 ml 400 ml Intake Oral 950 ml IV Total 850 ml Packed Cells 400 ml 400 ml Output Urine Total 950 ml # Voids 3 Result Diagram: 07/12/17 0339 07/12/17338 Objective Remarks GENERAL: Well-nourished, well-developed elderly female patient in [facility]. SKIN: Warm and dry. No rash. HEENT: Normocephalic. Atraumatic.Pupils equal and round. Mucous membranes pink and moist. NECK: Supple. Trachea midline. CARDIOVASCULAR: Regular rate and rhythm. No murmur appreciated. RESPIRATORY: No accessory muscle use. Clear to auscultation. Breath sounds equal bilaterally. GASTROINTESTINAL: Abdomen soft, non-tender, nondistended. Normoactive bowel sounds x4. MUSCULOSKELETAL: No obvious deformities. Extremities without clubbing, cyanosis , or edema. NEUROLOGICAL: AAOx4. No obvious cranial nerve deficits. Motor grossly within normal limits. Normal speech. PSYCHIATRIC: Appropriate mood and affect; insight and judgment fair. Procedures None. Medications and IVs Current Medications Medications (Trade) Dose Ordered Sig/Jett Route Start Time Stop Time Status Last Admin (Protonix Inj) 40 mg Q12H IV PUSH 07/11/17 21:00 07/11/17 23:30 Sodium Chloride 1,000 ml @ 100 mls/hr Q10H IV 07/11/17 03:00 07/11/17 23:30 (NS Flush) 2 ml UNSCH PRN IV FLUSH 07/11/17 02:30 (NS Flush) 2 ml BID IV FLUSH 07/11/17 09:00 07/11/17 23:30 (Zofran Inj) 4 mg Q6H PRN IVP 07/11/17 02:30 (Tylenol) 650 mg Q6H PRN PO 07/11/17 02:30 07/11/17 11:38 (Ryann-Colace) 1 tab BID PO 07/11/17 09:00 07/12/17 09:22 (Milk Of Magnesia Liq) 30 ml Q12H PRN PO 07/11/17 02:30 (Senokot) 17.2 mg Q12H PRN PO 07/11/17 02:30 (Dulcolax Supp) 10 mg DAILY PRN RECTAL 07/11/17 02:30 (Lactulose Liq) 30 ml DAILY PRN PO 07/11/17 02:30 (Synthroid) 75 mcg DAILY@0600 PO 07/11/17 06:00 07/11/17 06:27 (Pravachol) 40 mg HS PO 07/11/17 21:00 07/11/17 23:30 (Altace) 10 mg DAILY PO 07/11/17 09:00 07/12/17 09:22 (Xalatan 0.005% Opth Soln) 1 drop HS EACH EYE 07/11/17 21:00 Patient Own Medication PT OWN MED: (Brimonidine-Timolol Optcindy Bliss.. 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 GI Bleed: melena x1 day (07/10), +Hemoccult on exam in ED. -Hemoglobin initially stable at 8.9, however dropped to 7.4 -Given 2u pRBC on 07/11 -On ASA/Plavix per review of medication list, held at this time. -Give IV Protonix -Consulted GI, patient refused colonoscopy, initially agreed to EGD however then changed her mind just prior to procedure -Had long discussion with patient and daughter, patient continuously refused any further procedure or testing -Consulted palliative care, patient refused to speak with palliative care however they were able to talk with family and it was decided to respect patient 's wishes and no further testing/intervention at this time -Case management consulted to arrange [facility] at [facility] upon discharge -Repeat Hgb stable at 11.2 and 12.1. No further reports of bleeding -Recommended to recheck CBC as outpatient in 2 days. -Stable for discharge DVT Prophylaxis: Pharmacologic contraindication secondary to acute GI Bleed Discharge Planning Discharge patient to [facility] with [facility] Condition on discharge: Stable Heart Healthy Diet as tolerated Ad Stephanie activity Rx written: none Follow-up with primary care physician and gastroenterology Repeat CBC in 2 days I spent 35 minutes [id number] with the patient or on the tai discussing the patient's disposition, prognosis, and plan of care with his/her caregivers. Over half the time spent was devoted to counseling the patient regarding placement in coordinating care with caregivers and case management. Daya Maurice PA-C Jul 12, 2017 10:01 am
--- NOTE | 2017-07-12 12:13 | PD.CONS ---
Consult Service Palliative Care . Consult Requested By Daya MAR . Primary Care Physician Bryanna OBRIEN . Reason for Consultation a. To assist with evaluation and management of symptoms including: pain, debility, agitated b. To assist medical decision maker(s) with: better understanding of current medical conditions; weighing benefits/burdens of medical treatment options; making medical treatment decisions. . HPI History of Present Illness Ms. Araujo is an 86-year-old female with HTN, hyperlipidemia, dementia, PVD, DVT, CAD, steal syndrome, hypothyroidism, history of GI bleed and IBS. Patient had extensive pelvic vascular procedures performed by Dr. Talamantes in April,. She presented to [facility] ED on 07/11/2017 for evaluation of melena. Patient reportedly had several dark, loose bowel movements throughout the day prior to coming to the ED. Patient is a poor historian but was able to answer simple questions related to her symptoms. Additional diagnostic data while in the ED: * Vital signs: Pulse 67, respirations 16, BP 115/56, oxygen saturation 95% on room air and temperature of 97.4 * WBC: 9.0, hemoglobin 8.9, hematocrit 26.9, platelets 435, neutrophils 69.9% * Sodium: 130, potassium 4.2, chloride 99, carbon dioxide 21.0, glucose 95, calcium 9.0 * BUN: 19, creatinine 0.96, GFR 55 * Total bilirubin: 0.3, AST 16, ALT 15, alkaline phosphatase 102 * Total protein: 6.9, albumin 3.1 * PT: 10.4, INR 1.0, APTT 24.7 * Urinalysis with moderate occult blood, moderate leukocyte esterase, urine RBC of 14, occasional bacteria and few mucous. Urine culture not indicated Patient became agitated while in the ED, requiring Lorazepam. Hemoccult positive stool. Per review of patient's medical records, she is on ASA and Plavix. Her hemoglobin is at baseline. She was admitted for further evaluation and treatment of melena. Gastroenterology was consulted. CT abdomen/pelvis in April, showed severe colonic diverticulosis. It also revealed a stable 3.3 cm AAA. The patient reportedly has had multiple colonoscopies; she was unsure if she had an EGD. Tenttively plan for EGD this morning, but the patient is now refusing. Palliative Care was consulted to assist with symptom management and to discuss with the family the benefits and burdens of her current illnesses and the options regarding future care. . Function/Cognitive Trajectory Per daughter patient had a significant decline since 2016 s/p endarterectomy. She subsequently underwent rehabilitation to the point where she was independent again, and living alone in [place]. Patient later moved to [place] to be closer to her children so they could assist her. Patient has now been hospitalized 3 times since 04/02/2018; she received [facility] at [facility] and was eventually transferred to a senior living facility. She had a fall in 06/2017. Patient continues to require some assistance with ADLs; she has ongoing intermittent confusion with periods of agitation. . Review of Systems ROS Limitations: Altered Mental Status, Uncooperative, Poor Historian Constitutional: COMPLAINS OF: Fatigue, Generalized weakness, DENIES: Pain Gastrointestinal: COMPLAINS OF: Black stools (Upon presentation to the ED), DENIES: Abdominal pain, Constipation, Diarrhea, Nausea, Vomiting, Vomiting blood Hematologic/Lymphatics: COMPLAINS OF: Bruising, History of transfusions ( Transfused with 2 units of leukocyte reduced RBCs on 07/11/2017) Neurologic: COMPLAINS OF: Poor Balance Psychiatric: COMPLAINS OF: Confusion, Agitation Past Family Social History Coded Allergies: Penicillins (Verified Allergy, Unknown, 04/29/17) Sulfa (Sulfonamide Antibiotics) (Verified Allergy, Unknown, 04/29/17) codeine (Verified Allergy, Unknown, 04/29/17) iodine (Verified Allergy, Unknown, 04/29/17) lidocaine (Verified Allergy, Unknown, 04/29/17) sulfamethoxazole (Verified Allergy, Unknown, 04/29/17) triamcinolone (Verified Allergy, Unknown, 04/29/17) trimethoprim (Verified Allergy, Unknown, 04/29/17) milk (Verified Adverse Reaction, Unknown, Diarrhea, 04/29/17) Per patient, she is lactose intolerant and ingesting milk products causes diarrhea Past Medical History Hypertension Hyperlipidemia Dementia PVD DVT CAD Steal syndrome Hypothyroidism IBS H/O GI bleed . 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 Reported Medications Tramadol (Tramadol HCl) 50 Mg Tab 25 Mg PO Q8HR PRN Synthroid (Levothyroxine Sodium) 75 Mcg Tab 75 Mcg PO DAILY Plavix (Clopidogrel Bisulfate) 75 Mg Tab 75 Mg PO DAILY Lomotil (Diphenoxylate-Atropine) 2.5-0.025 Mg Tab 1 Tab PO BID PRN Atenolol-Chlorthalidone 100-25 Mg Tab 1 Tab PO DAILY Altace (Ramipril) 10 Mg Cap 10 Mg PO DAILY Aspirin 81 Mg Chew 81 Mg CHEW DAILY Combigan Opth Drops (Brimonidine-Timolol Opth Drops) 0.2-0.5% Soln 1 Drop EACH EYE Q12HR Lumigan Opth Drops (Bimatoprost) 0.01% Soln 1 Drop EACH EYE HS . Current Medications Medications (Trade) Dose Ordered Sig/Jett Route Start Time Stop Time Status Last Admin (Protonix Inj) 40 mg Q12H IV PUSH 07/11/17 21:00 07/11/17 23:30 Sodium Chloride 1,000 ml @ 100 mls/hr Q10H IV 07/11/17 03:00 07/11/17 23:30 (NS Flush) 2 ml UNSCH PRN IV FLUSH 07/11/17 02:30 (NS Flush) 2 ml BID IV FLUSH 07/11/17 09:00 07/11/17 23:30 (Zofran Inj) 4 mg Q6H PRN IVP 07/11/17 02:30 (Tylenol) 650 mg Q6H PRN PO 07/11/17 02:30 07/11/17 11:38 (Ryann-Colace) 1 tab BID PO 07/11/17 09:00 07/12/17 09:22 (Milk Of Magnesia Liq) 30 ml Q12H PRN PO 07/11/17 02:30 (Senokot) 17.2 mg Q12H PRN PO 07/11/17 02:30 (Dulcolax Supp) 10 mg DAILY PRN RECTAL 07/11/17 02:30 (Lactulose Liq) 30 ml DAILY PRN PO 07/11/17 02:30 (Synthroid) 75 mcg DAILY@0600 PO 07/11/17 06:00 07/11/17 06:27 (Pravachol) 40 mg HS PO 07/11/17 21:00 07/11/17 23:30 (Altace) 10 mg DAILY PO 07/11/17 09:00 07/12/17 09:22 (Xalatan 0.005% Opth Soldennis) 1 drop HS EACH EYE 07/11/17 21:00 Patient Own Medication PT OWN MED: (Brimonidine-Timolol Optcindy Bliss.. Q12HR EACH EYE 07/11/17 09:00 07/12/17 09:00 Family History Both parents has diabetes. Patient's father had a stroke. . Substance Use Tobacco: 65+ year smoking history, quit approximately 1 year ago Alcohol: No EtOH consumption Prescription med abuse: None known Illicits: None known . Psychosocial History Patient is originally from [place]. She is a . Patient has 3 adult daughters who together act as her healthcare surrogate decision maker. . Spiritual/Cultural Factors Confucianism wayne . Living Will: Copy in medical record Health Care Surrogate: Copy in medical record Date completed: Completed 04/28/2017 . Health Care Surrogate(s): Leslie Nobles, Mavis Courtney and Nisreen Ayala are designated as the healthcare surrogate decision makers. . Documented care wishes: Patient has a standard living will completed 04/28/2017 that declares if the patient were to have a terminal condition, an end-stage condition or be in a persistent vegetative state, she directs that life prolonging procedures to be withheld or withdrawn 1 application of such procedures would serve only to prolong artificially the process of dying. She asked that instead she be allowed to naturally with only the administration of medication or the performance of medical procedures deemed necessary to provide her with comfort care or to alleviate pain. . Today's verbally stated goals: Patient is agitated on exam crying, "no one will listen to me." She states she wishes to return to her home; she says that she is tired and she wants to rest. She is refusing further diagnostic procedures or aggressive interventions. . Family/friends goals: Two daughters are present at the bedside. They are appropriately tearful but are respecting the patient's wishes at this time. . Ethical and Legal Issues No known ethical or legal issues at this time. . Physical Exam Vital Signs Date Time Temp Pulse Resp B/P (MAP) Pulse Ox O2 Delivery O2 Flow Rate FiO2 07/12/17 08:22 97.8 73 18 162/72 (102) 93 07/11/17 23:57 98.3 77 18 150/66 (94) 97 07/11/17 21:48 98.5 72 16 144/64 96 07/11/17 16:00 98.5 69 18 100/56 (71) 94 07/11/17 15:49 81 18 122/75 (91) 95 07/11/17 12:00 98.0 76 18 144/63 (90) 92 . Exam CONSTITUTIONAL/GENERAL: This is an adequately nourished patient, in no apparent distress. TUBES/LINES/DRAINS: SKIN: No jaundice, rashes, or lesions. Ecchymoses on upper extremities. Skin temperature appropriate. Not diaphoretic. HEAD: Atraumatic. Normocephalic. EYES: Pupils equal and round and reactive. No scleral icterus. No injection or drainage. Fundi not examined. ENT: Hearing grossly normal. Nose without bleeding or purulent drainage. NECK: Trachea midline. CARDIOVASCULAR: Regular rate and rhythm without murmurs, gallops, or rubs. No JVD. Peripheral pulses symmetric. RESPIRATORY/CHEST: Symmetric, unlabored respirations. Clear to auscultation. Breath sounds diminished bilaterally. No wheezes, rales, or rhonchi. GASTROINTESTINAL: Abdomen soft, nondistended. Slightly tender to palpation. Bowel sounds present. GENITOURINARY: Without palpable bladder distension. MUSCULOSKELETAL: Extremities without clubbing, cyanosis, or edema.1+ pedal edema LYMPHATICS: No palpable cervical or supraclavicular adenopathy. NEUROLOGICAL: Awake and alert. Somewhat agitated. Answers most questions appropriately; able to follow commands. Moves all extremities. PSYCHIATRIC: Intermittently agitated. No apparent hallucinations or other psychotic thought process. . Diagnostic Tests Laboratory Laboratory Tests Test 07/11/17 00:30 07/11/17 07:30 07/11/17 10:30 07/11/17 12:15 White Blood Count 9.0 TH/MM3 (4.0-11.0) Red Blood Count 3.19 MIL/MM3 (4.00-5.30) Hemoglobin 8.9 GM/DL (11.6-15.3) 7.4 GM/DL (11.6-15.3) Hematocrit 26.9 % (35.0-46.0) 22.4 % (35.0-46.0) Mean Corpuscular Volume 84.4 FL (80.0-100.0) Mean Corpuscular Hemoglobin 27.9 PG (27.0-34.0) Mean Corpuscular Hemoglobin Concent 33.0 % (32.0-36.0) Red Cell Distribution Width 15.4 % (11.6-17.2) Platelet Count 435 TH/MM3 (150-450) Mean Platelet Volume 7.1 FL (7.0-11.0) Neutrophils (%) (Auto) 69.9 % (16.0-70.0) Lymphocytes (%) (Auto) 21.5 % (9.0-44.0) Monocytes (%) (Auto) 6.5 % (0.0-8.0) Eosinophils (%) (Auto) 1.4 % (0.0-4.0) Basophils (%) (Auto) 0.7 % (0.0-2.0) Neutrophils # (Auto) 6.3 TH/MM3 (1.8-7.7) Lymphocytes # (Auto) 1.9 TH/MM3 (1.0-4.8) Monocytes # (Auto) 0.6 TH/MM3 (0-0.9) Eosinophils # (Auto) 0.1 TH/MM3 (0-0.4) Basophils # (Auto) 0.1 TH/MM3 (0-0.2) CBC Comment DIFF FINAL Differential Comment Prothrombin Time 10.4 SEC (9.8-11.6) Prothromb Time International Ratio 1.0 RATIO Activated Partial Thromboplast Time 24.7 SEC (24.3-30.1) Blood Urea Nitrogen 19 MG/DL (7-18) 14 MG/DL (7-18) Creatinine 0.96 MG/DL (0.50-1.00) 0.72 MG/DL (0.50-1.00) Random Glucose 95 MG/DL (74-106) 91 MG/DL (74-106) Total Protein 6.9 GM/DL (6.4-8.2) Albumin 3.1 GM/DL (3.4-5.0) Calcium Level 9.0 MG/DL (8.5-10.1) 8.5 MG/DL (8.5-10.1) Alkaline Phosphatase 102 U/L (45-117) Aspartate Amino Transf (AST/SGOT) 16 U/L (15-37) Alanine Aminotransferase (ALT/SGPT) 15 U/L (10-53) Total Bilirubin 0.3 MG/DL (0.2-1.0) Sodium Level 130 MEQ/L (136-145) 132 MEQ/L (136-145) Potassium Level 4.2 MEQ/L (3.5-5.1) 3.4 MEQ/L (3.5-5.1) Chloride Level 99 MEQ/L (98-107) 100 MEQ/L (98-107) Carbon Dioxide Level 21.0 MEQ/L (21.0-32.0) 20.2 MEQ/L (21.0-32.0) Anion Gap 10 MEQ/L (5-15) 12 MEQ/L (5-15) Estimat Glomerular Filtration Rate 55 ML/MIN (>89) 76 ML/MIN (>89) Urine Color LIGHT-YELLOW (YELLW/STRAW) Urine Turbidity CLEAR (CLEAR) Urine pH 5.5 (5.0-8.5) Urine Specific [place] 1.008 (1.002-1.035) Urine Protein NEG mg/dL (NEG-TRACE) Urine Glucose (UA) NEG mg/dL (NEG) Urine Ketones NEG mg/dL (NEG) Urine Occult Blood MOD (NEG) Urine Nitrite NEG (NEG) Urine Bilirubin NEG (NEG) Urine Urobilinogen LESS THAN 2.0 MG/DL (LESS Urine Leukocyte Esterase MOD (NEG) Urine RBC 14 /hpf (0-3) Urine WBC 5 /hpf (0-5) Urine Squamous Epithelial Cells 2 /hpf (0-5) Urine Bacteria OCC /hpf (NONE) Urine Mucus FEW /lpf (OCC) Microscopic Urinalysis Comment CULT NOT INDICATED Test 07/12/17 03:39 07/12/17 10:48 White Blood Count 8.8 TH/MM3 (4.0-11.0) Red Blood Count 4.03 MIL/MM3 (4.00-5.30) Hemoglobin 11.2 GM/DL (11.6-15.3) 12.1 GM/DL (11.6-15.3) Hematocrit 33.2 % (35.0-46.0) Mean Corpuscular Volume 82.4 FL (80.0-100.0) Mean Corpuscular Hemoglobin 27.9 PG (27.0-34.0) Mean Corpuscular Hemoglobin Concent 33.8 % (32.0-36.0) Red Cell Distribution Width 16.8 % (11.6-17.2) Platelet Count 323 TH/MM3 (150-450) Mean Platelet Volume 7.3 FL (7.0-11.0) Neutrophils (%) (Auto) 77.0 % (16.0-70.0) Lymphocytes (%) (Auto) 14.4 % (9.0-44.0) Monocytes (%) (Auto) 6.6 % (0.0-8.0) Eosinophils (%) (Auto) 1.5 % (0.0-4.0) Basophils (%) (Auto) 0.5 % (0.0-2.0) Neutrophils # (Auto) 6.8 TH/MM3 (1.8-7.7) Lymphocytes # (Auto) 1.3 TH/MM3 (1.0-4.8) Monocytes # (Auto) 0.6 TH/MM3 (0-0.9) Eosinophils # (Auto) 0.1 TH/MM3 (0-0.4) Basophils # (Auto) 0.0 TH/MM3 (0-0.2) CBC Comment DIFF FINAL Differential Comment Blood Urea Nitrogen 11 MG/DL (7-18) Creatinine 0.66 MG/DL (0.50-1.00) Random Glucose 94 MG/DL (74-106) Total Protein 6.2 GM/DL (6.4-8.2) Albumin 2.6 GM/DL (3.4-5.0) Calcium Level 8.6 MG/DL (8.5-10.1) Alkaline Phosphatase 87 U/L (45-117) Aspartate Amino Transf (AST/SGOT) 13 U/L (15-37) Alanine Aminotransferase (ALT/SGPT) 11 U/L (10-53) Total Bilirubin 0.7 MG/DL (0.2-1.0) Sodium Level 131 MEQ/L (136-145) Potassium Level 3.7 MEQ/L (3.5-5.1) Chloride Level 99 MEQ/L (98-107) Carbon Dioxide Level 18.5 MEQ/L (21.0-32.0) Anion Gap 14 MEQ/L (5-15) Estimat Glomerular Filtration Rate 85 ML/MIN (>89) . Result Diagram: 07/12/17 1048 07/12/17 0339 Patient/Family Conference Present at Family Conference: Spoke with patient and 2/3 daughters at bedside. . Family Conference Location: Bedside Issues Discussed: * Palliative care role, purpose, approach * Additional medical, psychosocial, and spiritual history * Patients general health, functional status, and cognitive changes in the months leading up to the current hospitalization * Patient/family understanding of the current medical problems * Patient/family understanding of prognosis * Patients goals of care as best understood from advance directives and/or conversations and/or values * Current medical treatment options and benefits/burdens of those options * Likely scenarios comparing ongoing aggressive care with a transition to comfort measures only * Questions answered to the best of my ability * Palliative care contact information provided . Assessment and Plan Disease Oriented Problem List: (1) Steal syndrome of upper extremity (2) PVD (peripheral vascular disease) (3) HTN (hypertension) (4) Hypothyroid (5) Hypercholesteremia (6) Aortic stenosis (7) Melena (8) IBS (irritable bowel syndrome) (9) Positive occult stool blood test Symptom Scale: (1) Debility 0-10 Scale: Unable to quantify (2) Agitation 0-10 Scale: Unable to quantify (3) Pain 0-10 Scale: Unable to quantify Pertinent Non-Medical Issues Psychosocial: Patient is originally from [place]. She is . She has 3 adult daughters. Spiritual: Confucianism wayne Legal: Leslie Giuliano, Mavis Courtney and Nisreen Ayala are designated as the healthcare surrogate decision makers. Ethical issues impacting care: No known ethical issues impacting care at this time. . Important Contacts Leslie Nobles, daughter: [phone] Mavis Courtney, daughter: [phone] Nisreen Krishnanjg: [phone] . Prognosis 86 year old with multiple comorbidities. Prognosis is guarded. It appears pt would survive current hospitalization, but pt is at risk of further infection, reinfection, and intolerance of rehab. . Code Status: Full Code Plan * FULL CODE * Healthcare surrogate designation form was completed in April,. Patient 's 3 daughters (Leslie Balderramacken, Mavis Courtney and Nisreen Baljoseph) are designated as mutual healthcare surrogate decision makers. * Patient is agitated on exam crying, "no one will listen to me." She states she wishes to return to her home; she says that she is tired and she wants to rest. She is refusing further diagnostic procedures or aggressive interventions. Two daughters are present at the bedside. They are appropriately tearful but are respecting the patient's wishes at this time. * Discussed patient with nurse outreach case manager (Delia) and bedside nurse (Carmen). * [facility] consult pending. * SYMPTOM MANAGEMENT: = Debility: Patient has experienced an acute decline with multiple hospitalization since 04/02/18 and a fall in 06/2017. Consult pending. = Agitation: Multi-factorial. Contributing factors could include hospital related stressors (lack of privacy, lack of control), psychological stressors, unmet spiritual needs, dementia, anxiety, constipation. Consider non- pharmacological therapy as initial intervention such as empathetic listening, quiet environment, reassuring conversation, pet therapy, eliminating distractions/noises. * Palliative contact information was provided to the patient/family Thank you for the opportunity to participate in the care of Ms. Araujo. . Attestation To help prompt me to consider important information that might be impacting today's encounter and assessment, information from prior notes written by myself or my colleagues may have been "brought forward" into today's note. My signature on this note, however, is an attestation that I personally performed the exam, history, and/or decision-making noted today, and, unless otherwise indicated, the interactions with patient, family, and staff as well as the review of records all occurred today. I also attest that the listed assessment and stated plan reflect my best clinical judgment today based on the combination of historical information, prior notes, and today's exam/ interactions. When time spent is documented, it refers only to time spent today by the signer, or if indicated, combined time spent today by collaborating physician/nurse practitioner. . Amie Lloyd Jul 12, 2017 12:13
[2017-07-12 12:45] VITALS: BP 185/74; PULSE 73; RESP 19; O2SAT 92
--- NOTE | 2017-07-12 14:41 | HHI.FF ---
Face to Face Verification Diagnosis: (1) GI bleed (2) Positive occult stool blood test (3) HTN (hypertension) (4) Impaired mobility and activities of daily living (5) Debility (6) Hypothyroid Physical Therapy Order: Evaluate and Treat, Improve ambulation, Strength and gait training Home Health Nursing Order: Medical education Signs/symptoms of disease process Nursing assessment with vital signs I have seen patient Allegra Araujo on 07/12/17. My clinical findings support the need for the requested home health care services because: Ltd mobility - disease progression Deconditioned w/ increased weakness Med compliance is questionable Limited ability to care for self Impaired cognition/judgement I certify that my clinical findings support that this patient is homebound because: Post-op weakness Impaired cognitive ability/safety Unsteady gait/balance Unsafe to leave home unassisted Unable to use public transportation Daya Maurice PA-C Jul 12, 2017 14:41
== END 2017-07-12 17:00 | DRG 379 ==
LOC: NEPE 22:19 → NEDA 07-11 02:19 → OBSVTOIN 07-11 03:36 → NEPFCDU 07-11 03:57
PROVIDERS: ADMIT Hospitalist; ATTEND Hospitalist
PROC: 30233N1 Transfusion of Nonautologous Red Blood Cells into Peripheral Vein, Percutaneous Approach (ICD-10-PCS; principal; 2017-07-11)
DX: K92.2 Gastrointestinal hemorrhage, unspecified (principal); K92.1 Melena; F03.90 Unspecified dementia, unspecified severity, without behavioral disturbance, psychotic disturbance, mood disturbance, and anxiety; D64.9 Anemia, unspecified; I10 Essential (primary) hypertension; E03.9 Hypothyroidism, unspecified; I25.10 Atherosclerotic heart disease of native coronary artery without angina pectoris; H91.90 Unspecified hearing loss, unspecified ear; K21.9 Gastro-esophageal reflux disease without esophagitis; E07.9 Disorder of thyroid, unspecified; K58.9 Irritable bowel syndrome, unspecified; K57.30 Diverticulosis of large intestine without perforation or abscess without bleeding; I71.4 Abdominal aortic aneurysm, without rupture; R45.1 Restlessness and agitation; Z51.5 Encounter for palliative care; E78.5 Hyperlipidemia, unspecified; I73.9 Peripheral vascular disease, unspecified; I35.0 Nonrheumatic aortic (valve) stenosis; Z79.02 Long term (current) use of antithrombotics/antiplatelets; Z79.82 Long term (current) use of aspirin; Z86.73 Personal history of transient ischemic attack (TIA), and cerebral infarction without residual deficits; Z87.891 Personal history of nicotine dependence; Z95.1 Presence of aortocoronary bypass graft; Z86.718 Personal history of other venous thrombosis and embolism
CPT/HCPCS: 36430; 80048; 80053; 81001; 85014; 85018; 85025; 85610; 85730; 86850; 86900; 86901; 86920; 96374; C9113; J1940; J2060; J7030; J7050; P9016